=== PATIENT | male | born 1945 | race Caucasian/White ===

== ENCOUNTER 2017-10-30 18:13 | Emergency (ER) | payer MEDICARE ==
[2017-10-30 18:52] VITALS: BP 154/72; PULSE 81; RESP 18; TEMP 98.6
--- NOTE | 2017-10-30 19:41 | XR ---
EXAMINATION TYPE: XR Hip LT and AP Pelvis DATE OF EXAM: 10/30/2017 COMPARISON: NONE HISTORY: Left hip pain TECHNIQUE: A single AP view of the pelvis is obtained. Two views of the left hip are obtained. FINDINGS: The pelvic ring is intact. Proximal left femur and hip joint appear intact. There is mild acetabular spurring. Sacroiliac joints are intact. IMPRESSION: Mild osteoarthritis. No fracture.
--- NOTE | 2017-10-30 20:02 | ED ---
Fall HPI - General Chief Complaint: Fall Stated Complaint: fall, lt sided pain Time Seen by Provider: 10/30/17 19:47 Source: patient Mode of arrival: ambulatory - History of Present Illness Initial Comments: 72-year-old male patient presents to the emergency department today for complaints of low back pain that radiates to both hips. Patient states that the pain is worse on the left side. 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 Patient states that since then he has been having pain to the low back. He is rating the pain at a 5 out of 10 on a pain scale. He denies any radiation of the pain to his legs. Denies any numbness, tingling, saddle anesthesia, or loss of bowel or bladder control. States that he does have history of spinal stenosis and occasional low back pain but this is different. He denies hitting his head or losing consciousness during the fall. Denies any other injuries. Patient denies any headache, neck pain, chest pain, shortness of breath, dizziness, weakness, abdominal pain, nausea, vomiting, or difficulties with bowel movements or urination. - Related Data Home Medications Medication Instructions Recorded Confirmed Aspirin EC [Ecotrin] 81 mg PO DAILY 04/09/14 01/05/16 Atorvastatin [Lipitor] 40 mg PO HS 04/09/14 01/05/16 Clopidogrel Bisulfate [Plavix] 75 mg PO DAILY 04/09/14 01/05/16 Famotidine [Pepcid] 20 mg PO BID 04/09/14 01/05/16 Insulin Aspart [NovoLOG] 18 unit SQ DIRECTED 04/09/14 01/05/16 Losartan [Cozaar] 50 mg PO DAILY 04/09/14 01/05/16 Metoprolol Tartrate [Lopressor] 25 mg PO DAILY 04/09/14 01/05/16 Multivitamin/Iron/Folic Acid 1 each PO DAILY 04/09/14 01/05/16 [Centrum Complete Multivit Tab] Nitroglycerin Sl Tabs [Nitrostat] 0.4 mg SUBLINGUAL Q5M PRN 04/09/14 01/05/16 OXcarbazepine [Trileptal] 300 mg PO TID 04/09/14 01/05/16 Tamsulosin HCl [Flomax] 0.4 mg PO DAILY 04/09/14 01/05/16 Insulin Aspart [NovoLOG Flexpen] 26 unit SQ DIRECTED 09/22/15 01/05/16 Insulin Detemir [Levemir Flextouch] 22 unit SQ HS 09/22/15 01/05/16 Allergies Allergy/AdvReac Type Severity Reaction Status Date / Time No Known Allergies Allergy Verified 10/30/17 18:52 Review of Systems ROS Statement: Those systems with pertinent positive or pertinent negative responses have been documented in the HPI. ROS Other: All systems not noted in ROS Statement are negative. Past Medical History Past Medical History: Diabetes Mellitus, GERD/Reflux, Hyperlipidemia, Hypertension, Myocardial Infarction ([place]), Prostate Disorder, Seizure Disorder History of Any Multi-Drug Resistant Organisms: None Reported Past Surgical History: Heart Catheterization With Stent, Orthopedic Surgery Additional Past Surgical History / Comment(s): bilateral knee replacement, left ankle Past Psychological History: No Psychological Hx Reported Smoking Status: Light tobacco smoker Past Alcohol Use History: Rare Past Drug Use History: None Reported General Exam Limitations: no limitations General appearance: alert, in no apparent distress, other (This is a well- developed, well-nourished elderly male patient in no acute distress. Vital signs upon presentation are temperature 98.6F, pulse 81, respirations 18, blood pressure 154/72, pulse ox 97% on room air.) Eye exam: Present: normal appearance, PERRL, EOMI. Absent: scleral icterus, conjunctival injection, periorbital swelling ENT exam: Present: normal exam, normal oropharynx, mucous membranes moist Neck exam: Present: normal inspection, full ROM, other (Nontender, no step-off, no deformity to firm midline palpation of the posterior cervical spine. Full range of motion without pain or limitation.). Absent: tenderness, meningismus, lymphadenopathy Respiratory exam: Present: normal lung sounds bilaterally. Absent: respiratory distress, wheezes, rales, rhonchi, stridor Cardiovascular Exam: Present: regular rate, normal rhythm, normal heart sounds. Absent: systolic murmur, diastolic murmur, rubs, gallop, clicks GI/Abdominal exam: Present: soft, normal bowel sounds. Absent: distended, tenderness, guarding, rebound, rigid Extremities exam: Present: normal inspection, full ROM, normal capillary refill , other (Pedal and posttibial pulses are 2+ and equal bilaterally. Skin to the lower extremities is pink, warm, and dry. Cap refills less than 3 seconds.). Absent: tenderness, pedal edema, joint swelling, calf tenderness Back exam: Present: normal inspection, vertebral tenderness (Lumbar vertebral tenderness. Left lumbar paraspinal tenderness.) Neurological exam: Present: alert, oriented X3, CN II-XII intact Expanded Motor strength exam: RUE: 5, LUE: 5, RLE: 5, LLE: 5 Psychiatric exam: Present: normal affect, normal mood Skin exam: Present: warm, dry, intact, normal color. Absent: rash Course Vital Signs 10/30/17 18:50 Temperature 98.6 F Pulse Rate 81 Respiratory 18 Rate Blood Pressure 154/72 O2 Sat by Pulse 97 Oximetry Medical Decision Making - Medical Decision Making 72-year-old male patient presented to the emergency department today for complaints of left lower back pain after a fall earlier today. Physical examination did reveal some left lumbar paraspinal tenderness. Patient had good strength to his lower extremities. Denied any numbness, tingling, saddle anesthesia, or loss of bowel or bladder control. X-ray of the left hip and pelvis were negative. X-ray of the lumbosacral spine was negative. I did discuss findings and results with the patient. We did discuss low back strain as a cause for his symptoms. Return parameters were discussed in detail. He is instructed follow up with his primary care physician for recheck in 1-2 days. I did offer prescription for pain medication, patient declined stating he would take Tylenol at home. He verbalizes understanding and agrees with the plan. - Radiology Data Radiology results: report reviewed, image reviewed Single view of the pelvis and 2 views of left hip are obtained. The pelvic ring is intact. Proximal left femur and hip joint appear intact. There is mild acetabular sprain. Sacroiliac joints are intact. Impression by Dr. Lynn shows mild osteoarthritis. No fracture. 5 views of the lumbosacral spine are obtained. Lumbar vertebrae have fairly normal alignment. There is narrowing of disc spaces throughout the lumbar spine with spurring of the endplates. There is no compression fracture. Posterior elements are intact. Abdominal aorta is atheromatous. Sacroiliac joints are intact. Impression by Dr. Lynn shows multilevel spondylotic changes. No fracture seen. Disposition Clinical Impression: Low back strain Disposition: HOME SELF-CARE Condition: Good Instructions: Low Back Strain (ED), Fall Prevention (ED) Additional Instructions: Apply ice for the first 24 hours then switch to warm moist heat. Perform gentle back stretching exercises. Take Tylenol for pain control. Follow-up with your primary care physician for recheck in 1-2 days. Return here immediately for any new, worsening, or concerning symptoms. Is patient prescribed a controlled substance at d/c from ED?: No Referrals: Tom Ryan MD [Primary Care Provider] - 1-2 days Time of Disposition: 20:36
--- NOTE | 2017-10-30 20:27 | XR ---
EXAMINATION TYPE: XR lumbosacral spine min 4V DATE OF EXAM: 10/30/2017 COMPARISON: NONE HISTORY: Pain after falling TECHNIQUE: 5 views FINDINGS: Lumbar vertebra have fairly normal alignment. There is narrowing of disc spaces throughout the lumbar spine with spurring of the endplates. There is no compression fracture. Posterior elements are intact. Abdominal aorta is atheromatous. Sacroiliac joints are intact. IMPRESSION: Multilevel spondylotic changes. No fracture seen.
== END 2017-10-30 20:42 | disposition home or self-care (01) ==
LOC: EC 18:13
DX: S39.012A Strain of muscle, fascia and tendon of lower back, initial encounter (principal); E11.9 Type 2 diabetes mellitus without complications; K21.9 Gastro-esophageal reflux disease without esophagitis; E78.5 Hyperlipidemia, unspecified; I10 Essential (primary) hypertension; I25.2 Old myocardial infarction; G40.909 Epilepsy, unspecified, not intractable, without status epilepticus; N42.9 Disorder of prostate, unspecified; F17.200 Nicotine dependence, unspecified, uncomplicated; Z79.4 Long term (current) use of insulin; Z79.82 Long term (current) use of aspirin; Z79.01 Long term (current) use of anticoagulants; Z95.5 Presence of coronary angioplasty implant and graft; W01.0XXA Fall on same level from slipping, tripping and stumbling without subsequent striking against object, initial encounter; Y92.096 Garden or yard of other non-institutional residence as the place of occurrence of the external cause
CPT/HCPCS: 72110; 73502; 99283

== ENCOUNTER → 2017-12-12 | Outpatient (CLI) | payer MEDICARE | END | disposition home or self-care (01) | LOC: LABWHC1 11:23 | PROVIDERS: ATTEND Psychiatry & Neurology Neurology | DX: G40.909 Epilepsy, unspecified, not intractable, without status epilepticus (principal) | CPT/HCPCS: 36415; 80177 ==

== ENCOUNTER → 2018-01-01 | Outpatient (CLI) | payer MEDICARE | END | disposition home or self-care (01) | LOC: LABWHC1 12:09 | PROVIDERS: ATTEND Psychiatry & Neurology Neurology | DX: Z01.812 Encounter for preprocedural laboratory examination (principal); G40.909 Epilepsy, unspecified, not intractable, without status epilepticus | CPT/HCPCS: 36415; 82565 ==

== ENCOUNTER → 2018-04-27 | Outpatient (CLI) | payer MEDICARE ==
[2018-04-27 15:26] LABS: HCT 41.6 % (39.0-53.0); HGB 13.7 gm/dL (13.0-17.5); MCH 32.2 pg (25.0-35.0); MCV 97.6 fL (80.0-100.0); Mean Platelet Volume 7.9; Platelet Count 175 k/uL (150-450); RBC 4.27 m/uL (4.30-5.90)
[2018-04-27 15:43] LABS: Potassium 4.5 mmol/L (3.5-5.1)
== END | disposition home or self-care (01) ==
LOC: LABPAT 14:47
PROVIDERS: ATTEND Internal Medicine Interventional Cardiology
DX: Z01.812 Encounter for preprocedural laboratory examination (principal); I10 Essential (primary) hypertension; I25.5 Ischemic cardiomyopathy; E78.2 Mixed hyperlipidemia
CPT/HCPCS: 36415; 80051; 82565; 84520; 85027

== ENCOUNTER → 2018-05-04 | Day surgery (SDC) | payer MEDICARE ==
[2018-04-30 11:10] VITALS: BMI 38.7
[~2018-05-04] MED LIST: ALPRAZolam 0.25 MG TAB PO PRN; ALPRAZolam 0.5 MG TAB PO PRN; ASPIRIN 325 MG TAB PO STA; ATORVASTATIN 80 MG TAB PO STA; HEPARIN SODIUM 1,000 UN/ML (10ML VL) IV ONE; IOPAMIDOL-370 100ML BTL INJ ONE; LIDOCAINE 1% INJ 10MG/ML (20 ML MDV) SQ ONE; MIDAZOLAM 2 MG/2 ML VIAL IV ONE; NITROGLYCERIN 1000MCG/10ML SYRINGE INTRACORON ONE; NITROGLYCERIN SL TABS 0.4 MG TAB SUBLINGUAL PRN; SODIUM CHLORIDE 0.9% 1,000 ML IV SCH; SODIUM CHLORIDE 0.9% 1,000 ML in EMPTY BAG 1 BAG IV ONE; VERAPAMIL SYRINGE (5 MG/10 ML) INTRAARTER ONE
[2018-05-04 06:41] VITALS: TEMP 98.3
[2018-05-04 07:03] LABS: Glucose,Whole Blood 189 mg/dL (75-99)
--- NOTE | 2018-05-04 09:30 | CC ---
CARDIAC CATHETERIZATION REPORT DATE OF SERVICE: 05/04/2018 PROCEDURE: Left heart catheterization and coronary angiography. PERFORMED BY: Dr. Ras Naqvi. Moderate conscious sedation time was 23 minutes. Patient was administered Versed. His oxygen saturation, hemodynamic, and EKG were monitored closely. CLINICAL INFORMATION: Mr. Jakob Jang is a 73-year-old gentleman who is obese, has hypertension, type 2 diabetes with chronic kidney disease, and hyperlipidemia. In May of 2013, he suffered from an acute inferior [place] underwent, underwent stenting of RCA and then I performed stenting of LAD and a PTCA of a septal branch, which was almost parallel to the LAD. He also had a circumflex intervention performed in the same setting when I performed the LAD intervention. This was all in May 2013. Because of abnormal stress test and symptoms of increasing shortness of breath and evidence of ischemia in the LAD distribution, I recommended coronary angiography after due discussion regarding risks, benefits, options and concern with worsening renal function. Patient was very well hydrated orally and brought in for the procedure. PROCEDURE NOTE: Under local anesthesia and strict aseptic precautions, a 6-Divehi introducer was placed in the right radial artery. Using a standard Tisha catheters I performed coronary angiography and using the same right Tisha catheter, I checked LV pressures but did not perform an LV-gram. About 50 mL of contrast was administered and patient was hydrated before the procedure. CARDIAC CATHETERIZATION FINDINGS: The left ventricular end-diastolic pressure was about 14 mmHg without any gradient across aortic valve. CORONARY ANGIOGRAPHY FINDINGS: RIGHT CORONARY ARTERY: This is a dominant vessel that was stented in the proximal portion, now is widely patent in the midportion there is about a 35% to 40% narrowing and then the caliber improves and distally bifurcates into PDA and PLV, both of which have minor irregularities but no significant disease. The dominant RCA is therefore widely patent at the site of previous stenting. LEFT MAIN CORONARY ARTERY: Short patent vessel free of significant disease. Bifurcates into LAD and circumflex. LEFT ANTERIOR DESCENDING CORONARY ARTERY: This vessel was stented in the midportion. LAD gives off a septal and then continues as the LAD. The septal also has another branch that follows the LAD in a parallel manner. The actual LAD was stented and within the stented segment, there is an in-stent restenosis of 70%-80%as well as the proximal portion of the stent where the septal comes off, also has an area of 70% narrowing. Beyond it, in the distal 1/4 there is diffuse disease in the LAD. This is a small caliber, moderate distribution vessel. The second diagonal that was dilated has now restenoses and also this is actually looks more like a septal branch in the secondary branch that follows the LAD in the parallel direction also has a restenosis and this was also dilated. All of the areas are small branches that ranged from 2.0- 2.5 at best. The multiple branches of LAD have developed restenosis. Specifically, within the stented segment, There are two areas of narrowing the LAD. LEFT POSTERIOR CIRCUMFLEX CORONARY ARTERY: Technically this is a nondominant vessel which is free of significant disease. At the site of previous stenting, the vessel is widely patent, it divides into 3 branches, all of which have minor irregularities. No significant disease in the circumflex system is noted. FINAL IMPRESSION: This patient has restenoses within the LAD as well as the branches of LAD which were dilated. The RCA that was stented and circumflex that was stented are widely patent without any significant disease. Filling pressures are acceptable. RECOMMENDATIONS: I am recommending elective intervention because of renal failure. We gave only 50 mL of dye and patient will be brought back for this procedure electively after adequate hydration and rechecking renal function. Findings and recommendation discussed with the patient and family and I will speak to his PCP, Dr. Ryan as well. MMODL / JUDSONN: [id number] /
[2018-05-04 10:34] VITALS: RESP 18
[2018-05-04 10:35] VITALS: BP 111/57; PULSE 62
== END | disposition home or self-care (01) ==
LOC: CATHCVL 06:14
PROVIDERS: ATTEND Internal Medicine Interventional Cardiology
DX: I25.10 Atherosclerotic heart disease of native coronary artery without angina pectoris (principal); T82.855A Stenosis of coronary artery stent, initial encounter; E78.5 Hyperlipidemia, unspecified; I25.2 Old myocardial infarction; E66.01 Morbid (severe) obesity due to excess calories; R94.39 Abnormal result of other cardiovascular function study; E78.00 Pure hypercholesterolemia, unspecified; I25.5 Ischemic cardiomyopathy; E11.21 Type 2 diabetes mellitus with diabetic nephropathy; G40.909 Epilepsy, unspecified, not intractable, without status epilepticus; E11.22 Type 2 diabetes mellitus with diabetic chronic kidney disease; I12.9 Hypertensive chronic kidney disease with stage 1 through stage 4 chronic kidney disease, or unspecified chronic kidney disease; N18.9 Chronic kidney disease, unspecified; Z79.82 Long term (current) use of aspirin; Z79.899 Other long term (current) drug therapy; Z79.4 Long term (current) use of insulin; Z68.41 Body mass index [BMI] 40.0-44.9, adult; Z95.5 Presence of coronary angioplasty implant and graft
CPT/HCPCS: 93458; C1769; C1894; J2250; J2001; J1644; Q9967

== ENCOUNTER → 2018-05-07 | Outpatient (CLI) | payer MEDICARE ==
[2018-05-07 12:55] LABS: Anion Gap 7 mmol/L; Blood Urea Nitrogen 33 mg/dL (9-20); Calcium 9.4 mg/dL (8.4-10.2); Carbon Dioxide 26 mmol/L (22-30); Chloride 107 mmol/L (98-107); Glucose 192 mg/dL (74-99); Potassium 5.6 mmol/L (3.5-5.1); Sodium 140 mmol/L (137-145)
== END ==
LOC: LABWHC1 11:29
PROVIDERS: ATTEND Internal Medicine Interventional Cardiology
DX: I25.10 Atherosclerotic heart disease of native coronary artery without angina pectoris (principal); E11.22 Type 2 diabetes mellitus with diabetic chronic kidney disease; N18.9 Chronic kidney disease, unspecified
CPT/HCPCS: 36415; 80048

== ENCOUNTER → 2018-05-21 | Outpatient (CLI) | payer MEDICARE ==
[2018-05-21 11:21] LABS: HCT 43.9 % (39.0-53.0); HGB 14.4 gm/dL (13.0-17.5); MCH 31.8 pg (25.0-35.0); MCHC 32.7 g/dL (31.0-37.0); MCV 97.2 fL (80.0-100.0); Mean Platelet Volume 7.5; Platelet Count 186 k/uL (150-450); RBC 4.51 m/uL (4.30-5.90); RDW 14.2 % (11.5-15.5); WBC 9.7 k/uL (3.8-10.6)
[2018-05-21 18:38] LABS: Anion Gap 9.8 mmol/L (4.00-12.00); Calcium 9.2 mg/dL (8.7-10.3); Carbon Dioxide 25.2 mmol/L (21.6-31.8); Potassium 4.9 mmol/L (3.5-5.5)
== END ==
LOC: LABWHC1 10:15
PROVIDERS: ATTEND Internal Medicine Interventional Cardiology
DX: I25.10 Atherosclerotic heart disease of native coronary artery without angina pectoris (principal); E11.22 Type 2 diabetes mellitus with diabetic chronic kidney disease; N18.9 Chronic kidney disease, unspecified
CPT/HCPCS: 36415; 80048; 85027

== ENCOUNTER → 2018-07-09 | Outpatient (CLI) | payer MEDICARE | END | disposition home or self-care (01) | DX: R80.9 Proteinuria, unspecified (principal); N18.3 Chronic kidney disease, stage 3 (moderate); D63.1 Anemia in chronic kidney disease; E55.9 Vitamin D deficiency, unspecified; E21.3 Hyperparathyroidism, unspecified; M10.9 Gout, unspecified; N39.0 Urinary tract infection, site not specified ==

== ENCOUNTER → 2018-09-06 | Outpatient (CLI) | payer MEDICARE ==
[2018-09-06 11:13] LABS: Basophils # (A) 0.2 k/uL (0-0.2); Basophils % (A) 3 %; Eosinophils # (A) 0.2 k/uL (0-0.7); Eosinophils % (A) 2 %; HCT 42.7 % (39.0-53.0); HGB 13.6 gm/dL (13.0-17.5); Lymphocytes # (A) 1.1 k/uL (1.0-4.8); Lymphocytes % (A) 16 %; MCH 30.3 pg (25.0-35.0); MCHC 31.9 g/dL (31.0-37.0); MCV 94.8 fL (80.0-100.0); Mean Platelet Volume 7.9; Monocytes # (A) 0.5 k/uL (0-1.0); Monocytes % (A) 8 %; Neutrophils # (A) 4.6 k/uL (1.3-7.7); Neutrophils % (A) 68 %; Platelet Count 210 k/uL (150-450); RDW 14.7 % (11.5-15.5); WBC 6.8 k/uL (3.8-10.6)
[2018-09-06 11:24] LABS: Appearance,Urine Clear (Clear); Bilirubin,Urine Negative (Negative); Blood,Urine Negative (Negative); Color,Urine Light Yellow; Glucose,Urine (UA) 2+ (Negative); Ketones,Urine Negative (Negative); Leukocyte Esterase,Urine Negative (Negative); Nitrite,Urine Negative (Negative); Protein,Urine Negative (Negative); Specific Gravity,Urine 1.006 (1.001-1.035); Urobilinogen,Urine <2.0 mg/dL (<2.0)
[2018-09-06 16:34] LABS: Iron Saturation 26.52 (15.00-50.00)
[2018-09-06 16:55] LABS: Parathyroid Hormone Intact 71.9 pg/mL (14.0-72.0)
[2018-09-06 18:23] LABS: Creatinine,Urine Random 21.8 mg/dL
[2018-09-06 19:39] LABS: Total Protein,Urine Random 5.5 mg/dL (0.0-13.5)
[2018-09-07 00:50] LABS: Phosphorus 2.8 mg/dL (2.4-5.1); Uric Acid 6.2 mg/dL (3.7-8.7)
[2018-09-07 00:51] LABS: Albumin 4.1 g/dL (3.80-4.90); Anion Gap 11.3 mmol/L (4.00-12.00); BUN/Creat Ratio 14.44 Ratio (12.00-20.00); Calcium 9.2 mg/dL (8.7-10.3); Carbon Dioxide 24.7 mmol/L (21.6-31.8)
== END | disposition home or self-care (01) ==
LOC: LABWHC1 09:43
PROVIDERS: ATTEND Internal Medicine Nephrology
DX: N25.81 Secondary hyperparathyroidism of renal origin (principal); N18.3 Chronic kidney disease, stage 3 (moderate); M10.9 Gout, unspecified; N39.0 Urinary tract infection, site not specified; D44.9 Neoplasm of uncertain behavior of unspecified endocrine gland; R80.9 Proteinuria, unspecified
CPT/HCPCS: 36415; 80048; 81003; 82040; 82570; 82728; 83540; 83550; 83735; 83970; 84100; 84156; 84550; 85025

== ENCOUNTER → 2018-12-09 | Outpatient (CLI) | payer MEDICARE ==
[2018-12-09 12:28] LABS: Basophils # (A) 0.2 k/uL (0-0.2); Basophils % (A) 3 %; Eosinophils # (A) 0.2 k/uL (0-0.7); Eosinophils % (A) 3 %; HCT 42.3 % (39.0-53.0); HGB 14.1 gm/dL (13.0-17.5); Lymphocytes # (A) 1.1 k/uL (1.0-4.8); Lymphocytes % (A) 17 %; MCH 31.5 pg (25.0-35.0); MCHC 33.4 g/dL (31.0-37.0); MCV 94.5 fL (80.0-100.0); Monocytes # (A) 0.4 k/uL (0-1.0); Monocytes % (A) 7 %; Neutrophils # (A) 4.3 k/uL (1.3-7.7); Neutrophils % (A) 68 %; Platelet Count 205 k/uL (150-450); RBC 4.47 m/uL (4.30-5.90); RDW 15.9 % (11.5-15.5); WBC 6.3 k/uL (3.8-10.6)
[2018-12-09 12:34] LABS: Appearance,Urine Clear (Clear); Bilirubin,Urine Negative (Negative); Blood,Urine Negative (Negative); Color,Urine Yellow; Glucose,Urine (UA) Negative (Negative); Ketones,Urine Negative (Negative); Leukocyte Esterase,Urine Negative (Negative); Nitrite,Urine Negative (Negative); PH, Urine 5.5 (5.0-8.0); Protein,Urine Negative (Negative); Specific Gravity,Urine 1.011 (1.001-1.035); Urobilinogen,Urine <2.0 mg/dL (<2.0)
[2018-12-09 17:49] LABS: Iron Saturation 34.83 (15.00-50.00)
[2018-12-09 17:58] LABS: Vitamin D 25 Hydroxy 29.2 ng/mL (30.0-100.0)
[2018-12-09 18:00] LABS: African American GFR (CKD) 48.5 (60.0-200.0); Albumin 4.1 g/dL (3.80-4.90); Calcium 9.2 mg/dL (8.7-10.3); Phosphorus 3.4 mg/dL (2.4-5.1); Potassium 4.5 mmol/L (3.5-5.5); Uric Acid 6.4 mg/dL (3.7-8.7)
[2018-12-09 19:17] LABS: Creatinine,Urine Random 60.3 mg/dL
[2018-12-09 20:15] LABS: Total Protein,Urine Random 8.3 mg/dL (0.0-13.5)
== END | disposition home or self-care (01) ==
LOC: LABWHC1 10:54
PROVIDERS: ATTEND Nurse Practitioner Family
DX: E55.9 Vitamin D deficiency, unspecified (principal); N25.81 Secondary hyperparathyroidism of renal origin; N18.3 Chronic kidney disease, stage 3 (moderate); M10.9 Gout, unspecified; N39.0 Urinary tract infection, site not specified
CPT/HCPCS: 36415; 80048; 81003; 82040; 82306; 82570; 82728; 83540; 83550; 83735; 83970; 84100; 84156; 84550; 85025

== ENCOUNTER 2019-01-27 12:04 | Inpatient (IN) | payer MEDICARE ==
[2019-01-27 13:16] LABS: Basophils # (A) 0.2 k/uL (0-0.2); Basophils % (A) 2 %; Eosinophils # (A) 0.2 k/uL (0-0.7); Eosinophils % (A) 2 %; HCT 44.2 % (39.0-53.0); HGB 14.5 gm/dL (13.0-17.5); Lymphocytes # (A) 0.8 k/uL (1.0-4.8); Lymphocytes % (A) 11 %; MCH 31.2 pg (25.0-35.0); MCHC 32.9 g/dL (31.0-37.0); Mean Platelet Volume 7.6; Monocytes # (A) 0.5 k/uL (0-1.0); Monocytes % (A) 6 %; Neutrophils % (A) 78 %; Platelet Count 219 k/uL (150-450); RBC 4.65 m/uL (4.30-5.90); RDW 13.7 % (11.5-15.5); WBC 7.7 k/uL (3.8-10.6)
[2019-01-27 13:30] LABS: Albumin 4.1 g/dL (3.5-5.0); Calcium 9.2 mg/dL (8.4-10.2); Magnesium 2.1 mg/dL (1.6-2.3); Potassium 4.7 mmol/L (3.5-5.1); Total Bilirubin 0.8 mg/dL (0.2-1.3); Total Protein 6.9 g/dL (6.3-8.2)
--- NOTE | 2019-01-27 13:36 | ED ---
Fall HPI - General Chief Complaint: Fall Stated Complaint: Fall Time Seen by Provider: 01/27/19 12:39 Source: patient Mode of arrival: ambulatory - History of Present Illness Initial Comments: This is a 74-year-old male with a history of hypertension 1 other medical issues who states he's been having frequent falls with the last fall about a week ago. He states it starts after taking a new medication which he had restarted "losartan". He also is on seizure medication he is being placed on Vimpat in addition to Keppra. He has no recent fevers chills nausea vomiting sweats he has no focal weakness. He states when he falls he has no idea how he is up on the floor. He denies any dizziness he does complain some mid upper thoracic pain from his follow week ago deficits he states his legs generally feel weak. He denies any fever chills nausea vomiting sweats cough phlegm production or dysuria. MD Complaint: fall, other - Related Data Home Medications Medication Instructions Recorded Confirmed Aspirin EC [Ecotrin Low Dose] 81 mg PO HS@1900 04/09/14 01/27/19 Metoprolol Tartrate [Lopressor] 25 mg PO DAILY@0700 04/09/14 01/27/19 Nitroglycerin Sl Tabs [Nitrostat] 0.4 mg SUBLINGUAL Q5M PRN 04/09/14 01/27/19 Tamsulosin HCl [Flomax] 0.4 mg PO HS@1900 04/09/14 01/27/19 Multivit-Min/FA/Lycopen/Lutein 1 tab PO HS@1900 04/30/18 01/27/19 [Centrum Silver Tablet] levETIRAcetam [Keppra] 1,500 mg PO BID@0700,1900 04/30/18 01/27/19 Atorvastatin [Lipitor] 80 mg PO HS@1900 01/27/19 01/27/19 Clopidogrel [Plavix] 75 mg PO DAILY@0700 01/27/19 01/27/19 INSULIN ASPART (NovoLOG) [NovoLOG 24 unit SQ PC-TID 01/27/19 01/27/19 (formulary)] Insulin Detemir (Levemir) [Levemir] 24 unit SQ HS@1900 01/27/19 01/27/19 Lacosamide [Vimpat] See Taper PO DIRECTED 01/27/19 01/27/19 Losartan Potassium [Cozaar] 25 mg PO HS@1900 01/27/19 01/27/19 Allergies Allergy/AdvReac Type Severity Reaction Status Date / Time No Known Allergies Allergy Verified 01/27/19 13:31 Review of Systems ROS Statement: Those systems with pertinent positive or pertinent negative responses have been documented in the HPI. ROS Other: All systems not noted in ROS Statement are negative. Past Medical History Past Medical History: Diabetes Mellitus, GERD/Reflux, Hyperlipidemia, Hypertension, Myocardial Infarction ([place]), Prostate Disorder, Renal Disease, Seizure Disorder Additional Past Medical History / Comment(s): last seizure last week-usually has one every couple months, uses CPAP, neuropathy feet, decreased kidney function- sees [facility] Last Myocardial Infarction Date:: 2013 History of Any Multi-Drug Resistant Organisms: None Reported Past Surgical History: Heart Catheterization, Heart Catheterization With Stent, Orthopedic Surgery Additional Past Surgical History / Comment(s): bilateral knee replacement, left ankle, 5 stents Past Anesthesia/Blood Transfusion Reactions: No Reported Reaction Date of Last Stent Placement:: 2013 Past Psychological History: No Psychological Hx Reported Smoking Status: Current some day smoker Past Alcohol Use History: Occasional Past Drug Use History: None Reported - Past Family History Mother Family Medical History: No Reported History General Exam - General Exam Comments Initial Comments: This is a well-developed well-nourished awake alert oriented 3 male Limitations: no limitations General appearance: alert, in no apparent distress Head exam: Present: atraumatic, normocephalic, normal inspection Eye exam: Present: normal appearance, PERRL, EOMI. Absent: scleral icterus, conjunctival injection, periorbital swelling ENT exam: Present: normal exam, mucous membranes moist Neck exam: Present: normal inspection, full ROM, other (No stridor JVD or bruits). Absent: tenderness, meningismus, lymphadenopathy Respiratory exam: Present: normal lung sounds bilaterally, chest wall tenderness (Tennis palpation of the mid and upper thoracic paraspinous muscles no spinous process tenderness.). Absent: respiratory distress, wheezes, rales, rhonchi, st ridor Cardiovascular Exam: Present: regular rate, normal rhythm, normal heart sounds. Absent: systolic murmur, diastolic murmur, rubs, gallop, clicks GI/Abdominal exam: Present: soft, normal bowel sounds. Absent: distended, tenderness, guarding, rebound, rigid, bruit, pulsatile mass Extremities exam: Present: normal inspection, full ROM, normal capillary refill. Absent: tenderness, pedal edema, joint swelling, calf tenderness Back exam: Present: normal inspection Neurological exam: Present: alert, oriented X3, CN II-XII intact Psychiatric exam: Present: normal affect, normal mood Skin exam: Present: warm, dry, intact, normal color. Absent: rash Course Vital Signs 01/27/19 12:07 Temperature 98 F Pulse Rate 85 Respiratory 20 Rate Blood Pressure 161/75 O2 Sat by Pulse 96 Oximetry Medical Decision Making - Medical Decision Making I did discuss findings with the patient has as well as with Dr. darcy esquivel. Patient will be admitted with cardiology consultation by Dr. Naqvi. - Lab Data Result diagrams: 01/27/19 13:00 01/27/19 13:00 Lab Results 01/27/19 01/27/19 01/27/19 Range/Units 13:00 13:00 13:00 WBC 7.7 (3.8-10.6) k/uL RBC 4.65 (4.30-5.90) m/uL Hgb 14.5 (13.0-17.5) gm/dL Hct 44.2 (39.0-53.0) % MCV 95.0 (80.0-100.0) fL MCH 31.2 (25.0-35.0) pg MCHC 32.9 (31.0-37.0) g/dL RDW 13.7 (11.5-15.5) % Plt Count 219 (150-450) k/uL Neutrophils % 78 % Lymphocytes % 11 % Monocytes % 6 % Eosinophils % 2 % Basophils % 2 % Neutrophils # 6.0 (1.3-7.7) k/uL Lymphocytes # 0.8 L (1.0-4.8) k/uL Monocytes # 0.5 (0-1.0) k/uL Eosinophils # 0.2 (0-0.7) k/uL Basophils # 0.2 (0-0.2) k/uL Sodium 142 (137-145) mmol/L Potassium 4.7 (3.5-5.1) mmol/L Chloride 106 (98-107) mmol/L Carbon Dioxide 26 (22-30) mmol/L Anion Gap 10 mmol/L BUN 25 H (9-20) mg/dL Creatinine 1.61 H (0.66-1.25) mg/dL Est GFR (CKD-EPI)AfAm 48 (>60 ml/min/1.73 sqM) Est GFR (CKD-EPI)NonAf 41 (>60 ml/min/1.73 sqM) Glucose 275 H (74-99) mg/dL Calcium 9.2 (8.4-10.2) mg/dL Magnesium 2.1 (1.6-2.3) mg/dL Total Bilirubin 0.8 (0.2-1.3) mg/dL AST 28 (17-59) U/L ALT 31 (21-72) U/L Alkaline Phosphatase 158 H (38-126) U/L Creatine Kinase 77 (55-170) U/L Troponin I 0.165 H* (0.000-0.034) ng/mL Total Protein 6.9 (6.3-8.2) g/dL Albumin 4.1 (3.5-5.0) g/dL TSH 1.370 (0.465-4.680) mIU/L Urine Color Urine Appearance (Clear) Urine pH (5.0-8.0) Ur Specific Burns (1.001-1.035) Urine Protein (Negative) Urine Glucose (UA) (Negative) Urine Ketones (Negative) Urine Blood (Negative) Urine Nitrite (Negative) Urine Bilirubin (Negative) Urine Urobilinogen (<2.0) mg/dL Ur Leukocyte Esterase (Negative) 01/27/19 Range/Units 14:15 WBC (3.8-10.6) k/uL RBC (4.30-5.90) m/uL Hgb (13.0-17.5) gm/dL Hct (39.0-53.0) % MCV (80.0-100.0) fL MCH (25.0-35.0) pg MCHC (31.0-37.0) g/dL RDW (11.5-15.5) % Plt Count (150-450) k/uL Neutrophils % % Lymphocytes % % Monocytes % % Eosinophils % % Basophils % % Neutrophils # (1.3-7.7) k/uL Lymphocytes # (1.0-4.8) k/uL Monocytes # (0-1.0) k/uL Eosinophils # (0-0.7) k/uL Basophils # (0-0.2) k/uL Sodium (137-145) mmol/L Potassium (3.5-5.1) mmol/L Chloride (98-107) mmol/L Carbon Dioxide (22-30) mmol/L Anion Gap mmol/L BUN (9-20) mg/dL Creatinine (0.66-1.25) mg/dL Est GFR (CKD-EPI)AfAm (>60 ml/min/1.73 sqM) Est GFR (CKD-EPI)NonAf (>60 ml/min/1.73 sqM) Glucose (74-99) mg/dL Calcium (8.4-10.2) mg/dL Magnesium (1.6-2.3) mg/dL Total Bilirubin (0.2-1.3) mg/dL AST (17-59) U/L ALT (21-72) U/L Alkaline Phosphatase (38-126) U/L Creatine Kinase (55-170) U/L Troponin I (0.000-0.034) ng/mL Total Protein (6.3-8.2) g/dL Albumin (3.5-5.0) g/dL TSH (0.465-4.680) mIU/L Urine Color Light Yellow Urine Appearance Clear (Clear) Urine pH 6.0 (5.0-8.0) Ur Specific Burns 1.014 (1.001-1.035) Urine Protein Trace H (Negative) Urine Glucose (UA) 4+ H (Negative) Urine Ketones Negative (Negative) Urine Blood Negative (Negative) Urine Nitrite Negative (Negative) Urine Bilirubin Negative (Negative) Urine Urobilinogen <2.0 (<2.0) mg/dL Ur Leukocyte Esterase Negative (Negative) - EKG Data -: EKG Interpreted by [facility] EKG shows normal: sinus rhythm (Sinus rhythm with first-degree AV block rate was 80 MT interval 2:30 QRS duration 102 QT/QTC 46/468 low-voltage QRS nonspecific inferior changes infarct of indeterminate age.) - Radiology Data Radiology results: report reviewed (Imaging reviewed as well as reports no acute findings.), image reviewed Disposition Clinical Impression: Fall, Elevated troponin, Atypical chest pain Disposition: ADMITTED IP TO THIS HOSP Condition: Stable Referrals: Tom Ryan MD [Primary Care Provider] - 1-2 days
--- NOTE | 2019-01-27 13:39 | XR ---
EXAMINATION TYPE: XR chest 2V DATE OF EXAM: 01/27/2019 COMPARISON: Chest x-ray 2014 HISTORY: Chest and upper back pain after fall injury. TECHNIQUE: Frontal and lateral views of the chest are obtained. FINDINGS: There is no focal air space opacity, pleural effusion, or pneumothorax seen. The cardiac silhouette size is enlarged. Multilevel spurring in the spine is present. IMPRESSION: Cardiomegaly without acute pulmonary process.
[2019-01-27 15:14] LABS: Appearance,Urine Clear (Clear); Bilirubin,Urine Negative (Negative); Blood,Urine Negative (Negative); Color,Urine Light Yellow; Glucose,Urine (UA) 4+ (Negative); Ketones,Urine Negative (Negative); Leukocyte Esterase,Urine Negative (Negative); Nitrite,Urine Negative (Negative); Protein,Urine Trace (Negative); Specific Gravity,Urine 1.014 (1.001-1.035); Urobilinogen,Urine <2.0 mg/dL (<2.0)
[2019-01-27] MEDS ORDERED: HEPARIN SODIUM,PORCINE 5,000 UNIT/ML 1 ML VIAL IV ONE (15:40)
[2019-01-27] MEDS ORDERED: NITROGLYCERIN SL TABS 0.4 MG TAB SUBLINGUAL PRN ×2 (15:40→15:44)
[2019-01-27] MEDS ORDERED: HEPARIN SOD,PORK IN 0.45% NACL 25,000 UNIT in 0.45% NACL 1 250ML.BAG IV SCH (15:45)
[2019-01-27] MEDS: SODIUM CHLORIDE 0.9% 1,000 ML IV SCH (16:19)
[2019-01-27] MEDS ORDERED: ACETAMINOPHEN TAB 500 MG TAB PO STA (16:28)
[2019-01-27 16:29] LABS: Glucose,Whole Blood 200 mg/dL (75-99)
[2019-01-27] MEDS: MULTIVITAMINS, THERA 1 EACH TAB PO SCH (18:02)
[2019-01-27] MEDS: LOSARTAN 25 MG TAB PO SCH (18:02)
[2019-01-27] MEDS: ASPIRIN 81 MG PO SCH (18:02)
[2019-01-27] MEDS: ATORVASTATIN 80 MG TAB PO SCH (18:02)
[2019-01-27] MEDS: INSULIN ASPART (NovoLOG) 100 UNIT/ML VIAL SQ SCH (18:03)
[2019-01-27] MEDS: TAMSULOSIN 0.4 MG CAP.ER.24H PO SCH (18:03)
[2019-01-27 18:36] VITALS: BMI 40.4
--- NOTE | 2019-01-27 19:24 | P.HPIM ---
History of Present Illness H&P Date: 01/27/19 Chief Complaint: Syncope and fall few times since 4 weeks, most recent this morning. This 74-year-old male with past medical history significant for hypertension, CAD s/p stents 6, myocardial infarction, hyperlipidemia, diabetes mellitus type 2 on insulin, obstructive sleep apnea on nasal CPAP daily at bedtime, seizure disorder, DJD status post bilateral knee arthroplasties who presented to the emergency room with the above complaints. Patient reports that this morning he was in the garage smoking his cigar and suddenly his legs gave away and he fell down. Patient denies losing consciousness or hitting his head. Patient stated that because of his knee surgeries in the past he is unable to stand up so he has to crawl to the entry door and held the railing to have him stand up. Patient reports that he has similar episode about a week ago also and 3 weeks ago. Patient did give history of her having sudden falls in the lawn or inside the home also in the past but that was a few years ago. Patient denied losing control of bowel or bladder biting his tongue with these episodes. Patient lives with his and his stated that is most of the time during the day out of the home and he is alone at home. All recent 3 falls happen when he was alone in the garage smoking his cigar. Patient did complain of generalized weakness especially of the legs the but no other specific weakness. Patient stated that since this morning fall he is having some pain in the mid back area but denied weakness of left or bowel or bladder incontinence. Patient denies chest pain, palpitation, headache, dizziness, lightheadedness, fever, chills, nausea, vomiting, diaphoresis and denies rest of the review system. Patient has extensive evaluation done in the emergency room and was noted to have BUN 25, creatinine 1.61, blood glucose 275, troponin 0.165, urinalysis was negative chest x-ray showed cardiomegaly without acute process. CBC was unremarkable. Cardiology was consulted from the emergency department patient was started on IV heparin drip and was admitted to the cardiac unit for an STEMI and syncope with falls. Review of Systems 12 point review of system was essentially negative other than mentioned above in HPI. Past Medical History Past Medical History: Diabetes Mellitus, GERD/Reflux, Hyperlipidemia, Hypertension, Myocardial Infarction ([place]), Prostate Disorder, Renal Disease, Seizure Disorder Additional Past Medical History / Comment(s): last seizure last week-usually has one every couple months, uses CPAP, neuropathy feet, decreased kidney function- sees [facility] Last Myocardial Infarction Date:: 2013 History of Any Multi-Drug Resistant Organisms: None Reported Past Surgical History: Heart Catheterization, Heart Catheterization With Stent, Orthopedic Surgery Additional Past Surgical History / Comment(s): bilateral knee replacement, left ankle, 5 stents Past Anesthesia/Blood Transfusion Reactions: No Reported Reaction Date of Last Stent Placement:: 2013 Past Psychological History: No Psychological Hx Reported Smoking Status: Current every day smoker Past Alcohol Use History: Occasional Additional Past Alcohol Use History / Comment(s): smoked on/off cigars, 1-2 daily Past Drug Use History: None Reported - Past Family History Mother Family Medical History: No Reported History Medications and Allergies Home Medications Medication Instructions Recorded Confirmed Type Aspirin EC [Ecotrin Low Dose] 81 mg PO HS@1900 04/09/14 01/27/19 History Metoprolol Tartrate [Lopressor] 25 mg PO DAILY@0700 04/09/14 01/27/19 History Nitroglycerin Sl Tabs [Nitrostat] 0.4 mg SUBLINGUAL Q5M PRN 04/09/14 01/27/19 History Tamsulosin HCl [Flomax] 0.4 mg PO HS@1900 04/09/14 01/27/19 History Multivit-Min/FA/Lycopen/Lutein 1 tab PO HS@1900 04/30/18 01/27/19 History [Centrum Silver Tablet] levETIRAcetam [Keppra] 1,500 mg PO BID@0700,1900 04/30/18 01/27/19 History Atorvastatin [Lipitor] 80 mg PO HS@1900 01/27/19 01/27/19 History Clopidogrel [Plavix] 75 mg PO DAILY@0700 01/27/19 01/27/19 History INSULIN ASPART (NovoLOG) [NovoLOG 24 unit SQ PC-TID 01/27/19 01/27/19 History (formulary)] Insulin Detemir (Levemir) [Levemir] 24 unit SQ HS@1900 01/27/19 01/27/19 History Lacosamide [Vimpat] See Taper PO DIRECTED 01/27/19 01/27/19 History Losartan Potassium [Cozaar] 25 mg PO HS@1900 01/27/19 01/27/19 History Allergies Allergy/AdvReac Type Severity Reaction Status Date / Time No Known Allergies Allergy Verified 01/27/19 13:31 Physical Exam Vitals: Vital Signs Temp Pulse Pulse Pulse Pulse Pulse Resp 01/27/19 17:40 98.1 F 71 18 01/27/19 16:35 18 01/27/19 15:43 97.9 F 70 18 01/27/19 15:40 76 82 70 01/27/19 12:07 98 F 85 20 BP BP BP BP BP Pulse Ox 01/27/19 17:40 156/84 94 L 01/27/19 16:35 01/27/19 15:43 149/77 98 01/27/19 15:40 140/79 148/78 145/74 01/27/19 12:07 161/75 96 Intake and Output 01/27/19 01/27/19 01/27/19 06:59 14:59 22:59 Intake Total 240 Balance 240 Intake: Oral 240 Other: Voiding Method Toilet # Voids 1 Weight 120.656 kg - Constitutional General appearance: cooperative, no acute distress - EENT Eyes: EOMI, PERRLA, normal appearance ENT: hearing grossly normal, NA/AT - Neck Neck: no lymphadenopathy, normal ROM, no rigidity, no stridor, no thyromegaly - Respiratory Respiratory: bilateral: diminished, negative: dullness, rales, rhonchi, wheezing - Cardiovascular Rhythm: regular Heart sounds: normal: S1, S2 Abnormal Heart Sounds: no systolic murmur, no diastolic murmur, no S3 Gallop, no S4 Gallop leg Peripheral Edema: bilateral: 2+, Pitting radial pulse Peripheral Pulses: bilateral: Normal - Gastrointestinal General gastrointestinal: no distended, normal bowel sounds, no rigid, soft, no tenderness - Integumentary Integumentary: normal, normal turgor - Neurologic Neurologic: CNII-XII intact (No focal neuro deficits noted.) Results CBC & Chem 7: 01/27/19 13:00 01/27/19 13:00 Labs: Abnormal Lab Results - Last 24 Hours (Table) 01/27/19 01/27/19 01/27/19 Range/Units 13:00 13:00 13:00 Lymphocytes # 0.8 L (1.0-4.8) k/uL BUN 25 H (9-20) mg/dL Creatinine 1.61 H (0.66-1.25) mg/dL Glucose 275 H (74-99) mg/dL POC Glucose (mg/dL) (75-99) mg/dL Alkaline Phosphatase 158 H (38-126) U/L Troponin I 0.165 H* (0.000-0.034) ng/mL Urine Protein (Negative) Urine Glucose (UA) (Negative) 01/27/19 01/27/19 Range/Units 14:15 16:28 Lymphocytes # (1.0-4.8) k/uL BUN (9-20) mg/dL Creatinine (0.66-1.25) mg/dL Glucose (74-99) mg/dL POC Glucose (mg/dL) 200 H (75-99) mg/dL Alkaline Phosphatase (38-126) U/L Troponin I (0.000-0.034) ng/mL Urine Protein Trace H (Negative) Urine Glucose (UA) 4+ H (Negative) Chest x-ray: report reviewed Thrombosis Risk Factor Assmnt - DVT/VTE Prophylaxis DVT/VTE Prophylaxis: Contraindicated - See note (On Full dose I/V Heparin for NSTEMI.) - Choose All That Apply Each Factor Represents 1 point: Obesity (BMI >25) Each Risk Factor Represents 3 Points: Age 75 years or older Thrombosis Risk Factor Assessment Total Risk Factor Score: 4 Thrombosis Risk Factor Assessment Level: Moderate Risk Assessment and Plan (1) Fall Narrative/Plan: It could be just due to weakness from prolonged standing while smoking cigar or it could be arrhythmia related which in turn can cause leakage of troponins versus could be the effect of acute non-ST elevation [place]. Current Visit: Yes Status: Acute Priority: High Code(s): W19.XXXA - UNSPECIFIED FALL, INITIAL ENCOUNTER SNOMED Code(s): 8603968 (2) Elevated troponin Current Visit: Yes Status: Acute Priority: High Code(s): R79.89 - OTHER SPECIFIED ABNORMAL FINDINGS OF BLOOD CHEMISTRY SNOMED Code(s): 782368933 (3) CAD (coronary artery disease), [place] coronary artery Current Visit: Yes Status: Acute Priority: High Code(s): I25.10 - ATHSCL HEART DISEASE OF [place] CORONARY ARTERY W/O ANG PCTRS SNOMED Code(s): 9142727131133 (4) Hypertension, essential, benign Current Visit: Yes Status: Acute Priority: Medium Code(s): I10 - ESSENTIAL (PRIMARY) HYPERTENSION SNOMED Code(s): 2850922 (5) Hyperlipidemia Current Visit: Yes Status: Acute Priority: Medium Code(s): E78.5 - HYPERLIPIDEMIA, UNSPECIFIED SNOMED Code(s): 91416599 (6) CKD (chronic kidney disease), stage III Current Visit: Yes Status: Acute Priority: High Code(s): N18.3 - CHRONIC KIDNEY DISEASE, STAGE 3 (MODERATE) SNOMED Code(s): 886941217 (7) Diabetes mellitus type 2 in obese Current Visit: Yes Status: Acute Priority: Medium Code(s): E11.69 - TYPE 2 DIABETES MELLITUS WITH OTHER SPECIFIED COMPLICATION; E66.9 - OBESITY, UNSPECIFIED SNOMED Code(s): 89148224 (8) Seizure disorder Current Visit: Yes Status: Acute Priority: High Code(s): G40.909 - EPILEPSY, UNSP, NOT INTRACTABLE, WITHOUT STATUS EPILEPTICUS SNOMED Code(s): 705376595 (9) SEBASTIAN on CPAP Current Visit: Yes Status: Acute Priority: Medium Code(s): G47.33 - OBSTRUCTIVE SLEEP APNEA (ADULT) (PEDIATRIC); Z99.89 - DEPENDENCE ON OTHER ENABLING MACHINES AND DEVICES SNOMED Code(s): 68812057 Plan: Patient was admitted to the cardiac unit, telemetry monitoring, cardiology consult obtained, he was placed IV heparin and we will trend troponins. 2-D echocardiogram will be obtained to assess patient cardiac function. Patient may be requiring cardiac catheterization if his creatinine improves. Patient will be referred to physical therapy occupational therapy for evaluation and management may be deconditioning is causing his weakness and falls. Orthostatic blood pressure permits was monitored and no significant drop of blood pressure or rise of pulse was noted. Patient home medications were reviewed reviewed on all medications were continued. Overall patient's condition is guarded and prognosis is fair to poor as he has significant coronary artery disease. Patient's seizure medication will be continued and in my clinical judgment these episodes does not appears to be breakthrough seizures, neurology is not consulted but if cardiac workup is all negative and patient is strength is not significantly less than the lower extremity to cause his fall when neurology evaluation may be needed. Advance directive discussed with the patient and patient stated that he had already said that advance directives and his and his youngest daughter who is a teacher is aware of and he wants full resuscitation/full code. Time with Patient: Greater than 30
[2019-01-27 20:36] LABS: Glucose,Whole Blood 170 mg/dL (75-99)
--- NOTE | 2019-01-27 20:36 | XR ---
EXAMINATION TYPE: XR thoracic spine complete DATE OF EXAM: 01/27/2019 COMPARISON: NONE HISTORY: Pain TECHNIQUE: 3 views FINDINGS: Thoracic vertebra have normal spacing and alignment. Posterior elements are intact. There i s no paraspinal mass. There is minor spurring of the endplates. There is no sign of compression fract ure. IMPRESSION: Negative thoracic spine exam.
[2019-01-27] MEDS: INSULIN DETEMIR (LEVEMIR) 100 UNIT/ML SYR SQ SCH (22:07)
[2019-01-27] MEDS: LACOSAMIDE 150 MG TABLET PO SCH (22:07)
[2019-01-28] MEDS: METOPROLOL TARTRATE 25 MG TAB PO SCH (06:21)
[2019-01-28] MEDS: CLOPIDOGREL 75 MG TAB PO SCH (06:21)
[2019-01-28 06:31] LABS: Glucose,Whole Blood 147 mg/dL (75-99)
[2019-01-28 07:40] LABS: Cholesterol 92 mg/dL (<200); HDL Cholesterol 35 mg/dL (40-60); LDL Cholesterol,Calculated 34 mg/dL (0-99); Triglycerides 113 mg/dL (<150)
[2019-01-28] MEDS ORDERED: ASPIRIN 325 MG TAB PO SCH (09:00)
[2019-01-28] MEDS: LACOSAMIDE 150 MG TABLET PO SCH ×2 (09:51→20:52)
[2019-01-28] MEDS: INSULIN ASPART (NovoLOG) 100 UNIT/ML VIAL SQ SCH ×3 (09:51→17:47)
[2019-01-28] MEDS: HEPARIN SODIUM,PORCINE 5,000 UNIT/ML 1 ML VIAL SQ SCH ×2 (09:51→20:52)
--- NOTE | 2019-01-28 10:06 | CONS ---
CONSULTATION CHIEF COMPLAINT: Syncope. Jakob is a 74-year-old gentleman with history of coronary artery disease, status post multivessel angioplasty, hypertension, insulin-requiring diabetes, dyslipidemia, seizure disorder, on multiple medications, who presented to the hospital having had 3 episodes of syncope. He states that he was in his garage and went down to floor and then got up. He has history of petite mal seizures and does not have any tonic-clonic seizures. Did not have bladder or bowel incontinence. Did not lose consciousness for a long time; in fact, he did not even get hurt. He thinks that while he was in the garage this happened 3 times, he just suddenly goes down floor and then gets up and gets on with his business. He also complains of vague atypical chest pain, some of which is reproducible. There is no history of EtOH abuse or drug abuse. There is no history of leg edema, PND or orthopnea. PAST MEDICAL HISTORY: Significant for multivessel coronary artery disease. The patient had cardiac catheterization and angioplasty of mid LAD, diagonal branch and prior to that had an angioplasty of the right coronary artery. Hypertension, dyslipidemia, diabetes, seizures. MEDICATIONS: Medications at home included Keppra, Flomax, Lopressor 25 daily, Cozaar, Levemir, insulin, Plavix, Lipitor, and aspirin. ALLERGIES: There are no known drug allergies. FAMILY HISTORY: Negative for premature coronary artery disease. SOCIAL HISTORY: Negative for current smoking, EtOH abuse or drug abuse. REVIEW OF SYSTEMS: HEENT: Unremarkable. CARDIAC: As described above. RESPIRATORY: As described above. GI: Negative. GENITOURINARY: Negative. ALLERGY/IMMUNOLOGY: Negative. SKIN: Negative. MUSCULOSKELETAL: Significant for arthritis. PSYCHOSOCIAL: Negative. ENDOCRINE: Negative. DERM: Negative. CONSTITUTIONAL: Negative. ONCOLOGICAL: Negative. WAXING MACHINE OPERATOR: Negative. Rest of the system review is not relevant. PHYSICAL EXAMINATION: On exam, comfortable at rest. Heart rate is 69 beats per minute. Blood pressure is 130/72. Respiratory rate is 18. There is no jugular venous distention. Carotid upstroke is normal. There is no bruit. Chest exam reveals good air entry bilaterally. Heart exam reveals first and second heart sounds. A systolic murmur at the left lower sternal border. Abdomen is soft. Exam of extremities did not reveal any edema. Peripheral pulses are felt. EKG shows sinus rhythm with evidence of prior inferior wall myocardial infarction. Troponin is mildly elevated at 0.1, 0.2 and 0.2 with no definite pattern to it. Creatinine is elevated at 1.6. Hemoglobin is 14.5. ASSESSMENT: 1. Troponin elevation probably related to renal insufficiency. 2. Recurrent syncopal events, probably due to his petite mal seizures. 3. Coronary artery disease, status post multivessel angioplasty. 4. Hypertension. 5. Dyslipidemia. 6. Chronic renal insufficiency. PLAN: I will obtain a 2D echo. If the LV function and wall motion appear normal, patient does not need any further invasive cardiac workup at this time. I will consult a neurologist for evaluation of his petit mal seizures as his clinical presentation seems more consistent with seizures than a cardiac origin syncope. We will continue rest of his medications including aspirin, Plavix, Lipitor, Cozaar, and Lopressor. MMEVA / LEIDY: [id number] /
--- NOTE | 2019-01-28 10:33 | P.PN ---
Subjective Progress Note Date: 01/28/19 Patient is still complaining of back pain this morning that he described it as located in between his shoulder blades. He denies any chest pain or dizziness otherwise. No acute events overnight reported to me by nursing staff. Objective - Vital Signs Vital signs: Vital Signs Temp 98 F 01/28/19 08:00 Pulse 69 01/28/19 08:50 Resp 18 01/28/19 08:00 BP 132/67 01/28/19 08:00 Pulse Ox 96 01/28/19 08:00 Intake & Output 01/27/19 01/28/19 01/28/19 18:59 06:59 18:59 Intake Total 240 120 Balance 240 120 Weight 120.656 kg 118 kg Intake: Oral 240 120 Other: Voiding Method Toilet Toilet # Voids 1 1 - Exam General: The patient is awake and alert, in no distress Eye: there is normal conjunctiva bilaterally. Neck: The neck is supple, there is no JVD. Cardiovascular: Normal S1-S2, no S3-S4, no murmurs. Respiratory: Lungs clear to auscultation bilaterally Gastrointestinal: Abdomen is soft, nontender Musculoskeletal: There is no pedal edema. Neurological:. Speech is normal. Skin: Skin is warm and dry - Labs CBC & Chem 7: 01/27/19 13:00 01/27/19 13:00 Labs: Abnormal Lab Results - Last 24 Hours (Table) 01/27/19 01/27/19 01/27/19 Range/Units 13:00 13:00 13:00 Lymphocytes # 0.8 L (1.0-4.8) k/uL APTT (22.0-30.0) sec BUN 25 H (9-20) mg/dL Creatinine 1.61 H (0.66-1.25) mg/dL Glucose 275 H (74-99) mg/dL POC Glucose (mg/dL) (75-99) mg/dL Alkaline Phosphatase 158 H (38-126) U/L Troponin I 0.165 H* (0.000-0.034) ng/mL HDL Cholesterol (40-60) mg/dL Urine Protein (Negative) Urine Glucose (UA) (Negative) 01/27/19 01/27/19 01/27/19 Range/Units 14:15 16:28 18:57 Lymphocytes # (1.0-4.8) k/uL APTT (22.0-30.0) sec BUN (9-20) mg/dL Creatinine (0.66-1.25) mg/dL Glucose (74-99) mg/dL POC Glucose (mg/dL) 200 H (75-99) mg/dL Alkaline Phosphatase (38-126) U/L Troponin I 0.218 H* (0.000-0.034) ng/mL HDL Cholesterol (40-60) mg/dL Urine Protein Trace H (Negative) Urine Glucose (UA) 4+ H (Negative) 01/27/19 01/27/19 01/28/19 Range/Units 20:33 21:24 00:58 Lymphocytes # (1.0-4.8) k/uL APTT 54.8 H (22.0-30.0) sec BUN (9-20) mg/dL Creatinine (0.66-1.25) mg/dL Glucose (74-99) mg/dL POC Glucose (mg/dL) 170 H (75-99) mg/dL Alkaline Phosphatase (38-126) U/L Troponin I 0.248 H* (0.000-0.034) ng/mL HDL Cholesterol (40-60) mg/dL Urine Protein (Negative) Urine Glucose (UA) (Negative) 01/28/19 01/28/19 01/28/19 Range/Units 06:21 06:21 06:29 Lymphocytes # (1.0-4.8) k/uL APTT 53.2 H (22.0-30.0) sec BUN (9-20) mg/dL Creatinine (0.66-1.25) mg/dL Glucose (74-99) mg/dL POC Glucose (mg/dL) 147 H (75-99) mg/dL Alkaline Phosphatase (38-126) U/L Troponin I (0.000-0.034) ng/mL HDL Cholesterol 35 L (40-60) mg/dL Urine Protein (Negative) Urine Glucose (UA) (Negative) Assessment and Plan Assessment: 1. Syncopal episode: Executive etiology unclear. Twelve-lead EKG showed no acute ischemic changes. No events on imaging account manager. Orthostatic blood pressure checked on presentation and negative. Thought to be noncardiac in origin, awaiting neurology evaluation. No seizure-like activity reported by patient or family. Echocardiogram pending. 2. Underlying seizure disorder, continue home medications with Keppra and Vimpat. 3. Troponin elevation, seen and evaluated by cardiology. Thought to be non- thrombotic troponin leak 4. Stage IIIB chronic kidney disease, creatinine baseline we'll continue to monitor 5. Coronary artery disease: Continue medical management per cardiology recommendation 6. Physical debility, awaiting PT/OT evaluation Today, I reviewed his medication list and lab work results. Appreciate medical consultant's recommendations. Repeat lab work in the morning. Anticipate discharge tomorrow if remains stable.
--- NOTE | 2019-01-28 11:50 | ECHOF ---
Referral Reason:syncope,nstemi MEASUREMENTS -------- HEIGHT: 172.7 cm WEIGHT: 117.9 kg BP: IVSd: 1.5 cm (0.6 - 1.1) LVIDd: 4.8 cm (3.9 - 5.3) LVPWd: 1.7 cm (0.6 - 1.1) IVSs: 1.8 cm LVIDs: 4.0 cm LVPWs: 1.9 cm LA Diam: 3.2 cm (2.7 - 3.8) Ao Diam: 2.6 cm (2.0 - 3.7) AV Cusp: 2.0 cm (1.5 - 2.6) LA Diam: 3.2 cm (2.7 - 3.8) MV EXCURSION: 19.436 mm (> 18.000) MV EF SLOPE: 72 mm/s (70 - 150) EPSS: 1.0 cm MV E Mirza: 0.46 m/s MV DecT: 196 ms MV A Mirza: 0.57 m/s MV E/A Ratio: 0.80 FINDINGS -------- Sinus rhythm. Morbid Obesity This was a techncally difficult study with suboptimal views, , Lumason utilized for enhancement of images. The left ventricular size is normal. There is moderate concentric left ventricular hypertrophy. O verall left ventricular systolic function is mild-moderately impaired with, an EF between 40 - 45 %. Apical septum LV wall motion is hypokinetic. Inferior Hypokinesis The right ventricle is normal in size. The left atrial size is normal. The right atrial size is normal. There is mild aortic valve sclerosis. There is no evidence of aortic regurgitation. Mild mitral annular calcification present. Mild mitral regurgitation is present. Unable to estimate RVSP due to inadequate TR jet spectral doppler profile. The pulmonic valve was not well visualized. The aortic root size is normal. Echo free space represents a pericardial fat pad. 5.0mg OF Lumason UTLIZED: 2 OR MORE WALL SEGMENTS NOT VISUALIZED. CONCLUSIONS -------- 1. Sinus rhythm. 2. Morbid Obesity 3. This was a techncally difficult study with suboptimal views, , Lumason utilized for enhancement of images. 4. The left ventricular size is normal. 5. There is moderate concentric left ventricular hypertrophy. 6. Overall left ventricular systolic function is mild-moderately impaired with, an EF between 40 - 45 %. 7. Apical septum LV wall motion is hypokinetic. 8. Inferior Hypokinesis 9. The right ventricle is normal in size. 10. The left atrial size is normal. 11. The right atrial size is normal. 12. 5.0mg OF Lumason UTLIZED: 2 OR MORE WALL SEGMENTS NOT VISUALIZED. 13. There is mild aortic valve sclerosis. 14. Mild mitral annular calcification present. 15. Mild mitral regurgitation is present. 16. Unable to estimate RVSP due to inadequate TR jet spectral doppler profile. 17. The pulmonic valve was not well visualized. 18. The aortic root size is normal. 19. Echo free space represents a pericardial fat pad. PROPERTY MAINTENANCE SUPERVISOR: Sera Greenfield RDCS
[2019-01-28 12:27] LABS: Glucose,Whole Blood 173 mg/dL (75-99)
--- NOTE | 2019-01-28 12:35 | P.CNNES ---
History of Present Illness Consult date: 01/28/19 Reason for Consult: Syncope Chief complaint: Frequent falls History of Present Illness: HISTORY OF PRESENT ILLNESS: Thank you for allowing me to evaluate Mr. Jakob Jang. Mr. Jang is a 74 year-old man with PMhx of diabetes, GERD, HLD, HTN, IA, seizure disorder, sleep apnea, prostate disorder, renal disease, presented to [facility] for frequent falls. Patient states that he uses a cane at home. He's been having falls where he doesn't know how he went from standing up to being on the floor. Patient denies headache, nausea, vomiting, weakness, double/blurry vision, tinnitus. Patient with history of peripheral neuropathy causing numbness in his b/l feet. PAST MEDICAL HISTORY: diabetes, GERD, HLD, HTN, IA, seizure disorder, sleep apnea, prostate disorder, renal disease, PAST SURGICAL HISTORY: Heart catheterization with stent, bilateral knee replacement, left ankle HOME MEDICATIONS: Tamsulosin, nitroglycerin, metoprolol, losartan, aspirin, Plavix, levetiracetam, mucosal might, atorvastatin, insulin multivitamins ALLERGIES: NKDA SOCIAL HISTORY: Current some day smoker. Occasional alcohol use. REVIEW OF SYSTEMS: The 14 systems are reviewed and no additional points are identified compared to the review of systems documented history and physical PHYSICAL EXAMINATION: VITAL SIGNS: T 98 HR 70 RR 18 BP 129/70 O2 sat 96% on CPAP GEN.: NAD, pleasant and cooperative HEENT: NCAT, sclera without icterus NECK: Supple SKIN AND EXTREMITIES: Warm to touch, no edema NEURO: MENTAL STATUS: Patient alert and oriented to self, place, time. Able to name the current president. Speech fluent, able to name and repeat, following all commands readily. No right and left disorientation, neglect. CRANIAL NERVES II THROUGH XII: II: Pupils are equal and reactive to light symmetrically. No afferent pupillary defect. Visual loza are intact. III, IV, : No ptosis. Extraocular movements full. No nystagmus. V: Facial sensation intact from V1-3. VII. No clear facial asymmetry. VIII: Hearing intact to finger rub bilaterally. IX, X: Symmetric palate elevation. XI: Shoulder shrug intact. XII: Tongue midline without fasciculation or atrophy. MOTOR: Normal bulk/tone. No pronator drift. Essential tremor. Strength is 5/5 throughout all 4 extremities. SENSORY: Intact to light touch, temperature, pinprick in all 4 extremities. Romberg is negative. REFLEXES: 2+ throughout. Toes are downgoing. No clonus. Kahlil's is absent COORDINATION: Finger to nose and heel to frank intact. No dysmetria. Rapid alternating movements with good speed and accuracy. GAIT: Walks with walker. Narrow-based and stable. Difficulty with toe/heel/tandem walk DIAGNOSTIC TESTING: LABORATORY: WBC 7.7 hemoglobin 14.5 platelet 219 sodium 142 potassium 4.7 chloride 106 bicarb 26 BUN 25 creatinine 1.61 glucose 275 AST 28 ALT 31 alk phos 158 troponin 0.165 TSH 1.370 urinalysis negative D and the IMAGING: CT Head 03/2014: Bilateral areas of lacunar infarction again noted. No hemorrhage, hydrocephalus, mass effect or midline shift. The calvarium is intact. Cephalohematoma noted in the frontal scalp. Orbits are intact. EKG: SR with 1st degree block. ASSESSMENT: 74 year-old man with PMhx of diabetes, GERD, HLD, HTN, IA, seizure disorder, sleep apnea, prostate disorder, renal disease, presented to [facility] for frequent falls. Patient has been following with Dr. Oropeza. I spoke to Dr. 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 Patient had been on oxcarbazepine before, but patient had breakthrough episodes. Then switched to Keppra and recently added Vimpat for better seizure control. Patient currently on Keppra 1500mg BID and Vimpat 150mg BID. [address] Oropeza would first like to increase Vimpat to 200mg BID then consider other AED options. RECOMMENDATIONS: 1. Will obtain routine EEG 2. Increase Vimpat to 200mg BID 3. Spoke to , Aditi Jang. Showed understanding, but showed concern that doris denny needs to take many number of pills for his seizure control. Dr. Oropeza and will make arrangements for patient to follow up with Dr. Oropeza. 4. Patient needs to follow up with Dr. Oropeza within 1-2 weeks of discharge 5. Neurology is not available over the weekend in-house. However, feel free to Perfect[employer] message me over the weekend if you have any questions or concerns Past Medical History Past Medical History: Diabetes Mellitus, GERD/Reflux, Hyperlipidemia, Hypertension, Myocardial Infarction ([place]), Prostate Disorder, Renal Disease, Seizure Disorder Additional Past Medical History / Comment(s): last seizure last week-usually has one every couple months, uses CPAP, neuropathy feet, decreased kidney function- sees Torey Last Myocardial Infarction Date:: 2013 History of Any Multi-Drug Resistant Organisms: None Reported Past Surgical History: Heart Catheterization, Heart Catheterization With Stent, Orthopedic Surgery Additional Past Surgical History / Comment(s): bilateral knee replacement, left ankle, 5 stents Past Anesthesia/Blood Transfusion Reactions: No Reported Reaction Date of Last Stent Placement:: 2013 Past Psychological History: No Psychological Hx Reported Smoking Status: Current every day smoker Past Alcohol Use History: Occasional Additional Past Alcohol Use History / Comment(s): smoked on/off cigars, 1-2 daily Past Drug Use History: None Reported - Past Family History Mother Family Medical History: No Reported History Medications and Allergies Home Medications Medication Instructions Recorded Confirmed Type Aspirin EC [Ecotrin Low Dose] 81 mg PO HS@19004/09/14 01/27/19 History Metoprolol Tartrate [Lopressor] 25 mg PO DAILY@0700 04/09/14 01/27/19 History Nitroglycerin Sl Tabs [Nitrostat] 0.4 mg SUBLINGUAL Q5M PRN 04/09/14 01/27/19 History Tamsulosin HCl [Flomax] 0.4 mg PO HS@1900 04/09/14 01/27/19 History Multivit-Min/FA/Lycopen/Lutein 1 tab PO HS@1900 04/30/18 01/27/19 History [Centrum Silver Tablet] levETIRAcetam [Keppra] 1,500 mg PO BID@0700,1900 04/30/18 01/27/19 History Atorvastatin [Lipitor] 80 mg PO HS@1900 01/27/19 01/27/19 History Clopidogrel [Plavix] 75 mg PO DAILY@0700 01/27/19 01/27/19 History INSULIN ASPART (NovoLOG) [NovoLOG 24 unit SQ PC-TID 01/27/19 01/27/19 History (formulary)] Insulin Detemir (Levemir) [Levemir] 24 unit SQ HS@19001/27/19 01/27/19 History Lacosamide [Vimpat] See Taper PO DIRECTED 01/27/19 01/27/19 History Losartan Potassium [Cozaar] 25 mg PO HS@1900 01/27/19 01/27/19 History Allergies Allergy/AdvReac Type Severity Reaction Status Date / Time No Known Allergies Allergy Verified 01/27/19 13:31 Physical Examination - Vital Signs Vital Signs: Vital Signs Temp Pulse Pulse Pulse Pulse Pulse Resp 01/28/19 08:50 69 01/28/19 08:00 98 F 70 74 67 18 01/28/19 03:31 69 18 01/28/19 03:30 98.2 F 69 18 01/27/19 23:33 68 16 01/27/19 23:31 97.9 F 68 16 01/27/19 20:00 74 18 01/27/19 19:56 98.0 F 74 18 01/27/19 17:40 98.1 F 71 18 01/27/19 16:35 18 01/27/19 15:43 97.9 F 70 18 01/27/19 15:40 76 82 70 01/27/19 12:07 98 F 85 20 BP BP BP BP BP Pulse Ox 01/28/19 08:50 01/28/19 08:00 129/70 136/72 132/67 96 01/28/19 03:31 01/28/19 03:30 130/67 97 01/27/19 23:33 01/27/19 23:31 135/67 97 01/27/19 20:00 01/27/19 19:56 142/70 99 01/27/19 17:40 156/84 94 L 01/27/19 16:35 01/27/19 15:43 149/77 98 01/27/19 15:40 140/79 148/78 145/74 01/27/19 12:07 161/75 96 Intake and Output 01/27/19 01/28/19 01/28/19 22:59 06:59 14:59 Intake Total 240 120 Balance 240 120 Intake: Oral 240 120 Other: Voiding Method Toilet Toilet # Voids 2 1 Weight 118 kg Results - Laboratory Findings CBC and BMP: 01/27/19 13:00 01/27/19 13:00 Abnormal Lab Findings: Abnormal Labs 11/10/0801/27/19 01/27/19 13:00 13:00 13:00 Lymphocytes # 0.8 L APTT BUN 25 H Creatinine 1.61 H Glucose 275 H POC Glucose (mg/dL) Alkaline Phosphatase 158 H Troponin I 0.165 H* HDL Cholesterol Urine Protein Urine Glucose (UA) 01/27/19 01/27/19 01/27/19 14:15 16:28 18:57 Lymphocytes # APTT BUN Creatinine Glucose POC Glucose (mg/dL) 200 H Alkaline Phosphatase Troponin I 0.218 H* HDL Cholesterol Urine Protein Trace H Urine Glucose (UA) 4+ H 01/27/19 01/27/19 01/28/19 20:33 21:24 00:58 Lymphocytes # APTT 54.8 H BUN Creatinine Glucose POC Glucose (mg/dL) 170 H Alkaline Phosphatase Troponin I 0.248 H* HDL Cholesterol Urine Protein Urine Glucose (UA) 01/28/19 01/28/19 01/28/19 06:21 06:21 06:29 Lymphocytes # APTT 53.2 H BUN Creatinine Glucose POC Glucose (mg/dL) 147 H Alkaline Phosphatase Troponin I HDL Cholesterol 35 L Urine Protein Urine Glucose (UA)
[2019-01-28] MEDS: ACETAMINOPHEN TAB 325 MG TAB PO PRN ×2 (15:29→20:52)
[2019-01-28] MEDS: SODIUM CHLORIDE 0.9% 1,000 ML IV SCH (16:37)
[2019-01-28 17:15] LABS: Glucose,Whole Blood 77 mg/dL (75-99)
[2019-01-28] MEDS: ATORVASTATIN 80 MG TAB PO SCH (19:01)
[2019-01-28] MEDS: MULTIVITAMINS, THERA 1 EACH TAB PO SCH (19:01)
[2019-01-28] MEDS: LOSARTAN 25 MG TAB PO SCH (19:01)
[2019-01-28] MEDS: TAMSULOSIN 0.4 MG CAP.ER.24H PO SCH (19:01)
[2019-01-28] MEDS: ASPIRIN 81 MG PO SCH (19:03)
[2019-01-28 20:44] LABS: Glucose,Whole Blood 230 mg/dL (75-99)
[2019-01-28] MEDS: INSULIN DETEMIR (LEVEMIR) 100 UNIT/ML SYR SQ SCH (20:52)
--- NOTE | 2019-01-28 23:10 | EEG ---
ELECTROENCEPHALOGRAM REPORT . PROCEDURE DATE: 01/28/2019. ELECTROENCEPHALOGRAM (EEG) REPORT: TECHNIQUE: A routine 18 channel EEG was performed with video using the 10/20 international electrode placement system. HISTORY: Frequent falls over the past 4 weeks. Other medical history includes diabetes, gastroesophageal reflux, hypertension, hyperlipidemia, seizures. CURRENT MEDICATIONS: Multivitamin, Lopressor, Cozaar, Keppra, Vimpat, insulin. STUDY DURATION: 25 minutes. FINDINGS: Please note that the patient was drowsy or asleep for the majority of this recording. BACKGROUND: During the periods of maximal alertness, the background activity consisted of 8-9 hertz rhythmic waveforms symmetrically seen over both posterior quadrants. ACTIVATION: Hyperventilation: Not performed. Photic stimulation: Mild symmetric driving seen. Sleep: Stages I and II sleep noted. ABNORMALITIES: None. IMPRESSION: Normal predominantly sleep EEG. No clinical or electrographic seizures were recorded. No epileptiform activity was present. MMODL / IJN: [id number] /
[2019-01-29 06:15] LABS: Glucose,Whole Blood 163 mg/dL (75-99)
[2019-01-29] MEDS: CLOPIDOGREL 75 MG TAB PO SCH (06:26)
[2019-01-29] MEDS: METOPROLOL TARTRATE 25 MG TAB PO SCH (06:26)
[2019-01-29] MEDS: INSULIN ASPART (NovoLOG) 100 UNIT/ML VIAL SQ SCH ×2 (06:50→12:23)
[2019-01-29 06:51] LABS: Glucose,Whole Blood 164 mg/dL (75-99)
[2019-01-29 07:01] LABS: Albumin 3.4 g/dL (3.5-5.0); Calcium 8.9 mg/dL (8.4-10.2); Magnesium 2.1 mg/dL (1.6-2.3); Potassium 4.2 mmol/L (3.5-5.1); Total Bilirubin 0.5 mg/dL (0.2-1.3)
[2019-01-29] MEDS: LACOSAMIDE 150 MG TABLET PO SCH (08:13)
[2019-01-29] MEDS: HEPARIN SODIUM,PORCINE 5,000 UNIT/ML 1 ML VIAL SQ SCH (08:13)
[2019-01-29] MEDS: ACETAMINOPHEN TAB 325 MG TAB PO PRN (08:18)
[2019-01-29 08:20] VITALS: BP 113/59; PULSE 68; RESP 18; TEMP 97.7
--- NOTE | 2019-01-29 11:58 | P.DS ---
Providers Date of admission: 01/27/19 15:40 Expected date of discharge: 01/29/19 Attending physician: Rose Fonseca DO Consults: 01/27/19 15:40 Consult Physician Urgent Consulting Provider: Bhaskar Naqvi Consult Reason/Comments: Elevated troponin, atypical chest pain Do you want consulting provider notified?: Yes 01/28/19 08:17 Consult Physician Urgent Consulting Provider: Macy Zuñiga Consult Reason/Comments: syncope Do you want consulting provider notified?: Yes Primary care physician: Tom Ryan [facility] Course: this is a 74-year-old male with past medical history noted below who presented to the emergency room with a syncopal episode. Patient was evaluated in the ER and admitted to the hospital for further management of his medical problems noted below. 1. Syncopal episode: Exact etiology unclear. Twelve-lead EKG showed no acute ischemic changes. 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 Orthostatic blood pressure checked on presentation and negative. Thought to be noncardiac in origin, Echocardiogram showed EF of 40-45% with no significant valvular abnormality. Patient was cleared by cardiology for discharge. 2. Underlying seizure disorder, seen and evaluated by neurology. EEG was normal. continue home medications with Keppra and Vimpat. Levels for Vimpat and Keppra drawn and will take couple of days to have results back. Patient advised to follow-up with his neurologist regarding results. 3. Troponin elevation, seen and evaluated by cardiology. Thought to be non- thrombotic troponin leak. No further workup recommended at this point. 4. Stage IIIB chronic kidney disease, creatinine baseline we'll continue to monitor 5. Coronary artery disease: Continue medical management per cardiology recommendation 6. Physical debility, seen and evaluated by PT/OT. Patient will be discharged home in a stable condition. For further details about this hospitalization please refer to the electronic chart. Patient Condition at Discharge: Fair Plan - Discharge Summary New Discharge Prescriptions: Continue Tamsulosin HCl [Flomax] 0.4 mg PO HS@1900 Metoprolol Tartrate [Lopressor] 25 mg PO DAILY@0700 Aspirin EC [Ecotrin Low Dose] 81 mg PO HS@1900 levETIRAcetam [Keppra] 1,500 mg PO BID@0700,1900 Multivit-Min/FA/Lycopen/Lutein [Centrum Silver Tablet] 1 tab PO HS@1900 Atorvastatin [Lipitor] 80 mg PO HS@1900 INSULIN ASPART (NovoLOG) [NovoLOG (formulary)] 24 unit SQ PC-TID Insulin Detemir (Levemir) [Levemir] 24 unit SQ HS@1900 Losartan Potassium [Cozaar] 25 mg PO HS@1900 Clopidogrel [Plavix] 75 mg PO DAILY@0700 Lacosamide [Vimpat] See Taper PO DIRECTED Discontinued Nitroglycerin Sl Tabs [Nitrostat] 0.4 mg SUBLINGUAL Q5M PRN PRN Reason: Chest Pain Discharge Medication List Aspirin EC [Ecotrin Low Dose] 81 mg PO HS@1900 04/09/14 [History] Metoprolol Tartrate [Lopressor] 25 mg PO DAILY@0700 04/09/14 [History] Tamsulosin HCl [Flomax] 0.4 mg PO HS@1900 04/09/14 [History] Multivit-Min/FA/Lycopen/Lutein [Centrum Silver Tablet] 1 tab PO HS@1900 04/30/18 [History] levETIRAcetam [Keppra] 1,500 mg PO BID@0700,1900 04/30/18 [History] Atorvastatin [Lipitor] 80 mg PO HS@1900 01/27/19 [History] Clopidogrel [Plavix] 75 mg PO DAILY@0700 01/27/19 [History] INSULIN ASPART (NovoLOG) [NovoLOG (formulary)] 24 unit SQ PC-TID 01/27/19 [History] Insulin Detemir (Levemir) [Levemir] 24 unit SQ HS@1900 01/27/19 [History] Lacosamide [Vimpat] See Taper PO DIRECTED 01/27/19 [History] Losartan Potassium [Cozaar] 25 mg PO HS@1900 01/27/19 [History] Follow up Appointment(s)/Referral(s): Tom Ryan MD [Primary Care Provider] - 1-2 days Bhaskar Naqvi MD [STAFF PHYSICIAN] - 02/04/19 3:00 pm (Please keep previous follow up appointment. ) [facility], [NON-STAFF] - Patient Instructions/Handouts: Syncope (DC) Discharge Disposition: HOME SELF-CARE
[2019-01-29 12:03] LABS: Glucose,Whole Blood 97 mg/dL (75-99)
--- NOTE | 2019-01-29 18:08 | PN ---
PROGRESS NOTE Jakob Jang who is a 74-year-old gentleman who was admitted to hospital with syncopal event. His history was suggestive of more petite mal seizures and with recurrent drop attacks. He ruled out for myocardial infarction. An echocardiogram on this admission revealed an ejection fraction of 40-45%. Patient is doing well and is free of symptoms. On exam vital signs are stable. There is no jugular venous distention. Chest exam reveals good air entry bilaterally. Heart exam reveals first and second heart sounds. No gallop. Exam of the extremities did not reveal any edema. Peripheral pulses are felt. ASSESSMENT: Recurrent falls, probably related to temporal lobe epilepsy. The patient's seizure medications have been adjusted by the neurologist. The patient will be discharged home and follow up with Dr. Naqvi in the office. MMODL / IJN: [id number] /
[2019-01-31 09:18] LABS: Levetiracetam (Keppra) 38.8 ug/mL (3.0-60.0)
--- NOTE | 2019-02-07 11:21 | CDI ---
Documentation Clarification Form Date: 02/07/2019 From: PARIS Patino; Elena Schulz, [employer] Phone: If you have any questions about this query, please contact Elena Schulz at [phone] between 8 am and 5 pm. Admit date: 01/27/2019 Patient Name: Jakob Jang Visit Number : [id number] Discharge Date: 01/29/2019 The Clinical Documentation Specialists (CDI) and [facility] Coding Staff appreciate your assistance in clarifying documentation. Please respond to the clarification below the line at the bottom of the page and electronically sign. The CDI [facility] Coding Staff will review the response and follow-up if needed. Please note: Queries are made part of the Legal Health Record. If you have any questions, please contact the author of this message via ITS. Your patient has the documented diagnoses of syncope and seizure disorder in your H&P, progress notes and on the discharge summary. A relationship between diagnoses cannot be assumed unless documented as such by the attending physician. In order to capture the severity of condition; please document the relationship, if any, between these diagnoses. History/Risk Factors: HTN, CAD, GA, DM, SEBASTIAN, seizure disorder Clinical Indicators: Syncope, elevated troponin, fall. Treatment: Continue seizure medications. Neurology consult: Recurrent syncope events probably due to his petite mal seizures. Please clarify and document your clinical opinion regarding the relationship (due to, caused by, secondary to) exists between these two diagnoses. Please include clinical findings supporting your diagnosis. Syncope due to seizure Syncope not due to seizure Other explanation of clinical findings (please specify) Unable to determine (no explanation for clinical findings) Syncope not due to seizure MTDD
== END 2019-01-29 13:10 | disposition home health service (06) | DRG 312 ==
LOC: EC 12:04 → 3SCARD 15:40
PROVIDERS: ADMIT Internal Medicine; ATTEND Internal Medicine
DX: R55 Syncope and collapse (principal); E11.22 Type 2 diabetes mellitus with diabetic chronic kidney disease; E66.9 Obesity, unspecified; Z68.39 Body mass index [BMI] 39.0-39.9, adult; E78.5 Hyperlipidemia, unspecified; F17.200 Nicotine dependence, unspecified, uncomplicated; G40.909 Epilepsy, unspecified, not intractable, without status epilepticus; G47.33 Obstructive sleep apnea (adult) (pediatric); I13.10 Hypertensive heart and chronic kidney disease without heart failure, with stage 1 through stage 4 chronic kidney disease, or unspecified chronic kidney disease; I25.10 Atherosclerotic heart disease of native coronary artery without angina pectoris; I25.2 Old myocardial infarction; M19.90 Unspecified osteoarthritis, unspecified site; N18.3 Chronic kidney disease, stage 3 (moderate); R29.6 Repeated falls; W19.XXXA Unspecified fall, initial encounter; Z79.02 Long term (current) use of antithrombotics/antiplatelets; Z79.4 Long term (current) use of insulin; Z79.899 Other long term (current) drug therapy; Z95.5 Presence of coronary angioplasty implant and graft; Z96.653 Presence of artificial knee joint, bilateral; Z79.82 Long term (current) use of aspirin; E11.40 Type 2 diabetes mellitus with diabetic neuropathy, unspecified; R79.89 Other specified abnormal findings of blood chemistry
CPT/HCPCS: 36415; 71046; 72072; 80053; 80061; 80177; 80339; 81003; 82550; 83735; 84443; 84484; 85025; 85379; 85730; 93005; 93306; 95819; 96374; 99284

== ENCOUNTER 2019-03-05 15:06 | Emergency (ER) | payer MEDICARE ==
[2019-03-05] MEDS ORDERED: SODIUM CHLORIDE 0.9% 1,000 ML IV STA (15:24)
--- NOTE | 2019-03-05 15:50 | ED ---
Abdominal Pain HPI - General Chief Complaint: Abdominal Pain Stated Complaint: R Flank Pain Time Seen by Provider: 03/05/19 15:17 Source: patient Mode of arrival: wheelchair Limitations: no limitations - History of Present Illness Initial Comments: patient is 74-year-old male with history of chronic kidney disease and kidney stones presenting to emergency department with a chief complaint of right flank pain. Patient reports the pain began about 3 days ago and has not resolved. He reports the pain is alleviated when he is in a sitting position and aggravated when he is laying on his left side. He states the pain is not related to oral intake. Denies taking any medication to alleviate the pain. Denies mature, hematochezia or melena. Denies night sweats fever or chills. Denies increased urgency frequency or dysuria.patient states he has been doing physical therapy for his legs and the pain could be related to that. - Related Data Home Medications Medication Instructions Recorded Confirmed Aspirin EC [Ecotrin Low Dose] 81 mg PO HS@1900 04/09/14 01/27/19 Metoprolol Tartrate [Lopressor] 25 mg PO DAILY@0700 04/09/14 01/27/19 Tamsulosin HCl [Flomax] 0.4 mg PO HS@1900 04/09/14 01/27/19 Multivit-Min/FA/Lycopen/Lutein 1 tab PO HS@1900 04/30/18 01/27/19 [Centrum Silver Tablet] levETIRAcetam [Keppra] 1,500 mg PO BID@0700,1900 04/30/18 01/27/19 Atorvastatin [Lipitor] 80 mg PO HS@1900 01/27/19 01/27/19 Clopidogrel [Plavix] 75 mg PO DAILY@0700 01/27/19 01/27/19 INSULIN ASPART (NovoLOG) [NovoLOG 24 unit SQ PC-TID 01/27/19 01/27/19 (formulary)] Insulin Detemir (Levemir) [Levemir] 24 unit SQ HS@1900 01/27/19 01/27/19 Lacosamide [Vimpat] See Taper PO DIRECTED 01/27/19 01/27/19 Losartan Potassium [Cozaar] 25 mg PO HS@1900 01/27/19 01/27/19 Previous Rx's Medication Instructions Recorded Cyclobenzaprine [Flexeril] 5 mg PO TID PRN #15 tablet 03/05/19 Allergies Allergy/AdvReac Type Severity Reaction Status Date / Time No Known Allergies Allergy Verified 01/27/19 13:31 Review of Systems ROS Statement: Those systems with pertinent positive or pertinent negative responses have been documented in the HPI. ROS Other: All systems not noted in ROS Statement are negative. Past Medical History Past Medical History: Diabetes Mellitus, GERD/Reflux, Hyperlipidemia, Hypertension, Myocardial Infarction ([place]), Prostate Disorder, Renal Disease, Seizure Disorder Additional Past Medical History / Comment(s): last seizure last week-usually has one every couple months, uses CPAP, neuropathy feet, decreased kidney function- sees Torey Last Myocardial Infarction Date:: 2013 History of Any Multi-Drug Resistant Organisms: None Reported Past Surgical History: Heart Catheterization, Heart Catheterization With Stent, Orthopedic Surgery Additional Past Surgical History / Comment(s): bilateral knee replacement, left ankle, 5 stents Past Anesthesia/Blood Transfusion Reactions: No Reported Reaction Date of Last Stent Placement:: 2013 Past Psychological History: No Psychological Hx Reported Smoking Status: Current every day smoker Past Alcohol Use History: Occasional Past Drug Use History: None Reported - Past Family History Mother Family Medical History: No Reported History General Exam Limitations: no limitations General appearance: alert, in no apparent distress, obese Head exam: Present: atraumatic, normocephalic, normal inspection Eye exam: Present: normal appearance Pupils: Present: normal accommodation ENT exam: Present: normal exam, normal oropharynx, mucous membranes moist Neck exam: Present: normal inspection, full ROM Respiratory exam: Present: normal lung sounds bilaterally Cardiovascular Exam: Present: regular rate, normal rhythm, normal heart sounds GI/Abdominal exam: Present: soft, tenderness (right flank), normal bowel sounds. Absent: guarding, rebound, diminished bowel sounds, hyperactive bowel sounds, organomegaly, mass, bruit, pulsatile mass, hernia Extremities exam: Present: normal inspection, full ROM, normal capillary refill Back exam: Present: normal inspection, full ROM, CVA tenderness (R) Neurological exam: Present: alert, oriented X3 Psychiatric exam: Present: normal affect, normal mood Skin exam: Present: warm, dry, intact, normal color Course Vital Signs 03/05/19 03/05/19 03/05/19 15:14 16:16 17:16 Temperature 98.0 F 97.6 F Pulse Rate 68 80 75 Respiratory 18 16 16 Rate Blood Pressure 142/81 133/61 136/85 O2 Sat by Pulse 97 97 98 Oximetry Medical Decision Making - Medical Decision Making patient is 74-year-old male with history of CK D presenting to the emergency department with a chief complaint of right flank pain. On exam patient has positive right CVA with probable right flank pain with normal inspection. Pain seems to be exacerbated with left and right rotation. Patient is also exacerba aly whenever he lays on the left side. Patient has recently been undergoing physical therapy which she suspected cause of the pain. CBC aunremarkable. CMP shows baseline renal function. CT with noncontrast shows no acute significant pathologies. I suspect the patient to have muscular skeletal pain as the cause of the symptoms. Patient has no urinary or bowel symptoms. No night sweats or chills. UA is unremarkable. Strict return parameters were thoroughly discussed with patient was understanding and agreeable. he was given Flexeril. Patient advised to follow with primary care. Case discussed with physician. - Lab Data Result diagrams: 03/05/19 15:40 03/05/19 15:40 Lab Results 03/05/19 03/05/19 03/05/19 Range/Units 15:40 15:40 15:40 WBC 6.4 (3.8-10.6) k/uL RBC 4.45 (4.30-5.90) m/uL Hgb 14.0 (13.0-17.5) gm/dL Hct 42.2 (39.0-53.0) % MCV 94.9 (80.0-100.0) fL MCH 31.4 (25.0-35.0) pg MCHC 33.1 (31.0-37.0) g/dL RDW 13.9 (11.5-15.5) % Plt Count 211 (150-450) k/uL Neutrophils % 60 % Lymphocytes % 22 % Monocytes % 8 % Eosinophils % 3 % Basophils % 3 % Neutrophils # 3.9 (1.3-7.7) k/uL Lymphocytes # 1.4 (1.0-4.8) k/uL Monocytes # 0.5 (0-1.0) k/uL Eosinophils # 0.2 (0-0.7) k/uL Basophils # 0.2 (0-0.2) k/uL Sodium 143 (137-145) mmol/L Potassium 4.5 (3.5-5.1) mmol/L Chloride 111 H (98-107) mmol/L Carbon Dioxide 26 (22-30) mmol/L Anion Gap 6 mmol/L BUN 22 H (9-20) mg/dL Creatinine 1.52 H (0.66-1.25) mg/dL Est GFR (CKD-EPI)AfAm 51 (>60 ml/min/1.73 sqM) Est GFR (CKD-EPI)NonAf 44 (>60 ml/min/1.73 sqM) Glucose 73 L (74-99) mg/dL Calcium 9.2 (8.4-10.2) mg/dL Total Bilirubin 0.6 (0.2-1.3) mg/dL AST 35 (17-59) U/L ALT 28 (4-49) U/L Alkaline Phosphatase 154 H (38-126) U/L Total Protein 6.9 (6.3-8.2) g/dL Albumin 4.2 (3.5-5.0) g/dL Amylase 73 (30-110) U/L Lipase 206 (23-300) U/L Urine Color Yellow Urine Appearance Clear (Clear) Urine pH 6.0 (5.0-8.0) Ur Specific [place] 1.020 (1.001-1.035) Urine Protein Trace H (Negative) Urine Glucose (UA) Negative (Negative) Urine Ketones Negative (Negative) Urine Blood Negative (Negative) Urine Nitrite Negative (Negative) Urine Bilirubin Negative (Negative) Urine Urobilinogen <2.0 (<2.0) mg/dL Ur Leukocyte Esterase Negative (Negative) Disposition Clinical Impression: Right flank pain Disposition: HOME SELF-CARE Condition: Stable Instructions (If sedation given, give patient instructions): Abdominal Pain (ED) Additional Instructions: please follow with primary care. Please return to emergency department if symptoms worsen. Please take prescribed medication as directed. Prescriptions: Cyclobenzaprine [Flexeril] 5 mg PO TID PRN #15 tablet PRN Reason: Muscle Spasm Is patient prescribed a controlled substance at d/c from ED?: No Referrals: Tom Ryan MD [Primary Care Provider] - 1-2 days Time of Disposition: 17:27
[2019-03-05 16:04] LABS: Basophils # (A) 0.2 k/uL (0-0.2); Basophils % (A) 3 %; Eosinophils # (A) 0.2 k/uL (0-0.7); Eosinophils % (A) 3 %; HCT 42.2 % (39.0-53.0); Lymphocytes # (A) 1.4 k/uL (1.0-4.8); Lymphocytes % (A) 22 %; MCH 31.4 pg (25.0-35.0); MCHC 33.1 g/dL (31.0-37.0); MCV 94.9 fL (80.0-100.0); Mean Platelet Volume 8.2; Monocytes # (A) 0.5 k/uL (0-1.0); Monocytes % (A) 8 %; Neutrophils # (A) 3.9 k/uL (1.3-7.7); Neutrophils % (A) 60 %; Platelet Count 211 k/uL (150-450); RBC 4.45 m/uL (4.30-5.90); RDW 13.9 % (11.5-15.5); WBC 6.4 k/uL (3.8-10.6)
[2019-03-05 16:10] LABS: Albumin 4.2 g/dL (3.5-5.0); Calcium 9.2 mg/dL (8.4-10.2); Total Bilirubin 0.6 mg/dL (0.2-1.3); Total Protein 6.9 g/dL (6.3-8.2)
[2019-03-05 16:20] LABS: Potassium 4.5 mmol/L (3.5-5.1)
[2019-03-05 16:24] LABS: Appearance,Urine Clear (Clear); Bilirubin,Urine Negative (Negative); Blood,Urine Negative (Negative); Color,Urine Yellow; Glucose,Urine (UA) Negative (Negative); Ketones,Urine Negative (Negative); Leukocyte Esterase,Urine Negative (Negative); Nitrite,Urine Negative (Negative); Protein,Urine Trace (Negative); Urobilinogen,Urine <2.0 mg/dL (<2.0)
--- NOTE | 2019-03-05 16:38 | CT ---
EXAMINATION TYPE: CT abdomen pelvis wo con DATE OF EXAM: 03/05/2019 COMPARISON: 06/06/2013 HISTORY: LRQ pain x4 days. Pt states he felt the pain after a PT session for his legs. CT DLP: 1555.4 mGycm Automated exposure control for dose reduction was used. Multiple axial sections were obtained from the diaphragm to the floor the pelvis with no contrast. Lung bases are clear of consolidation. There is no pleural effusion. Heart size is normal. There is n o pericardial effusion. Liver spleen pancreas appear normal. Bile ducts are not dilated. There are clips from cholecystectomy . Stomach is intact. There is no adrenal mass. Kidneys have normal size and contour. There is no hydronephrosis. Ureters a re not dilated. There is no retroperitoneal adenopathy. Bladder distends smoothly. There is enlarged prostate that measures 5.1 cm without calcification. There is no inguinal hernia. There is no free fl uid in the pelvis. There is no mesenteric edema. There is no ascites or free air. Appendix is not seen. There is no sign of thickened appendix. There is no evidence of a bowel obstruction. There is mild atherosclerotic va scular calcification. There is a mild degenerative first-degree L4-5 spondylolisthesis. There is no lumbar compression frac ture. There is multilevel spondylotic changes. Bony pelvis is intact. IMPRESSION: No sign of acute abdomen and pelvis. There is clearing of the left renal obstruction compared to old exam. There is clearing of the distended loops of fluid-filled bowel compared to old exam. No renal s tone or obstruction.
[2019-03-05 17:58] VITALS: RESP 16; TEMP 97.6
[2019-03-05 17:59] VITALS: BP 136/85; PULSE 75
== END 2019-03-05 17:29 | disposition home or self-care (01) ==
LOC: EC 15:06
DX: R10.9 Unspecified abdominal pain (principal); E78.5 Hyperlipidemia, unspecified; I25.2 Old myocardial infarction; G40.909 Epilepsy, unspecified, not intractable, without status epilepticus; E11.40 Type 2 diabetes mellitus with diabetic neuropathy, unspecified; F17.200 Nicotine dependence, unspecified, uncomplicated; Z79.4 Long term (current) use of insulin; Z79.02 Long term (current) use of antithrombotics/antiplatelets; Z79.82 Long term (current) use of aspirin; Z79.899 Other long term (current) drug therapy; Z96.653 Presence of artificial knee joint, bilateral; Z95.5 Presence of coronary angioplasty implant and graft
CPT/HCPCS: 36415; 74176; 80053; 81003; 82150; 83690; 85025; 96360; 99284

== ENCOUNTER 2019-09-28 15:52 | Emergency (ER) | payer OTHER, MEDICARE ==
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
[2019-09-28 17:20] LABS: Appearance,Urine Clear (Clear); Bilirubin,Urine Negative (Negative); Blood,Urine Negative (Negative); Color,Urine Yellow; Glucose,Urine (UA) 4+ (Negative); Ketones,Urine Negative (Negative); Leukocyte Esterase,Urine Negative (Negative); Nitrite,Urine Negative (Negative); PH, Urine 5.5 (5.0-8.0); Protein,Urine Negative (Negative); Specific Gravity,Urine 1.015 (1.001-1.035); Urobilinogen,Urine <2.0 mg/dL (<2.0)
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
[2019-09-30 09:36] VITALS: BP 135/71; PULSE 74; RESP 18; TEMP 99
== END 2019-09-28 18:27 | disposition home or self-care (01) ==
LOC: EC 15:52
DX: S30.1XXA Contusion of abdominal wall, initial encounter (principal); E11.42 Type 2 diabetes mellitus with diabetic polyneuropathy; E11.22 Type 2 diabetes mellitus with diabetic chronic kidney disease; N18.9 Chronic kidney disease, unspecified; E78.5 Hyperlipidemia, unspecified; I25.2 Old myocardial infarction; G40.909 Epilepsy, unspecified, not intractable, without status epilepticus; Z79.82 Long term (current) use of aspirin; Z79.899 Other long term (current) drug therapy; Z79.4 Long term (current) use of insulin; Z95.5 Presence of coronary angioplasty implant and graft; I12.9 Hypertensive chronic kidney disease with stage 1 through stage 4 chronic kidney disease, or unspecified chronic kidney disease; V47.0XXA Car driver injured in collision with fixed or stationary object in nontraffic accident, initial encounter; Y92.481 Parking lot as the place of occurrence of the external cause
CPT/HCPCS: 74176; 81003; 99284

== ENCOUNTER → 2020-09-27 | Outpatient (CLI) | payer MEDICARE ==
[2020-09-27 18:43] LABS: Basophils # (A) 0.34 X 10*3/uL (0.00-0.10); Basophils % (A) 4.9 %; Eosinophils # (A) 0.18 X 10*3/uL (0.04-0.35); Eosinophils % (A) 2.6 %; HCT 41.7 % (39.6-50.0); HGB 13.5 g/dL (13.0-17.0); Lymphocytes # (A) 1.31 X 10*3/uL (0.90-5.00); Lymphocytes % (A) 18.8 %; MCH 31.5 pg (27.0-32.0); MCHC 32.4 g/dL (32.0-37.0); MCV 97.4 fL (80.0-97.0); Mean Platelet Volume 11.3 fL (9.5-12.2); Monocytes % (A) 12.9 %; Neutrophils # (A) 4.18 X 10*3/uL (1.80-7.70); Neutrophils % (A) 59.8 %; Platelet Count 246 X 10*3/uL (140-440); RBC 4.28 X 10*6/uL (4.40-5.60); RDW 13.9 % (11.5-14.5); WBC 6.98 X 10*3/uL (4.50-10.00)
[2020-09-27 20:13] LABS: Erythrocyte Sedimentation Rate 9 mm/Hr (0-20)
[2020-09-28 03:53] LABS: C Reactive Protein <0.4 mg/dL (0.0-0.8); Rheumatoid Factor, Qnt <4 IU/mL (0-13); Uric Acid 7.8 mg/dL (3.7-8.7)
== END | disposition home or self-care (01) ==
LOC: LABWHC1 13:45
PROVIDERS: ATTEND Podiatrist Foot & Ankle Surgery
DX: M19.90 Unspecified osteoarthritis, unspecified site (principal); L08.9 Local infection of the skin and subcutaneous tissue, unspecified
CPT/HCPCS: 36415; 84550; 85025; 85652; 86038; 86140; 86431

== ENCOUNTER → 2020-11-16 | Outpatient (CLI) | payer MEDICARE ==
--- NOTE | 2020-11-16 12:58 | XR ---
Right knee HISTORY: Trauma and pain 3 views of the right knee Patient is status post right knee arthroplasty. Bone mineralization, joint spaces and alignment are m aintained. There is atherosclerotic vascular calcifications noted incidentally. No evident joint effu chandler. Bony excrescence at the level of the metaphysis of the needle femoral condyle may represent a s mall osteochondroma seen on the oblique view. IMPRESSION: No fracture or dislocation. Additional findings above.
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
== END | disposition home or self-care (01) ==
LOC: RADXRMAIN 09:46
PROVIDERS: ATTEND Internal Medicine
DX: S89.91XA Unspecified injury of right lower leg, initial encounter (principal); S79.911A Unspecified injury of right hip, initial encounter; S79.912A Unspecified injury of left hip, initial encounter; M25.561 Pain in right knee; M25.551 Pain in right hip; M25.552 Pain in left hip
CPT/HCPCS: 73521

== ENCOUNTER 2020-11-21 18:42 | Emergency (ER) | payer MEDICARE ==
[2020-11-21 18:47] VITALS: BP 132/56; PULSE 78; RESP 20; TEMP 98.6
[2020-11-21] MEDS ORDERED: ACETAMINOPHEN TAB 325 MG TAB PO STA (19:13)
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
--- NOTE | 2020-11-21 20:10 | US ---
EXAMINATION TYPE: US venous doppler duplex LE RT DATE OF EXAM: 11/21/2020 7:13 PM COMPARISON: NONE CLINICAL HISTORY: pain. SIDE PERFORMED: Right TECHNIQUE: The lower extremity deep venous system is examined utilizing real time linear array sonog carlitos with graded compression, doppler sonography and color-flow sonography. VESSELS IMAGED: Common Femoral Vein Deep Femoral Vein Greater Saphenous Vein * Femoral Vein Popliteal Vein Small Saphenous Vein * Proximal Calf Veins (* superficial vessels) Right Leg: Negative for DVT IMPRESSION: No evidence of deep vein thrombosis in the right leg.
[2020-11-21] MEDS ORDERED: CEPHALEXIN 500 MG CAP PO STA (21:17)
== END 2020-11-21 21:27 | disposition home or self-care (01) ==
LOC: EC 18:42
DX: L03.115 Cellulitis of right lower limb (principal); M79.661 Pain in right lower leg; E11.9 Type 2 diabetes mellitus without complications; K21.9 Gastro-esophageal reflux disease without esophagitis; E78.5 Hyperlipidemia, unspecified; I10 Essential (primary) hypertension; I25.2 Old myocardial infarction; F17.200 Nicotine dependence, unspecified, uncomplicated; Z79.82 Long term (current) use of aspirin; Z79.4 Long term (current) use of insulin
CPT/HCPCS: 99283

== ENCOUNTER 2021-01-11 13:40 | Inpatient (IN) | payer MEDICARE ==
[2021-01-11] MEDS ORDERED: MORPHINE SULFATE 2 MG/ML SYRINGE IVP STA (14:13)
[2021-01-11] MEDS ORDERED: cefTRIAXone IN SWFI 1,000 MG/10 ML SYRINGE IVP STA (14:13)
--- NOTE | 2021-01-11 14:19 | ED ---
General Adult HPI - General Chief complaint: Wound/Laceration Stated complaint: R foot sore Time Seen by Provider: 01/11/21 13:58 Source: patient Mode of arrival: wheelchair Limitations: no limitations - History of Present Illness Initial comments: 76-year-old male presents to the emergency room for a chief complaint of wound on the right foot. Patient states he noticed this 2 days ago. He was seen by his surveillance supervisor today who was concerned he would need to be hospitalized for this. Patient states it is red and swollen. He has not had a fever or chills. He states it is somewhat painful. Patient does have a history of diabetes and neuropathy.Patient has no other complaints at this time including shortness of breath, chest pain, abdominal pain, nausea or vomiting, headache, or visual changes. - Related Data Home Medications Medication Instructions Recorded Confirmed Aspirin EC [Ecotrin Low Dose] 81 mg PO HS 04/09/14 01/11/21 Tamsulosin HCl [Flomax] 0.4 mg PO HS 04/09/14 01/11/21 Multivit-Min/FA/Lycopen/Lutein 1 tab PO DAILY 04/30/18 01/11/21 [Centrum Silver Tablet] levETIRAcetam [Keppra] 1,500 mg PO BID 04/30/18 01/11/21 Atorvastatin [Lipitor] 80 mg PO HS 01/27/19 01/11/21 Clopidogrel [Plavix] 75 mg PO DAILY 01/27/19 01/11/21 INSULIN ASPART (NovoLOG) [NovoLOG 24 unit SQ PC-TID 01/27/19 01/11/21 (formulary)] Insulin Detemir (Levemir) [Levemir] 24 unit SQ HS 01/27/19 01/11/21 Losartan Potassium [Cozaar] 25 mg PO HS 01/27/19 01/11/21 Furosemide [Lasix] 20 mg PO DAILY 01/11/21 01/11/21 Metoprolol Tartrate [Lopressor] 25 mg PO DAILY 01/11/21 01/11/21 OXcarbazepine [Trileptal] 150 mg PO BID 01/11/21 01/11/21 Allergies Allergy/AdvReac Type Severity Reaction Status Date / Time No Known Allergies Allergy Verified 01/11/21 14:20 Review of Systems ROS Statement: Those systems with pertinent positive or pertinent negative responses have been documented in the HPI. ROS Other: All systems not noted in ROS Statement are negative. Past Medical History Past Medical History: Diabetes Mellitus, GERD/Reflux, Hyperlipidemia, Hypertension, Myocardial Infarction ([place]), Prostate Disorder, Renal Disease, Seizure Disorder Additional Past Medical History / Comment(s): last seizure last week-usually has one every couple months, uses CPAP, neuropathy feet, decreased kidney function- sees [facility] Last Myocardial Infarction Date:: 2013 History of Any Multi-Drug Resistant Organisms: None Reported Past Surgical History: Heart Catheterization, Heart Catheterization With Stent, Orthopedic Surgery Additional Past Surgical History / Comment(s): bilateral knee replacement, left ankle, 5 stents Past Anesthesia/Blood Transfusion Reactions: No Reported Reaction Date of Last Stent Placement:: 2013 Past Psychological History: No Psychological Hx Reported Smoking Status: Current some day smoker Past Alcohol Use History: Occasional Past Drug Use History: None Reported - Past Family History Mother Family Medical History: No Reported History General Exam Limitations: no limitations General appearance: alert, in no apparent distress Head exam: Present: atraumatic Eye exam: Present: normal appearance, PERRL, EOMI. Absent: scleral icterus, conjunctival injection ENT exam: Present: normal exam, mucous membranes moist Neck exam: Present: normal inspection, full ROM. Absent: tenderness Respiratory exam: Present: normal lung sounds bilaterally. Absent: respiratory distress, wheezes Cardiovascular Exam: Present: regular rate, normal rhythm, normal heart sounds Extremities exam: Present: normal capillary refill (Capillary refill less than 2 seconds, DP pulse 2+ right lower extremity), other (Wound noted to plantar aspect of the right foot first metacarpal head. There is erythema and edema noted of the right forefoot.) Course Vital Signs 01/11/21 13:42 Temperature 98.4 F Pulse Rate 74 Respiratory 18 Rate Blood Pressure 133/68 O2 Sat by Pulse 97 Oximetry Medical Decision Making - Medical Decision Making Vitals are stable. Patient does have erythema and edema noted to the plantar aspect of the foot with wound. CBC does show leukocytosis. CMP demonstrates evidence of chronic kidney disease. X-ray of the foot shows no fracture or dislocation. No bony destruction seen. At this time patient will be admitted on IV antibiotics. Case was discussed with sound - Lab Data Result diagrams: 01/11/21 14:20 01/11/21 14:20 Lab Results 01/11/21 01/11/21 01/11/21 Range/Units 14:20 14:20 14:20 WBC 13.9 H (3.8-10.6) k/uL RBC 4.49 (4.30-5.90) m/uL Hgb 14.2 (13.0-17.5) gm/dL Hct 43.0 (39.0-53.0) % MCV 95.8 (80.0-100.0) fL MCH 31.7 (25.0-35.0) pg MCHC 33.0 (31.0-37.0) g/dL RDW 13.6 (11.5-15.5) % Plt Count 354 (150-450) k/uL MPV 9.6 Neutrophils % 79 % Lymphocytes % 7 % Monocytes % 9 % Eosinophils % 1 % Basophils % 2 % Neutrophils # 10.9 H (1.3-7.7) k/uL Lymphocytes # 1.0 (1.0-4.8) k/uL Monocytes # 1.2 H (0-1.0) k/uL Eosinophils # 0.2 (0-0.7) k/uL Basophils # 0.3 H (0-0.2) k/uL PT 9.9 (9.0-12.0) sec INR 0.9 (<1.2) APTT 25.0 (22.0-30.0) sec Sodium 139 (137-145) mmol/L Potassium 4.2 (3.5-5.1) mmol/L Chloride 106 (98-107) mmol/L Carbon Dioxide 26 (22-30) mmol/L Anion Gap 7 mmol/L BUN 23 H (9-20) mg/dL Creatinine 1.64 H (0.66-1.25) mg/dL Est GFR (CKD-EPI)AfAm 46 (>60 ml/min/1.73 sqM) Est GFR (CKD-EPI)NonAf 40 (>60 ml/min/1.73 sqM) Glucose 249 H (74-99) mg/dL Plasma Lactic Acid Miguel A (0.7-2.0) mmol/L Calcium 8.9 (8.4-10.2) mg/dL Total Bilirubin 0.6 (0.2-1.3) mg/dL AST 24 (17-59) U/L ALT 20 (4-49) U/L Alkaline Phosphatase 153 H (38-126) U/L Total Protein 6.4 (6.3-8.2) g/dL Albumin 3.7 (3.5-5.0) g/dL 01/11/21 Range/Units 14:20 WBC (3.8-10.6) k/uL RBC (4.30-5.90) m/uL Hgb (13.0-17.5) gm/dL Hct (39.0-53.0) % MCV (80.0-100.0) fL MCH (25.0-35.0) pg MCHC (31.0-37.0) g/dL RDW (11.5-15.5) % Plt Count (150-450) k/uL MPV Neutrophils % % Lymphocytes % % Monocytes % % Eosinophils % % Basophils % % Neutrophils # (1.3-7.7) k/uL Lymphocytes # (1.0-4.8) k/uL Monocytes # (0-1.0) k/uL Eosinophils # (0-0.7) k/uL Basophils # (0-0.2) k/uL PT (9.0-12.0) sec INR (<1.2) APTT (22.0-30.0) sec Sodium (137-145) mmol/L Potassium (3.5-5.1) mmol/L Chloride (98-107) mmol/L Carbon Dioxide (22-30) mmol/L Anion Gap mmol/L BUN (9-20) mg/dL Creatinine (0.66-1.25) mg/dL Est GFR (CKD-EPI)AfAm (>60 ml/min/1.73 sqM) Est GFR (CKD-EPI)NonAf (>60 ml/min/1.73 sqM) Glucose (74-99) mg/dL Plasma Lactic Acid Miguel A 1.4 (0.7-2.0) mmol/L Calcium (8.4-10.2) mg/dL Total Bilirubin (0.2-1.3) mg/dL AST (17-59) U/L ALT (4-49) U/L Alkaline Phosphatase (38-126) U/L Total Protein (6.3-8.2) g/dL Albumin (3.5-5.0) g/dL Disposition Clinical Impression: Cellulitis, Leukocytosis Disposition: ADMITTED IP TO THIS HOSP Is patient prescribed a controlled substance at d/c from ED?: No Referrals: Soy Liu MD [Primary Care Provider] - 1-2 days Time of Disposition: 15:53
[2021-01-11 14:34] LABS: Basophils # (A) 0.3 k/uL (0-0.2); Basophils % (A) 2 %; Eosinophils # (A) 0.2 k/uL (0-0.7); Eosinophils % (A) 1 %; HGB 14.2 gm/dL (13.0-17.5); Lymphocytes % (A) 7 %; MCH 31.7 pg (25.0-35.0); MCV 95.8 fL (80.0-100.0); Mean Platelet Volume 9.6; Monocytes # (A) 1.2 k/uL (0-1.0); Monocytes % (A) 9 %; Neutrophils # (A) 10.9 k/uL (1.3-7.7); Neutrophils % (A) 79 %; Platelet Count 354 k/uL (150-450); RBC 4.49 m/uL (4.30-5.90); RDW 13.6 % (11.5-15.5); WBC 13.9 k/uL (3.8-10.6)
[2021-01-11 14:48] LABS: Albumin 3.7 g/dL (3.5-5.0); Calcium 8.9 mg/dL (8.4-10.2); Potassium 4.2 mmol/L (3.5-5.1); Total Bilirubin 0.6 mg/dL (0.2-1.3); Total Protein 6.4 g/dL (6.3-8.2)
--- NOTE | 2021-01-11 14:59 | XR ---
EXAMINATION TYPE: XR foot complete RT DATE OF EXAM: 01/11/2021 CLINICAL HISTORY: pain TECHNIQUE: Frontal, lateral images of the right foot are obtained. COMPARISON: None. FINDINGS: There is no acute fracture/dislocation evident. The joint spaces appear within normal lindsey its. There is soft tissue swelling with ulceration at the base of the great toe. No bony destructive process seen to suggest osteomyelitis at this time. IMPRESSION: There is no acute fracture or dislocation. ICD 10 NO FRACTURE, INITIAL EVALUATION
[2021-01-11 15:03] LABS: INR 0.9 (<1.2); Prothrombin Time 9.9 sec (9.0-12.0)
[2021-01-11] MEDS: SODIUM CHLORIDE 0.9% 500 ML 500 ML IV SCH ×2 (15:10→20:52)
[2021-01-11] MEDS ORDERED: ONDANSETRON 4 MG/2 ML VIAL IVP PRN (15:54)
[2021-01-11] MEDS ORDERED: MORPHINE SULFATE 4 MG/ML SYRINGE IV PRN (15:54)
[2021-01-11] MEDS ORDERED: NALOXONE 0.4 MG/ML 1 ML VIAL IV PRN (15:54)
[2021-01-11] MEDS ORDERED: VANCOMYCIN IV PER PHARMACY 1 EACH MISC MISCELLANE PRN (15:56)
[2021-01-11] MEDS ORDERED: SODIUM CHLORIDE 0.9% 1,000 ML IV SCH (16:00)
[2021-01-11] MEDS ORDERED: MORPHINE SULFATE 4 MG/ML SYRINGE IVP STA (16:26)
[2021-01-11] MEDS ORDERED: VANCOMYCIN 1,750 MG in SODIUM CHLORIDE 0.9% 500 ML 500 ML IVPB ONE (16:30)
--- NOTE | 2021-01-11 17:42 | P.HPIM ---
<Brady Hinds - Last Filed: 01/11/21 18:20> History of Present Illness H&P Date: 01/11/21 History of Presenting Illness: Patient is a very pleasant 76-year-old male with a past medical history including CAD with stents on dual antiplatelet therapy with aspirin and Plavix, hypertension, hyperlipidemia, chronic systolic heart failure with an EF of 40- 45% on Lasix, insulin-dependent diabetes mellitus, CKD stage III and diabetic neuropathy of bilateral lower extremities under care of Dr. Pino, share holder. Patient states 2 days ago he began noticing pain/discomfort, redness, swelling, accompanied by a wound to the plantar region of his right foot. He reports he went to his share holder Dr. Pino today and was instructed to go to the emergency department due to infected diabetic ulcer with need for IV antibiotics. In the emergency department, an X-ray right foot showed soft tissue swelling with ulceration at the base of great toe with no bony deconstruct of process reported to suggest osteomyelitis at this time. Labs completed with CBC revealing leukocytosis with WBC count of 13.9 and BMP consistent with C daily stage III with BUN 23, creatinine 1.64, and GFR of 40 with baseline creatinine of 1.6. Patient was admitted under our services with consultation to infectious disease and vascular surgery. Upon assessment at bedside, patient reports mild discomfort to right plantar surface of foot. He does have noted ulceration with surrounding erythema and edema. No drainage present. Patient denies having any known injuries, states what he thought was a callus on the bottom of his foot. Patient denies having any fevers, chills, diaphoresis, fatigue, headache, lightheadedness, chest pain, palpitations, nausea, decreased appetite or any other complaints. Patient reports chronic numbness of bilateral lower extremities due to his neuropathy. Patient's does report patient walks around frequently without socks or shoes. Review of systems: Pertinent positives and negatives as discussed in HPI, a complete review of systems was performed and all other systems are negative. Physical exam: Vital signs reviewed and stable. General: Nontoxic, no distress and appears stated age. Morbidly obese. Derm: Skin warm and dry, normal coloration for ethnicity. ulceration to right plantar surface of foot directly beneath great toe with surrounding erythema and edema. no drainage. Head: Atraumatic, normocephalic and symmetric. Eyes: EOMs intact, no lid lag, and anicteric sclera Mouth: no lip lesions, mucus membranes moist Cardiovascular: regular rate and rhythm with normal S1S2, no murmur, positive posterior tibial pulses bilaterally, and cap refill < 2 seconds. Lungs: Respirations even, regular, and unlabored on room air. Lungs CTA bilaterally, no rhonchi, no rales, no wheezing, and no accessory muscle usage. Abdominal: soft, nontender to palpation, no guarding, no appreciable organomegaly Ext: ROM intact. No gross muscle atrophy, no edema, no contractures Neuro: Speech clear, face symmetrical and CN II-XII grossly intact with no noted focal neuro deficits Psych: Alert and oriented to person, place, time, and situation. Appropriate and pleasant affect. Assessment and Plan of Care: Diabetic ulcer plantar surface of right foot -IV antibiotics vancomycin and Rocephin -Consult wound care -Consult vascular surgery for possible debridement -Symptomatic care and pain management. -Wound care Insulin-dependent diabetes mellitus -Continuation of Levemir 24 units nightly and NovoLog 24 units with meals 3 times daily. Patient also placed on glycemic protocol with NovoLog sliding scale. Hypertension Monitor vital signs and continue daily medication regimen with metoprolol and Cozaar. Hyperlipidemia Continue daily medication regimen with atorvastatin 80 mg nightly. CKD stage III -Currently at baseline levels, we will continue to monitor throughout hospitalization with repeat a.m. labs. History of CAD with stents -Continue daily medication regimen with aspirin, Plavix, atorvastatin, metoprolol Chronic systolic heart failure with EF of 40-45% -Continue Lasix 20 mg daily -Daily weights -I's and O's BPH Continue daily medication regimen with Max. The patient is admitted with an anticipated greater than 2 midnight stay for evaluation of an infected diabetic ulcer CODE STATUS: Full code DVT prophylaxis: Heparin Discussed with: Patient, patient's , and RN Anticipated discharge date: Clinical course to determine Anticipated discharge place: Home A total of 45 minutes was spent on the care of this complex patient more than 50% of the time was spent in counseling and care coordination. Past Medical History Past Medical History: Diabetes Mellitus, GERD/Reflux, Hyperlipidemia, Hypertension, Myocardial Infarction ([place]), Prostate Disorder, Renal Disease, Seizure Disorder Additional Past Medical History / Comment(s): last seizure last week-usually has one every couple months, uses CPAP, neuropathy feet, decreased kidney function- sees [facility] Last Myocardial Infarction Date:: 2013 History of Any Multi-Drug Resistant Organisms: None Reported Past Surgical History: Heart Catheterization, Heart Catheterization With Stent, Orthopedic Surgery Additional Past Surgical History / Comment(s): bilateral knee replacement, left ankle, 5 stents Past Anesthesia/Blood Transfusion Reactions: No Reported Reaction Date of Last Stent Placement:: 2013 Past Psychological History: No Psychological Hx Reported Smoking Status: Current some day smoker Past Alcohol Use History: Occasional Past Drug Use History: None Reported - Past Family History Mother Family Medical History: No Reported History Medications and Allergies Home Medications Medication Instructions Recorded Confirmed Type Aspirin EC [Ecotrin Low Dose] 81 mg PO HS 04/09/14 01/11/21 History Tamsulosin HCl [Flomax] 0.4 mg PO HS 04/09/14 01/11/21 History Multivit-Min/FA/Lycopen/Lutein 1 tab PO DAILY 04/30/18 01/11/21 History [Centrum Silver Tablet] levETIRAcetam [Keppra] 1,500 mg PO BID 04/30/18 01/11/21 History Atorvastatin [Lipitor] 80 mg PO HS 01/27/19 01/11/21 History Clopidogrel [Plavix] 75 mg PO DAILY 01/27/19 01/11/21 History INSULIN ASPART (NovoLOG) [NovoLOG 24 unit SQ PC-TID 01/27/19 01/11/21 History (formulary)] Insulin Detemir (Levemir) [Levemir] 24 unit SQ HS 01/27/19 01/11/21 History Losartan Potassium [Cozaar] 25 mg PO HS 01/27/19 01/11/21 History Furosemide [Lasix] 20 mg PO DAILY 01/11/21 01/11/21 History Metoprolol Tartrate [Lopressor] 25 mg PO DAILY 01/11/21 01/11/21 History OXcarbazepine [Trileptal] 150 mg PO BID 01/11/21 01/11/21 History Allergies Allergy/AdvReac Type Severity Reaction Status Date / Time No Known Allergies Allergy Verified 01/11/21 14:20 Physical Exam Vitals: Vital Signs Temp Pulse Resp BP Pulse Ox 01/11/21 13:42 98.4 F 74 18 133/68 97 Intake and Output 01/11/21 01/11/21 01/11/21 06:59 14:59 22:59 Other: Weight 117.934 kg Results CBC & Chem 7: 01/11/21 14:20 01/11/21 14:20 Labs: Abnormal Lab Results - Last 24 Hours (Table) 01/11/21 01/11/21 Range/Units 14:20 14:20 WBC 13.9 H (3.8-10.6) k/uL Neutrophils # 10.9 H (1.3-7.7) k/uL Monocytes # 1.2 H (0-1.0) k/uL Basophils # 0.3 H (0-0.2) k/uL BUN 23 H (9-20) mg/dL Creatinine 1.64 H (0.66-1.25) mg/dL Glucose 249 H (74-99) mg/dL Alkaline Phosphatase 153 H (38-126) U/L <AbidOsama - Last Filed: 01/12/21 00:17> History of Present Illness Patient seen and examined independently. Patient was also seen by Brady Hinds NP and case was discussed. I am in agreement with subjective, physical exam, as sessment and plan as written above and amended below. General: [non toxic], [no distress], [appears at stated age], morbidly obese Derm: [warm], [dry], right plantar surface ulcer with surrounding erythema Head: [atraumatic], [normocephalic], [symmetric] Eyes: [EOMI], [no lid lag], [anicteric sclera] Mouth: [no lip lesion], [mucus membranes moist] Cardiovascular: [S1S2 reg], [no murmur], [positive posterior tibial pulse bilateral], Lungs: [CTA bilateral], [no rhonchi, no rales] , [no accessory muscle use] Abdominal: [soft], [ nontender to palpation], [no guarding], [no appreciable organomegaly] Ext: [no gross muscle atrophy], [no edema], [no contractures] Neuro: [ CN II-XI grossly intact], [no focal neuro deficits] Psych: [Alert], [oriented], [appropriate affect] Physical Exam Vitals: Vital Signs Temp Pulse Pulse Resp BP BP Pulse Ox 01/11/21 20:00 98.9 F 78 16 183/62 97 01/11/21 18:43 98.2 F 81 18 113/76 96 01/11/21 17:51 98.2 F 72 18 138/70 97 01/11/21 13:42 98.4 F 74 18 133/68 97 Intake and Output 01/11/21 01/11/21 01/12/21 14:59 22:59 06:59 Other: Weight 117.934 kg 117.934 kg Results CBC & Chem 7: 01/11/21 14:20 01/11/21 14:20 Labs: Abnormal Lab Results - Last 24 Hours (Table) 01/11/21 01/11/21 01/11/21 Range/Units 14:20 14:20 20:41 WBC 13.9 H (3.8-10.6) k/uL Neutrophils # 10.9 H (1.3-7.7) k/uL Monocytes # 1.2 H (0-1.0) k/uL Basophils # 0.3 H (0-0.2) k/uL BUN 23 H (9-20) mg/dL Creatinine 1.64 H (0.66-1.25) mg/dL Glucose 249 H (74-99) mg/dL POC Glucose (mg/dL) 306 H (75-99) mg/dL Alkaline Phosphatase 153 H (38-126) U/L
[2021-01-11 20:45] LABS: Glucose,Whole Blood 306 mg/dL (75-99)
[2021-01-11] MEDS: ATORVASTATIN 80 MG TAB PO SCH (22:19)
[2021-01-11] MEDS: INSULIN DETEMIR (LEVEMIR) 100 UNIT/ML SYR SQ SCH (22:19)
[2021-01-11] MEDS: TAMSULOSIN 0.4 MG CAP.ER.24H PO SCH (22:19)
[2021-01-11] MEDS: ASPIRIN 81 MG PO SCH (22:19)
[2021-01-11] MEDS: INSULIN ASPART (NovoLOG) 100 UNIT/ML VIAL SQ SCH ×3 (22:19→22:47)
[2021-01-11] MEDS: LOSARTAN 25 MG TAB PO SCH (22:20)
[2021-01-11] MEDS: OXcarbazepine 150 MG TAB PO SCH (22:20)
--- NOTE | 2021-01-11 22:59 | P.CONS ---
History of Present Illness - Reason for Consult Consult date: 01/11/21 right diabetic foot infection Requesting physician: Brady Hinds - Chief Complaint right foot pain x 2 days - History of Present Illness History of present illness : Patient is 76-year-old male presenting to the ER this afternoon as a referral from his rn bone marrow transplant for evaluation of right foot wound and concern for secondary cellulitis apparently the patient noticed to have increasing swelling redness and pain to the right foot over the last 2 days patient denies family history of any trauma has been complaining of pain to be more of a sharp to throbbing almost 7-8 out of 10 and worse with walking and weightbearing there is no drainage patient denies high-grade fever or chills patient was evaluated by his podiatry subsequently referred to the ER for further evaluation on presentation to the hospital patient was afebrile patient did have white count of 13.9 with a left shift creatinine was 1.64 liver enzymes are normal childs PCR was negative patient did have x-rays of the foot no fracture or dislocation patient was started on vancomycin and Rocephin i nfectious disease was consulted for further management of antibiotic therapy Review of system: CONSTITUTIONAL: Positive for weakness denies high-grade fever. EYES: No complaint. ENT: No complaint. RESPIRATORY: No complaint. CARDIOVASCULAR: No complaint. GENITOURINARY: No complaint. GASTROINTESTINAL: No complaint. MUSCULOSKELETAL: No complaint. INTEGUMENTARY: As per history of present illness. PSYCHOLOGIC: No complaint. ENDOCRINE: No complaint. NEUROLOGIC: No complaint. Past medical history : Reviewed, documented below Past surgical history : Reviewed, documented below Social history: Reviewed, documented below Medications: Reviewed, as documented below EXAMINATION: Vital sigans= Reviewed and documented below GENERAL DESCRIPTION: Elderly male lying in bed, no distress. No tachypnea or accessory muscle of respiration use. HEENT: Shows Pallor , no scleral icterus. Oral mucous membrane is dry. NECK: Trachea central, no thyromegaly. LUNGS: Unlabored breathing. Clear to auscultation anteriorly. No wheeze or crackle. HEART: S1, S2, regular rate and rhythm. ABDOMEN: Soft, no tenderness , guarding or rigidity EXTREMITIES: Right foot plantar infected callus with evidence of swelling redness induration and tenderness to touch no foul-smelling drainage SKIN: No rash, no masses palpable. NEUROLOGICAL: The patient is awake, alert, oriented x3, mood and affect normal. LABS AND RADIOLOGY: Reviewed results see below Assessment : 1-Patient presented to hospital with right hand diabetic foot infection especially did have an infected callus on the plantar aspect of the right foot and will need to cover for the polymicrobial lissette usually associated with this infection clinically less likely MRSA infection 2-renal insufficiency and high risk of nephrotoxicity from vancomycin Plan: 1-need vascular surgeon evaluation for excision of the infected callus and deep culture discussed with the admitting team 2-discontinue Rocephin and vancomycin 3-start the patient on Unasyn 3 g every 6 hours We will follow on clinical condition and cultures to further adjust medication if needed Thank you for this consultation we will follow the patient along with you Past Medical History Past Medical History: Diabetes Mellitus, GERD/Reflux, Hyperlipidemia, Hypertension, Myocardial Infarction ([place]), Prostate Disorder, Renal Disease, Seizure Disorder Additional Past Medical History / Comment(s): last seizure last week-usually has one every couple months, uses CPAP, neuropathy feet, decreased kidney function- sees Tore[facility] Last Myocardial Infarction Date:: 2013 History of Any Multi-Drug Resistant Organisms: None Reported Past Surgical History: Heart Catheterization, Heart Catheterization With Stent, Orthopedic Surgery Additional Past Surgical History / Comment(s): bilateral knee replacement, left ankle, 5 stents Past Anesthesia/Blood Transfusion Reactions: No Reported Reaction Date of Last Stent Placement:: 2013 Past Psychological History: No Psychological Hx Reported Smoking Status: Current some day smoker Past Alcohol Use History: Occasional Past Drug Use History: None Reported - Past Family History Mother Family Medical History: No Reported History Medications and Allergies Home Medications Medication Instructions Recorded Confirmed Type Aspirin EC [Ecotrin Low Dose] 81 mg PO HS 04/09/14 01/11/21 History Tamsulosin HCl [Flomax] 0.4 mg PO HS 04/09/14 01/11/21 History Multivit-Min/FA/Lycopen/Lutein 1 tab PO DAILY 04/30/18 01/11/21 History [Centrum Silver Tablet] levETIRAcetam [Keppra] 1,500 mg PO BID 04/30/18 01/11/21 History Atorvastatin [Lipitor] 80 mg PO HS 01/27/19 01/11/21 History Clopidogrel [Plavix] 75 mg PO DAILY 01/27/19 01/11/21 History INSULIN ASPART (NovoLOG) [NovoLOG 24 unit SQ PC-TID 01/27/19 01/11/21 History (formulary)] Insulin Detemir (Levemir) [Levemir] 24 unit SQ HS 01/27/19 01/11/21 History Losartan Potassium [Cozaar] 25 mg PO HS 01/27/19 01/11/21 History Furosemide [Lasix] 20 mg PO DAILY 01/11/21 01/11/21 History Metoprolol Tartrate [Lopressor] 25 mg PO DAILY 01/11/21 01/11/21 History OXcarbazepine [Trileptal] 150 mg PO BID 01/11/21 01/11/21 History Allergies Allergy/AdvReac Type Severity Reaction Status Date / Time No Known Allergies Allergy Verified 01/11/21 14:20 Physical Exam Vitals: Vital Signs Temp Pulse Pulse Resp BP BP Pulse Ox 01/11/21 20:00 98.9 F 78 16 183/62 97 01/11/21 18:43 98.2 F 81 18 113/76 96 01/11/21 17:51 98.2 F 72 18 138/70 97 01/11/21 13:42 98.4 F 74 18 133/68 97 Intake and Output 01/11/21 01/11/21 01/11/21 06:59 14:59 22:59 Other: Weight 117.934 kg Results CBC & Chem 7: 01/11/21 14:20 01/11/21 14:20 Labs: Abnormal Lab Results - Last 24 Hours (Table) 01/11/21 01/11/21 01/11/21 Range/Units 14:20 14:20 20:41 WBC 13.9 H (3.8-10.6) k/uL Neutrophils # 10.9 H (1.3-7.7) k/uL Monocytes # 1.2 H (0-1.0) k/uL Basophils # 0.3 H (0-0.2) k/uL BUN 23 H (9-20) mg/dL Creatinine 1.64 H (0.66-1.25) mg/dL Glucose 249 H (74-99) mg/dL POC Glucose (mg/dL) 306 H (75-99) mg/dL Alkaline Phosphatase 153 H (38-126) U/L
[2021-01-12] MEDS: AMPICILLIN-SULBACTAM 3 GM in SODIUM CHLORIDE 0.9% 100 ML IVPB SCH ×4 (00:12→17:57)
[2021-01-12] MEDS: HEPARIN SODIUM,PORCINE/PF 5,000 UNIT/0.5 ML SYRINGE SQ SCH ×3 (00:13→17:25)
[2021-01-12 06:54] LABS: Glucose,Whole Blood 118 mg/dL (75-99)
[2021-01-12] MEDS: INSULIN ASPART (NovoLOG) 100 UNIT/ML VIAL SQ SCH ×7 (07:27→21:08)
[2021-01-12] MEDS ORDERED: cefTRIAXone IN SWFI 1,000 MG/10 ML SYRINGE IVP SCH (09:00)
[2021-01-12] MEDS: CLOPIDOGREL 75 MG TAB PO SCH (09:28)
[2021-01-12] MEDS: MULTIVITAMINS, THERA 1 EACH TAB PO SCH (09:29)
[2021-01-12] MEDS: METOPROLOL TARTRATE 25 MG TAB PO SCH (09:29)
[2021-01-12] MEDS: FUROSEMIDE 20 MG TAB PO SCH (09:29)
[2021-01-12] MEDS: OXcarbazepine 150 MG TAB PO SCH ×2 (09:34→21:06)
[2021-01-12 09:42] LABS: Glucose,Whole Blood 237 mg/dL (75-99)
--- NOTE | 2021-01-12 09:42 | P.GSCN ---
History of Present Illness History of present illness: 76-year-old diabetic male patient was sent to ER by Dr. Pino patient complains of pain and discomfort right foot plantar aspect he has history of callus formation care of Dr. Castaneda. Patient had a x-ray of the foot there is no destruction of the bone. Right foot plantar aspect there is a infected callus with some fluctuation noted and tenderness noted on the plantar aspect of the foot discussed with the patient and the infectious disease patient needs excision of the callus and drainage of the past and deep culture Medical history history of coronary artery disease post stent patient aspirin and Plavix. Patient also has history of diabetes mellitus, hypertension, Neck examination neck is supple no bruit appreciated Chest is clear good entry both lungs first and second sound normal Abdomen is soft nontender Vascular examination brachial radial femoral pulses are present patient has a infected callus plantar aspect of the right foot with fluctuation and tenderness and redness noted Impression infected callus with possible abscess plan is a I&D and debridement of the wound risk and complication discussed Past Medical History Past Medical History: Diabetes Mellitus, GERD/Reflux, Hyperlipidemia, Hypertension, Myocardial Infarction ([place]), Prostate Disorder, Renal Disease, Seizure Disorder Additional Past Medical History / Comment(s): last seizure last week-usually has one every couple months, uses CPAP, neuropathy feet, decreased kidney function- sees [facility] Last Myocardial Infarction Date:: 2013 History of Any Multi-Drug Resistant Organisms: None Reported Past Surgical History: Heart Catheterization, Heart Catheterization With Stent, Orthopedic Surgery Additional Past Surgical History / Comment(s): bilateral knee replacement, left ankle, 5 stents Past Anesthesia/Blood Transfusion Reactions: No Reported Reaction Date of Last Stent Placement:: 2013 Past Psychological History: No Psychological Hx Reported Smoking Status: Light tobacco smoker Past Alcohol Use History: Occasional Additional Past Alcohol Use History / Comment(s): smoked on/off cigars, 2-3 daily Past Drug Use History: None Reported - Past Family History Mother Family Medical History: No Reported History Medications and Allergies Home Medications Medication Instructions Recorded Confirmed Type Aspirin EC [Ecotrin Low Dose] 81 mg PO HS 04/09/14 01/11/21 History Tamsulosin HCl [Flomax] 0.4 mg PO HS 04/09/14 01/11/21 History Multivit-Min/FA/Lycopen/Lutein 1 tab PO DAILY 04/30/18 01/11/21 History [Centrum Silver Tablet] levETIRAcetam [Keppra] 1,500 mg PO BID 04/30/18 01/11/21 History Atorvastatin [Lipitor] 80 mg PO HS 01/27/19 01/11/21 History Clopidogrel [Plavix] 75 mg PO DAILY 01/27/19 01/11/21 History INSULIN ASPART (NovoLOG) [NovoLOG 24 unit SQ PC-TID 01/27/19 01/11/21 History (formulary)] Insulin Detemir (Levemir) [Levemir] 24 unit SQ HS 01/27/19 01/11/21 History Losartan Potassium [Cozaar] 25 mg PO HS 01/27/19 01/11/21 History Furosemide [Lasix] 20 mg PO DAILY 01/11/21 01/11/21 History Metoprolol Tartrate [Lopressor] 25 mg PO DAILY 01/11/21 01/11/21 History OXcarbazepine [Trileptal] 150 mg PO BID 01/11/21 01/11/21 History Allergies Allergy/AdvReac Type Severity Reaction Status Date / Time No Known Allergies Allergy Verified 01/11/21 14:20 Surgical - Exam Vital Signs Temp Pulse Resp BP Pulse Ox 98.4 F 74 18 133/68 97 01/11/21 13:42 01/11/21 13:42 01/11/21 13:42 01/11/21 13:42 01/11/21 13:42 Results - Labs 01/11/21 14:20 01/11/21 14:20 Abnormal Lab Results - Last 24 Hours (Table) 01/11/21 01/11/21 01/11/21 Range/Units 14:20 14:20 20:41 WBC 13.9 H (3.8-10.6) k/uL Neutrophils # 10.9 H (1.3-7.7) k/uL Monocytes # 1.2 H (0-1.0) k/uL Basophils # 0.3 H (0-0.2) k/uL BUN 23 H (9-20) mg/dL Creatinine 1.64 H (0.66-1.25) mg/dL Glucose 249 H (74-99) mg/dL POC Glucose (mg/dL) 306 H (75-99) mg/dL Alkaline Phosphatase 153 H (38-126) U/L 01/12/21 Range/Units 06:51 WBC (3.8-10.6) k/uL Neutrophils # (1.3-7.7) k/uL Monocytes # (0-1.0) k/uL Basophils # (0-0.2) k/uL BUN (9-20) mg/dL Creatinine (0.66-1.25) mg/dL Glucose (74-99) mg/dL POC Glucose (mg/dL) 118 H (75-99) mg/dL Alkaline Phosphatase (38-126) U/L Diabetes panel 01/11/21 Range/Units 14:20 Sodium 139 (137-145) mmol/L Potassium 4.2 (3.5-5.1) mmol/L Chloride 106 (98-107) mmol/L Carbon Dioxide 26 (22-30) mmol/L BUN 23 H (9-20) mg/dL Creatinine 1.64 H (0.66-1.25) mg/dL Glucose 249 H (74-99) mg/dL Calcium 8.9 (8.4-10.2) mg/dL AST 24 (17-59) U/L ALT 20 (4-49) U/L Alkaline Phosphatase 153 H (38-126) U/L Total Protein 6.4 (6.3-8.2) g/dL Albumin 3.7 (3.5-5.0) g/dL Calcium panel 01/11/21 Range/Units 14:20 Calcium 8.9 (8.4-10.2) mg/dL Albumin 3.7 (3.5-5.0) g/dL Pituitary panel 01/11/21 Range/Units 14:20 Sodium 139 (137-145) mmol/L Potassium 4.2 (3.5-5.1) mmol/L Chloride 106 (98-107) mmol/L Carbon Dioxide 26 (22-30) mmol/L BUN 23 H (9-20) mg/dL Creatinine 1.64 H (0.66-1.25) mg/dL Glucose 249 H (74-99) mg/dL Calcium 8.9 (8.4-10.2) mg/dL Adrenal panel 01/11/21 Range/Units 14:20 Sodium 139 (137-145) mmol/L Potassium 4.2 (3.5-5.1) mmol/L Chloride 106 (98-107) mmol/L Carbon Dioxide 26 (22-30) mmol/L BUN 23 H (9-20) mg/dL Creatinine 1.64 H (0.66-1.25) mg/dL Glucose 249 H (74-99) mg/dL Calcium 8.9 (8.4-10.2) mg/dL Total Bilirubin 0.6 (0.2-1.3) mg/dL AST 24 (17-59) U/L ALT 20 (4-49) U/L Alkaline Phosphatase 153 H (38-126) U/L Total Protein 6.4 (6.3-8.2) g/dL Albumin 3.7 (3.5-5.0) g/dL
[2021-01-12 11:39] LABS: Glucose,Whole Blood 198 mg/dL (75-99)
--- NOTE | 2021-01-12 14:43 | P.PN ---
Subjective Progress Note Date: 01/12/21 History of Presenting Illness: Patient is a very pleasant 76-year-old male with a past medical history including CAD with stents on dual antiplatelet therapy with aspirin and Plavix, hypertension, hyperlipidemia, chronic systolic heart failure with an EF of 40-45 % on Lasix, insulin-dependent diabetes mellitus, CKD stage III and diabetic neuropathy of bilateral lower extremities under care of Dr. Pino, center medical and lab director. Patient states 2 days ago he began noticing pain/discomfort, redness, swelling, accompanied by a wound to the plantar region of his right foot. He reports he went to his center medical and lab director Dr. Pino today and was instructed to go to the emergency department due to infected diabetic ulcer with need for IV antibiotics. In the emergency department, an X-ray right foot showed soft tissue swelling with ulceration at the base of great toe with no bony deconstruct of process reported to suggest osteomyelitis at this time. Labs completed with CBC revealing leukocytosis with WBC count of 13.9 and BMP consistent with C daily stage III with BUN 23, creatinine 1.64, and GFR of 40 with baseline creatinine of 1.6. Patient started on IV antibiotics with Rocephin and vancomycin and was admitted under our services with consultation to infectious disease and vascular surgery. Infectious disease changed antibiotics over to Unasyn at this time. Vascular surgery planning to take patient for debridement later this afternoon. Physical exam: Patient was seen and evaluated at bedside this morning. He was sitting up in the chair at bedside he appeared slightly anxious regarding plans for debridement later this afternoon with vascular surgery. He denies having any headache, lightheadedness, chest pain, palpitations, or shortness of breath. All questions answered at this time. Patient to continue IV antibiotic with Unasyn. Vital signs reviewed and stable. General: Nontoxic, no distress and appears stated age. Morbidly obese. Derm: Skin warm and dry, normal coloration for ethnicity. Infected ul ceration/callus to right plantar surface of foot directly beneath great toe with surrounding erythema and edema. no drainage. Head: Atraumatic, normocephalic and symmetric. Eyes: EOMs intact, no lid lag, and anicteric sclera Mouth: no lip lesions, mucus membranes moist Cardiovascular: regular rate and rhythm with normal S1S2, no murmur, positive posterior tibial pulses bilaterally, and cap refill < 2 seconds. Lungs: Respirations even, regular, and unlabored on room air. Lungs CTA bilaterally, no rhonchi, no rales, no wheezing, and no accessory muscle usage. Abdominal: soft, nontender to palpation, no guarding, no appreciable organomegaly Ext: ROM intact. No gross muscle atrophy, no edema, no contractures Neuro: Speech clear, face symmetrical and CN II-XII grossly intact with no noted focal neuro deficits Psych: Alert and oriented to person, place, time, and situation. Appropriate and pleasant affect. Assessment and Plan of Care: Diabetic foot infection with ulcer/callus to plantar surface of right foot -Continuation of IV antibiotics Unasyn -Infectious disease following -Vascular surgery following, tentative plans to take patient for debridement of wound later this afternoon. -Symptomatic care and pain management. -Wound care Insulin-dependent diabetes mellitus -Continuation of Levemir 24 units nightly and NovoLog 24 units with meals 3 times daily. Patient also placed on glycemic protocol with NovoLog sliding scale. Hypertension Monitor vital signs and continue daily medication regimen with metoprolol and Cozaar. Hyperlipidemia Continue daily medication regimen with atorvastatin 80 mg nightly. CKD stage III -Currently at baseline levels, we will continue to monitor throughout hospitalization with repeat a.m. labs. History of CAD with stents -Continue daily medication regimen with aspirin, Plavix, atorvastatin, metoprolol Chronic systolic heart failure with EF of 40-45% -Continue Lasix 20 mg daily -Daily weights -I's and O's BPH Continue daily medication regimen with Flomax CODE STATUS: Full code DVT prophylaxis: Heparin Discussed with: Patient and RN Anticipated discharge date: Clinical course to determine Anticipated discharge place: Home A total of 45 minutes was spent on the care of this complex patient more than 50% of the time was spent in counseling and care coordination. Objective - Vital Signs Vital signs: Vital Signs Temp 97.6 F 01/12/21 04:35 Pulse 68 01/12/21 04:35 Resp 18 01/12/21 04:35 BP 132/67 01/12/21 04:35 Pulse Ox 97 01/12/21 04:35 Intake & Output 01/11/21 01/12/21 01/12/21 18:59 06:59 18:59 Intake Total 600 Balance 600 Weight 117.934 kg 117.934 kg Intake: Intake, IV Titration 600 Amount Ampicillin-Sulbactam 3 gm 100 In Sodium Chloride 0.9% 100 ml @ 200 mls/hr IVPB Q6HR [facility] Rx#:[id number] Vancomycin 1,750 mg In 500 Sodium Chloride 0.9% 500 ml 500 ml @ 167 mls/hr IVPB Q24H [facility] Rx#: [id number] Other: Voiding Method Urinal - Labs CBC & Chem 7: 01/11/21 14:20 01/11/21 14:20 Labs: Abnormal Lab Results - Last 24 Hours (Table) 01/11/21 01/11/21 01/11/21 Range/Units 14:20 14:20 20:41 WBC 13.9 H (3.8-10.6) k/uL Neutrophils # 10.9 H (1.3-7.7) k/uL Monocytes # 1.2 H (0-1.0) k/uL Basophils # 0.3 H (0-0.2) k/uL BUN 23 H (9-20) mg/dL Creatinine 1.64 H (0.66-1.25) mg/dL Glucose 249 H (74-99) mg/dL POC Glucose (mg/dL) 306 H (75-99) mg/dL Alkaline Phosphatase 153 H (38-126) U/L 01/12/21 Range/Units 06:51 WBC (3.8-10.6) k/uL Neutrophils # (1.3-7.7) k/uL Monocytes # (0-1.0) k/uL Basophils # (0-0.2) k/uL BUN (9-20) mg/dL Creatinine (0.66-1.25) mg/dL Glucose (74-99) mg/dL POC Glucose (mg/dL) 118 H (75-99) mg/dL Alkaline Phosphatase (38-126) U/L
[2021-01-12 17:16] LABS: Glucose,Whole Blood 78 mg/dL (75-99)
[2021-01-12] MEDS ORDERED: VANCOMYCIN 1,750 MG in SODIUM CHLORIDE 0.9% 500 ML 500 ML IVPB SCH (18:00)
[2021-01-12 20:24] LABS: Glucose,Whole Blood 99 mg/dL (75-99)
[2021-01-12] MEDS: LOSARTAN 25 MG TAB PO SCH (21:07)
[2021-01-12] MEDS: INSULIN DETEMIR (LEVEMIR) 100 UNIT/ML SYR SQ SCH (21:07)
[2021-01-12] MEDS: ATORVASTATIN 80 MG TAB PO SCH (21:08)
[2021-01-12] MEDS: TAMSULOSIN 0.4 MG CAP.ER.24H PO SCH (21:08)
[2021-01-12] MEDS: ASPIRIN 81 MG PO SCH (21:08)
--- NOTE | 2021-01-12 22:17 | PN ---
PROGRESS NOTE DATE OF SERVICE: 01/12/2021 REASON FOR FOLLOWUP: Right foot infected callus. INTERVAL HISTORY: The patient is afebrile. The patient is breathing comfortably. Pain to the right foot with slightly decreased intensity. No chest pain, shortness of breath or cough. No abdominal pain, no diarrhea. PHYSICAL EXAMINATION: Blood pressure 143/78 with a pulse of 72, temperature 97.8. He is 99% on room air. General description is an elderly male lying in bed in no distress. Respiratory system: Unlabored breathing, clear to auscultation anteriorly. Heart S1, S2. Regular rate and rhythm. Abdomen soft, no tenderness. Right foot swelling has minimally improved. LABS: Blood culture so far negative. DIAGNOSTIC IMPRESSION AND PLAN: Patient admitted to the hospital with right diabetic foot infection with an infected callus of the right foot plantar aspect. The patient was evaluated by Vascular Surgery recommending a surgical debridement. The patient is covered with Unasyn, to continue with antibiotic adjusted on the basis of culture report. Continue supportive care. MMODL / IJN: [id number] /
[2021-01-13] MEDS: AMPICILLIN-SULBACTAM 3 GM in SODIUM CHLORIDE 0.9% 100 ML IVPB SCH ×4 (00:57→21:33)
[2021-01-13] MEDS: HEPARIN SODIUM,PORCINE/PF 5,000 UNIT/0.5 ML SYRINGE SQ SCH ×3 (00:59→17:00)
[2021-01-13 02:03] LABS: Glucose,Whole Blood 81 mg/dL (75-99)
[2021-01-13 06:21] LABS: HCT 43.2 % (39.0-53.0); HGB 13.8 gm/dL (13.0-17.5); MCH 30.9 pg (25.0-35.0); MCHC 32.1 g/dL (31.0-37.0); MCV 96.4 fL (80.0-100.0); Mean Platelet Volume 9.3; Platelet Count 367 k/uL (150-450); RBC 4.48 m/uL (4.30-5.90); RDW 13.6 % (11.5-15.5); WBC 10.3 k/uL (3.8-10.6)
[2021-01-13 07:05] LABS: Glucose,Whole Blood 110 mg/dL (75-99)
[2021-01-13] MEDS: INSULIN ASPART (NovoLOG) 100 UNIT/ML VIAL SQ SCH ×8 (07:36→21:07)
[2021-01-13] MEDS ORDERED: fentaNYL (PF) 50 MCG/ML 2 ML AMP ONE (08:40)
[2021-01-13] MEDS ORDERED: SODIUM CHLORIDE 0.9% 1,000 ML IV ONE (08:40)
[2021-01-13] MEDS ORDERED: MIDAZOLAM 2 MG/2 ML VIAL ONE (08:40)
[2021-01-13] MEDS ORDERED: LIDOCAINE 1% INJ 10MG/ML (20 ML MDV) SQ ONE (08:46)
[2021-01-13] MEDS: CLOPIDOGREL 75 MG TAB PO SCH (10:05)
[2021-01-13] MEDS: FUROSEMIDE 20 MG TAB PO SCH (10:08)
[2021-01-13] MEDS: MULTIVITAMINS, THERA 1 EACH TAB PO SCH (10:08)
[2021-01-13] MEDS: METOPROLOL TARTRATE 25 MG TAB PO SCH (10:08)
[2021-01-13] MEDS: OXcarbazepine 150 MG TAB PO SCH ×2 (10:09→21:32)
[2021-01-13 10:22] LABS: African American GFR (CKD) 42.6 (60.0-200.0); Anion Gap 14.5 mmol/L (4.00-12.00); BUN/Creat Ratio 13.43 Ratio (12.00-20.00); Blood Urea Nitrogen 23.5 mg/dL (9.0-27.0); Calcium 8.7 mg/dL (8.7-10.3); Carbon Dioxide 19.9 mmol/L (21.6-31.8); Magnesium 2.2 mg/dL (1.5-2.4); Non-African American GFR(CKD) 36.7 (60.0-200.0); Potassium 4.3 mmol/L (3.5-5.5)
--- NOTE | 2021-01-13 11:23 | OP ---
OPERATIVE REPORT PREOPERATIVE DIAGNOSIS: Infected callus, right foot, plantar aspect. Measurement 3 x 2 cm. POSTOPERATIVE DIAGNOSIS: Infected callus, right foot, plantar aspect. Post-debridement measurement 3 x 2 x 1 cm. PROCEDURE DESCRIPTION: This patient has an infected callus, right foot, plantar aspect. Patient was brought to the operating room. Under local IV sedation an elliptical incision was made on the plantar aspect of the right foot, deepened through skin, fat and fascia. Using a sharp knife, we removed the infected callus and also removed all the devitalized tissue. The tissue was sent for deep culture. Wound was irrigated with saline. Hemostasis was well controlled and Aquacel Silver rope was applied to the wound. Pressure dressing was applied. Patient tolerated the procedure well. PLAN: To change the dressing every 48 hours using Aquacel Silver. MMODL / IJN: [id number] /
[2021-01-13 12:02] LABS: Glucose,Whole Blood 147 mg/dL (75-99)
--- NOTE | 2021-01-13 15:04 | P.PN ---
Subjective Progress Note Date: 01/13/21 History of Presenting Illness: Patient is a very pleasant 76-year-old male with a past medical history including CAD with stents on dual antiplatelet therapy with aspirin and Plavix, hypertension, hyperlipidemia, chronic systolic heart failure with an EF of 40-45 % on Lasix, insulin-dependent diabetes mellitus, CKD stage III and diabetic neuropathy of bilateral lower extremities under care of Dr. Pino, soil specialist. Patient states 2 days ago he began noticing pain/discomfort, redness, swelling, accompanied by a wound to the plantar region of his right foot. He reports he went to his soil specialist Dr. Pino today and was instructed to go to the emergency department due to infected diabetic ulcer with need for IV antibiotics. In the emergency department, an X-ray right foot showed soft tissue swelling with ulceration at the base of great toe with no bony deconstruct of process reported to suggest osteomyelitis at this time. Labs completed with CBC revealing leukocytosis with WBC count of 13.9 and BMP consistent with C daily stage III with BUN 23, creatinine 1.64, and GFR of 40 with baseline creatinine of 1.6. Patient started on IV antibiotics with Rocephin and vancomycin and was admitted under our services with consultation to infectious disease and vascular surgery. Infectious disease changed antibiotics over to Unasyn at this time. Vascular surgery planning to take patient for debridement later this afternoon. Physical exam: Patient was seen and evaluated at bedside this morning. He just returned from OR where he underwent debridement of ulcer. Morning labs reviewed, renal function slightly worsening from baseline levels with BUN of 23.5, creatinine 1.8, and GFR of 36.7 with baseline creatinine of 1.6. Labs otherwise stable. Vital signs stable. Patient reports throbbing and left foot RN preparing to medicate with pain medication at this time. He denies otherwise experiencing an y headache, lightheadedness, dizziness, chest pain, palpitations, shortness of breath, nausea, or experiencing any new focal numbness/weakness/tingling. Blood cultures showing no growth after 24 hours. Wound cultures obtained during debridement and pending results. At this time we will continue with IV antibiotics Unasyn. Vital signs reviewed and stable. General: Nontoxic, no distress and appears stated age. Morbidly obese. Derm: Skin warm and dry, normal coloration for ethnicity. Infected ulceration/callus to right plantar surface of foot directly beneath great toe with surrounding erythema and edema-dressing currently in place status post debridement. Head: Atraumatic, normocephalic and symmetric. Eyes: EOMs intact, no lid lag, and anicteric sclera Mouth: no lip lesions, mucus membranes moist Cardiovascular: regular rate and rhythm with normal S1S2, no murmur, positive posterior tibial pulses bilaterally, and cap refill < 2 seconds. Lungs: Respirations even, regular, and unlabored on room air. Lungs CTA bilaterally, no rhonchi, no rales, no wheezing, and no accessory muscle usage. Abdominal: soft, nontender to palpation, no guarding, no appreciable organomegaly Ext: ROM intact. No gross muscle atrophy, no edema, no contractures Neuro: Speech clear, face symmetrical and CN II-XII grossly intact with no noted focal neuro deficits Psych: Alert and oriented to person, place, time, and situation. Appropriate and pleasant affect. Assessment and Plan of Care: Diabetic foot infection with ulcer/callus to plantar surface of right foot -Continuation of IV antibiotics Unasyn -Infectious disease following -Vascular surgery following, tentative plans to take patient for debridement of wound later this afternoon. -Symptomatic care and pain management. -Wound care -Initial ESR 30 and CRP of 4.20, we will repeat inflammatory markers with a.m. labs. Insulin-dependent diabetes mellitus -Continuation of Levemir 24 units nightly and NovoLog 24 units with meals 3 times daily. Patient also placed on glycemic protocol with NovoLog sliding scale. Hypertension Monitor vital signs and continue daily medication regimen with metoprolol and Cozaar. Hyperlipidemia Continue daily medication regimen with atorvastatin 80 mg nightly. CKD stage III -Slightly worsening from baseline levels with BUN of 23.5, creatinine 1.8, and GFR of 36.7. Baseline creatinine 1.6. -We will continue to monitor throughout hospitalization with repeat a.m. labs. History of CAD with stents -Continue daily medication regimen with aspirin, Plavix, atorvastatin, metoprolol Chronic systolic heart failure with EF of 40-45% -Continue Lasix 20 mg daily -Daily weights -I's and O's BPH Continue daily medication regimen with Flomax CODE STATUS: Full code DVT prophylaxis: Heparin Discussed with: Patient and RN Anticipated discharge date: Clinical course to determine Anticipated discharge place: Home A total of 45 minutes was spent on the care of this complex patient more than 50% of the time was spent in counseling and care coordination. Objective - Vital Signs Vital signs: Vital Signs Temp 97.9 F 01/13/21 11:31 Pulse 79 01/13/21 11:31 Resp 16 01/13/21 11:31 BP 127/71 01/13/21 11:31 Pulse Ox 99 01/13/21 11:31 Intake & Output 01/12/21 01/13/21 01/13/21 18:59 06:59 18:59 Intake Total 200 200 200 Output Total 600 20 Balance 200 -400 180 Weight 117.934 kg 117.934 kg Intake: IV 200 Intake, IV Titration 200 200 Amount Ampicillin-Sulbactam 3 gm 200 200 In Sodium Chloride 0.9% 100 ml @ 200 mls/hr IVPB Q6HR [facility] Rx#:[id number] Output: Urine 600 Estimated Blood Loss 20 Other: Voiding Method Urinal Urinal # Bowel Movements 1 - Labs CBC & Chem 7: 01/13/21 05:56 01/13/21 05:56 Labs: Abnormal Lab Results - Last 24 Hours (Table) 01/12/21 01/12/21 01/13/21 Range/Units 06:14 06:14 05:56 ESR 30 H (0-20) mm/Hr Carbon Dioxide 19.9 L (21.6-31.8) mmol/L Anion Gap 14.50 H (4.00-12.00) mmol/L Creatinine 1.8 H (0.6-1.5) mg/dL Est GFR (CKD-EPI)AfAm 42.6 L (60.0-200.0) Est GFR (CKD-EPI)NonAf 36.7 L (60.0-200.0) Glucose 123 H (70-110) mg/dL POC Glucose (mg/dL) (75-99) mg/dL C-Reactive Protein 4.20 H (0.00-0.80) mg/dL 01/13/21 01/13/21 Range/Units 06:55 12:00 ESR (0-20) mm/Hr Carbon Dioxide (21.6-31.8) mmol/L Anion Gap (4.00-12.00) mmol/L Creatinine (0.6-1.5) mg/dL Est GFR (CKD-EPI)AfAm (60.0-200.0) Est GFR (CKD-EPI)NonAf (60.0-200.0) Glucose (70-110) mg/dL POC Glucose (mg/dL) 110 H 147 H (75-99) mg/dL C-Reactive Protein (0.00-0.80) mg/dL Microbiology - Last 24 Hours (Table) 01/11/21 22:46 Blood Culture - Preliminary Blood No Growth after 24 hours 01/11/21 14:20 Blood Culture - Preliminary Blood No Growth after 24 hours
[2021-01-13 17:02] LABS: Glucose,Whole Blood 160 mg/dL (75-99)
[2021-01-13 20:38] LABS: Glucose,Whole Blood 84 mg/dL (75-99)
[2021-01-13] MEDS: INSULIN DETEMIR (LEVEMIR) 100 UNIT/ML SYR SQ SCH (21:07)
[2021-01-13] MEDS: LOSARTAN 25 MG TAB PO SCH (21:32)
[2021-01-13] MEDS: ATORVASTATIN 80 MG TAB PO SCH (21:32)
[2021-01-13] MEDS: TAMSULOSIN 0.4 MG CAP.ER.24H PO SCH (21:32)
[2021-01-13] MEDS: ASPIRIN 81 MG PO SCH (21:32)
--- NOTE | 2021-01-13 22:50 | PN ---
PROGRESS NOTE DATE OF SERVICE: 01/13/2021 REASON FOR FOLLOWUP: Right foot infected callus. INTERVAL HISTORY: The patient was taken to the OR this morning. This patient is status post debridement of the right foot infected callus which was going down to the skin and fascia make sure of any involvement of the bone. Patient tolerated the procedure, has been complaining of some throbbing pain post procedure. No chest pain, shortness of breath or cough. No abdominal pain or diarrhea. PHYSICAL EXAMINATION: Blood pressure 122/66, pulse of 90, temperature 98.1. He is 96% on room air. General description is an elderly male lying in bed in no distress. RESPIRATORY SYSTEM: Unlabored breathing. Clear to auscultation anteriorly. HEART: S1, S2. Regular rate and rhythm. ABDOMEN: Soft. No tenderness. Right foot is currently dressed. No obvious drainage on the dressing. LABS: Creatinine is 1.8. Cultures are currently pending. DIAGNOSTIC IMPRESSION AND PLAN: Patient with right foot infected callus, status post debridement. Cultures are pending. Plan is to continue with IV Unasyn with discharge antibiotics based on the culture report. Continue supportive care. MMODL / IJN: [id number] /
[2021-01-14] MEDS: HEPARIN SODIUM,PORCINE/PF 5,000 UNIT/0.5 ML SYRINGE SQ SCH ×4 (00:40→20:53)
[2021-01-14] MEDS: AMPICILLIN-SULBACTAM 3 GM in SODIUM CHLORIDE 0.9% 100 ML IVPB SCH ×3 (05:56→20:53)
[2021-01-14 07:33] LABS: Glucose,Whole Blood 149 mg/dL (75-99)
[2021-01-14] MEDS: MULTIVITAMINS, THERA 1 EACH TAB PO SCH (07:50)
[2021-01-14] MEDS: CLOPIDOGREL 75 MG TAB PO SCH (07:50)
[2021-01-14] MEDS: METOPROLOL TARTRATE 25 MG TAB PO SCH (07:51)
[2021-01-14] MEDS: FUROSEMIDE 20 MG TAB PO SCH (07:51)
[2021-01-14] MEDS: OXcarbazepine 150 MG TAB PO SCH ×2 (07:51→20:59)
[2021-01-14 08:05] LABS: HCT 38.5 % (39.0-53.0); HGB 12.2 gm/dL (13.0-17.5); MCH 30.7 pg (25.0-35.0); MCHC 31.7 g/dL (31.0-37.0); Mean Platelet Volume 8.7; Platelet Count 418 k/uL (150-450); RBC 3.97 m/uL (4.30-5.90); RDW 13.7 % (11.5-15.5); WBC 10.8 k/uL (3.8-10.6)
[2021-01-14] MEDS: INSULIN ASPART (NovoLOG) 100 UNIT/ML VIAL SQ SCH ×7 (08:19→20:29)
[2021-01-14 10:39] LABS: Erythrocyte Sedimentation Rate 28 mm/hr (0-15)
[2021-01-14 11:31] LABS: Glucose,Whole Blood 202 mg/dL (75-99)
--- NOTE | 2021-01-14 11:47 | P.CONS ---
History of Present Illness - Chief Complaint Walking difficulty - History of Present Illness I had the opportunity to see patient for inpatient rehab consultation with regard to walking difficulty. Patient admitted to [facility] January 11 [address] operator [address] Pino office regard to diabetic right foot ulcer. Patient seen by Dr. Arellano from ID management and Dr. ramírez for possible I&D. Right foot x-ray noted. PT and OT prescribed. Previous functional history as elicited from patient: 76-year-old left-handed white male who is lives in trilevel home with . does all the cooking and driving. Both retired. Patient independent with own laundry, standing shower and gait with [address] Lawrence. Client Relationship Manager Dr. Pino. Patient admits to 2-3 cigars per day and an occasional beer. Review of Systems Review of systems: ENT: Denies sneezes or discharge. Eyes: Denies discharge or photophobia. Cardiac: Denies chest pain or palpitation. Pulmonary: Denies cough or shortness of breath. Gastrointestinal: Denies nausea, emesis, constipation, diarrhea. Genitourinary: Denies discharge or frequency. Musculoskeletal: Right foot. Neurologic: Denies motor or sensory change. Endocrine: Denies shakes or sweats. Oncology: Denies cancers. Dermatologic: Denies rash, itching, pruritus. ALLERGY/immunology: Denies sneezes, rashes. Past Medical History Past Medical History: Diabetes Mellitus, GERD/Reflux, Hyperlipidemia, Hypertension, Myocardial Infarction (MD), Prostate Disorder, Renal Disease, Seizure Disorder Additional Past Medical History / Comment(s): last seizure last week-usually has one every couple months, uses CPAP, neuropathy feet, decreased kidney function- sees Torey Last Myocardial Infarction Date:: 2013 History of Any Multi-Drug Resistant Organisms: None Reported Past Surgical History: Heart Catheterization, Heart Catheterization With Stent, Orthopedic Surgery Additional Past Surgical History / Comment(s): bilateral knee replacement, left ankle, 5 stents Past Anesthesia/Blood Transfusion Reactions: No Reported Reaction Date of Last Stent Placement:: 2013 Past Psychological History: No Psychological Hx Reported Smoking Status: Light tobacco smoker Past Alcohol Use History: Occasional Additional Past Alcohol Use History / Comment(s): smoked on/off cigars, 2-3 daily Past Drug Use History: None Reported - Past Family History Mother Family Medical History: No Reported History Medications and Allergies Home Medications Medication Instructions Recorded Confirmed Type Aspirin EC [Ecotrin Low Dose] 81 mg PO HS 04/09/14 01/11/21 History Tamsulosin HCl [Flomax] 0.4 mg PO HS 04/09/14 01/11/21 History Multivit-Min/FA/Lycopen/Lutein 1 tab PO DAILY 04/30/18 01/11/21 History [Centrum Silver Tablet] levETIRAcetam [Keppra] 1,500 mg PO BID 04/30/18 01/11/21 History Atorvastatin [Lipitor] 80 mg PO HS 01/27/19 01/11/21 History Clopidogrel [Plavix] 75 mg PO DAILY 01/27/19 01/11/21 History INSULIN ASPART (NovoLOG) [NovoLOG 24 unit SQ PC-TID 01/27/19 01/11/21 History (formulary)] Insulin Detemir (Levemir) [Levemir] 24 unit SQ HS 01/27/19 01/11/21 History Losartan Potassium [Cozaar] 25 mg PO HS 01/27/19 01/11/21 History Furosemide [Lasix] 20 mg PO DAILY 01/11/21 01/11/21 History Metoprolol Tartrate [Lopressor] 25 mg PO DAILY 01/11/21 01/11/21 History OXcarbazepine [Trileptal] 150 mg PO BID 01/11/21 01/11/21 History Allergies Allergy/AdvReac Type Severity Reaction Status Date / Time No Known Allergies Allergy Verified 01/11/21 14:20 Physical Exam Vitals: Vital Signs Temp Pulse Resp BP Pulse Ox 01/14/21 05:15 97.9 F 81 18 90/55 94 L 01/13/21 19:42 98.1 F 90 16 132/66 96 Intake and Output 01/13/21 01/14/21 01/14/21 22:59 06:59 14:59 Intake Total 340 Balance 340 Intake: Intake, IV Titration 340 Amount Ampicillin-Sulbactam 3 gm 200 In Sodium Chloride 0.9% 100 ml @ 200 mls/hr IVPB Q8H [facility] Rx#:[id number] Sodium Chloride 0.9% 1, 140 000 ml @ 0 mls/hr IV .[facility] Rx#:[id number] Other: Voiding Method Urinal # Voids 1 # Bowel Movements 1 Weight 98 kg Skin: Atrophic. Right foot clean and dressed with Gamal wraps. General: Overweight build and comfortable appearance. Head: Normocephalic, atraumatic. Eyes: Symmetric. Pupils equal round. Ears: Symmetric. Hearing within normal limits. Mouth: Clear. Neck: Supple. Carotid without bruit. Cardiac: Regular rate and rhythm. Lungs: Clear anteriorly and posteriorly. Abdomen: Soft active nontender, overweight. Extremities: Normal tone. Right foot clean and dressed with Gamal wrapped. Neurological: Mental status: Alert, cooperative, pleasant. Cranial nerves: Symmetric facial tone and trapezius. Motor: Active movement all 4 limbs including distally. Sensation: Intact throughout. DTRs: Symmetric and equal throughout. Mobility: Patient reports assistance for bedside commode and Verenice chair. Results CBC & Chem 7: 01/14/21 07:26 01/13/21 05:56 Labs: Abnormal Lab Results - Last 24 Hours (Table) 01/13/21 01/13/21 01/14/21 Range/Units 12:00 16:59 07:26 WBC 10.8 H (3.8-10.6) k/uL RBC 3.97 L (4.30-5.90) m/uL Hgb 12.2 L (13.0-17.5) gm/dL Hct 38.5 L (39.0-53.0) % ESR 28 H (0-15) mm/hr POC Glucose (mg/dL) 147 H 160 H (75-99) mg/dL 01/14/21 01/14/21 Range/Units 07:32 11:30 WBC (3.8-10.6) k/uL RBC (4.30-5.90) m/uL Hgb (13.0-17.5) gm/dL Hct (39.0-53.0) % ESR (0-15) mm/hr POC Glucose (mg/dL) 149 H 202 H (75-99) mg/dL Microbiology - Last 24 Hours (Table) 01/13/21 09:00 Gram Stain - Preliminary Foot - Right Tissue Culture - Preliminary 01/11/21 22:46 Blood Culture - Preliminary Blood No Growth after 48 hours 01/13/21 09:00 Anaerobic Culture - Preliminary Foot - Right 01/11/21 14:20 Blood Culture - Preliminary Blood No Growth after 48 hours Assessment and Plan (1) Cellulitis Current Visit: Yes Status: Acute Code(s): L03.90 - CELLULITIS, UNSPECIFIED SNOMED Code(s): 644305750 (2) CAD (coronary artery disease), nome coronary artery Current Visit: No Status: Acute Priority: High Code(s): I25.10 - ATHSCL HEART DISEASE OF [place] CORONARY ARTERY W/O ANG PCTRS SNOMED Code(s): 494778793 (3) CKD (chronic kidney disease), stage III Current Visit: No Status: Acute Priority: High Code(s): N18.3 - CHRONIC KIDNEY DISEASE, STAGE 3 (MODERATE) * DO NOT USE * SNOMED Code(s): 491862272 (4) Diabetes mellitus type 2 in obese Current Visit: No Status: Acute Priority: Medium Code(s): E11.69 - TYPE 2 DIABETES MELLITUS WITH OTHER SPECIFIED COMPLICATION; E66.9 - OBESITY, UNSPECIFIED SNOMED Code(s): 35063510 Plan: Impression: 1. Walking only. 2. Diabetic right foot ulcer. 3. Chronic kidney disease. 4. CAD with history of MD. 5. Overweight. 6. Hypertension. 7. Dyslipidemia. 8. BPH. Comments and plan: At this time PT and OT are prescribed. Follow therapies with yourself for anticipated safety concerns and possible benefit of inpatient rehab. Insurance will require therapy notes.
[2021-01-14 11:54] LABS: African American GFR (CKD) 34.2 (60.0-200.0); Anion Gap 15.1 mmol/L (4.00-12.00); BUN/Creat Ratio 13.48 Ratio (12.00-20.00); Blood Urea Nitrogen 28.3 mg/dL (9.0-27.0); C Reactive Protein 2.3 mg/dL (0.00-0.80); Calcium 8.3 mg/dL (8.7-10.3); Carbon Dioxide 19.9 mmol/L (21.6-31.8); Magnesium 2.1 mg/dL (1.5-2.4); Non-African American GFR(CKD) 29.5 (60.0-200.0); Potassium 4.6 mmol/L (3.5-5.5)
--- NOTE | 2021-01-14 15:30 | PN ---
PROGRESS NOTE Mr. Jang has infected callus right foot plantar aspect. We did the debridement. Culture is pending. Today we have changed the dressing to the Aquacel Silver which will be continued every other day, nonweightbearing. Continue with IV antibiotic. MMODL / IJN: [id number] /
--- NOTE | 2021-01-14 16:51 | P.PN ---
Subjective Progress Note Date: 01/14/21 History of Presenting Illness: Patient is a very pleasant 76-year-old male with a past medical history including CAD with stents on dual antiplatelet therapy with aspirin and Plavix, hypertension, hyperlipidemia, chronic systolic heart failure with an EF of 40-45 % on Lasix, insulin-dependent diabetes mellitus, CKD stage III and diabetic neuropathy of bilateral lower extremities under care of Dr. Pino, resident hall director. Patient states 2 days ago he began noticing pain/discomfort, redness, swelling, accompanied by a wound to the plantar region of his right foot. He reports he went to his resident hall director Dr. Pino today and was instructed to go to the emergency department due to infected diabetic ulcer with need for IV antibiotics. In the emergency department, an X-ray right foot showed soft tissue swelling with ulceration at the base of great toe with no bony deconstruct of process reported to suggest osteomyelitis at this time. Labs completed with CBC revealing leukocytosis with WBC count of 13.9 and BMP consistent with C daily stage III with BUN 23, creatinine 1.64, and GFR of 40 with baseline creatinine of 1.6. Patient started on IV antibiotics with Rocephin and vancomycin and was admitted under our services with consultation to infectious disease and vascular surgery. Infectious disease changed antibiotics over to Unasyn at this time. Vascular surgery planning to take patient for debridement later this afternoon. Physical exam: Patient seen and fully evaluated at the bedside this morning. He has had significant difficulties with ambulation status post debridement of ulcer yesterday morning. Orders placed for PT/OT evaluation. Consult to Dr. Cassidy for inpatient rehabilitation. Blood cultures showing no growth for 48 hours and wound cultures currently pending. Patient remains on Unasyn IV antibiotic. Patient reports pain in right foot and continued difficulty with ambulation he denies having any other complaints including headache, lightheadedness, dizziness, chest pain, palpitations, shortness of breath, or nausea. Vital signs reviewed and stable. General: Nontoxic, no distress and appears stated age. Morbidly obese. Derm: Skin warm and dry, normal coloration for ethnicity. Dressing to right foot clean dry and intact. Head: Atraumatic, normocephalic and symmetric. Eyes: EOMs intact, no lid lag, and anicteric sclera Mouth: no lip lesions, mucus membranes moist Cardiovascular: regular rate and rhythm with normal S1S2, no murmur, positive posterior tibial pulses bilaterally, and cap refill < 2 seconds. Lungs: Respirations even, regular, and unlabored on room air. Lungs CTA bilaterally, no rhonchi, no rales, no wheezing, and no accessory muscle usage. Abdominal: soft, nontender to palpation, no guarding, no appreciable organomegaly Ext: ROM intact. No gross muscle atrophy, no edema, no contractures Neuro: Speech clear, face symmetrical and CN II-XII grossly intact with no noted focal neuro deficits Psych: Alert and oriented to person, place, time, and situation. Appropriate and pleasant affect. Assessment and Plan of Care: Diabetic foot infection with ulcer/callus to plantar surface of right foot -Continuation of IV antibiotics Unasyn -Infectious disease following -Vascular surgery following, tentative plans to take patient for debridement of wound later this afternoon. -Symptomatic care and pain management. -Wound care -Initial ESR 30 and CRP of 4.20, we will repeat inflammatory markers with a.m. labs. Insulin-dependent diabetes mellitus -Continuation of Levemir 24 units nightly and NovoLog 24 units with meals 3 times daily. Patient also placed on glycemic protocol with NovoLog sliding scale. Hypertension Monitor vital signs and continue daily medication regimen with metoprolol and Cozaar. Hyperlipidemia Continue daily medication regimen with atorvastatin 80 mg nightly. CKD stage III -Slightly worsening from baseline levels with BUN of 23.5, creatinine 1.8, and GFR of 36.7. Baseline creatinine 1.6. -We will continue to monitor throughout hospitalization with repeat a.m. labs. History of CAD with stents -Continue daily medication regimen with aspirin, Plavix, atorvastatin, metoprolol Chronic systolic heart failure with EF of 40-45% -Continue Lasix 20 mg daily -Daily weights -I's and O's BPH Continue daily medication regimen with Flomax CODE STATUS: Full code DVT prophylaxis: Heparin Discussed with: Patient and RN Anticipated discharge date: Clinical course to determine Anticipated discharge place: Home A total of 45 minutes was spent on the care of this complex patient more than 50% of the time was spent in counseling and care coordination. Objective - Vital Signs Vital signs: Vital Signs Temp 98.3 F 01/14/21 11:58 Pulse 75 01/14/21 11:58 Resp 17 01/14/21 11:58 BP 114/65 10/25/21 11:58 Pulse Ox 99 01/14/21 11:58 Intake & Output 01/13/21 01/14/21 01/14/21 18:59 06:59 18:59 Intake Total 200 340 Output Total 420 Balance -220 340 Weight 98 kg Intake: IV 200 Intake, IV Titration 340 Amount Ampicillin-Sulbactam 3 gm 200 In Sodium Chloride 0.9% 100 ml @ 200 mls/hr IVPB Q8H [facility] Rx#:[id number] Sodium Chloride 0.9% 1, 140 000 ml @ 0 mls/hr IV .[facility] Rx#:[id number] Output: Urine 400 Estimated Blood Loss 20 Other: Voiding Method Urinal Urinal # Voids 1 # Bowel Movements 1 - Labs CBC & Chem 7: 01/14/21 07:26 01/14/21 07:26 Labs: Abnormal Lab Results - Last 24 Hours (Table) 01/13/21 01/14/21 01/14/21 Range/Units 16:59 07:26 07:26 WBC 10.8 H (3.8-10.6) k/uL RBC 3.97 L (4.30-5.90) m/uL Hgb 12.2 L (13.0-17.5) gm/dL Hct 38.5 L (39.0-53.0) % ESR 28 H (0-15) mm/hr Carbon Dioxide 19.9 L (21.6-31.8) mmol/L Anion Gap 15.10 H (4.00-12.00) mmol/L BUN 28.3 H (9.0-27.0) mg/dL Creatinine 2.1 H (0.6-1.5) mg/dL Est GFR (CKD-EPI)AfAm 34.2 L (60.0-200.0) Est GFR (CKD-EPI)NonAf 29.5 L (60.0-200.0) Glucose 142 H (70-110) mg/dL POC Glucose (mg/dL) 160 H (75-99) mg/dL Calcium 8.3 L (8.7-10.3) mg/dL C-Reactive Protein 2.30 H (0.00-0.80) mg/dL 01/14/21 01/14/21 Range/Units 07:32 11:30 WBC (3.8-10.6) k/uL RBC (4.30-5.90) m/uL Hgb (13.0-17.5) gm/dL Hct (39.0-53.0) % ESR (0-15) mm/hr Carbon Dioxide (21.6-31.8) mmol/L Anion Gap (4.00-12.00) mmol/L BUN (9.0-27.0) mg/dL Creatinine (0.6-1.5) mg/dL Est GFR (CKD-EPI)AfAm (60.0-200.0) Est GFR (CKD-EPI)NonAf (60.0-200.0) Glucose (70-110) mg/dL POC Glucose (mg/dL) 149 H 202 H (75-99) mg/dL Calcium (8.7-10.3) mg/dL C-Reactive Protein (0.00-0.80) mg/dL Microbiology - Last 24 Hours (Table) 01/11/21 14:20 Blood Culture - Preliminary Blood No Growth after 72 hours 01/13/21 09:00 Gram Stain - Preliminary Foot - Right Tissue Culture - Preliminary 01/11/21 22:46 Blood Culture - Preliminary Blood No Growth after 48 hours 01/13/21 09:00 Anaerobic Culture - Preliminary Foot - Right
[2021-01-14 17:17] LABS: Glucose,Whole Blood 79 mg/dL (75-99)
[2021-01-14 20:14] LABS: Glucose,Whole Blood 157 mg/dL (75-99)
[2021-01-14] MEDS: INSULIN DETEMIR (LEVEMIR) 100 UNIT/ML SYR SQ SCH (20:29)
[2021-01-14] MEDS: TAMSULOSIN 0.4 MG CAP.ER.24H PO SCH (20:52)
[2021-01-14] MEDS: ATORVASTATIN 80 MG TAB PO SCH (20:52)
[2021-01-14] MEDS: ASPIRIN 81 MG PO SCH (20:52)
[2021-01-14] MEDS: LOSARTAN 25 MG TAB PO SCH (20:52)
--- NOTE | 2021-01-14 23:08 | PN ---
PROGRESS NOTE DATE OF SERVICE: 01/14/2021 REASON FOR FOLLOWUP: Right foot infected callus. INTERVAL HISTORY: The patient is afebrile, has been breathing comfortably. The patient denies having any chest pain or shortness of breath or cough. No abdominal pain. Pain to the right foot is currently controlled. PHYSICAL EXAMINATION: Blood pressure 144/77 with a pulse of 81, temperature of 97.9. He is 100% on room air. General description is an elderly male up in the chair in no distress. RESPIRATORY SYSTEM: Unlabored breathing. Clear to auscultation anteriorly. HEART: S1, S2. Regular rate and rhythm. ABDOMEN: Soft. No tenderness. LABS: Hemoglobin is 12.1, white count 10.8. Creatinine is 2.19. DIAGNOSTIC IMPRESSION AND PLAN: Patient with a right foot infected callus, status post debridement. The patient at this time is covered with Unasyn while waiting for the culture to finalize to determine discharge antibiotics. Continue with supportive care. MMODL / IJN: [id number] /
[2021-01-15] MEDS: AMPICILLIN-SULBACTAM 3 GM in SODIUM CHLORIDE 0.9% 100 ML IVPB SCH ×3 (05:07→20:31)
[2021-01-15 07:19] LABS: Glucose,Whole Blood 149 mg/dL (75-99)
[2021-01-15] MEDS: INSULIN ASPART (NovoLOG) 100 UNIT/ML VIAL SQ SCH ×7 (07:50→20:33)
[2021-01-15] MEDS: FUROSEMIDE 20 MG TAB PO SCH (09:32)
[2021-01-15] MEDS: METOPROLOL TARTRATE 25 MG TAB PO SCH (09:32)
[2021-01-15] MEDS: CLOPIDOGREL 75 MG TAB PO SCH (09:34)
[2021-01-15] MEDS: OXcarbazepine 150 MG TAB PO SCH ×2 (09:36→20:23)
[2021-01-15] MEDS: MULTIVITAMINS, THERA 1 EACH TAB PO SCH (09:37)
[2021-01-15] MEDS: HEPARIN SODIUM,PORCINE/PF 5,000 UNIT/0.5 ML SYRINGE SQ SCH ×3 (09:43→23:57)
[2021-01-15 11:53] LABS: Glucose,Whole Blood 119 mg/dL (75-99)
--- NOTE | 2021-01-15 15:02 | P.PN ---
Progress Note - Text 76-year-old gentleman had infected callus the ventral aspect of the foot we did the excisions excision and debridement of the wound culture came back as a gallbladder is negative staph alphahemolytic strep patient is under care of infectious disease for IV antibiotic. Is changed continue with the local wound care
--- NOTE | 2021-01-15 15:08 | P.PN ---
Subjective Progress Note Date: 01/15/21 The patient is a 76-year-old male with a PMH of coronary artery disease, hypertension, hyperlipidemia, chronic systolic CHF, type II DM, chronic kidney disease stage III, and diabetic nephropathy who had presented to the emergency room for pain and redness on the plantar surface of the right foot. The patient had been following with his payroll supervisor Dr iPno who advised him to go to the emergency room for IV antibiotics. The patient was admitted with vascular surgery and infectious disease consulted. The patient underwent debridement of the right diabetic foot ulcer and infectious disease is now awaiting final cultures. The patient was seen and examined at the bedside on 01/15. He reported feeling well aside from inability to walk due to his right foot wound. He also reported feeling somewhat off balance when he does try to walk and needs significant assistance. He was obtaining physical therapy at home previously and wishes to continue upon discharge. He denied additional complaints. He denied chest pain, shortness of breath, fever, chills, cough. General: Non-toxic, in no acute distress, appears stated age, morbidly obese HEENT: NC/AT, anicteric sclerae, moist conjunctiva, no lid-lag, PERRLA Cardiovascular: S1/S2 wnl, no murmurs, rubs, or gallops Lungs: Clear to auscultation, normal respiratory effort, no accessory muscle use Abdominal: Soft, non-tender, non-distended, no guarding, rebound, or rigidity Skin: Warm, dry Extremities: 1+ bilateral lower extremity pitting edema with chronic venous stasis changes, right foot Gamal bandage in place Psychiatric: Alert and oriented to person, place and time, appropriate affect Neuro: CN II-XII grossly intact, Strength 3+/5 in all 4 extremities, Speech intact, Sensation to light touch grossly intact throughout Assessment/plan Right foot diabetic ulcer status post debridement -Infectious disease and muscular surgery following -Awaiting finalized tissue culture results -Patient currently on Unasyn -Continue with wound care Type II DM -Well controlled with NovoLog 24 units after meals 3 times a day and Levemir 24 units daily at bedtime Chronic conditions: Hypertension, hyperlipidemia, chronic kidney disease, chronic systolic CHF, CAD -C/w home meds DVT prophylaxis -Heparin subq Discussed with: Patient Anticipated discharge date: 2-[address]: Home Objective - Vital Signs Vital signs: Vital Signs Temp 97.4 F L 01/15/21 06:35 Pulse 83 01/15/21 06:35 Resp 16 01/15/21 06:35 BP 113/73 01/15/21 06:35 Pulse Ox 99 01/15/21 06:35 Intake & Output 01/14/21 01/15/21 01/15/21 18:59 06:59 18:59 Intake Total 420 Output Total 302 Balance -302 420 Weight 115.8 kg Intake: Intake, IV Titration 200 Amount Ampicillin-Sulbactam 3 gm 200 In Sodium Chloride 0.9% 100 ml @ 200 mls/hr IVPB Q8H [facility] Rx#:[id number] Oral 220 Output: Urine 300 Stool 2 Other: Voiding Method Urinal # Voids 4 - Labs CBC & Chem 7: 01/14/21 07:26 01/14/21 07:26 Labs: Abnormal Lab Results - Last 24 Hours (Table) 01/14/21 01/15/21 01/15/21 Range/Units 20:12 07:17 11:52 POC Glucose (mg/dL) 157 H 149 H 119 H (75-99) mg/dL Microbiology - Last 24 Hours (Table) 01/13/21 09:00 Anaerobic Culture - Preliminary Foot - Right 01/13/21 09:00 Gram Stain - Final Foot - Right Tissue Culture - Final Coagulase Negative Staph Alpha Hemolytic Streptococcus Diphtheroid species 01/11/21 22:46 Blood Culture - Preliminary Blood No Growth after 72 hours 01/11/21 14:20 Blood Culture - Preliminary Blood No Growth after 72 hours
[2021-01-15 17:34] LABS: Glucose,Whole Blood 130 mg/dL (75-99)
--- NOTE | 2021-01-15 19:48 | PN ---
PROGRESS NOTE DATE OF SERVICE: 01/15/2021 REASON FOR FOLLOWUP: Right foot infected callus. INTERVAL HISTORY: The patient is afebrile. The patient is currently breathing comfortably. The patient has been insisting on going home. No chest pain, shortness of breath or cough. No abdominal pain or any diarrhea. PHYSICAL EXAMINATION: Blood pressure is 114/68 with pulse of 72, temperature 98.4. He is 98% on room air. General description is an elderly male lying in bed in no distress. Respiratory system: Unlabored breathing, clear to auscultation anteriorly. Heart S1, S2. Regular rate and rhythm. Abdomen soft, no tenderness. Right foot is wrapped, no obvious drainage on the dressing. LABS: Wound cultures currently pending. DIAGNOSTIC IMPRESSION AND PLAN: Patient with right diabetic foot infection with underlying infected callus, status post debridement. Cultures are currently pending. ( ) discharge antibiotics. Continue Unasyn. Monitor clinical course closely. MMODL / IJN: [id number] /
[2021-01-15] MEDS: LOSARTAN 25 MG TAB PO SCH (20:23)
[2021-01-15] MEDS: ASPIRIN 81 MG PO SCH (20:23)
[2021-01-15] MEDS: ATORVASTATIN 80 MG TAB PO SCH (20:23)
[2021-01-15] MEDS: TAMSULOSIN 0.4 MG CAP.ER.24H PO SCH (20:23)
[2021-01-15 20:31] LABS: Glucose,Whole Blood 67 mg/dL (75-99)
[2021-01-15] MEDS: INSULIN DETEMIR (LEVEMIR) 100 UNIT/ML SYR SQ SCH (20:33)
[2021-01-15 21:38] LABS: Glucose,Whole Blood 88 mg/dL (75-99)
[2021-01-15] MEDS: HYDROcodone/APAP 5-325MG 1 EACH TAB PO PRN (22:13)
[2021-01-16] MEDS: HYDROcodone/APAP 5-325MG 1 EACH TAB PO PRN (04:30)
[2021-01-16] MEDS: AMPICILLIN-SULBACTAM 3 GM in SODIUM CHLORIDE 0.9% 100 ML IVPB SCH ×3 (04:31→22:06)
[2021-01-16 04:42] LABS: Glucose,Whole Blood 106 mg/dL (75-99)
[2021-01-16 06:20] LABS: HGB 11.6 gm/dL (13.0-17.5); MCH 31.6 pg (25.0-35.0); MCHC 32.1 g/dL (31.0-37.0); MCV 98.4 fL (80.0-100.0); Mean Platelet Volume 8.4; Platelet Count 426 k/uL (150-450); RBC 3.66 m/uL (4.30-5.90); RDW 13.7 % (11.5-15.5); WBC 7.3 k/uL (3.8-10.6)
[2021-01-16 06:33] LABS: African American GFR (CKD) 46 (>60 ml/min/1.73 sqM); Anion Gap 7 mmol/L; Blood Urea Nitrogen 25 mg/dL (9-20); Calcium 8.7 mg/dL (8.4-10.2); Carbon Dioxide 23 mmol/L (22-30); Chloride 110 mmol/L (98-107); Glucose 100 mg/dL (74-99); Non-African American GFR(CKD) 40 (>60 ml/min/1.73 sqM); Potassium 4.5 mmol/L (3.5-5.1); Sodium 140 mmol/L (137-145)
--- NOTE | 2021-01-16 07:04 | P.PN ---
Progress Note - Text PT reports maximal assist for bed mobility but really unable to work on standing due to foot. OT reports [id number] assist for upper dress and transfers, moderate assist for lower dress, bathing toileting. So with difficulty participating OOB and standing as well as diagnosis of Cellulitis mainly doubt will be able to admit for IPR.
[2021-01-16 07:11] LABS: Glucose,Whole Blood 113 mg/dL (75-99)
[2021-01-16] MEDS: INSULIN ASPART (NovoLOG) 100 UNIT/ML VIAL SQ SCH ×7 (07:24→22:05)
[2021-01-16] MEDS: MULTIVITAMINS, THERA 1 EACH TAB PO SCH (08:50)
[2021-01-16] MEDS: METOPROLOL TARTRATE 25 MG TAB PO SCH (08:50)
[2021-01-16] MEDS: HEPARIN SODIUM,PORCINE/PF 5,000 UNIT/0.5 ML SYRINGE SQ SCH ×3 (08:50→23:36)
[2021-01-16] MEDS: CLOPIDOGREL 75 MG TAB PO SCH (08:50)
[2021-01-16] MEDS: FUROSEMIDE 20 MG TAB PO SCH (08:50)
[2021-01-16] MEDS: OXcarbazepine 150 MG TAB PO SCH ×2 (08:50→22:05)
[2021-01-16] MEDS ORDERED: SILVER NITRATE APPLICATOR 1 EACH STICK..EA. TOPICAL STA (09:54)
--- NOTE | 2021-01-16 10:45 | CDI ---
Documentation Clarification Form Date: 01/16/2021 10:23:24 AM From: Criselda Middleton RN, CCDS Admit Date: 01/11/2021 03:22:00 PM Patient Name: Jakob Jang Visit Number: [id number] Discharge Date: ATTENTION: The Clinical Documentation Specialists (CDI) and [facility] Coding Staff appreciate your assistance in clarifying documentation. Please respond to the clarification below the line at the bottom and electronically sign. The CDI & [facility] Coding staff will review the response and follow-up if needed. Please note: Queries are made part of the Legal Health Record. If you have any questions, please contact the author of this message via ITS. Dr. Jay Alcantar debridement is documented 01/14/21. Additional clarification regarding the procedure is requested. History/Risk Factors: Diabetes Mellitus, Hypertension, Renal disease, Seizure Disorder Clinical Indicators: 76-year-old male presented to ED on 01/11, ruled in for infected callus, right foot, plantar aspect. "Using a sharp knife, we removed the infected callus and also removed all the devitalized tissue. 01/14 preop measurement: 3 x2 cm 01/14 post-debridement measurement 3 x 2 x 1 cm. Treatment: 01/14 Incision and Debridement infected callus, right foot Aquacel Silver dressing daily Unasyn 3GM IVBPQ 8 HRS Vancomycin 1,750MG IVPB Q 24 HRS PTD ([id number]) Please clarify the type of procedure performed: [ x ] Excisional debridement (the removal of necrotic, devitalized tissue or slough by means of cutting away of tissue) [ ] Non-excisional debridement (the removal of necrotic, devitalized tissue or slough by means of flushing, brushing, or washing. (Irrigation) [ ] Other; please specify [ ] Unable to determine Five elements required for accurate and compliant documentation of a debridement: Technique used (e.g., excisional, excised, cutting, brushing, jet lavage etc.) Instrument(s) used (e.g., scalpel, curette, etc.) Nature of the tissue removed (e.g., necrotic, devitalized tissues, non-viable tissue, etc.) Appearance and size of the wound (e.g., down to fresh bleeding tissue, 7cm x 10cm, etc.) Depth of the debridement* (e.g., skin, subcutaneous tissue, fascia, muscle, bone, etc.) (Template Last Revised: May 2020) Excisional Debridement subcutaneous tissue MTDD
[2021-01-16 12:18] LABS: Glucose,Whole Blood 162 mg/dL (75-99)
[2021-01-16 13:21] VITALS: BMI 38.8
--- NOTE | 2021-01-16 15:59 | P.PN ---
Subjective Progress Note Date: 01/16/21 The patient is a 76-year-old male with a PMH of coronary artery disease, hypertension, hyperlipidemia, chronic systolic CHF, type II DM, chronic kidney disease stage III, and diabetic nephropathy who had presented to the emergency room for pain and redness on the plantar surface of the right foot. The patient had been following with his bread panner Dr Pino who advised him to go to the emergency room for IV antibiotics. The patient was admitted with vascular surgery and infectious disease consulted. The patient underwent debridement of the right diabetic foot ulcer and infectious disease is now awaiting final cultures. The patient was seen and examined at the bedside on 01/16. He reports ongoing bleeding from the right foot debridement site but denied any additional complaints. Patient is concerned regarding his activity restrictions when he returns home. He otherwise denied active complaints. Denied chest pain, shortness of breath, fever, chills, nausea, vomiting. Discussed with the ed case manager with regards to the patient's discharge planning for subacute rehab. General: Non-toxic, in no acute distress, appears stated age, morbidly obese HEENT: NC/AT, anicteric sclerae, moist conjunctiva, no lid-lag, PERRLA Cardiovascular: S1/S2 wnl, no murmurs, rubs, or gallops Lungs: Clear to auscultation, normal respiratory effort, no accessory muscle use Abdominal: Soft, non-tender, non-distended, no guarding, rebound, or rigidity Skin: Warm, dry Extremities: Trace bilateral lower extremity pitting edema with chronic venous stasis changes, right foot Gamal bandage in place Psychiatric: Alert and oriented to person, place and time, appropriate affect Neuro: CN II-XII grossly intact, Strength 3+/5 in all 4 extremities, Speech intact, Sensation to light touch grossly intact throughout Assessment/plan Right foot diabetic ulcer status post debridement -Infectious disease and muscular surgery following -Awaiting finalized tissue culture results -Patient currently on Unasyn -Continue with wound care Type II DM -Well controlled with NovoLog 24 units after meals 3 times a day and Levemir 24 units daily at bedtime Chronic conditions: Hypertension, hyperlipidemia, chronic kidney disease, chronic systolic CHF, CAD -C/w home meds DVT prophylaxis -Heparin subq Discussed with: Patient Anticipated discharge date: 2-[address]: Home Objective - Vital Signs Vital signs: Vital Signs Temp 98.0 F 01/16/21 15:11 Pulse 63 01/16/21 15:11 Resp 14 01/16/21 15:11 BP 104/63 01/16/21 15:11 Pulse Ox 98 01/16/21 15:11 Intake & Output 01/15/21 01/16/21 01/16/21 18:59 06:59 18:59 Intake Total 100 940 Output Total 600 400 Balance -500 540 Weight 115.9 kg 115.9 kg Intake: Intake, IV Titration 100 200 Amount Ampicillin-Sulbactam 3 gm 100 200 In Sodium Chloride 0.9% 100 ml @ 200 mls/hr IVPB Q8H [facility] Rx#:[id number] Oral 740 Output: Urine 600 400 Other: Voiding Method Urinal # Voids 1 1 # Bowel Movements 1 - Labs CBC & Chem 7: 01/16/21 05:35 01/16/21 05:35 Labs: Abnormal Lab Results - Last 24 Hours (Table) 01/15/21 01/15/21 01/16/21 Range/Units 17:32 20:30 04:39 RBC (4.30-5.90) m/uL Hgb (13.0-17.5) gm/dL Hct (39.0-53.0) % Chloride (98-107) mmol/L BUN (9-20) mg/dL Creatinine (0.66-1.25) mg/dL Glucose (74-99) mg/dL POC Glucose (mg/dL) 130 H 67 L 106 H (75-99) mg/dL Hemoglobin A1c (4.0-6.0) % 01/16/21 01/16/21 01/16/21 Range/Units 05:35 05:35 05:35 RBC 3.66 L (4.30-5.90) m/uL Hgb 11.6 L (13.0-17.5) gm/dL Hct 36.0 L (39.0-53.0) % Chloride 110 H (98-107) mmol/L BUN 25 H (9-20) mg/dL Creatinine 1.63 H (0.66-1.25) mg/dL Glucose 100 H (74-99) mg/dL POC Glucose (mg/dL) (75-99) mg/dL Hemoglobin A1c 7.5 H (4.0-6.0) % 01/16/21 01/16/21 Range/Units 07:07 12:15 RBC (4.30-5.90) m/uL Hgb (13.0-17.5) gm/dL Hct (39.0-53.0) % Chloride (98-107) mmol/L BUN (9-20) mg/dL Creatinine (0.66-1.25) mg/dL Glucose (74-99) mg/dL POC Glucose (mg/dL) 113 H 162 H (75-99) mg/dL Hemoglobin A1c (4.0-6.0) % Microbiology - Last 24 Hours (Table) 01/11/21 22:46 Blood Culture - Preliminary Blood No Growth after 96 hours 01/11/21 14:20 Blood Culture - Preliminary Blood No Growth after 96 hours 01/13/21 09:00 Anaerobic Culture - Preliminary Foot - Right 01/13/21 09:00 Gram Stain - Final Foot - Right Tissue Culture - Final Coagulase Negative Staph Alpha Hemolytic Streptococcus Diphtheroid species
[2021-01-16 17:24] LABS: Glucose,Whole Blood 82 mg/dL (75-99)
[2021-01-16 20:15] LABS: Glucose,Whole Blood 149 mg/dL (75-99)
[2021-01-16] MEDS: TAMSULOSIN 0.4 MG CAP.ER.24H PO SCH (22:05)
[2021-01-16] MEDS: LOSARTAN 25 MG TAB PO SCH (22:05)
[2021-01-16] MEDS: ASPIRIN 81 MG PO SCH (22:05)
[2021-01-16] MEDS: INSULIN DETEMIR (LEVEMIR) 100 UNIT/ML SYR SQ SCH (22:05)
[2021-01-16] MEDS: ATORVASTATIN 80 MG TAB PO SCH (22:05)
--- NOTE | 2021-01-16 23:49 | PN ---
PROGRESS NOTE DATE OF SERVICE: 01/16/2021 REASON FOR FOLLOWUP: Right diabetic foot infected callus. INTERVAL HISTORY: The patient was seen on rounds this morning. This patient on entry to the room did have a significant amount of bleeding from his right foot wound. Significant amount of pressure. Nitrostat was ordered from the pharmacy and was applied afterwards to control her bleeding. The patient seemed to be slightly upset with all the issues going on with his right foot. He has been complaining of feeling weak and unsteady on his gait and risk of falling. Denies any chest pain or shortness of breath or cough. No abdominal pain or diarrhea. REVIEW OF SYSTEMS: Positive points mentioned in HPI. Rest of the systems negative. Past medical and surgical history with no change in medication. Reviewed. PHYSICAL EXAMINATION: Blood pressure 110/70 with a pulse of 70, temperature 98.2. He is 99% on room air. General description is an elderly male up in the chair in no distress. RESPIRATORY SYSTEM: Unlabored breathing. Clear to auscultation anteriorly. HEART: S1, S2. Regular rate and rhythm. ABDOMEN: Soft. No tenderness. Right foot plantar wound is deep with significant bleeding that was controlled with pressure and led to straight no foul-smelling drainage. LABS: Wound culture did show Strep negative Staph and DIAGNOSTIC IMPRESSION AND PLAN: Patient with right diabetic foot infected callus. No evidence of osteomyelitis clinically. The patient is currently covered with Unasyn x2. Overall improvement on discharge. Significant amount of time was spent this morning with the patient to control his breathing. It was more than than 30 minutes face to face. MMODL / IJN: [id number] /
[2021-01-17] MEDS: AMPICILLIN-SULBACTAM 3 GM in SODIUM CHLORIDE 0.9% 100 ML IVPB SCH ×3 (05:08→21:53)
[2021-01-17 07:31] LABS: Glucose,Whole Blood 120 mg/dL (75-99)
[2021-01-17] MEDS: INSULIN ASPART (NovoLOG) 100 UNIT/ML VIAL SQ SCH ×7 (07:56→20:39)
[2021-01-17] MEDS: CLOPIDOGREL 75 MG TAB PO SCH (10:39)
[2021-01-17] MEDS: FUROSEMIDE 20 MG TAB PO SCH (10:39)
[2021-01-17] MEDS: MULTIVITAMINS, THERA 1 EACH TAB PO SCH (10:41)
[2021-01-17] MEDS: OXcarbazepine 150 MG TAB PO SCH ×2 (10:41→20:51)
[2021-01-17] MEDS: METOPROLOL TARTRATE 25 MG TAB PO SCH (10:41)
[2021-01-17] MEDS: HEPARIN SODIUM,PORCINE/PF 5,000 UNIT/0.5 ML SYRINGE SQ SCH ×3 (11:33→23:03)
[2021-01-17] MEDS: LACTOBACILLUS ACIDOPH & BULGAR 1 EACH PACKET PO SCH ×3 (11:39→21:53)
[2021-01-17 12:09] LABS: Glucose,Whole Blood 142 mg/dL (75-99)
[2021-01-17 17:34] LABS: Glucose,Whole Blood 221 mg/dL (75-99)
--- NOTE | 2021-01-17 20:16 | PN ---
PROGRESS NOTE DATE OF SERVICE: 01/17/2021 REASON FOR FOLLOWUP: Right diabetic foot infected callus. INTERVAL HISTORY: The patient is afebrile. He is currently breathing comfortably. Waiting for placement. No chest pain, shortness of breath or cough. No abdominal pain or diarrhea. ( ) to the right foot has resolved.. PHYSICAL EXAMINATION: Blood pressure 122/65, pulse of 66, temperature 97.9. He is 100% on room air. General description is an elderly male lying in bed in no distress. Respiratory system: Unlabored breathing, clear to auscultation anteriorly. Heart S1, S2. Regular rate and rhythm. Abdomen soft, no tenderness. Right foot is currently dressed up, no obvious drainage on the dressing. LABS: Local culture positive for alpha hemolytic Streptococcus and coagulase negative Staph. DIAGNOSTIC IMPRESSION AND PLAN: Patient with right diabetic foot infection with infected callus, status post debridement. Culture with strep. The patient is covered with Unasyn. Transition to oral Augmentin for 10 days on discharge. Discussed with the admitting physician. MMODL / IJN: [id number] /
[2021-01-17 20:33] LABS: Glucose,Whole Blood 134 mg/dL (75-99)
[2021-01-17] MEDS: ATORVASTATIN 80 MG TAB PO SCH (20:51)
[2021-01-17] MEDS: TAMSULOSIN 0.4 MG CAP.ER.24H PO SCH (20:51)
[2021-01-17] MEDS: ASPIRIN 81 MG PO SCH (20:51)
[2021-01-17] MEDS: LOSARTAN 25 MG TAB PO SCH (20:51)
--- NOTE | 2021-01-17 20:51 | P.PN ---
Subjective Progress Note Date: 01/17/21 Patient is a 76 male with history of coronary artery disease, BPH, diabetes mellitus type 2 insulin requiring, and multiple other comorbidities conditions who presented to the ER with complaints of right foot wound. He was admitted and started on broad-spectrum IV antibiotics. Infectious disease and vascular surgery consulted. He ultimately underwent an I&D. Cultures from the wound grew coag-negative staph, alphahemolytic strep, diphtheroids species. He was maintained on Zosyn during his hospital stay. He did develop some diarrhea. He is significantly weak. Patient seen and examined at bedside. He complains of some diarrhea and overall appearance of his buttock. He denies any chest pain, shortness breath, nausea, or vomiting. He does not want to go to rehab but realizes that may be required. General: non toxic, no distress, appears at stated age Derm: warm, dry, right foot with dressing in place -Excoriation gluteal cleft Head: atraumatic, normocephalic, symmetric Eyes: EOMI, no lid lag, anicteric sclera Mouth: no lip lesion, mucus membranes moist Cardiovascular: S1S2 reg, no murmur, positive posterior tibial pulse bilateral, Lungs: CTA bilateral, no rhonchi, no rales , no accessory muscle use Abdominal: soft, nontender to palpation, no guarding, no appreciable organomegaly Ext: no gross muscle atrophy, no edema, no contractures Neuro: CN II-XI grossly intact, no focal neuro deficits Psych: Alert, oriented, appropriate affect Right foot ulcer, diabetic, infected status post I&D -ID recommendations appreciated: Discussed with plans are for an additional 10 days of Augmentin -Vascular surgery recommendations Diarrhea, likely antibiotic induced -Start Lactinex -Check C. diff Diabetes mellitus type 2 -Sliding-scale insulin, fixed dose, and long-acting -Follow blood sugars Chronic kidney disease stage III, resolved acute kidney injury -Medications reviewed -Continue with Randa Barboza -Follow kidney function Chronic conditions: Hypertension Dyslipidemia Chronic systolic congestive heart failure, last known EF 40-45% Coronary artery disease, DVT prophylaxis: Heparin Anticipate discharge to custodial facility in a.m. Objective - Vital Signs Vital signs: Vital Signs Temp 97.9 F 01/17/21 12:45 Pulse 66 01/17/21 12:45 Resp 19 01/17/21 12:45 BP 122/65 10/28/21 12:45 Pulse Ox 100 01/17/21 12:45 Intake & Output 01/17/21 01/17/21 01/18/21 06:59 18:59 06:59 Intake Total 800 1620 Output Total 700 502 Balance 100 1118 Weight 116 kg Intake: Intake, IV Titration 200 100 Amount Ampicillin-Sulbactam 3 gm 200 100 In Sodium Chloride 0.9% 100 ml @ 200 mls/hr IVPB Q8H [facility] Rx#:[id number] Oral 600 1520 Output: Urine 700 500 Stool 2 Other: Voiding Method Bedside Commode Bedside Commode Urinal Urinal # Voids 2 # Bowel Movements 1 - Labs CBC & Chem 7: 01/16/21 05:35 01/16/21 05:35 Labs: Abnormal Lab Results - Last 24 Hours (Table) 01/17/21 01/17/21 01/17/21 Range/Units 07:28 11:57 17:26 POC Glucose (mg/dL) 120 H 142 H 221 H (75-99) mg/dL 01/17/21 Range/Units 20:31 POC Glucose (mg/dL) 134 H (75-99) mg/dL Microbiology - Last 24 Hours (Table) 01/11/21 14:20 Blood Culture - Final Blood No Growth after 144 hours 01/13/21 09:00 Anaerobic Culture - Final Foot - Right 01/11/21 22:46 Blood Culture - Preliminary Blood No Growth after 120 hours
[2021-01-17] MEDS ORDERED: INSULIN DETEMIR (LEVEMIR) 100 UNIT/ML SYR SQ SCH (21:00)
[2021-01-17 21:33] VITALS: RESP 18
[2021-01-17] MEDS: HYDROcodone/APAP 5-325MG 1 EACH TAB PO PRN (23:03)
[2021-01-18] MEDS: AMPICILLIN-SULBACTAM 3 GM in SODIUM CHLORIDE 0.9% 100 ML IVPB SCH (05:23)
[2021-01-18 05:49] VITALS: BP 115/52; PULSE 76; TEMP 98.1
[2021-01-18 07:27] LABS: Glucose,Whole Blood 120 mg/dL (75-99)
[2021-01-18] MEDS: INSULIN ASPART (NovoLOG) 100 UNIT/ML VIAL SQ SCH ×2 (07:32)
--- NOTE | 2021-01-18 08:30 | P.DS ---
Providers Date of admission: 01/11/21 15:22 Expected date of discharge: 01/18/21 Attending physician: Gonzalez Garcia MD Consults: 01/11/21 15:55 Consult Physician Routine Consulting Provider: Randi Arellano Consult Reason/Comments: wound of foot, cellulitis Do you want consulting provider notified?: Yes 01/11/21 17:43 Consult Physician Routine Consulting Provider: Jay Huston Consult Reason/Comments: diabetic ulcer/infected calus right foot possible debridement needed Do you want consulting provider notified?: Yes 01/14/21 10:52 Consult Physician Routine Consulting Provider: Ang Samson Consult Reason/Comments: inpatient rehab Do you want consulting provider notified?: Yes Primary care physician: Soy Liu MD Hospital Course: Discharge Diagnosis: Right foot ulcer, diabetic, infected status post I&D Diarrhea, likely antibiotic induced, resolved Diabetes mellitus type 2 Chronic kidney disease stage III, resolved acute kidney injury Hypertension Dyslipidemia Chronic systolic congestive heart failure, last known EF 40-45% Coronary artery disease, Hospital Course: Patient is a 76 male with history of coronary artery disease, BPH, diabetes mellitus type 2 insulin requiring, and multiple other comorbidities conditions who presented to the ER with complaints of right foot wound. He was admitted and started on broad-spectrum IV antibiotics. Infectious disease and vascular surgery consulted. He ultimately underwent an I&D. Cultures from the wound grew coag-negative staph, alphahemolytic strep, diphtheroids species. He was maintained on Zosyn during his hospital stay. He did develop some diarrhea. He is significantly weak and will need rehab. He was determined stable for discharge. Follow-up: Discharged to [facility]. Augmentin 10 additional days. Follow-up with Dr. Arellano in 1-2 weeks. Will need close wound care follow-up at subacute rehab. Continue probiotic until antibiotics are completed. Right foot x-ray: No acute process Patient seen and examined at bedside. Diarrhea has resolved, pain adequately controlled. Not excited about going to rehab but willing to go there. His buttock is hurting less with resolution of the diarrhea placement of barrier cream. Vital signs reviewed and stable. General: non toxic, no distress, appears at stated age Derm: warm, dry, dressing in place on right foot Head: atraumatic, normocephalic, symmetric Eyes: EOMI, no lid lag, anicteric sclera Mouth: no lip lesion, mucus membranes moist Cardiovascular: S1S2 reg, no murmur, positive posterior tibial pulse bilateral, Lungs: Decreased bs bilateral, no rhonchi, no rales , no accessory muscle use Abdominal: soft, nontender to palpation, no guarding, no appreciable organomegaly Ext: no gross muscle atrophy, no edema, no contractures Neuro: CN II-XI grossly intact, no focal neuro deficits Psych: Alert, oriented, appropriate affect A total of 40 minutes of time were spent preparing this complex discharge summary . Patient Condition at Discharge: Stable Plan - Discharge Summary Discharge Rx Participant: No New Discharge Prescriptions: New HYDROcodone/APAP 5-325MG [[place] 5-325] 1 each PO Q4HR PRN #12 tab PRN Reason: Moderate Pain Lactobacillus Acidoph & Bulgar [Lactinex] 1 each PO TID #60 packet Continue Tamsulosin HCl [Flomax] 0.4 mg PO HS Aspirin EC [Ecotrin Low Dose] 81 mg PO HS levETIRAcetam [Keppra] 1,500 mg PO BID Multivit-Min/FA/Lycopen/Lutein [Centrum Silver Tablet] 1 tab PO DAILY Atorvastatin [Lipitor] 80 mg PO HS INSULIN ASPART (NovoLOG) [NovoLOG (formulary)] 24 unit SQ PC-TID Insulin Detemir (Levemir) [Levemir] 24 unit SQ HS Losartan Potassium [Cozaar] 25 mg PO HS Clopidogrel [Plavix] 75 mg PO DAILY Furosemide [Lasix] 20 mg PO DAILY OXcarbazepine [Trileptal] 150 mg PO BID Metoprolol Tartrate [Lopressor] 25 mg PO DAILY Discharge Medication List Aspirin EC [Ecotrin Low Dose] 81 mg PO HS 04/09/14 [History] Tamsulosin HCl [Flomax] 0.4 mg PO HS 04/09/14 [History] Multivit-Min/FA/Lycopen/Lutein [Centrum Silver Tablet] 1 tab PO DAILY 04/30/18 [History] levETIRAcetam [Keppra] 1,500 mg PO BID 04/30/18 [History] Atorvastatin [Lipitor] 80 mg PO HS 01/27/19 [History] Clopidogrel [Plavix] 75 mg PO DAILY 01/27/19 [History] INSULIN ASPART (NovoLOG) [NovoLOG (formulary)] 24 unit SQ PC-TID 01/27/19 [History] Insulin Detemir (Levemir) [Levemir] 24 unit SQ HS 01/27/19 [History] Losartan Potassium [Cozaar] 25 mg PO HS 01/27/19 [History] Furosemide [Lasix] 20 mg PO DAILY 01/11/21 [History] Metoprolol Tartrate [Lopressor] 25 mg PO DAILY 01/11/21 [History] OXcarbazepine [Trileptal] 150 mg PO BID 01/11/21 [History] HYDROcodone/APAP 5-325MG [[place] 5-325] 1 each PO Q4HR PRN #12 tab 01/18/21 [Rx] Lactobacillus Acidoph & Bulgar [Lactinex] 1 each PO TID #60 packet 01/18/21 [Rx] Follow up Appointment(s)/Referral(s): Soy Liu MD [Primary Care Provider] - 1-2 days Randi Arellano MD [STAFF PHYSICIAN] - 2 Weeks (2 weeks for wound care) Patient Instructions/Handouts: Foot Care for People with Diabetes (DC), Diabetic Foot Ulcers (DC) Activity/Diet/Wound Care/Special Instructions: Activity: no weight bare right foot Diet: Diabetic, health healthy Wound Care: AquaCel AG rope and optifoam Discharge Disposition: TRANSFER TO SNF/ECF
[2021-01-18] MEDS: CLOPIDOGREL 75 MG TAB PO SCH (09:32)
[2021-01-18] MEDS: FUROSEMIDE 20 MG TAB PO SCH (09:32)
[2021-01-18] MEDS: MULTIVITAMINS, THERA 1 EACH TAB PO SCH (09:33)
[2021-01-18] MEDS: METOPROLOL TARTRATE 25 MG TAB PO SCH (09:33)
[2021-01-18] MEDS: OXcarbazepine 150 MG TAB PO SCH (09:33)
[2021-01-18] MEDS: LACTOBACILLUS ACIDOPH & BULGAR 1 EACH PACKET PO SCH (09:41)
[2021-01-18] MEDS: HEPARIN SODIUM,PORCINE/PF 5,000 UNIT/0.5 ML SYRINGE SQ SCH (10:04)
== END 2021-01-18 10:56 | DRG 623 ==
LOC: EC 13:40 → 5NMEDONC 15:22
PROVIDERS: ADMIT Student in an Organized Health Care Education/Training Program; ATTEND Student in an Organized Health Care Education/Training Program
PROC: 0JBQ0ZZ Excision of Right Foot Subcutaneous Tissue and Fascia, Open Approach (ICD-10-PCS; principal; 2021-01-13 08:00)
DX: E11.621 Type 2 diabetes mellitus with foot ulcer (principal); I13.0 Hypertensive heart and chronic kidney disease with heart failure and stage 1 through stage 4 chronic kidney disease, or unspecified chronic kidney disease; I50.22 Chronic systolic (congestive) heart failure; L03.115 Cellulitis of right lower limb; Z20.822 Contact with and (suspected) exposure to COVID-19; I25.10 Atherosclerotic heart disease of native coronary artery without angina pectoris; E78.5 Hyperlipidemia, unspecified; F17.210 Nicotine dependence, cigarettes, uncomplicated; E11.42 Type 2 diabetes mellitus with diabetic polyneuropathy; N40.0 Benign prostatic hyperplasia without lower urinary tract symptoms; Z96.653 Presence of artificial knee joint, bilateral; G40.909 Epilepsy, unspecified, not intractable, without status epilepticus; E11.628 Type 2 diabetes mellitus with other skin complications; N18.30 Chronic kidney disease, stage 3 unspecified; F17.290 Nicotine dependence, other tobacco product, uncomplicated; N17.9 Acute kidney failure, unspecified; E66.9 Obesity, unspecified; E11.22 Type 2 diabetes mellitus with diabetic chronic kidney disease; I25.2 Old myocardial infarction; Z79.02 Long term (current) use of antithrombotics/antiplatelets; Z79.82 Long term (current) use of aspirin; Z79.4 Long term (current) use of insulin; Z79.899 Other long term (current) drug therapy; Z95.5 Presence of coronary angioplasty implant and graft; Z68.38 Body mass index [BMI] 38.0-38.9, adult
CPT/HCPCS: 36415; 80048; 80053; 83036; 83605; 83735; 85025; 85027; 85610; 85652; 85730; 86140; 87040; 87070; 87075; 87205; 87635; 96374; 99284

== ENCOUNTER → 2021-03-19 | Outpatient (CLI) | payer MEDICARE ==
--- NOTE | 2021-03-19 12:51 | XR ---
EXAMINATION TYPE: XR foot complete RT DATE OF EXAM: 03/19/2021 CLINICAL HISTORY: pain TECHNIQUE: Frontal, lateral and oblique images of the right foot are obtained. COMPARISON: 01/11/2021 FINDINGS: Persistent soft tissue swelling about the great toe. Soft tissue ulceration noted. Osseous irregularity involving the proximal phalanx of the great toe may reflect underlying osteomyelitis. IMPRESSION: Correlate for osteomyelitis.
== END | disposition home or self-care (01) ==
LOC: RADXRMAIN 12:28
PROVIDERS: ATTEND Surgery Vascular Surgery
DX: M79.671 Pain in right foot (principal)

== ENCOUNTER → 2021-04-11 | Outpatient (CLI) | payer MEDICARE ==
[2021-04-11 10:40] LABS: HCT 43.2 % (39.6-50.0); HGB 13.5 g/dL (13.0-17.0); MCHC 31.3 g/dL (32.0-37.0); MCV 89.4 fL (80.0-97.0); Mean Platelet Volume 9.7 fL (9.5-12.2); Platelet Count 733 X 10*3/uL (140-440); RBC 4.83 X 10*6/uL (4.40-5.60); RDW 15.1 % (11.5-14.5); WBC 13.47 X 10*3/uL (4.50-10.00)
[2021-04-11 11:16] LABS: ALT 15 U/L (10-49); AST 29 U/L (14-35); African American GFR (CKD) 38.6 (60.0-200.0); Albumin 3.9 g/dL (3.8-4.9); Alkaline Phosphatase 150 U/L (41-126); Blood Urea Nitrogen 39.9 mg/dL (9.0-27.0); Calcium 9.4 mg/dL (8.7-10.3); Carbon Dioxide 22.4 mmol/L (20.0-27.5); Chloride 106 mmol/L (96-109); Glucose 184 mg/dL (70-110); Non-African American GFR(CKD) 33.3 (60.0-200.0); Potassium 4.9 mmol/L (3.5-5.5); Sodium 142 mmol/L (135-145); Total Protein 6.9 g/dL (6.2-8.2)
[2021-04-11 13:07] LABS: Chol/HDL Ratio 2.93 Ratio; LDL Cholesterol,Calculated 49.9 mg/dL (0.0-131.0)
== END | disposition home or self-care (01) ==
LOC: LABWHC1 07:29
PROVIDERS: ATTEND Physician Assistant Medical
DX: I12.9 Hypertensive chronic kidney disease with stage 1 through stage 4 chronic kidney disease, or unspecified chronic kidney disease (principal); I25.9 Chronic ischemic heart disease, unspecified; E11.22 Type 2 diabetes mellitus with diabetic chronic kidney disease; N18.9 Chronic kidney disease, unspecified
CPT/HCPCS: 36415; 80053; 80061; 83036; 84443; 85027

== ENCOUNTER 2021-04-14 11:56 | Observation (INO) | payer MEDICARE ==
--- NOTE | 2021-04-14 12:45 | ED ---
General Adult HPI - General Chief complaint: GI Bleed Stated complaint: Blood in stool Time Seen by Provider: 04/14/21 12:17 Source: patient, family, RN notes reviewed Mode of arrival: wheelchair Limitations: no limitations - History of Present Illness Initial comments: 76-year-old male presents to the emergency department for evaluation of GI bleed. Patient states he had 3 soft formed stool today followed by episodes of bright red rectal bleeding. Patient states he feels great and has no pain. Does report multiple episodes of diarrhea yesterday. States he has been on antibiotics for at least 6 weeks due to a poorly healing diabetic wound on his right foot. Denies any recent travel or dietary changes. No fever, chills, headache, dizziness, chest pain, abdominal pain, nausea, vomiting, dysuria, or hematuria. - Related Data Home Medications Medication Instructions Recorded Confirmed Aspirin EC [Ecotrin Low Dose] 81 mg PO HS 04/09/14 04/14/21 Tamsulosin HCl [Flomax] 0.4 mg PO HS 04/09/14 04/14/21 Multivit-Min/FA/Lycopen/Lutein 1 tab PO DAILY 04/30/18 04/14/21 [Centrum Silver Tablet] levETIRAcetam [Keppra] 1,500 mg PO BID 04/30/18 04/14/21 Atorvastatin [Lipitor] 80 mg PO HS 01/27/19 04/14/21 Clopidogrel [Plavix] 75 mg PO DAILY 01/27/19 04/14/21 Losartan Potassium [Cozaar] 12.5 mg PO HS 01/27/19 04/14/21 Metoprolol Tartrate [Lopressor] 25 mg PO DAILY 01/11/21 04/14/21 OXcarbazepine [Trileptal] 150 mg PO BID 01/11/21 04/14/21 ALPRAZolam [Xanax] 0.5 mg PO DAILY PRN 04/14/21 04/14/21 Amoxic-Pot Clav 500-125 mg 1 tab PO TID 04/14/21 04/14/21 [Augmentin 500-125 mg] Furosemide [Lasix] 40 mg PO DAILY 04/14/21 04/14/21 Gabapentin [Neurontin] 100 mg PO BID 04/14/21 04/14/21 Insulin Aspart [NovoLOG Flexpen] 20 units SQ PC-TID 04/14/21 04/14/21 Insulin Detemir [Levemir Flextouch 20 units SQ HS 04/14/21 04/14/21 Pen] Allergies Allergy/AdvReac Type Severity Reaction Status Date / Time No Known Allergies Allergy Verified 04/14/21 15:06 Review of Systems ROS Statement: Those systems with pertinent positive or pertinent negative responses have been documented in the HPI. ROS Other: All systems not noted in ROS Statement are negative. Past Medical History Past Medical History: Diabetes Mellitus, GERD/Reflux, Hyperlipidemia, Hypertension, Myocardial Infarction ([place]), Prostate Disorder, Renal Disease, Seizure Disorder Additional Past Medical History / Comment(s): last seizure last week-usually has one every couple months, uses CPAP, neuropathy feet, decreased kidney function- sees Torey, right foot ulcer Last Myocardial Infarction Date:: 2013 History of Any Multi-Drug Resistant Organisms: None Reported Past Surgical History: Heart Catheterization, Heart Catheterization With Stent, Orthopedic Surgery Additional Past Surgical History / Comment(s): bilateral knee replacement, left ankle, 5 stents Past Anesthesia/Blood Transfusion Reactions: No Reported Reaction Date of Last Stent Placement:: 2013 Past Psychological History: No Psychological Hx Reported Smoking Status: Light tobacco smoker Past Alcohol Use History: Occasional Past Drug Use History: None Reported - Past Family History Mother Family Medical History: No Reported History General Exam Limitations: no limitations (Well-developed, well-nourished male in no acute distress. Initial temperature 98.4, pulse 69, respirations 20, blood pressure 120/57, pulse ox 94% on room air.) General appearance: alert, in no apparent distress ENT exam: Present: normal exam, normal oropharynx, mucous membranes moist Respiratory exam: Present: normal lung sounds bilaterally. Absent: respiratory distress, wheezes, rales, rhonchi, stridor Cardiovascular Exam: Present: regular rate, normal rhythm, normal heart sounds. Absent: systolic murmur, diastolic murmur, rubs, gallop, clicks GI/Abdominal exam: Present: soft, normal bowel sounds. Absent: distended, tenderness, guarding, rebound, rigid Rectal exam: Present: normal rectal tone, heme (+) stool. Absent: hemorrhoids Neurological exam: Present: alert, oriented X3, CN II-XII intact Psychiatric exam: Present: normal affect, normal mood Skin exam: Present: warm, dry, intact, normal color. Absent: rash Course Vital Signs 04/14/21 04/14/21 04/14/21 12:12 17:00 19:57 Temperature 98.4 F Pulse Rate 69 76 72 Respiratory 20 16 16 Rate Blood Pressure 120/57 112/72 128/76 O2 Sat by Pulse 94 L 98 98 Oximetry Medical Decision Making - Medical Decision Making 76-year-old male with a past medical history of CAD, type 2 diabetes, and renal disease, presents to the Emergency department for evaluation of 3 episodes of bleeding per rectum after soft formed bowel movements. Upon evaluation, patient is well appearing and in no acute distress. Patient insists he is "feeling great " despite the bleeding. Abdomen is soft and non-tender. CT of the abdomen and pelvis is unremarkable. Laboratory studies do reveal mild leukocytosis, the patient is afebrile and not tachycardic therefore this was not suspected to be acutely infectious. Renal function is baseline for patient. FOBT +. Due to patient's age and history of oral anticoagulation use, admission was recommended for this patient. Discussed at length with patient and spouse. Spoke with Dr. Bey who is agreeable to see this patient in consult. Spoke with Dr. Fonseca who agrees to accept this patient. Wound care was also consulted. This patient's care was discussed with my attending, Dr. Morrell. - Lab Data Result diagrams: 04/14/21 23:42 04/14/21 13:17 Lab Results 04/14/21 04/14/21 04/14/21 Range/Units 13:01 13:06 13:17 WBC 12.1 H (3.8-10.6) k/uL RBC 5.01 (4.30-5.90) m/uL Hgb 14.4 (13.0-17.5) gm/dL Hct 44.5 (39.0-53.0) % MCV 88.8 (80.0-100.0) fL MCH 28.7 (25.0-35.0) pg MCHC 32.3 (31.0-37.0) g/dL RDW 14.7 (11.5-15.5) % Plt Count 710 H (150-450) k/uL MPV 8.7 Neutrophils % (Manual) 72 % Band Neuts % (Manual) 1 % Lymphocytes % (Manual) 12 % Monocytes % (Manual) 10 % Eosinophils % (Manual) 2 % Basophils % (Manual) 4 % Myelocytes % 1 % Neutrophils # (Manual) 8.80 H (1.3-7.7) k/uL Lymphocytes # (Manual) 1.45 (1.0-4.8) k/uL Monocytes # (Manual) 1.21 H (0-1.0) k/uL Eosinophils # (Manual) 0.24 (0-0.7) k/uL Basophils # (Manual) 0.48 H (0-0.2) k/uL Myelocytes # (Manual) 0.12 H (0) k/uL Nucleated RBCs 0 (0-0) /100 WBC Manual Slide Review Performed RBC Morphology Normal PT (9.0-12.0) sec INR (<1.2) APTT (22.0-30.0) sec Sodium (137-145) mmol/L Potassium (3.5-5.1) mmol/L Chloride (98-107) mmol/L Carbon Dioxide (22-30) mmol/L Anion Gap mmol/L BUN (9-20) mg/dL Creatinine (0.66-1.25) mg/dL Est GFR (CKD-EPI)AfAm (>60 ml/min/1.73 sqM) Est GFR (CKD-EPI)NonAf (>60 ml/min/1.73 sqM) Glucose (74-99) mg/dL Calcium (8.4-10.2) mg/dL Total Bilirubin (0.2-1.3) mg/dL AST (17-59) U/L ALT (4-49) U/L Alkaline Phosphatase (38-126) U/L Troponin I (0.000-0.034) ng/mL Total Protein (6.3-8.2) g/dL Albumin (3.5-5.0) g/dL Urine Color Urine Appearance (Clear) Urine pH (5.0-8.0) Ur Specific [place] (1.001-1.035) Urine Protein (Negative) Urine Glucose (UA) (Negative) Urine Ketones (Negative) Urine Blood (Negative) Urine Nitrite (Negative) Urine Bilirubin (Negative) Urine Urobilinogen (<2.0) mg/dL Ur Leukocyte Esterase (Negative) Stool Occult Blood (Negative) Blood Type B Positive Blood Type Confirm B Positive Blood Type Recheck No Previous Record Bld Type Recheck Status CABO Indicated Antibody Screen NEGATIVE Spec Expiration Date 04/17/2021 - 231604/14/21 04/14/21 04/14/21 Range/Units 13:17 13:17 13:17 WBC (3.8-10.6) k/uL RBC (4.30-5.90) m/uL Hgb (13.0-17.5) gm/dL Hct (39.0-53.0) % MCV (80.0-100.0) fL MCH (25.0-35.0) pg MCHC (31.0-37.0) g/dL RDW (11.5-15.5) % Plt Count (150-450) k/uL MPV Neutrophils % (Manual) % Band Neuts % (Manual) % Lymphocytes % (Manual) % Monocytes % (Manual) % Eosinophils % (Manual) % Basophils % (Manual) % Myelocytes % % Neutrophils # (Manual) (1.3-7.7) k/uL Lymphocytes # (Manual) (1.0-4.8) k/uL Monocytes # (Manual) (0-1.0) k/uL Eosinophils # (Manual) (0-0.7) k/uL Basophils # (Manual) (0-0.2) k/uL Myelocytes # (Manual) (0) k/uL Nucleated RBCs (0-0) /100 WBC Manual Slide Review RBC Morphology PT 10.6 (9.0-12.0) sec INR 1.0 (<1.2) APTT 28.4 (22.0-30.0) sec Sodium 140 (137-145) mmol/L Potassium 4.7 (3.5-5.1) mmol/L Chloride 109 H (98-107) mmol/L Carbon Dioxide 23 (22-30) mmol/L Anion Gap 8 mmol/L BUN 37 H (9-20) mg/dL Creatinine 1.73 H (0.66-1.25) mg/dL Est GFR (CKD-EPI)AfAm 43 (>60 ml/min/1.73 sqM) Est GFR (CKD-EPI)NonAf 37 (>60 ml/min/1.73 sqM) Glucose 213 H (74-99) mg/dL Calcium 9.2 (8.4-10.2) mg/dL Total Bilirubin 0.6 (0.2-1.3) mg/dL AST 31 (17-59) U/L ALT 22 (4-49) U/L Alkaline Phosphatase 160 H (38-126) U/L Troponin I <0.012 (0.000-0.034) ng/mL Total Protein 6.8 (6.3-8.2) g/dL Albumin 3.6 (3.5-5.0) g/dL Urine Color Urine Appearance (Clear) Urine pH (5.0-8.0) Ur Specific [place] (1.001-1.035) Urine Protein (Negative) Urine Glucose (UA) (Negative) Urine Ketones (Negative) Urine Blood (Negative) Urine Nitrite (Negative) Urine Bilirubin (Negative) Urine Urobilinogen (<2.0) mg/dL Ur Leukocyte Esterase (Negative) Stool Occult Blood (Negative) Blood Type Blood Type Confirm Blood Type Recheck Bld Type Recheck Status Antibody Screen Spec Expiration Date 04/14/21 04/14/21 Range/Units 15:17 15:17 WBC (3.8-10.6) k/uL RBC (4.30-5.90) m/uL Hgb (13.0-17.5) gm/dL Hct (39.0-53.0) % MCV (80.0-100.0) fL MCH (25.0-35.0) pg MCHC (31.0-37.0) g/dL RDW (11.5-15.5) % Plt Count (150-450) k/uL MPV Neutrophils % (Manual) % Band Neuts % (Manual) % Lymphocytes % (Manual) % Monocytes % (Manual) % Eosinophils % (Manual) % Basophils % (Manual) % Myelocytes % % Neutrophils # (Manual) (1.3-7.7) k/uL Lymphocytes # (Manual) (1.0-4.8) k/uL Monocytes # (Manual) (0-1.0) k/uL Eosinophils # (Manual) (0-0.7) k/uL Basophils # (Manual) (0-0.2) k/uL Myelocytes # (Manual) (0) k/uL Nucleated RBCs (0-0) /100 WBC Manual Slide Review RBC Morphology PT (9.0-12.0) sec INR (<1.2) APTT (22.0-30.0) sec Sodium (137-145) mmol/L Potassium (3.5-5.1) mmol/L Chloride (98-107) mmol/L Carbon Dioxide (22-30) mmol/L Anion Gap mmol/L BUN (9-20) mg/dL Creatinine (0.66-1.25) mg/dL Est GFR (CKD-EPI)AfAm (>60 ml/min/1.73 sqM) Est GFR (CKD-EPI)NonAf (>60 ml/min/1.73 sqM) Glucose (74-99) mg/dL Calcium (8.4-10.2) mg/dL Total Bilirubin (0.2-1.3) mg/dL AST (17-59) U/L ALT (4-49) U/L Alkaline Phosphatase (38-126) U/L Troponin I (0.000-0.034) ng/mL Total Protein (6.3-8.2) g/dL Albumin (3.5-5.0) g/dL Urine Color Light Yellow Urine Appearance Clear (Clear) Urine pH 5.0 (5.0-8.0) Ur Specific [place] 1.010 (1.001-1.035) Urine Protein Negative (Negative) Urine Glucose (UA) Negative (Negative) Urine Ketones Negative (Negative) Urine Blood Negative (Negative) Urine Nitrite Negative (Negative) Urine Bilirubin Negative (Negative) Urine Urobilinogen <2.0 (<2.0) mg/dL Ur Leukocyte Esterase Negative (Negative) Stool Occult Blood Positive (Negative) Blood Type Blood Type Confirm Blood Type Recheck Bld Type Recheck Status Antibody Screen Spec Expiration Date - Radiology Data Radiology results: report reviewed, image reviewed CT of the abdomen and pelvis without contrast was obtained. Reports was reviewed in its entirety. Impression per Dr. More is no acute abnormality of the abdomen and pelvis. Multilevel lumbar significant spinal stenosis. No change. Mild colonic diverticulosis. Disposition Clinical Impression: GI (gastrointestinal bleed) Disposition: HOME SELF-CARE Condition: Stable Is patient prescribed a controlled substance at d/c from ED?: No
[2021-04-14 13:34] LABS: HCT 44.5 % (39.0-53.0); HGB 14.4 gm/dL (13.0-17.5); MCH 28.7 pg (25.0-35.0); MCHC 32.3 g/dL (31.0-37.0); MCV 88.8 fL (80.0-100.0); Mean Platelet Volume 8.7; Platelet Count 710 k/uL (150-450); RBC 5.01 m/uL (4.30-5.90); RDW 14.7 % (11.5-15.5); WBC 12.1 k/uL (3.8-10.6)
[2021-04-14 13:46] LABS: Albumin 3.6 g/dL (3.5-5.0); Calcium 9.2 mg/dL (8.4-10.2); Potassium 4.7 mmol/L (3.5-5.1); Total Bilirubin 0.6 mg/dL (0.2-1.3); Total Protein 6.8 g/dL (6.3-8.2)
[2021-04-14 13:53] LABS: Partial Thromboplastin Time 28.4 sec (22.0-30.0); Prothrombin Time 10.6 sec (9.0-12.0)
--- NOTE | 2021-04-14 14:21 | CT ---
EXAMINATION TYPE: CT abdomen pelvis wo con DATE OF EXAM: 04/14/2021 COMPARISON: 09/28/2019 HISTORY: rectal bleeding CT DLP: 1586.4 mGycm Automated exposure control for dose reduction was used. Images obtained from the diaphragm to the floor of the pelvis without contrast. There are some mild interstitial density at the lung bases. Heart is borderline enlarged. There is no pleural effusion. Liver is intact. There are clips from cholecystectomy. Spleen is intact . There is no evidence of pancreatic mass. Stomach is intact. There is no adrenal mass kidneys show normal size and contour. There is no hydronephrosis. Ureters ar e not dilated. There is no retroperitoneal adenopathy. Bladder distends smoothly. There are calcifica tions in the prostate gland. There is no inguinal hernia. There is no free fluid in the pelvis. There is no mesenteric edema. There is no ascites or free air. Appendix is small and appears normal. There is no evidence of a bowel obstruction. A few large bowel diverticula. There is no evidence of d iverticulitis. The lumbar vertebra have normal alignment. Posterior elements are intact. There is no compression fra cture. There is degenerative disc space narrowing throughout the lumbar spine with spur formation. Th ere is multilevel severe spinal stenosis from L2 to L5. IMPRESSION: No acute abnormality of the abdomen and pelvis. Multilevel lumbar significant spinal stenosis. No nikhil nge. Mild colonic diverticulosis.
[2021-04-14 14:52] LABS: Band Neutrophils % 1 %; Basophils # (M) 0.48 k/uL (0-0.2); Eosinophils # (M) 0.24 k/uL (0-0.7); Lymphocytes # (M) 1.45 k/uL (1.0-4.8); Monocytes # (M) 1.21 k/uL (0-1.0); Myelocytes # (M) 0.12 k/uL (0); Myelocytes % 1 %; Neutrophils % (M) 72 %; Nucleated Red Blood Cells 0 /100 WBC (0-0); Total Cells Counted 200
[2021-04-14 15:36] LABS: Appearance,Urine Clear (Clear); Bilirubin,Urine Negative (Negative); Blood,Urine Negative (Negative); Color,Urine Light Yellow; Glucose,Urine (UA) Negative (Negative); Ketones,Urine Negative (Negative); Leukocyte Esterase,Urine Negative (Negative); Nitrite,Urine Negative (Negative); Protein,Urine Negative (Negative); Urobilinogen,Urine <2.0 mg/dL (<2.0)
[2021-04-14] MEDS ORDERED: NALOXONE 0.4 MG/ML 1 ML VIAL IV PRN (17:37)
[2021-04-14] MEDS ORDERED: ACETAMINOPHEN TAB 325 MG TAB PO PRN (17:37)
[2021-04-14] MEDS ORDERED: ONDANSETRON 4 MG/2 ML VIAL IVP PRN (17:37)
[2021-04-14] MEDS: PANTOPRAZOLE 40 MG/10 ML VIAL IV SCH (18:40)
[2021-04-14] MEDS ORDERED: ATORVASTATIN 80 MG TAB PO SCH (21:00)
[2021-04-14] MEDS ORDERED: ASPIRIN 81 MG PO SCH (21:00)
[2021-04-14] MEDS ORDERED: LOSARTAN 25 MG TAB PO SCH (21:00)
[2021-04-14] MEDS ORDERED: TAMSULOSIN 0.4 MG CAP.ER.24H PO SCH (21:00)
[2021-04-14 21:07] LABS: Glucose,Whole Blood 219 mg/dL (75-99)
[2021-04-14] MEDS: GABAPENTIN 100 MG CAP PO SCH (21:27)
[2021-04-14] MEDS: OXcarbazepine 150 MG TAB PO SCH (21:27)
[2021-04-14] MEDS: INSULIN ASPART (NovoLOG) 100 UNIT/ML VIAL SQ SCH (22:34)
[2021-04-15 00:14] LABS: HGB 13.6 gm/dL (13.0-17.5); MCHC 31.5 g/dL (31.0-37.0); MCV 88.9 fL (80.0-100.0); Mean Platelet Volume 8.5; Platelet Count 711 k/uL (150-450); RBC 4.84 m/uL (4.30-5.90); RDW 14.7 % (11.5-15.5); WBC 11.5 k/uL (3.8-10.6)
--- NOTE | 2021-04-15 00:50 | P.HPIM ---
History of Present Illness H&P Date: 04/14/21 Chief Complaint: GI bleeding 76 year olld male , with DM, seizure disorder, CAD and CHF LVEF 40% patient comes in due to repeated episodes of bloody bowel movements, he desc ribes bright red blood with bowel movements, started today ,he initially had regular bowel movement this morning , then after that and for the first time in his life had two episodes of painless bloody bowel movements, otherwise asymptomatic , denies any dizziness, lightheadedness, chest pain or trouble breathing, denies any palpitations, nausea or vomiting. he denies being on any blood thinners except for ASA and plavix for h/o CAD and stents , last stent over 1 year ago. he denies taking any chronic pain meds (denies NSAIDS) denies alcohol intake . no recent travel or hospital stay , denies any history of blood clots. in the ED, his stool occult blood test was positive, CKD stable hemobglobin was stable and unremarkable , thrombocytosis COVID negative Review of Systems Pertinent positives as noted in HPI. All other systems were reviewed and are ne gative Past Medical History Past Medical History: Diabetes Mellitus, GERD/Reflux, Hyperlipidemia, Hypertension, Myocardial Infarction ([place]), Prostate Disorder, Renal Disease, Seizure Disorder Additional Past Medical History / Comment(s): last seizure last week-usually has one every couple months, uses CPAP, neuropathy feet, decreased kidney function- sees Torey, right foot ulcer Last Myocardial Infarction Date:: 2013 History of Any Multi-Drug Resistant Organisms: None Reported Past Surgical History: Heart Catheterization, Heart Catheterization With Stent, Orthopedic Surgery Additional Past Surgical History / Comment(s): bilateral knee replacement, left ankle, 5 stents Past Anesthesia/Blood Transfusion Reactions: No Reported Reaction Date of Last Stent Placement:: 2013 Past Psychological History: No Psychological Hx Reported Smoking Status: Light tobacco smoker Past Alcohol Use History: Occasional Past Drug Use History: None Reported - Past Family History Mother Family Medical History: No Reported History Medications and Allergies Home Medications Medication Instructions Recorded Confirmed Type Aspirin EC [Ecotrin Low Dose] 81 mg PO HS 04/09/14 04/14/21 History Tamsulosin HCl [Flomax] 0.4 mg PO HS 04/09/14 04/14/21 History Multivit-Min/FA/Lycopen/Lutein 1 tab PO DAILY 04/30/18 04/14/21 History [Centrum Silver Tablet] levETIRAcetam [Keppra] 1,500 mg PO BID 04/30/18 04/14/21 History Atorvastatin [Lipitor] 80 mg PO HS 01/27/19 04/14/21 History Clopidogrel [Plavix] 75 mg PO DAILY 01/27/19 04/14/21 History Losartan Potassium [Cozaar] 12.5 mg PO HS 01/27/19 04/14/21 History Metoprolol Tartrate [Lopressor] 25 mg PO DAILY 01/11/21 04/14/21 History OXcarbazepine [Trileptal] 150 mg PO BID 01/11/21 04/14/21 History ALPRAZolam [Xanax] 0.5 mg PO DAILY PRN 04/14/21 04/14/21 History Amoxic-Pot Clav 500-125 mg 1 tab PO TID 04/14/21 04/14/21 History [Augmentin 500-125 mg] Furosemide [Lasix] 40 mg PO DAILY 04/14/21 04/14/21 History Gabapentin [Neurontin] 100 mg PO BID 04/14/21 04/14/21 History Insulin Aspart [NovoLOG Flexpen] 20 units SQ PC-TID 04/14/21 04/14/21 History Insulin Detemir [Levemir Flextouch 20 units SQ HS 04/14/21 04/14/21 History Pen] Allergies Allergy/AdvReac Type Severity Reaction Status Date / Time No Known Allergies Allergy Verified 04/14/21 15:06 Physical Exam Vitals: Vital Signs Temp Pulse Pulse Resp BP BP Pulse Ox 04/14/21 20:46 98.4 F 65 20 141/59 100 04/14/21 19:57 72 16 128/76 98 04/14/21 17:00 76 16 112/72 98 04/14/21 12:12 98.4 F 69 20 120/57 94 L Intake and Output 04/14/21 04/14/21 04/15/21 14:59 22:59 06:59 Output Total 200 Balance -200 Output: Urine 200 Other: # Voids 1 Weight 105.687 kg 105.687 kg Constitutional: No acute distress, conversant, pleasant Eyes: Anicteric sclerae, moist conjunctiva, Pupils equal round reactive to light ENMT: NC/AT Oropharynx clear, no erythema, or exudates Neck: Supple, FROM, no masses, or JVD No carotid bruits No thyromegaly Lungs: Clear to auscultation Clear to percussion Normal respiratory effort, no accessory muscle use Cardiovascular: Heart regular in rate and rhythm, No murmurs, gallops, or rubs No peripheral edema Abdominal: Soft Nontender, no guarding, rebound or rigidity Abdomen moving with respiration Normoactive bowel sounds No hepatomegaly, No splenomegaly No palpable mass No abdominal wall hernia noted Skin: Normal temperature, tone, texture, turgor No induration No subcutaneous nodules No rash, lesions No ulcers Extremities: No digital cyanosis No clubbing Pedal pulses intact and symmetrical Radial pulses intact and symmetrical No calf tenderness Psychiatric: Alert and oriented to person, place and time Appropriate affect fair judgement Neuro Muscles Strength 5/5 in all 4 extremities Sensation to light touch grossly present throughout Cranial nerves II-XII grossly intact No focal sensory deficits Lymphatics: no palpable cervical or supraclavicular , or inguinal lymph nodes Results CBC & Chem 7: 04/14/21 13:17 04/14/21 13:17 Labs: Abnormal Lab Results - Last 24 Hours (Table) 04/14/21 04/14/21 04/14/21 Range/Units 13:17 13:17 20:59 WBC 12.1 H (3.8-10.6) k/uL Plt Count 710 H (150-450) k/uL Neutrophils # (Manual) 8.80 H (1.3-7.7) k/uL Monocytes # (Manual) 1.21 H (0-1.0) k/uL Basophils # (Manual) 0.48 H (0-0.2) k/uL Myelocytes # (Manual) 0.12 H (0) k/uL Chloride 109 H (98-107) mmol/L BUN 37 H (9-20) mg/dL Creatinine 1.73 H (0.66-1.25) mg/dL Glucose 213 H (74-99) mg/dL POC Glucose (mg/dL) 219 H (75-99) mg/dL Alkaline Phosphatase 160 H (38-126) U/L Thrombosis Risk Factor Assmnt - Choose All That Apply Any of the Below Risk Factors Present?: Yes Each Factor Represents 1 point: Acute [place], Obesity (BMI >25) Other Risk Factors: Yes Each Risk Factor Represents 3 Points: Age 75 years or older Other congenital or acquired thrombophilia - If yes, enter type in comment: Yes Thrombosis Risk Factor Assessment Total Risk Factor Score: 5 Thrombosis Risk Factor Assessment Level: High Risk Assessment and Plan Assessment: Acute GI bleeding Hold aspirin Plavix Follow-up hemoglobins every 8 PPI IV IV fluid hydration normal saline Monitor vital signs pvc monitor NPO Gen Surgery consult chronic conditions hypertension , hyperlipidemia , CAD s/p stents , CHF with LVEF 45%, seizure disorder resume home meds insulin sliding scale DVT PPX mechanical due to GI bleeding anticipated length of stay < 48 hours
[2021-04-15] MEDS ORDERED: SODIUM CHLORIDE 0.9% 1,000 ML IV SCH (01:00)
[2021-04-15 01:42] VITALS: RESP 18
[2021-04-15 03:52] LABS: Glucose,Whole Blood 165 mg/dL (75-99)
[2021-04-15] MEDS: INSULIN ASPART (NovoLOG) 100 UNIT/ML VIAL SQ SCH ×2 (04:41→12:27)
[2021-04-15] MEDS ORDERED: METOPROLOL TARTRATE 25 MG TAB PO SCH (09:00)
[2021-04-15] MEDS: GABAPENTIN 100 MG CAP PO SCH (09:08)
[2021-04-15] MEDS: PANTOPRAZOLE 40 MG/10 ML VIAL IV SCH (09:08)
[2021-04-15] MEDS: OXcarbazepine 150 MG TAB PO SCH (09:08)
[2021-04-15 10:52] LABS: Basophils # (A) 0.46 X 10*3/uL (0.00-0.10); Basophils % (A) 4.5 %; Eosinophils # (A) 0.32 X 10*3/uL (0.04-0.35); Eosinophils % (A) 3.1 %; HCT 41.6 % (39.6-50.0); HGB 12.8 g/dL (13.0-17.0); Lymphocytes # (A) 1.65 X 10*3/uL (0.90-5.00); Lymphocytes % (A) 16.1 %; MCH 27.4 pg (27.0-32.0); MCHC 30.8 g/dL (32.0-37.0); MCV 89.1 fL (80.0-97.0); Mean Platelet Volume 9.6 fL (9.5-12.2); Monocytes % (A) 10.8 %; Neutrophils # (A) 6.56 X 10*3/uL (1.80-7.70); Neutrophils % (A) 64.1 %; Platelet Count 668 X 10*3/uL (140-440); RBC 4.67 X 10*6/uL (4.40-5.60); RDW 14.9 % (11.5-14.5); WBC 10.23 X 10*3/uL (4.50-10.00)
[2021-04-15 11:05] LABS: African American GFR (CKD) 44.1 (60.0-200.0); Anion Gap 11.2 mmol/L (10.00-18.00); BUN/Creat Ratio 17.24 Ratio (12.00-20.00); Blood Urea Nitrogen 29.3 mg/dL (9.0-27.0); Calcium 8.6 mg/dL (8.7-10.3); Carbon Dioxide 24.8 mmol/L (20.0-27.5); Non-African American GFR(CKD) 38.1 (60.0-200.0); Potassium 4.6 mmol/L (3.5-5.5)
[2021-04-15 11:43] LABS: Glucose,Whole Blood 133 mg/dL (75-99)
--- NOTE | 2021-04-15 12:06 | P.CONS ---
History of Present Illness - Reason for Consult Consult date: 04/15/21 wound care - History of Present Illness This is a 76-year-old patient known to the wound care center with a nonhealing ulceration to the right plantar foot. Patient is being evaluated for possible amputation. He is currently in the hyperbaric chamber for treatment. Patient has been utilizing absorptive silver dressing to the site. The wound is currently classified as a Grade 3 wound with etiologies of Diabetic Wound/Ulcer of the Lower Extremity and Open Surgical Wound and is located on the Right,Plantar Foot. The wound measures 2.5cm length x 1.1cm width x 0.4cm depth; 2.16cm^2 area and 0.864cm^3 volume. There is Fat Layer (Subcutaneous Tissue) exposed. There is no tunneling or undermining noted. There is a medium amount of serosanguineous drainage noted. The wound margin is indistinct and nonvisible. There is medium (34-66%) pink granulation within the wound bed. There is a medium (34-66%) amount of necrotic tissue within the wound bed including Adherent Slough. The periwound skin appearance exhibited: Callus, Dry/Scaly, Erythema. The periwound skin appearance did not exhibit: Crepitus, Excoriation, Induration, Rash, Scarring, Atrophie Cammy, Cyanosis, Ecchymosis, Hemosiderin Staining, Mottled, Pallor, Rubor. The surrounding wound skin color is noted with erythema which is circumferential. Periwound temperature was noted as No Abnormality. The periwound has tenderness on palpation. The wound is currently classified as a Grade 2 wound with etiology of Diabetic Wound/Ulcer of the Lower Extremity and is located on the Right,Plantar Toe Great. The wound measures 1.9cm length x 0.6cm width x 1.5cm depth; 0.895cm^2 area and 1.343cm^3 volume. There is Fat Layer (Subcutaneous Tissue) exposed. There is no tunneling or undermining noted. There is a medium amount of serosanguineous drainage noted. The wound margin is indistinct and nonvisible. There is large (67-100%) red, pink granulation within the wound bed. There is a small (1-33%) amount of necrotic tissue within the wound bed. The periwound skin appearance exhibited: Maceration, Erythema. The periwound skin appearance did not exhibit: Callus, Crepitus, Excoriation, Induration, Rash, Scarring, Dry/Scaly, Atrophie Cammy, Cyanosis, Ecchymosis, Hemosiderin Staining, Mottled, Pallor, Rubor. The surrounding wound skin color is noted with erythema which is circumferential. Periwound temperature was noted as No Abnormality. The periwound has tenderness on palpation. Review Of Systems: Constitutional: No fever, no chills, no night sweats. No weight change. No weakness, fatigue or lethargy. No daytime sleepiness. Integumentary:reports wounds, no lesions. No rash or pruritus. No unusual bruising. No change in hair or nails. Physical exam: General Appearance: Alert, cooperative, no distress, appears stated age. Skin: See HPI all other Skin color, texture, tugor normal, no rashes or lesions. Neurologic: Alert oriented x3 Assessment: 1. 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 Osteomalacia of the right foot 3. Diabetic foot ulcer Plan: 1. Apply absorptive silver, feeling was gauze, dry gauze, rolled gauze and secure with paper tape. Change Thursday. Patient returned to the wound care center for his weekly appointment on Thursday. 2. No weightbearing to the right lower extremity. Utilize a walker Thank you for the consultation any questions please contact the wound care center DNP note has been reviewed and discussed with Dr. Lomeli and the impression and plan of care has been directed as dictated. Past Medical History Past Medical History: Diabetes Mellitus, GERD/Reflux, Hyperlipidemia, Hypertension, Myocardial Infarction ([place]), Prostate Disorder, Renal Disease, Seizure Disorder Additional Past Medical History / Comment(s): last seizure last week-usually has one every couple months, uses CPAP, neuropathy feet, decreased kidney function- sees Torey, right foot ulcer Last Myocardial Infarction Date:: 2013 History of Any Multi-Drug Resistant Organisms: None Reported Past Surgical History: Heart Catheterization, Heart Catheterization With Stent, Orthopedic Surgery Additional Past Surgical History / Comment(s): bilateral knee replacement, left ankle, 5 stents Past Anesthesia/Blood Transfusion Reactions: No Reported Reaction Date of Last Stent Placement:: 2014 Past Psychological History: No Psychological Hx Reported Smoking Status: Light tobacco smoker Past Alcohol Use History: Occasional Past Drug Use History: None Reported - Past Family History Mother Family Medical History: No Reported History Medications and Allergies Home Medications Medication Instructions Recorded Confirmed Type Aspirin EC [Ecotrin Low Dose] 81 mg PO HS 04/09/14 04/14/21 History Tamsulosin HCl [Flomax] 0.4 mg PO HS 04/09/14 04/14/21 History Multivit-Min/FA/Lycopen/Lutein 1 tab PO DAILY 04/30/18 04/14/21 History [Centrum Silver Tablet] levETIRAcetam [Keppra] 1,500 mg PO BID 04/30/18 04/14/21 History Atorvastatin [Lipitor] 80 mg PO HS 01/27/19 04/14/21 History Clopidogrel [Plavix] 75 mg PO DAILY 01/27/19 04/14/21 History Losartan Potassium [Cozaar] 12.5 mg PO HS 01/27/19 04/14/21 History Metoprolol Tartrate [Lopressor] 25 mg PO DAILY 01/11/21 04/14/21 History OXcarbazepine [Trileptal] 150 mg PO BID 01/11/21 04/14/21 History ALPRAZolam [Xanax] 0.5 mg PO DAILY PRN 04/14/21 04/14/21 History Amoxic-Pot Clav 500-125 mg 1 tab PO TID 04/14/21 04/14/21 History [Augmentin 500-125 mg] Furosemide [Lasix] 40 mg PO DAILY 04/14/21 04/14/21 History Gabapentin [Neurontin] 100 mg PO BID 04/14/21 04/14/21 History Insulin Aspart [NovoLOG Flexpen] 20 units SQ PC-TID 04/14/21 04/14/21 History Insulin Detemir [Levemir Flextouch 20 units SQ HS 04/14/21 04/14/21 History Pen] Allergies Allergy/AdvReac Type Severity Reaction Status Date / Time No Known Allergies Allergy Verified 04/14/21 15:06 Physical Exam Vitals: Vital Signs Temp Pulse Pulse Resp BP BP Pulse Ox 04/15/21 07:00 97.4 F L 64 18 125/71 99 04/15/21 02:20 75 18 04/15/21 01:40 98.3 F 75 18 150/63 98 04/14/21 20:46 98.4 F 65 20 141/59 100 04/14/21 19:57 72 16 128/76 98 04/14/21 17:00 76 16 112/72 98 04/14/21 12:12 98.4 F 69 20 120/57 94 L Intake and Output 04/14/21 04/15/21 04/15/21 22:59 06:59 14:59 Output Total 200 1600 Balance -200 -1600 Output: Urine 200 1600 Other: Voiding Method Incontinent Incontinent # Voids 1 1 Weight 105.687 kg Results CBC & Chem 7: 04/15/21 07:40 04/15/21 07:40 Labs: Abnormal Lab Results - Last 24 Hours (Table) 04/14/21 04/14/21 04/14/21 Range/Units 13:17 13:17 20:59 WBC 12.1 H (3.8-10.6) k/uL Hgb (13.0-17.0) g/dL MCHC (32.0-37.0) g/dL RDW (11.5-14.5) % Plt Count 710 H (150-450) k/uL Immature Gran # (0.00-0.04) X 10*3/uL Neutrophils # (Manual) 8.80 H (1.3-7.7) k/uL Monocytes # (0.20-1.00) X 10*3/uL Monocytes # (Manual) 1.21 H (0-1.0) k/uL Basophils # (0.00-0.10) X 10*3/uL Basophils # (Manual) 0.48 H (0-0.2) k/uL Myelocytes # (Manual) 0.12 H (0) k/uL Chloride 109 H (98-107) mmol/L BUN 37 H (9-20) mg/dL Creatinine 1.73 H (0.66-1.25) mg/dL Est GFR (CKD-EPI)AfAm (60.0-200.0) Est GFR (CKD-EPI)NonAf (60.0-200.0) Glucose 213 H (74-99) mg/dL POC Glucose (mg/dL) 219 H (75-99) mg/dL Calcium (8.7-10.3) mg/dL Alkaline Phosphatase 160 H (38-126) U/L 04/14/21 04/15/21 04/15/21 Range/Units 23:42 03:51 07:40 WBC 11.5 H 10.23 H (3.8-10.6) k/uL Hgb 12.8 L (13.0-17.0) g/dL MCHC 30.8 L (32.0-37.0) g/dL RDW 14.9 H (11.5-14.5) % Plt Count 711 H 668 H (150-450) k/uL Immature Gran # 0.14 H (0.00-0.04) X 10*3/uL Neutrophils # (Manual) (1.3-7.7) k/uL Monocytes # 1.10 H (0.20-1.00) X 10*3/uL Monocytes # (Manual) (0-1.0) k/uL Basophils # 0.46 H (0.00-0.10) X 10*3/uL Basophils # (Manual) (0-0.2) k/uL Myelocytes # (Manual) (0) k/uL Chloride (98-107) mmol/L BUN (9-20) mg/dL Creatinine (0.66-1.25) mg/dL Est GFR (CKD-EPI)AfAm (60.0-200.0) Est GFR (CKD-EPI)NonAf (60.0-200.0) Glucose (74-99) mg/dL POC Glucose (mg/dL) 165 H (75-99) mg/dL Calcium (8.7-10.3) mg/dL Alkaline Phosphatase (38-126) U/L 04/15/21 04/15/21 Range/Units 07:40 11:41 WBC (3.8-10.6) k/uL Hgb (13.0-17.0) g/dL MCHC (32.0-37.0) g/dL RDW (11.5-14.5) % Plt Count (150-450) k/uL Immature Gran # (0.00-0.04) X 10*3/uL Neutrophils # (Manual) (1.3-7.7) k/uL Monocytes # (0.20-1.00) X 10*3/uL Monocytes # (Manual) (0-1.0) k/uL Basophils # (0.00-0.10) X 10*3/uL Basophils # (Manual) (0-0.2) k/uL Myelocytes # (Manual) (0) k/uL Chloride (98-107) mmol/L BUN 29.3 H (9-20) mg/dL Creatinine 1.7 H (0.66-1.25) mg/dL Est GFR (CKD-EPI)AfAm 44.1 L (60.0-200.0) Est GFR (CKD-EPI)NonAf 38.1 L (60.0-200.0) Glucose 146 H (74-99) mg/dL POC Glucose (mg/dL) 133 H (75-99) mg/dL Calcium 8.6 L (8.7-10.3) mg/dL Alkaline Phosphatase (38-126) U/L Assessment and Plan (1) Non-pressure chronic ulcer of other part of right foot with necrosis of bone Current Visit: Yes Status: Acute Code(s): L97.514 - NON-PRS CHRONIC ULCER OTH PRT RIGHT FOOT W NECROSIS OF BONE SNOMED Code(s): 748439682 (2) Osteomyelitis, unspecified Current Visit: Yes Status: Acute Code(s): M86.9 - OSTEOMYELITIS, UNSPECIFIED SNOMED Code(s): 84917158 (3) Type 2 diabetes mellitus with foot ulcer Current Visit: Yes Status: Acute Code(s): E11.621 - TYPE 2 DIABETES MELLITUS WITH FOOT ULCER; L97.509 - NON-PRESSURE CHRONIC ULCER OTH PRT UNSP FOOT W UNSP SEVERITY SNOMED Code(s): 462783772
--- NOTE | 2021-04-15 13:12 | P.GSCN ---
History of Present Illness Consult date: 04/15/21 History of present illness: CHIEF COMPLAINT: Bright red blood per rectum HISTORY OF PRESENT ILLNESS: This is a 76-year-old male who presented to the hospital with complaints of bright red blood per rectum. He reports that the blood on had started yesterday. He reports having soft bowel movements with surrounding blood. He denies any abdominal pain. He is on Plavix and aspirin for his cardiac stents. Last colonoscopy was 10 years ago: Polyps. Computed tomography scan had shown evidence of Von: Diverticulosis. Hemoglobin 14.4 on admission down to 12.8. Patient denies any fever chills or sweats. Denies any prior history of GI bleed. Patient does have a chronic diabetic wound on the right foot has been on antibiotics for 6 weeks. Patient denies any dizziness or lightheadedness. PAST MEDICAL HISTORY: Diabetes Mellitus, GERD/Reflux, Hyperlipidemia, Hypertension, Myocardial Infarction ([place]), Prostate Disorder, Renal Disease, Seizure Disorder, chronic kidney disease PAST SURGICAL HISTORY: Heart catheterization with cardiac stents MEDICATIONS: See list. ALLERGIES: See list. SOCIAL HISTORY: No illicit drug use. REVIEW OF SYSTEMS: CONSTITUTIONAL: Denies fever or chills. HEENT: Denies blurred vision, vision changes, or eye pain. Denies hemoptysis CARDIOVASCULAR: Denies chest pain or pressure. RESPIRATORY: No shortness of breath. GASTROINTESTINAL: See HPI for pertinent findings HEMATOLOGIC: Denies bleeding disorders. GENITOURINARY: Denies any blood in urine or increased urinary frequency. SKIN: Denies pruitis. Denies rash. PHYSICAL EXAM: VITAL SIGNS: Reviewed GENERAL: Well-developed in no acute distress. HEENT: No sclera icterus. Extraocular movements grossly intact. Moist buccal mucosa. Head is atraumatic, normocephalic. No nasal drainage. ABDOMEN: Soft. Nondistended. Nondistended NEUROLOGIC: Alert and oriented. Cranial nerves II through XII grossly intact. LABORATORY DATA: WBC 11.5 down to 10.23 hemoglobin 14.4 down to 12.8 platelets 668 Sodium 142 potassium 4.6 creatinine 1.7 Troponin negative Urinalysis negative Stool for occult blood positive IMAGING: Computed tomography scan abdomen and pelvis no acute abnormality of the abdomen and pelvis. Multilevel lumbar significant spinal stenosis. No change. Mild colonic diverticulosis ASSESSMENT: 1. Acute GI bleed with bright red blood per rectum. On Plavix and aspirin at home. 2. Mild diverticulosis noted on CAT scan PLAN: -Start clear liquid diet and advance as tolerated -Patient can be discharge from surgical standpoint. Recommend colonoscopy outpatient. -Patient can resume Plavix and aspirin from surgical standpoint. Patient will be notified when to discontinue these medications for colonoscopy -Patient to follow-up with Dr. chen an office next week -Continue to monitor hemoglobin -Continue to monitor for any signs or symptoms of bleeding -Continue supportive care Thank you for this consultation Physician Paste Maker note has been reviewed by physician. Signing provider agrees with the documented findings, assessment, and plan of care. Past Medical History Past Medical History: Diabetes Mellitus, GERD/Reflux, Hyperlipidemia, Hypertension, Myocardial Infarction ([place]), Prostate Disorder, Renal Disease, Seizure Disorder Additional Past Medical History / Comment(s): last seizure last week-usually has one every couple months, uses CPAP, neuropathy feet, decreased kidney function- sees Torey, right foot ulcer Last Myocardial Infarction Date:: 2013 History of Any Multi-Drug Resistant Organisms: None Reported Past Surgical History: Heart Catheterization, Heart Catheterization With Stent, Orthopedic Surgery Additional Past Surgical History / Comment(s): bilateral knee replacement, left ankle, 5 stents Past Anesthesia/Blood Transfusion Reactions: No Reported Reaction Date of Last Stent Placement:: 2013 Past Psychological History: No Psychological Hx Reported Smoking Status: Light tobacco smoker Past Alcohol Use History: Occasional Past Drug Use History: None Reported - Past Family History Mother Family Medical History: No Reported History Medications and Allergies Home Medications Medication Instructions Recorded Confirmed Type Aspirin EC [Ecotrin Low Dose] 81 mg PO HS 04/09/14 04/14/21 History Tamsulosin HCl [Flomax] 0.4 mg PO HS 04/09/14 04/14/21 History Multivit-Min/FA/Lycopen/Lutein 1 tab PO DAILY 04/30/18 04/14/21 History [Centrum Silver Tablet] levETIRAcetam [Keppra] 1,500 mg PO BID 04/30/18 04/14/21 History Atorvastatin [Lipitor] 80 mg PO HS 01/27/19 04/14/21 History Clopidogrel [Plavix] 75 mg PO DAILY 01/27/19 04/14/21 History Losartan Potassium [Cozaar] 12.5 mg PO HS 01/27/19 04/14/21 History Metoprolol Tartrate [Lopressor] 25 mg PO DAILY 01/11/21 04/14/21 History OXcarbazepine [Trileptal] 150 mg PO BID 01/11/21 04/14/21 History ALPRAZolam [Xanax] 0.5 mg PO DAILY PRN 04/14/21 04/14/21 History Amoxic-Pot Clav 500-125 mg 1 tab PO TID 04/14/21 04/14/21 History [Augmentin 500-125 mg] Furosemide [Lasix] 40 mg PO DAILY 04/14/21 04/14/21 History Gabapentin [Neurontin] 100 mg PO BID 04/14/21 04/14/21 History Insulin Aspart [NovoLOG Flexpen] 20 units SQ PC-TID 04/14/21 04/14/21 History Insulin Detemir [Levemir Flextouch 20 units SQ HS 04/14/21 04/14/21 History Pen] Allergies Allergy/AdvReac Type Severity Reaction Status Date / Time No Known Allergies Allergy Verified 04/14/21 15:06 Surgical - Exam Vital Signs Temp Pulse Resp BP Pulse Ox 98.4 F 69 20 120/57 94 L 04/14/21 12:12 04/14/21 12:12 04/14/21 12:12 04/14/21 12:12 04/14/21 12:12 Results - Labs 04/15/21 07:40 04/15/21 07:40 Abnormal Lab Results - Last 24 Hours (Table) 04/14/21 04/14/21 04/14/21 Range/Units 13:17 13:17 20:59 WBC 12.1 H (3.8-10.6) k/uL Hgb (13.0-17.0) g/dL MCHC (32.0-37.0) g/dL RDW (11.5-14.5) % Plt Count 710 H (150-450) k/uL Immature Gran # (0.00-0.04) X 10*3/uL Neutrophils # (Manual) 8.80 H (1.3-7.7) k/uL Monocytes # (0.20-1.00) X 10*3/uL Monocytes # (Manual) 1.21 H (0-1.0) k/uL Basophils # (0.00-0.10) X 10*3/uL Basophils # (Manual) 0.48 H (0-0.2) k/uL Myelocytes # (Manual) 0.12 H (0) k/uL Chloride 109 H (98-107) mmol/L BUN 37 H (9-20) mg/dL Creatinine 1.73 H (0.66-1.25) mg/dL Est GFR (CKD-EPI)AfAm (60.0-200.0) Est GFR (CKD-EPI)NonAf (60.0-200.0) Glucose 213 H (74-99) mg/dL POC Glucose (mg/dL) 219 H (75-99) mg/dL Calcium (8.7-10.3) mg/dL Alkaline Phosphatase 160 H (38-126) U/L 04/14/21 04/15/21 04/15/21 Range/Units 23:42 03:51 07:40 WBC 11.5 H 10.23 H (3.8-10.6) k/uL Hgb 12.8 L (13.0-17.0) g/dL MCHC 30.8 L (32.0-37.0) g/dL RDW 14.9 H (11.5-14.5) % Plt Count 711 H 668 H (150-450) k/uL Immature Gran # 0.14 H (0.00-0.04) X 10*3/uL Neutrophils # (Manual) (1.3-7.7) k/uL Monocytes # 1.10 H (0.20-1.00) X 10*3/uL Monocytes # (Manual) (0-1.0) k/uL Basophils # 0.46 H (0.00-0.10) X 10*3/uL Basophils # (Manual) (0-0.2) k/uL Myelocytes # (Manual) (0) k/uL Chloride (98-107) mmol/L BUN (9-20) mg/dL Creatinine (0.66-1.25) mg/dL Est GFR (CKD-EPI)AfAm (60.0-200.0) Est GFR (CKD-EPI)NonAf (60.0-200.0) Glucose (74-99) mg/dL POC Glucose (mg/dL) 165 H (75-99) mg/dL Calcium (8.7-10.3) mg/dL Alkaline Phosphatase (38-126) U/L 04/15/21 Range/Units 07:40 WBC (3.8-10.6) k/uL Hgb (13.0-17.0) g/dL MCHC (32.0-37.0) g/dL RDW (11.5-14.5) % Plt Count (150-450) k/uL Immature Gran # (0.00-0.04) X 10*3/uL Neutrophils # (Manual) (1.3-7.7) k/uL Monocytes # (0.20-1.00) X 10*3/uL Monocytes # (Manual) (0-1.0) k/uL Basophils # (0.00-0.10) X 10*3/uL Basophils # (Manual) (0-0.2) k/uL Myelocytes # (Manual) (0) k/uL Chloride (98-107) mmol/L BUN 29.3 H (9-20) mg/dL Creatinine 1.7 H (0.66-1.25) mg/dL Est GFR (CKD-EPI)AfAm 44.1 L (60.0-200.0) Est GFR (CKD-EPI)NonAf 38.1 L (60.0-200.0) Glucose 146 H (74-99) mg/dL POC Glucose (mg/dL) (75-99) mg/dL Calcium 8.6 L (8.7-10.3) mg/dL Alkaline Phosphatase (38-126) U/L Diabetes panel 04/14/21 04/15/21 Range/Units 13:17 07:40 Sodium 140 142 (137-145) mmol/L Potassium 4.7 4.6 (3.5-5.1) mmol/L Chloride 109 H 106 (98-107) mmol/L Carbon Dioxide 23 24.8 (22-30) mmol/L BUN 37 H 29.3 H (9-20) mg/dL Creatinine 1.73 H 1.7 H (0.66-1.25) mg/dL Glucose 213 H 146 H (74-99) mg/dL Calcium 9.2 8.6 L (8.4-10.2) mg/dL AST 31 (17-59) U/L ALT 22 (4-49) U/L Alkaline Phosphatase 160 H (38-126) U/L Total Protein 6.8 (6.3-8.2) g/dL Albumin 3.6 (3.5-5.0) g/dL Calcium panel 04/14/21 04/15/21 Range/Units 13:17 07:40 Calcium 9.2 8.6 L (8.4-10.2) mg/dL Albumin 3.6 (3.5-5.0) g/dL Pituitary panel 04/14/21 04/15/21 Range/Units 13:17 07:40 Sodium 140 142 (137-145) mmol/L Potassium 4.7 4.6 (3.5-5.1) mmol/L Chloride 109 H 106 (98-107) mmol/L Carbon Dioxide 23 24.8 (22-30) mmol/L BUN 37 H 29.3 H (9-20) mg/dL Creatinine 1.73 H 1.7 H (0.66-1.25) mg/dL Glucose 213 H 146 H (74-99) mg/dL Calcium 9.2 8.6 L (8.4-10.2) mg/dL Adrenal panel 04/14/21 04/15/21 Range/Units 13:17 07:40 Sodium 140 142 (137-145) mmol/L Potassium 4.7 4.6 (3.5-5.1) mmol/L Chloride 109 H 106 (98-107) mmol/L Carbon Dioxide 23 24.8 (22-30) mmol/L BUN 37 H 29.3 H (9-20) mg/dL Creatinine 1.73 H 1.7 H (0.66-1.25) mg/dL Glucose 213 H 146 H (74-99) mg/dL Calcium 9.2 8.6 L (8.4-10.2) mg/dL Total Bilirubin 0.6 (0.2-1.3) mg/dL AST 31 (17-59) U/L ALT 22 (4-49) U/L Alkaline Phosphatase 160 H (38-126) U/L Total Protein 6.8 (6.3-8.2) g/dL Albumin 3.6 (3.5-5.0) g/dL
--- NOTE | 2021-04-15 15:25 | P.OP ---
Date of Procedure: 04/15/21 Preoperative Diagnosis: Epigastric pain Postoperative Diagnosis: Mild antral gastritis Esophagitis Procedure(s) Performed: EGD Anesthesia: MAC Surgeon: Stan Bey Pathology: other (Antrum, esophagus) Condition: stable Disposition: PACU Description of Procedure: The patient's placed on the endoscopy table in the lateral position. He received IV sedation. The gastroscope placed oropharynx passed in the esophagus and stomach. Scope some placed through the pylorus. The first and second portion of the duodenum appeared normal. Scope was then brought back the antrum and this was mildly inflamed. A biopsies performed. Scope was unretroflexed and remainder stomach appeared normal. The GE junction was at 40 cm. The distal esophagus appeared inflamed. The esophagus was inflamed to at least the midportion of the esophagus. A biopsies performed. It had cyst suspicious appearance of Pilar. The proximal esophagus appeared normal. Scope withdrawn for patient.
[2021-04-15 15:40] VITALS: BP 117/55; PULSE 58; TEMP 97.8
--- NOTE | 2021-04-15 17:21 | P.DS ---
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 Hospital Course: Patient is a 76-year-old male with a history of insulin-dependent diabetes mellitus type 2 with chronic right lower extremity wound following at the wound care clinic, seizure disorder, and after squatter coronary artery disease with his last stent approximately 5 years ago who presented to the ER with complaints of bright red blood after 2 bowel movements. In the ER he underwent an extensive evaluation. Initial vital signs were within normal limits. Hemoglobin was 14.4, weight blood cell count was 12.1, and creatinine 1.7 consistent with his known chronic kidney disease. He underwent a CT abdomen and pelvis which showed diverticulosis but no signs of acute diverticulitis. He was started on normal saline as well as IV Protonix. In the morning after admission his hemoglobin had gone from 14.4-12.8 which was felt to be likely dilutional as he is receiving IV antibiotics. He did have a bowel movement which had no signs of bright red blood. He was started on diet and tolerated this. He was seen by surgery. It was determined he was stable for outpatient workup of his bright red blood per rectum. His felt that he likely had a diverticular bleed versus internal hemorrhoids. He was also seen by wound care who recommended continuing his outpatient wound care follow-up. Was noted to have some mild thrombocytosis which was felt to be reactive to his known chronic right lower extremity wound with osteonecrosis of the bone. Recommend holding Plavix for 2 additional days to allow for healing of suspected diverticular bleed the benefits of this outweigh the risk of ischemic bowel associated with thrombocytosis. He tolerated a diet and was determined stable for discharge home. Follow-up: Patient is felt to likely have a diverticular versus internal hemorrhoidal bleed. He'll follow-up with Dr. Pandey in the office next week for outpatient colonoscopy. He will remain off of his Plavix and aspirin for an additional day and resume them on 04/17. He'll return if bleeding recurs or gets worse. Patient seen and examined at bedside. No abdominal cramping, no chest pain, no shortness of breath, no nausea, no vomiting. No additional bright red blood per rectum. States that he is hungry. Vital signs reviewed and stable. General: non toxic, no distress, appears at stated age Derm: warm, dry Head: atraumatic, normocephalic, symmetric Eyes: EOMI, no lid lag, anicteric sclera Mouth: no lip lesion, mucus membranes moist Cardiovascular: S1S2 reg, no murmur, positive posterior tibial pulse bilateral, Lungs: CTA bilateral, no rhonchi, no rales , no accessory muscle use Abdominal: soft, nontender to palpation, no guarding, no appreciable organomegaly Ext: no gross muscle atrophy, no edema, no contractures Neuro: CN II-XI grossly intact, no focal neuro deficits Psych: Alert, oriented, appropriate affect A total of 35 minutes of time were spent preparing this complex discharge summary . Patient Condition at Discharge: Stable Plan - Discharge Summary Discharge Rx Participant: No New Discharge Prescriptions: Continue Tamsulosin HCl [Flomax] 0.4 mg PO HS Aspirin EC [Ecotrin Low Dose] 81 mg PO HS levETIRAcetam [Keppra] 1,500 mg PO BID Multivit-Min/FA/Lycopen/Lutein [Centrum Silver Tablet] 1 tab PO DAILY Atorvastatin [Lipitor] 80 mg PO HS Losartan Potassium [Cozaar] 12.5 mg PO HS Clopidogrel [Plavix] 75 mg PO DAILY OXcarbazepine [Trileptal] 150 mg PO BID Metoprolol Tartrate [Lopressor] 25 mg PO DAILY Insulin Detemir [Levemir Flextouch Pen] 20 units SQ HS Amoxic-Pot Clav 500-125 mg [Augmentin 500-125 mg] 1 tab PO TID Gabapentin [Neurontin] 100 mg PO BID ALPRAZolam [Xanax] 0.5 mg PO DAILY PRN PRN Reason: BEFORE TREATMENT Insulin Aspart [NovoLOG Flexpen] 20 units SQ PC-TID Furosemide [Lasix] 40 mg PO DAILY Discharge Medication List Aspirin EC [Ecotrin Low Dose] 81 mg PO HS 04/09/14 [History] Tamsulosin HCl [Flomax] 0.4 mg PO HS 04/09/14 [History] Multivit-Min/FA/Lycopen/Lutein [Centrum Silver Tablet] 1 tab PO DAILY 04/30/18 [History] levETIRAcetam [Keppra] 1,500 mg PO BID 04/30/18 [History] Atorvastatin [Lipitor] 80 mg PO HS 01/27/19 [History] Clopidogrel [Plavix] 75 mg PO DAILY 01/27/19 [History] Losartan Potassium [Cozaar] 12.5 mg PO HS 01/27/19 [History] Metoprolol Tartrate [Lopressor] 25 mg PO DAILY 01/11/21 [History] OXcarbazepine [Trileptal] 150 mg PO BID 01/11/21 [History] ALPRAZolam [Xanax] 0.5 mg PO DAILY PRN 04/14/21 [History] Amoxic-Pot Clav 500-125 mg [Augmentin 500-125 mg] 1 tab PO TID 04/14/21 [History] Furosemide [Lasix] 40 mg PO DAILY 04/14/21 [History] Gabapentin [Neurontin] 100 mg PO BID 04/14/21 [History] Insulin Aspart [NovoLOG Flexpen] 20 units SQ PC-TID 04/14/21 [History] Insulin Detemir [Levemir Flextouch Pen] 20 units SQ HS 04/14/21 [History] Follow up Appointment(s)/Referral(s): Soy Liu MD [Primary Care Provider] - 1-2 days [facility], [NON-STAFF] - 1-2 Days [facility] [NON-STAFF] - 1 Week (as previously scheduled ) Stan Bey MD [STAFF PHYSICIAN] - 1 Week Patient Instructions/Handouts: Gastrointestinal Bleeding (ED) Activity/Diet/Wound Care/Special Instructions: Activity: as tolerated Diet: Heart Healthy, carb consistent Special Instructions: Resume Aspirin and Plavix on 04/18 Discharge Disposition: HOME WITH HOME HEALTH SERVICES
[2021-04-15] MEDS ORDERED: NYSTATIN 100,000 UNIT/ML SUSP 500,000 UNIT/5 ML CUP PO SCH (18:00)
== END 2021-04-15 17:05 | disposition home health service (06) ==
LOC: EC 11:56 → 6NMEDSUR 17:51
PROVIDERS: ADMIT Internal Medicine; ATTEND Internal Medicine
DX: K62.5 Hemorrhage of anus and rectum (principal); D62 Acute posthemorrhagic anemia; K57.31 Diverticulosis of large intestine without perforation or abscess with bleeding; D75.839 Thrombocytosis, unspecified; I13.0 Hypertensive heart and chronic kidney disease with heart failure and stage 1 through stage 4 chronic kidney disease, or unspecified chronic kidney disease; N18.30 Chronic kidney disease, stage 3 unspecified; I50.9 Heart failure, unspecified; I25.10 Atherosclerotic heart disease of native coronary artery without angina pectoris; G40.909 Epilepsy, unspecified, not intractable, without status epilepticus; E78.5 Hyperlipidemia, unspecified; E11.22 Type 2 diabetes mellitus with diabetic chronic kidney disease; E11.621 Type 2 diabetes mellitus with foot ulcer; E11.42 Type 2 diabetes mellitus with diabetic polyneuropathy; L97.514 Non-pressure chronic ulcer of other part of right foot with necrosis of bone; E11.69 Type 2 diabetes mellitus with other specified complication; M83.9 Adult osteomalacia, unspecified; M86.9 Osteomyelitis, unspecified; E11.65 Type 2 diabetes mellitus with hyperglycemia; K21.00 Gastro-esophageal reflux disease with esophagitis, without bleeding; M51.36 Other intervertebral disc degeneration, lumbar region; M48.061 Spinal stenosis, lumbar region without neurogenic claudication; F17.200 Nicotine dependence, unspecified, uncomplicated; E66.9 Obesity, unspecified; Z68.34 Body mass index [BMI] 34.0-34.9, adult; Z20.822 Contact with and (suspected) exposure to COVID-19; Z79.02 Long term (current) use of antithrombotics/antiplatelets; Z79.82 Long term (current) use of aspirin; Z79.4 Long term (current) use of insulin; Z79.899 Other long term (current) drug therapy; Z95.5 Presence of coronary angioplasty implant and graft; Z96.653 Presence of artificial knee joint, bilateral; I25.2 Old myocardial infarction; Z98.890 Other specified postprocedural states
CPT/HCPCS: 96376; 96374; 99285; 36415; 86900; 86901; 87338; 80053; 80048; 84484; 85025 ×2; 85027; 85610; 85730; 86850; 82272; 81003; 87045; 87046; 87635; 74176; G0378 ×2; C9113 ×2

== ENCOUNTER 2021-05-01 11:47 | Day surgery (SDC) | payer MEDICARE ==
[2021-04-30 08:55] VITALS: BMI 34.7
[~2021-05-01 11:47] MED LIST changes: -ALPRAZolam 0.25 MG TAB PO PRN; -ALPRAZolam 0.5 MG TAB PO PRN; -ASPIRIN 325 MG TAB PO STA; -ATORVASTATIN 80 MG TAB PO STA; +DEXAMETHASONE SOD PHOSPHATE 4 MG/ML 1 ML VIAL IV ONE; -HEPARIN SODIUM 1,000 UN/ML (10ML VL) IV ONE; +HYDROmorphone 0.5 MG/0.5 ML SYRINGE IVP PRN; -IOPAMIDOL-370 100ML BTL INJ ONE; +LACTATED RINGERS 1,000 ML IV SCH; +LIDOCAINE 1% (10MG/ML) FOR IV START INTRADERMA PRN; -LIDOCAINE 1% INJ 10MG/ML (20 ML MDV) SQ ONE; -MIDAZOLAM 2 MG/2 ML VIAL IV ONE; +MIDAZOLAM 2 MG/2 ML VIAL IV PRN; -NITROGLYCERIN 1000MCG/10ML SYRINGE INTRACORON ONE; -NITROGLYCERIN SL TABS 0.4 MG TAB SUBLINGUAL PRN; +ONDANSETRON 4 MG/2 ML VIAL IVP ONE; -SODIUM CHLORIDE 0.9% 1,000 ML IV SCH; -SODIUM CHLORIDE 0.9% 1,000 ML in EMPTY BAG 1 BAG IV ONE; -VERAPAMIL SYRINGE (5 MG/10 ML) INTRAARTER ONE
[2021-05-01 12:32] VITALS: TEMP 97.2
[2021-05-01 12:47] LABS: Glucose,Whole Blood 143 mg/dL (75-99)
[2021-05-01] MEDS ORDERED: LIDOCAINE 1% INJ 10MG/ML (20 ML MDV) SQ ONE (13:00)
[2021-05-01] MEDS ORDERED: PROPOFOL 10 MG/ML 20 ML VIAL IV ONE (13:00)
[2021-05-01] MEDS ORDERED: MIDAZOLAM 2 MG/2 ML VIAL ONE (13:00)
[2021-05-01] MEDS ORDERED: KETAMINE 10 MG/ML 20 ML VIAL ONE (13:00)
[2021-05-01] MEDS ORDERED: fentaNYL (PF) 50 MCG/ML 2 ML AMP ONE (13:00)
--- NOTE | 2021-05-01 14:07 | P.OP ---
Date of Procedure: 05/01/21 Description of Procedure: Preoperative diagnosis: [Right great toe wound, nonhealing, infectious] Postoperative diagnosis: Same, chronic osteomyelitis, severe destruction of bone Procedure: [Right great toe amputation Application of wound VAC Resultant wound measuring 4 x 5.2 x 3.1 cm to the level of bone] Surgeon: Margareth Purdy D.O. EBL: [20 mL] IV fluids: [See records] Urine output: [Not measured] Drains: [None] Complications: [None immediately apparent] Condition: [Stable to recovery] Operative indication and findings: [Patient is a 76-year-old male with a past history of a diabetic foot ulceration that he has not supposedly healed but then resultant ended up with a great toe wound and infection. He initially underwent incision and drainage and partial wound care however was recommended undergo a great toe amputation. He presents today for this] Procedure in detail: [Patient was taken to the operative suite and placed in supine position. The right lower extremity is prepped and draped in usual sterile fashion. A preprocedure timeout was performed, all parties were in agreement. A racquet incision was made surrounding the great toe after appropriate digital block. Is carried down through the subcutaneous tissues. At that point was very obvious was significant bony destruction of the phalanx as well as the metatarsal head. There was nonunion of the bone at this level. The bone was then cleared off and transected more proximally. Given the appearance of the bony at this level portions were sent for bone culture. There is then copiously irrigated. Hemostasis was achieved with electrocautery. On the medial portion of the foot, simple sutures of 3-0 Vicryl and 4-0 nylon were placed. A wound VAC is in place over the continued resultant wound given the appearance of the wound itself. The patient was transferred to recovery in stable condition having tolerated procedure well Patient will need aggressive wound care. We'll follow-up on the bone cultures cultures, this will be discussed with his wound care team] Plan - Discharge Summary Discharge Rx Participant: Yes New Discharge Prescriptions: New HYDROcodone/APAP 5-325MG [[place] 5-325] 1 tab PO Q6HR PRN 3 Days #8 tab PRN Reason: Pain No Action Tamsulosin HCl [Flomax] 0.4 mg PO HS Aspirin EC [Ecotrin Low Dose] 81 mg PO HS levETIRAcetam [Keppra] 1,500 mg PO BID Multivit-Min/FA/Lycopen/Lutein [Centrum Silver Tablet] 1 tab PO DAILY Atorvastatin [Lipitor] 80 mg PO HS Losartan Potassium [Cozaar] 25 mg PO HS Clopidogrel [Plavix] 75 mg PO DAILY OXcarbazepine [Trileptal] 150 mg PO BID Metoprolol Tartrate [Lopressor] 25 mg PO HS Insulin Detemir [Levemir Flextouch Pen] 15 units SQ HS Amoxic-Pot Clav 500-125 mg [Augmentin 500-125 mg] 1 tab PO TID Insulin Aspart [NovoLOG Flexpen] 0 units SQ PC-TID Furosemide [Lasix] 40 mg PO HS Lactobacillus Acidophilus [Acidophilus] 1 each PO BID Potassium Chloride [Klor-Con 10 ER] 10 meq PO DAILY Discharge Medication List Aspirin EC [Ecotrin Low Dose] 81 mg PO HS 04/09/14 [History] Tamsulosin HCl [Flomax] 0.4 mg PO HS 04/09/14 [History] Multivit-Min/FA/Lycopen/Lutein [Centrum Silver Tablet] 1 tab PO DAILY 04/30/18 [History] levETIRAcetam [Keppra] 1,500 mg PO BID 04/30/18 [History] Atorvastatin [Lipitor] 80 mg PO HS 01/27/19 [History] Clopidogrel [Plavix] 75 mg PO DAILY 01/27/19 [History] Losartan Potassium [Cozaar] 25 mg PO HS 01/27/19 [History] Metoprolol Tartrate [Lopressor] 25 mg PO HS 01/11/21 [History] OXcarbazepine [Trileptal] 150 mg PO BID 01/11/21 [History] Amoxic-Pot Clav 500-125 mg [Augmentin 500-125 mg] 1 tab PO TID 04/14/21 [History] Furosemide [Lasix] 40 mg PO HS 04/14/21 [History] Insulin Aspart [NovoLOG Flexpen] 0 units SQ PC-TID 04/14/21 [History] Insulin Detemir [Levemir Flextouch Pen] 15 units SQ HS 04/14/21 [History] Lactobacillus Acidophilus [Acidophilus] 1 each PO BID 04/30/21 [History] Potassium Chloride [Klor-Con 10 ER] 10 meq PO DAILY 04/30/21 [History] HYDROcodone/APAP 5-325MG [[place] 5-325] 1 tab PO Q6HR PRN 3 Days #8 tab 05/01/21 [Rx] Follow up Appointment(s)/Referral(s): Margareth Purdy DO [STAFF PHYSICIAN] - 1 Week Activity/Diet/Wound Care/Special Instructions: Resume home medications. Resume home diet. He'll touch weightbearing only on a postoperative shoe. Utilize walker as needed. Continue wound VAC at 1 25 mmHg suction. Home health care to change 3 times a week until being seen at wound care. Then further orders per wound care. Discharge Disposition: HOME WITH HOME HEALTH SERVICES
[2021-05-01 14:40] VITALS: RESP 20
[2021-05-01] MEDS ORDERED: HYDROcodone/APAP 5-325MG 1 EACH TAB ONE (14:43)
[2021-05-01] MEDS ORDERED: HYDROcodone/APAP 5-325MG 1 EACH TAB PO ONE (14:45)
[2021-05-01 15:10] VITALS: BP 117/68; PULSE 68
--- NOTE | 2021-05-09 07:32 | CDI ---
[facility] [place] [address] [place] [address] Date: [id number] From: Sanjuanita Anthony Phone: Admit Date: 05/01/2021 11:47:00 AM Patient Name: Jakob Jang Visit Number: [id number] Discharge Date: Payor: MEDICARE HMO Dear Dr. Purdy, Please provide clarification as to the smoking status of the patient. H&P under Family History and Social History state Tobacco History: Current every day smoker and Number of years using tobacco is 5 years. Anesthesia record has smoking checked off but also has "EX' underneath that. Please clarify. Thank you for your kind consideration. he just recently quit MTDD
== END 2021-05-01 15:35 | disposition home health service (06) ==
LOC: OR 11:47
PROVIDERS: ATTEND Surgery
DX: M86.671 Other chronic osteomyelitis, right ankle and foot (principal); I25.10 Atherosclerotic heart disease of native coronary artery without angina pectoris; I12.9 Hypertensive chronic kidney disease with stage 1 through stage 4 chronic kidney disease, or unspecified chronic kidney disease; N18.30 Chronic kidney disease, stage 3 unspecified; E11.22 Type 2 diabetes mellitus with diabetic chronic kidney disease; E11.40 Type 2 diabetes mellitus with diabetic neuropathy, unspecified; E11.69 Type 2 diabetes mellitus with other specified complication; I25.2 Old myocardial infarction; E78.5 Hyperlipidemia, unspecified; R56.9 Unspecified convulsions; K21.9 Gastro-esophageal reflux disease without esophagitis; Z90.49 Acquired absence of other specified parts of digestive tract; Z87.891 Personal history of nicotine dependence; Z95.5 Presence of coronary angioplasty implant and graft; Z97.2 Presence of dental prosthetic device (complete) (partial); Z96.659 Presence of unspecified artificial knee joint; Z79.02 Long term (current) use of antithrombotics/antiplatelets; Z79.82 Long term (current) use of aspirin; Z79.4 Long term (current) use of insulin; Z79.899 Other long term (current) drug therapy; Z98.890 Other specified postprocedural states
CPT/HCPCS: 28810; 88305; 87070; 87205; 87075; J2250; J1100; J0690; J2405; J2001; J3010; J2704

== ENCOUNTER 2021-08-12 21:08 | Inpatient (IN) | payer MEDICARE ==
[2021-08-12] MEDS ORDERED: DEXAMETHASONE SOD PHOSPHATE 10 MG/ML 1 ML VIAL IVP STA (21:52)
[2021-08-12] MEDS ORDERED: SODIUM CHLORIDE 0.9% 500 ML 500 ML IV STA (21:52)
[2021-08-12] MEDS ORDERED: KETOROLAC 15 MG/ML 1 ML VIAL IVP STA (21:52)
[2021-08-12] MEDS ORDERED: ALBUTEROL HFA INHALER INHALATION STA (21:52)
[2021-08-12] MEDS ORDERED: ACETAMINOPHEN TAB 500 MG TAB PO STA (21:52)
[2021-08-12] MEDS ORDERED: SODIUM CHLORIDE 0.9% 1,000 ML IV SCH (22:00)
[2021-08-12 22:24] LABS: Glucose,Whole Blood 133 mg/dL (75-99)
--- NOTE | 2021-08-12 22:30 | XR ---
EXAMINATION TYPE: XR chest 1V portable DATE OF EXAM: 08/12/2021 COMPARISON: 01/27/2019 HISTORY: Chest pain TECHNIQUE: Single view FINDINGS: There is some infiltrate at the right lung base. Left lung is clear. There is no heart fail ure. There are no hilar masses. Heart is borderline enlarged. No pleural effusion. IMPRESSION: There is some right lower lobe mild pneumonia which appears new compared to old exam.
--- NOTE | 2021-08-12 22:34 | ED ---
Fever HPI - General Chief Complaint: Shortness of Breath Stated Complaint: covid+, shakiness Time Seen by Provider: 08/12/21 21:52 Source: patient, family, RN notes reviewed, old records reviewed, Caregiver Mode of arrival: wheelchair Limitations: no limitations - History of Present Illness Initial Comments: This is a 76-year-old male he presents to ER today for evaluation of fever shortness of breath. Patient did take coronavirus test which was positive. Patient has been distraught family has been going on for a little bit more recently. Patient suffers from diabetes. He has no specific travel history and is doesn't have any known significant coronavirus exposure patient does not believe is at home test. Patient again is mildly short of breath chills bodyaches pains no chest pain. Patient has been vaccinated MD Complaint: fever, weakness, other (Chills) -: hour(s) Temperature Source: subjective Context: sick contacts Associated Symptoms: chills, myalgias, sore throat, cough, nausea Treatments Prior to Arrival: none - Related Data Home Medications Medication Instructions Recorded Confirmed Aspirin EC [Ecotrin Low Dose] 81 mg PO HS 04/09/14 08/12/21 Tamsulosin HCl [Flomax] 0.4 mg PO HS 04/09/14 08/12/21 Multivit-Min/FA/Lycopen/Lutein 1 tab PO DAILY 04/30/18 08/12/21 [Centrum Silver Tablet] levETIRAcetam [Keppra] 1,500 mg PO BID 04/30/18 08/12/21 Atorvastatin [Lipitor] 80 mg PO HS 01/27/19 08/12/21 Clopidogrel [Plavix] 75 mg PO DAILY 01/27/19 08/12/21 Losartan Potassium [Cozaar] 12.5 mg PO HS 01/27/19 08/12/21 Metoprolol Tartrate [Lopressor] 25 mg PO HS 01/11/21 08/12/21 OXcarbazepine [Trileptal] 150 mg PO BID 01/11/21 08/12/21 Furosemide [Lasix] 40 mg PO DAILY 04/14/21 08/12/21 Insulin Aspart [NovoLOG Flexpen] 12 - 14 units SQ TID-W/MEALS 04/14/21 08/12/21 Insulin Detemir [Levemir Flextouch 20 units SQ HS 04/14/21 08/12/21 Pen] Potassium Chloride [Klor-Con 10 ER] 10 meq PO DAILY 04/30/21 08/12/21 Allergies Allergy/AdvReac Type Severity Reaction Status Date / Time No Known Allergies Allergy Verified 08/12/21 23:36 Review of Systems ROS Statement: Those systems with pertinent positive or pertinent negative responses have been documented in the HPI. ROS Other: All systems not noted in ROS Statement are negative. Past Medical History Past Medical History: Diabetes Mellitus, GERD/Reflux, Hyperlipidemia, Hypertension, Myocardial Infarction ([place]), Prostate Disorder, Renal Disease, Seizure Disorder, Sleep Apnea/CPAP/BIPAP Additional Past Medical History / Comment(s): last seizure 6 monhts ago, no CPAP, neuropathy feet, decreased kidney function-, right great toe wound, "disk issues" Last Myocardial Infarction Date:: 2013 History of Any Multi-Drug Resistant Organisms: None Reported Past Surgical History: Cholecystectomy, Heart Catheterization, Heart Catheterization With Stent, Orthopedic Surgery Additional Past Surgical History / Comment(s): bilateral knee replacement, left ankle ORIF, 5 cardiac stents, carlos cataracts, right foot toe amputation. Past Anesthesia/Blood Transfusion Reactions: No Reported Reaction Date of Last Stent Placement:: 2013 Past Psychological History: No Psychological Hx Reported Smoking Status: Former smoker Past Alcohol Use History: None Reported Past Drug Use History: None Reported - Past Family History Mother Family Medical History: No Reported History General Exam General appearance: alert, in no apparent distress Head exam: Present: atraumatic, normocephalic, normal inspection Eye exam: Present: normal appearance, PERRL, EOMI. Absent: scleral icterus, conjunctival injection, periorbital swelling ENT exam: Present: normal exam, mucous membranes moist Neck exam: Present: normal inspection. Absent: tenderness, meningismus, lymphadenopathy Respiratory exam: Present: normal lung sounds bilaterally. Absent: respiratory distress, wheezes, rales, rhonchi, stridor Cardiovascular Exam: Present: normal rhythm, tachycardia, normal heart sounds. Absent: systolic murmur, diastolic murmur, rubs, gallop, clicks GI/Abdominal exam: Present: soft, normal bowel sounds. Absent: distended, tenderness, guarding, rebound, rigid Extremities exam: Present: normal inspection, full ROM, normal capillary refill. Absent: tenderness, pedal edema, joint swelling, calf tenderness Back exam: Present: normal inspection Neurological exam: Present: alert, oriented X3, CN II-XII intact Psychiatric exam: Present: normal affect, normal mood Skin exam: Present: warm, dry, intact, normal color. Absent: rash Course Vital Signs 08/12/21 08/12/21 21:43 23:41 Temperature 100.3 F H Pulse Rate 102 H 97 Respiratory 22 18 Rate Blood Pressure 127/62 102/98 O2 Sat by Pulse 90 L 92 L Oximetry - Reevaluation(s) Reevaluation #1: 08/12/21 22:34 Medical record is reviewed Reevaluation #2: 08/12/21 23:51 A she has no real significant improvement here in the ER Reevaluation #3: 08/12/21 23:51 Patient family informed of results here in the ER and questions have been answered - Consultations Consultation #1: Spoke with sound who agrees to admit this patient Medical Decision Making - Medical Decision Making 76 male to the emergency department for evaluation significant shortness of breath weakness fever positive coronavirus. Multiple lab abnormalities and low oxygen. Patient has coronavirus pneumonia on x-ray we'll be admitted for monitoring and supportive care - Lab Data Result diagrams: 08/12/21 22:22 08/12/21 22:22 Lab Results 08/12/21 08/12/21 08/12/21 Range/Units 22:21 22:22 22:22 WBC 22.3 H (3.8-10.6) k/uL RBC 6.92 H (4.30-5.90) m/uL Hgb 17.0 (13.0-17.5) gm/dL Hct 53.3 H (39.0-53.0) % MCV 77.1 L (80.0-100.0) fL MCH 24.6 L (25.0-35.0) pg MCHC 31.9 (31.0-37.0) g/dL RDW 15.0 (11.5-15.5) % Plt Count 1378 H* (150-450) k/uL MPV 9.1 Microcytosis Slight PT 11.2 (9.0-12.0) sec INR 1.0 (<1.2) APTT 29.6 (22.0-30.0) sec Sodium (137-145) mmol/L Potassium (3.5-5.1) mmol/L Chloride (98-107) mmol/L Carbon Dioxide (22-30) mmol/L Anion Gap mmol/L BUN (9-20) mg/dL Creatinine (0.66-1.25) mg/dL Est GFR (CKD-EPI)AfAm (>60 ml/min/1.73 sqM) Est GFR (CKD-EPI)NonAf (>60 ml/min/1.73 sqM) Glucose (74-99) mg/dL POC Glucose (mg/dL) 133 H (75-99) mg/dL POC Glu Molding Sander ID Coni Harrison Plasma Lactic Acid Miguel A (0.7-2.0) mmol/L Calcium (8.4-10.2) mg/dL Magnesium (1.6-2.3) mg/dL Total Bilirubin (0.2-1.3) mg/dL AST (17-59) U/L ALT (4-49) U/L Alkaline Phosphatase (38-126) U/L Lactate Dehydrogenase (313-618) U/L C-Reactive Protein (<1.0) mg/dL Total Protein (6.3-8.2) g/dL Albumin (3.5-5.0) g/dL 08/12/21 08/12/21 Range/Units 22:22 22:22 WBC (3.8-10.6) k/uL RBC (4.30-5.90) m/uL Hgb (13.0-17.5) gm/dL Hct (39.0-53.0) % MCV (80.0-100.0) fL MCH (25.0-35.0) pg MCHC (31.0-37.0) g/dL RDW (11.5-15.5) % Plt Count (150-450) k/uL MPV Microcytosis PT (9.0-12.0) sec INR (<1.2) APTT (22.0-30.0) sec Sodium 137 (137-145) mmol/L Potassium 5.7 H (3.5-5.1) mmol/L Chloride 105 (98-107) mmol/L Carbon Dioxide 20 L (22-30) mmol/L Anion Gap 12 mmol/L BUN 39 H (9-20) mg/dL Creatinine 1.98 H (0.66-1.25) mg/dL Est GFR (CKD-EPI)AfAm 37 (>60 ml/min/1.73 sqM) Est GFR (CKD-EPI)NonAf 32 (>60 ml/min/1.73 sqM) Glucose 127 H (74-99) mg/dL POC Glucose (mg/dL) (75-99) mg/dL POC Glu Molding Sander ID Plasma Lactic Acid Miguel A 1.8 (0.7-2.0) mmol/L Calcium 9.8 (8.4-10.2) mg/dL Magnesium 2.2 (1.6-2.3) mg/dL Total Bilirubin 1.3 (0.2-1.3) mg/dL AST 223 H (17-59) U/L ALT 142 H (4-49) U/L Alkaline Phosphatase 461 H (38-126) U/L Lactate Dehydrogenase 1326 H (313-618) U/L C-Reactive Protein 6.2 H (<1.0) mg/dL Total Protein 7.1 (6.3-8.2) g/dL Albumin 4.2 (3.5-5.0) g/dL - EKG Data -: EKG Interpreted by Me (EKG shows sinus tachycardia 104 MD 28 QRS 92 QTC 408) - Radiology Data Radiology results: report reviewed (Chest x-ray does show pneumonia), image reviewed Critical Care Time Critical Care Time: Yes Total Critical Care Time: 31 Disposition Clinical Impression: Coronavirus infection, CKD (chronic kidney disease), stage III, Hyperkalemia, Weakness, Hypoxia, Thrombocytosis, Pneumonia due to COVID-19 virus Disposition: ADMITTED IP TO THIS HOSP Condition: Fair Is patient prescribed a controlled substance at d/c from ED?: No Referrals: Soy Liu MD [Primary Care Provider] - 1-2 days
[2021-08-12 22:54] LABS: Partial Thromboplastin Time 29.6 sec (22.0-30.0); Prothrombin Time 11.2 sec (9.0-12.0)
[2021-08-12 22:57] LABS: Albumin 4.2 g/dL (3.5-5.0); C Reactive Protein 6.2 mg/dL (<1.0); Calcium 9.8 mg/dL (8.4-10.2); Magnesium 2.2 mg/dL (1.6-2.3); Potassium 5.7 mmol/L (3.5-5.1); Total Bilirubin 1.3 mg/dL (0.2-1.3); Total Protein 7.1 g/dL (6.3-8.2)
[2021-08-12 23:18] LABS: Basophils # (A) 0.5 k/uL (0-0.2); Basophils % (A) 2 %; Eosinophils # (A) 0.2 k/uL (0-0.7); Eosinophils % (A) 1 %; HCT 53.3 % (39.0-53.0); Lymphocytes # (A) 0.8 k/uL (1.0-4.8); Lymphocytes % (A) 4 %; MCH 24.6 pg (25.0-35.0); MCHC 31.9 g/dL (31.0-37.0); MCV 77.1 fL (80.0-100.0); Mean Platelet Volume 9.1; Microcytosis Slight; Monocytes # (A) 2.5 k/uL (0-1.0); Monocytes % (A) 11 %; Neutrophils # (A) 17.5 k/uL (1.3-7.7); Neutrophils % (A) 79 %; RBC 6.92 m/uL (4.30-5.90); WBC 22.3 k/uL (3.8-10.6)
[2021-08-12] MEDS ORDERED: DEXTROSE 50% SYRINGE 50 ML IVP STA (23:18)
[2021-08-12] MEDS ORDERED: SODIUM BICARB 8.4% 50 ML SYR (1 MEQ/ML) IV STA (23:18)
[2021-08-12] MEDS ORDERED: INSULIN REGULAR 100 UNIT/ML VIAL (IV) IV ONE (23:18)
[2021-08-12] MEDS ORDERED: NALOXONE 0.4 MG/ML 1 ML VIAL IV PRN (23:46)
[2021-08-12] MEDS ORDERED: ONDANSETRON 4 MG/2 ML VIAL IVP PRN (23:46)
[2021-08-12 23:57] LABS: Large Platelets Present
[2021-08-12 23:58] LABS: Platelet Count 1378 k/uL (150-450)
[2021-08-13 00:20] LABS: Glucose,Whole Blood 171 mg/dL (75-99)
[2021-08-13] MEDS: SODIUM CHLORIDE 0.9% 1,000 ML IV SCH ×2 (00:28→21:01)
[2021-08-13] MEDS ORDERED: ALBUTEROL HFA INHALER INHALATION PRN (01:36)
[2021-08-13 01:40] LABS: Glucose,Whole Blood 144 mg/dL (75-99)
--- NOTE | 2021-08-13 02:12 | P.HPIM ---
History of Present Illness H&P Date: 08/13/21 Chief Complaint: cough 76 year old man with history of CAD, diabetes, hypertension, hyperlipidemia, systolic heart failure, BPH, seizure disorder presented for fevers and shortness of breath. Patient says that over the last 3 days he started developed a cough which was nonproductive. The cough has been getting worse and today he also had shortness of breath especially on exertion. In addition, he has been spiking fever starting today. Patient to Covid test which she had at home and tested positive, came to the hospital for further evaluation and management. Patient recently had toe surgery due to osteomyelitis, and is recovering from that. Patient is fully vaccinated and boosted, with his last dose being in March of this year. He has never gotten Covid before. He denies nausea, vomiting, chest pain, palpitations, syncope, presyncope, abdominal pain, constipation, diarrhea, dysuria, dyschezia, numbness/weakness of extremities. She does describe genera lized malaise and fatigue. In the emergency room, patient's T-max was 100.3, 127/62, heart rate 102, 92% on 2 L nasal cannula. CBC is remarkable for leukocytosis 22.3, elevated hematocrit at 53.3, borderline elevated hemoglobin at 17, thrombocytosis 1378; differential includes elevated neutrophils at 17.5, low lymphocytes of 0.8, elevated basophils of 0.5. Chemistries are remarkable for hyperkalemia to 5.7, BUN/creatinine of 39/1.98 to baseline of 1.6, elevated glucose at 127. LFTs are remarkable for AST/ALT of 223/142, elevated alkaline phosphatase at 461, elevated lactate dehydrogenase of 1326, elevated CRP at 6.2. Covid was positive. Chest x-ray shows cardiomegaly as well as a right lower lobe infiltrate. EKG shows sinus tachycardia with frequent PVCs and bigeminy pattern. All Systems reviewed and pertinent positives and negatives noted in HPI, all other symptoms are negative Gen: awake, alert HEENT: normocephalic, atraumatic, good hearing acuity, moist mucous membranes Resp: good air exchange, breathing comfortably with no accessory muscle use CVS: good distal perfusion x 4, GI: soft, NTTP, ND : no SPT, no CVAT, mendoza catheter not present MSK: no pitting edema, no clubbing Neuro: non-focal, moving all extremities Psych: cooperative, euthymic mood Labs and imaging reviewed as above Assessment/plan: Sepsis with Acute hypoxemic respiratory failure Covid 19 Community acquired pneumonia Elevated liver enzymes -Admit inpatient, telemetry -Oxygen as needed -Dexamethasone, day 1 -Pulmonary consult, patient is inside the window for remdesivir, but kidney function is poor -Ceftriaxone/azithromycin -Pro calcitonin is pending -Continue to trend liver enzymes -Vitamin C/D, zinc, famotidine -Albuterol inhaler PRN Acute kidney injury superimposed on chronic kidney injury stage IIIB -Avoid nephrotoxins -Nephrology consult 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) -Continue monitor daily CBCs -Pathologist to review peripheral smear -Hematology consult -ID consult CAD Hypertension Hyperlipidemia Chronic systolic heart failure BPH Seizure disorder -Home medications reviewed and reconciled Patient is DO NOT RESUSCITATE/DO NOT INTUBATE Patient is on heparin 3 times a day for DVT prophylaxis Past Medical History Past Medical History: Diabetes Mellitus, GERD/Reflux, Hyperlipidemia, Hypertension, Myocardial Infarction ([place]), Prostate Disorder, Renal Disease, Seizure Disorder, Sleep Apnea/CPAP/BIPAP Additional Past Medical History / Comment(s): last seizure 6 monhts ago, no CPAP, neuropathy feet, decreased kidney function-, right great toe wound, "disk issues" Last Myocardial Infarction Date:: 2013 History of Any Multi-Drug Resistant Organisms: None Reported Past Surgical History: Cholecystectomy, Heart Catheterization, Heart Catheterization With Stent, Orthopedic Surgery Additional Past Surgical History / Comment(s): bilateral knee replacement, left ankle ORIF, 5 cardiac stents, carlos cataracts, right foot toe amputation. Past Anesthesia/Blood Transfusion Reactions: No Reported Reaction Date of Last Stent Placement:: 2013 Past Psychological History: No Psychological Hx Reported Smoking Status: Former smoker Past Alcohol Use History: None Reported Past Drug Use History: None Reported - Past Family History Mother Family Medical History: No Reported History Medications and Allergies Home Medications Medication Instructions Recorded Confirmed Type Aspirin EC [Ecotrin Low Dose] 81 mg PO HS 04/09/14 08/12/21 History Tamsulosin HCl [Flomax] 0.4 mg PO HS 04/09/14 08/12/21 History Multivit-Min/FA/Lycopen/Lutein 1 tab PO DAILY 04/30/18 08/12/21 History [Centrum Silver Tablet] levETIRAcetam [Keppra] 1,500 mg PO BID 04/30/18 08/12/21 History Atorvastatin [Lipitor] 80 mg PO HS 01/27/19 08/12/21 History Clopidogrel [Plavix] 75 mg PO DAILY 01/27/19 08/12/21 History Losartan Potassium [Cozaar] 12.5 mg PO HS 01/27/19 08/12/21 History Metoprolol Tartrate [Lopressor] 25 mg PO HS 01/11/21 08/12/21 History OXcarbazepine [Trileptal] 150 mg PO BID 01/11/21 08/12/21 History Furosemide [Lasix] 40 mg PO DAILY 04/14/21 08/12/21 History Insulin Aspart [NovoLOG Flexpen] 12 - 14 units SQ TID-W/MEALS 04/14/21 08/12/21 History Insulin Detemir [Levemir Flextouch 20 units SQ HS 04/14/21 08/12/21 History Pen] Potassium Chloride [Klor-Con 10 ER] 10 meq PO DAILY 04/30/21 08/12/21 History Allergies Allergy/AdvReac Type Severity Reaction Status Date / Time No Known Allergies Allergy Verified 08/12/21 23:36 Physical Exam Osteopathic Statement: *. No significant issues noted on an osteopathic structural exam other than those noted in the History and Physical/Consult. Vitals: Vital Signs Temp Pulse Resp BP Pulse Ox 08/13/21 01:39 98.5 F 84 18 131/94 91 L 08/12/21 23:41 97 18 102/98 92 L 08/12/21 21:43 100.3 F H 102 H 22 127/62 90 L Intake and Output 08/12/21 08/12/21 08/13/21 14:59 22:59 06:59 Other: Weight 72.575 kg Results CBC & Chem 7: 08/12/21 22:22 08/12/21 22:22 Labs: Abnormal Lab Results - Last 24 Hours (Table) 08/12/21 08/12/21 08/12/21 Range/Units 22:21 22:22 22:22 WBC 22.3 H (3.8-10.6) k/uL RBC 6.92 H (4.30-5.90) m/uL Hct 53.3 H (39.0-53.0) % MCV 77.1 L (80.0-100.0) fL MCH 24.6 L (25.0-35.0) pg Plt Count 1378 H* (150-450) k/uL Neutrophils # 17.5 H (1.3-7.7) k/uL Lymphocytes # 0.8 L (1.0-4.8) k/uL Monocytes # 2.5 H (0-1.0) k/uL Basophils # 0.5 H (0-0.2) k/uL Potassium 5.7 H (3.5-5.1) mmol/L Carbon Dioxide 20 L (22-30) mmol/L BUN 39 H (9-20) mg/dL Creatinine 1.98 H (0.66-1.25) mg/dL Glucose 127 H (74-99) mg/dL POC Glucose (mg/dL) 133 H (75-99) mg/dL AST 223 H (17-59) U/L ALT 142 H (4-49) U/L Alkaline Phosphatase 461 H (38-126) U/L Lactate Dehydrogenase 1326 H (313-618) U/L C-Reactive Protein 6.2 H (<1.0) mg/dL Coronavirus (PCR) (Not Detectd) 08/12/21 08/13/21 08/13/21 Range/Units 23:41 00:19 01:36 WBC (3.8-10.6) k/uL RBC (4.30-5.90) m/uL Hct (39.0-53.0) % MCV (80.0-100.0) fL MCH (25.0-35.0) pg Plt Count (150-450) k/uL Neutrophils # (1.3-7.7) k/uL Lymphocytes # (1.0-4.8) k/uL Monocytes # (0-1.0) k/uL Basophils # (0-0.2) k/uL Potassium (3.5-5.1) mmol/L Carbon Dioxide (22-30) mmol/L BUN (9-20) mg/dL Creatinine (0.66-1.25) mg/dL Glucose (74-99) mg/dL POC Glucose (mg/dL) 171 H 144 H (75-99) mg/dL AST (17-59) U/L ALT (4-49) U/L Alkaline Phosphatase (38-126) U/L Lactate Dehydrogenase (313-618) U/L C-Reactive Protein (<1.0) mg/dL Coronavirus (PCR) Detected A (Not Detectd)
[2021-08-13] MEDS: ALBUTEROL HFA INHALER INHALATION SCH ×4 (07:23→19:35)
[2021-08-13 08:45] LABS: Glucose,Whole Blood 204 mg/dL (75-99)
[2021-08-13] MEDS: INSULIN ASPART (NovoLOG) 100 UNIT/ML VIAL SQ SCH ×6 (08:57→17:27)
[2021-08-13] MEDS: levETIRAcetam 500 MG TAB PO SCH ×2 (08:58→21:00)
[2021-08-13] MEDS: CLOPIDOGREL 75 MG TAB PO SCH (08:59)
[2021-08-13] MEDS: FAMOTIDINE 20 MG TAB PO SCH (08:59)
[2021-08-13] MEDS: DEXAMETHASONE SOD PHOSPHATE 10 MG/ML 1 ML VIAL IVP SCH (08:59)
[2021-08-13] MEDS ORDERED: ENOXAPARIN 40 MG/0.4 ML SYRINGE SQ SCH (09:00)
[2021-08-13] MEDS: ASCORBIC ACID 500 MG TAB PO SCH (09:00)
[2021-08-13] MEDS: HEPARIN SODIUM,PORCINE/PF 5,000 UNIT/0.5 ML SYRINGE SQ SCH ×3 (09:00→23:45)
[2021-08-13] MEDS ORDERED: FAMOTIDINE 20 MG TAB PO SCH (09:00)
[2021-08-13] MEDS ORDERED: FUROSEMIDE 40 MG TAB PO SCH (09:00)
[2021-08-13] MEDS: CHOLECALCIFEROL 25 MCG (1000 IU) TABLET PO SCH (09:00)
[2021-08-13] MEDS: OXcarbazepine 150 MG TAB PO SCH ×2 (09:01→20:59)
[2021-08-13] MEDS: VIT A,C & E-LUTEIN-MINERALS 1 EACH TAB PO SCH (09:01)
[2021-08-13] MEDS: AZITHROMYCIN 500 MG in SODIUM CHLORIDE 0.9% 250 ML IVPB SCH (09:02)
--- NOTE | 2021-08-13 09:08 | XR ---
EXAMINATION TYPE: XR chest 1V DATE OF EXAM: 08/13/2021 COMPARISON: 08/12/2021 HISTORY: 76-year-old male COVID TECHNIQUE: Single frontal view of the chest is obtained. FINDINGS: Heart upper limits of normal in size. Mild interstitial prominence is unchanged. Increasin g focal airspace opacity at the right base. No pleural effusion. IMPRESSION: Increasing right basilar airspace disease.
[2021-08-13 09:37] LABS: Albumin 3.8 g/dL (3.5-5.0); Bilirubin, Delta 0.4 mg/dL (0.0-0.2); Bilirubin,Unconjugated 0.6 mg/dL (0.0-1.1); C Reactive Protein 8.7 mg/dL (<1.0); Calcium 9.2 mg/dL (8.4-10.2); Magnesium 2.3 mg/dL (1.6-2.3); Phosphorus 4.4 mg/dL (2.5-4.5); Potassium 5.5 mmol/L (3.5-5.1); Total Protein 6.6 g/dL (6.3-8.2)
[2021-08-13 09:38] LABS: Basophils # (A) 0.4 k/uL (0-0.2); Basophils % (A) 2 %; Eosinophils % (A) 0 %; HCT 54.2 % (39.0-53.0); HGB 16.5 gm/dL (13.0-17.5); Lymphocytes % (A) 4 %; MCH 24.1 pg (25.0-35.0); MCHC 30.5 g/dL (31.0-37.0); MCV 78.9 fL (80.0-100.0); Mean Platelet Volume 8.6; Monocytes # (A) 1.7 k/uL (0-1.0); Monocytes % (A) 8 %; Neutrophils # (A) 18.7 k/uL (1.3-7.7); Neutrophils % (A) 84 %; RBC 6.86 m/uL (4.30-5.90); RDW 15.1 % (11.5-15.5); WBC 22.4 k/uL (3.8-10.6)
[2021-08-13 09:39] LABS: Platelet Count 1504 k/uL (150-450)
--- NOTE | 2021-08-13 10:18 | P.NPCON ---
History of Present Illness - Reason for Consult acute renal failure, chronic renal failure - History of Present Illness Reason for consultation: Acute kidney injury on chronic kidney disease History of present illness: Patient is a 76-year-old male seen in renal consultation for acute kidney injury on chronic kidney disease. Patient was seen and examined in the emergency room. Patient has history of chronic kidney disease stage IIIB with baseline creatinine in the range of 1.6-1.8 secondary to diabetic kidney disease. Creatinine was 1.98 on admission is 1.87 today. Patient presented to the [facility] due to fever and shortness of breath. Patient did test positive for coronavirus. He is currently on room air. No vomiting or diarrhea. Patient did receive IV fluids initially on admission and also takes Lasix 40 mg once daily at home. Currently he has no edema. Blood pressure stable. Patient was afebrile this morning. He denies use of nonsteroidals. Has been voiding. No hematuria or dysuria. Patient does have long-standing history of diabetes. Also has history of coronary disease and multiple stents. Potassium was 5.7 on admission and is 5.5 today. He does take potassium supplement at home which is currently held. He is also on losartan. Vital signs are stable. General: Awake and alert. No acute distress. HEENT: Head exam is unremarkable. LUNGS: Breath sounds decreased. HEART: Rate and Rhythm are regular. ABDOMEN: Soft, obese. EXTREMITITES: No edema. Past Medical History Past Medical History: Diabetes Mellitus, GERD/Reflux, Hyperlipidemia, Hypertension, Myocardial Infarction ([place]), Prostate Disorder, Renal Disease, Seizure Disorder, Sleep Apnea/CPAP/BIPAP Additional Past Medical History / Comment(s): last seizure 6 monhts ago, no CPAP, neuropathy feet, decreased kidney function-, right great toe wound, "disk issues" Last Myocardial Infarction Date:: 2013 History of Any Multi-Drug Resistant Organisms: None Reported Past Surgical History: Cholecystectomy, Heart Catheterization, Heart Catheterization With Stent, Orthopedic Surgery Additional Past Surgical History / Comment(s): bilateral knee replacement, left ankle ORIF, 5 cardiac stents, carlos cataracts, right foot toe amputation. Past Anesthesia/Blood Transfusion Reactions: No Reported Reaction Date of Last Stent Placement:: 2013 Past Psychological History: No Psychological Hx Reported Smoking Status: Former smoker Past Alcohol Use History: None Reported Past Drug Use History: None Reported - Past Family History Mother Family Medical History: No Reported History Medications and Allergies Home Medications Medication Instructions Recorded Confirmed Type Aspirin EC [Ecotrin Low Dose] 81 mg PO HS 04/09/14 08/12/21 History Tamsulosin HCl [Flomax] 0.4 mg PO HS 04/09/14 08/12/21 History Multivit-Min/FA/Lycopen/Lutein 1 tab PO DAILY 04/30/18 08/12/21 History [Centrum Silver Tablet] levETIRAcetam [Keppra] 1,500 mg PO BID 04/30/18 08/12/21 History Atorvastatin [Lipitor] 80 mg PO HS 01/27/19 08/12/21 History Clopidogrel [Plavix] 75 mg PO DAILY 01/27/19 08/12/21 History Losartan Potassium [Cozaar] 12.5 mg PO HS 01/27/19 08/12/21 History Metoprolol Tartrate [Lopressor] 25 mg PO HS 01/11/21 08/12/21 History OXcarbazepine [Trileptal] 150 mg PO BID 01/11/21 08/12/21 History Furosemide [Lasix] 40 mg PO DAILY 04/14/21 08/12/21 History Insulin Aspart [NovoLOG Flexpen] 12 - 14 units SQ TID-W/MEALS 04/14/21 08/12/21 History Insulin Detemir [Levemir Flextouch 20 units SQ HS 04/14/21 08/12/21 History Pen] Potassium Chloride [Klor-Con 10 ER] 10 meq PO DAILY 04/30/21 08/12/21 History Allergies Allergy/AdvReac Type Severity Reaction Status Date / Time No Known Allergies Allergy Verified 08/12/21 23:36 Physical Exam Vitals: Vital Signs Temp Pulse Resp BP Pulse Ox 08/13/21 06:01 98 F 83 20 122/58 93 L 08/13/21 01:39 98.5 F 84 18 131/94 91 L 08/12/21 23:41 97 18 102/98 92 L 08/12/21 21:43 100.3 F H 102 H 22 127/62 90 L Intake and Output 08/12/21 08/13/21 08/13/21 22:59 06:59 14:59 Other: Weight 72.575 kg 72.575 kg Results - Lab Results Most recent lab results Calcium 9.2 mg/dL (8.4-10.2) 08/13/21 08:59 Phosphorus 4.4 mg/dL (2.5-4.5) 08/13/21 08:59 Magnesium 2.3 mg/dL (1.6-2.3) 08/13/21 08:59 08/13/21 08:59 08/13/21 08:59 Assessment and Plan Plan: Assessment: 1. Acute kidney injury mostly prerenal secondary to diuresis and infection. Cr eatinine was 1.98 on admission and is fairly stable at 1.87 today. 2. Chronic kidney disease stage IIIB secondary to diabetic kidney disease with baseline creatinine in the range of 1.6-1.8. 3. Hyperkalemia secondary to acute kidney injury, acidosis, losartan and potassium supplementation. 4. Acute hypoxic respiratory failure secondary to COVID-19 pneumonia. 5. Coronary artery disease with cardiac stenting. 6. Leukocytosis and thrombocytosis. Infectious disease and hematology were consulted. 7. Diabetes mellitus. 8. Metabolic acidosis secondary to acute kidney injury and IV fluids. 9. Hypertension with chronic kidney disease. Controlled. Plan: Currently off IV fluids. Hold diuretics. Hold losartan for now. Encouraged oral intake. Avoid nephrotoxins. Add oral bicarb. Continue to monitor renal function and urine output. Thank you for the consultation. I will continue to follow the patient with you during his hospital stay.
[2021-08-13 10:45] LABS: Large Platelets Present
[2021-08-13] MEDS: ZINC SULFATE 220 MG CAP PO SCH (11:29)
[2021-08-13] MEDS: SODIUM BICARBONATE TAB 650 MG TAB PO SCH ×2 (11:29→21:01)
[2021-08-13 12:44] LABS: Glucose,Whole Blood 148 mg/dL (75-99)
--- NOTE | 2021-08-13 12:55 | P.PN ---
Subjective Progress Note Date: 08/13/21 Objective - Vital Signs Vital signs: Vital Signs Temp 98.6 F 08/13/21 08:00 Pulse 87 08/13/21 08:00 Resp 18 08/13/21 08:00 BP 118/58 08/13/21 08:00 Pulse Ox 93 L 08/13/21 06:01 FiO2 Intake & Output 08/12/21 08/13/21 08/13/21 18:59 06:59 18:59 Weight 72.575 kg - Exam Gen: awake, alert HEENT: normocephalic, atraumatic Resp: Decreased breath sounds, no wheezing CVS: good distal perfusion x 4, GI: soft, NTTP, ND : no SPT, no CVAT, mendoza catheter not present MSK: no pitting edema, no clubbing Neuro: non-focal, moving all extremities Psych: cooperative, euthymic mood - Labs CBC & Chem 7: 08/13/21 08:59 08/13/21 08:59 Labs: Abnormal Lab Results - Last 24 Hours (Table) 08/12/21 08/12/21 08/12/21 Range/Units 22:21 22:22 22:22 WBC 22.3 H (3.8-10.6) k/uL RBC 6.92 H (4.30-5.90) m/uL Hct 53.3 H (39.0-53.0) % MCV 77.1 L (80.0-100.0) fL MCH 24.6 L (25.0-35.0) pg MCHC (31.0-37.0) g/dL Plt Count 1378 H* (150-450) k/uL Neutrophils # 17.5 H (1.3-7.7) k/uL Lymphocytes # 0.8 L (1.0-4.8) k/uL Monocytes # 2.5 H (0-1.0) k/uL Basophils # 0.5 H (0-0.2) k/uL D-Dimer (<0.60) mg/L FEU Potassium 5.7 H (3.5-5.1) mmol/L Chloride (98-107) mmol/L Carbon Dioxide 20 L (22-30) mmol/L BUN 39 H (9-20) mg/dL Creatinine 1.98 H (0.66-1.25) mg/dL Glucose 127 H (74-99) mg/dL POC Glucose (mg/dL) 133 H (75-99) mg/dL Delta Bilirubin (0.0-0.2) mg/dL AST 223 H (17-59) U/L ALT 142 H (4-49) U/L Alkaline Phosphatase 461 H (38-126) U/L Lactate Dehydrogenase 1326 H (313-618) U/L C-Reactive Protein 6.2 H (<1.0) mg/dL Procalcitonin (0.02-0.09) ng/mL Coronavirus (PCR) (Not Detectd) 08/12/21 08/13/21 08/13/21 Range/Units 23:41 00:00 00:19 WBC (3.8-10.6) k/uL RBC (4.30-5.90) m/uL Hct (39.0-53.0) % MCV (80.0-100.0) fL MCH (25.0-35.0) pg MCHC (31.0-37.0) g/dL Plt Count (150-450) k/uL Neutrophils # (1.3-7.7) k/uL Lymphocytes # (1.0-4.8) k/uL Monocytes # (0-1.0) k/uL Basophils # (0-0.2) k/uL D-Dimer (<0.60) mg/L FEU Potassium (3.5-5.1) mmol/L Chloride (98-107) mmol/L Carbon Dioxide (22-30) mmol/L BUN (9-20) mg/dL Creatinine (0.66-1.25) mg/dL Glucose (74-99) mg/dL POC Glucose (mg/dL) 171 H (75-99) mg/dL Delta Bilirubin (0.0-0.2) mg/dL AST (17-59) U/L ALT (4-49) U/L Alkaline Phosphatase (38-126) U/L Lactate Dehydrogenase (313-618) U/L C-Reactive Protein (<1.0) mg/dL Procalcitonin 0.15 H (0.02-0.09) ng/mL Coronavirus (PCR) Detected A (Not Detectd) 08/13/21 08/13/21 08/13/21 Range/Units 01:36 08:44 08:59 WBC 22.4 H (3.8-10.6) k/uL RBC 6.86 H (4.30-5.90) m/uL Hct 54.2 H (39.0-53.0) % MCV 78.9 L (80.0-100.0) fL MCH 24.1 L (25.0-35.0) pg MCHC 30.5 L (31.0-37.0) g/dL Plt Count 1504 H* (150-450) k/uL Neutrophils # 18.7 H (1.3-7.7) k/uL Lymphocytes # (1.0-4.8) k/uL Monocytes # 1.7 H (0-1.0) k/uL Basophils # 0.4 H (0-0.2) k/uL D-Dimer (<0.60) mg/L FEU Potassium (3.5-5.1) mmol/L Chloride (98-107) mmol/L Carbon Dioxide (22-30) mmol/L BUN (9-20) mg/dL Creatinine (0.66-1.25) mg/dL Glucose (74-99) mg/dL POC Glucose (mg/dL) 144 H 204 H (75-99) mg/dL Delta Bilirubin (0.0-0.2) mg/dL AST (17-59) U/L ALT (4-49) U/L Alkaline Phosphatase (38-126) U/L Lactate Dehydrogenase (313-618) U/L C-Reactive Protein (<1.0) mg/dL Procalcitonin (0.02-0.09) ng/mL Coronavirus (PCR) (Not Detectd) 08/13/21 08/13/21 08/13/21 Range/Units 08:59 08:59 12:42 WBC (3.8-10.6) k/uL RBC (4.30-5.90) m/uL Hct (39.0-53.0) % MCV (80.0-100.0) fL MCH (25.0-35.0) pg MCHC (31.0-37.0) g/dL Plt Count (150-450) k/uL Neutrophils # (1.3-7.7) k/uL Lymphocytes # (1.0-4.8) k/uL Monocytes # (0-1.0) k/uL Basophils # (0-0.2) k/uL D-Dimer 0.68 H (<0.60) mg/L FEU Potassium 5.5 H (3.5-5.1) mmol/L Chloride 108 H (98-107) mmol/L Carbon Dioxide 18 L (22-30) mmol/L BUN 42 H (9-20) mg/dL Creatinine 1.87 H (0.66-1.25) mg/dL Glucose 216 H (74-99) mg/dL POC Glucose (mg/dL) 148 H (75-99) mg/dL Delta Bilirubin 0.4 H (0.0-0.2) mg/dL AST 124 H (17-59) U/L ALT 113 H (4-49) U/L Alkaline Phosphatase 359 H (38-126) U/L Lactate Dehydrogenase 1216 H (313-618) U/L C-Reactive Protein 8.7 H (<1.0) mg/dL Procalcitonin (0.02-0.09) ng/mL Coronavirus (PCR) (Not Detectd) Assessment and Plan Plan: Sepsis with Acute hypoxemic respiratory failure, currently on room air Acute Covid 19 Community acquired pneumonia Elevated liver enzymes -Admit inpatient, telemetry -Oxygen as needed -Dexamethasone -Pulmonary consult for remdesivir, but kidney function is poor -Ceftriaxone/azithromycin -Continue to trend liver enzymes -Vitamin C/D, zinc, famotidine -Albuterol inhaler PRN Acute kidney injury superimposed on chronic kidney injury stage IIIB -Avoid nephrotoxins -Nephrology consult, input appreciated 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
--- NOTE | 2021-08-13 14:50 | P.CNPUL ---
History of Present Illness Consult date: 08/13/21 Reason for consult: dyspnea, pneumonia History of present illness: 76-year-old male patient came into the ED because of increased shortness of breath and a cough. The patient is known to have CAD, diabetes and hypertension hyperlipidemia and chronic systolic heart failure and the patient also has history of seizure disorder and BPH. The patient has been having fever and shortness of breath along with cough and states that over the last 3 days he developed no symptoms and the cough was nonproductive. He was progressively getting worse and for that reason he decided to come into the hospital. Has noticed 5 spiking temperature. The patient has already done a COVID 19 testing at home which tested positive and for that reason he came into the emergency department. He is fully vaccinated and boosted. His last booster dose was in J anuary of this current year. This is his first infection with COVID 19. In the ED, the patient was found to be febrile with a temperature 100.3. The pulse ox was ranging between 90-92%. The white cell count was at 22.3 with a hemoglobin of 17. The patient's serum bicarb was 20 with a potassium level of 5.7 and the sodium level of 137. BNP is a 39 with a creatinine of 1.9 and a glucose was 12 7. LFTs were abnormal with an AST of 223, ALT of 142, bilirubin of 1.3, calcium of 9.8, lactic acid level of 1.8 and the patient had a CRP of 1226 with a LDH level of 6.2. Albumin was at 4.2 with a total protein of 7.1. The chest x-ray showed minimal infiltration of the right lung base at a time of admission and repeat chest x-ray from today showing smaller lung volumes and increased infiltration of the right lung base and some infiltration of the left lung base. The patient d-dimer is at 0.68. Untreated approximately nasal cannula the patient's pulse ox is around 97%. The patient is currently on Decadron 6 mg IV every 24 hours. The patient is also on heparin subcu for DVT prophylaxis. Review of Systems Constitutional: Reports chills, Reports fatigue, Reports lethargy, Reports poor appetite, Reports weakness Eyes: denies as per HPI, denies blurred vision, denies bulging eye, denies decreased vision, denies diplopia, denies discharge, denies dry eye, denies irritation, denies itching, denies pain, denies photophobia, denies loss of peripheral vision, denies loss of vision, denies tunnel vision/blind spots Ears: deny: decreased hearing, ear discharge, earache, tinnitus Ears, nose, mouth and throat: Reports as per HPI Breasts: absent: as per HPI, gynecomastia Cardiovascular: Reports decreased exercise tolerance, Reports dyspnea on exertion, Reports shortness of breath Respiratory: Reports cough, Reports dyspnea Gastrointestinal: Reports nausea Genitourinary: Reports as per HPI Musculoskeletal: Reports as per HPI Musculoskeletal: absent: ankle pain, ankle stiffness, ankle swelling Integumentary: Reports as per HPI Neurological: Reports as per HPI, Reports weakness Psychiatric: Reports as per HPI Endocrine: Reports as per HPI, Reports fatigue Hematologic/Lymphatic: Reports as per HPI Past Medical History Past Medical History: Diabetes Mellitus, GERD/Reflux, Hyperlipidemia, Hypertension, Myocardial Infarction ([place]), Prostate Disorder, Renal Disease, Seizure Disorder, Sleep Apnea/CPAP/BIPAP Additional Past Medical History / Comment(s): last seizure 6 monhts ago, no CPAP, neuropathy feet, decreased kidney function-, right great toe wound, "disk issues" Last Myocardial Infarction Date:: 2013 History of Any Multi-Drug Resistant Organisms: None Reported Past Surgical History: Cholecystectomy, Heart Catheterization, Heart Catheterization With Stent, Orthopedic Surgery Additional Past Surgical History / Comment(s): bilateral knee replacement, left ankle ORIF, 5 cardiac stents, carlos cataracts, right foot toe amputation. Past Anesthesia/Blood Transfusion Reactions: No Reported Reaction Date of Last Stent Placement:: 2013 Past Psychological History: No Psychological Hx Reported Smoking Status: Former smoker Past Alcohol Use History: None Reported Past Drug Use History: None Reported - Past Family History Mother Family Medical History: No Reported History Medications and Allergies Home Medications Medication Instructions Recorded Confirmed Type Aspirin EC [Ecotrin Low Dose] 81 mg PO HS 04/09/14 08/12/21 History Tamsulosin HCl [Flomax] 0.4 mg PO HS 04/09/14 08/12/21 History Multivit-Min/FA/Lycopen/Lutein 1 tab PO DAILY 04/30/18 08/12/21 History [Centrum Silver Tablet] levETIRAcetam [Keppra] 1,500 mg PO BID 04/30/18 08/12/21 History Atorvastatin [Lipitor] 80 mg PO HS 11/07/19 05/23/22 History Clopidogrel [Plavix] 75 mg PO DAILY 01/27/19 08/12/21 History Losartan Potassium [Cozaar] 12.5 mg PO HS 01/27/19 08/12/21 History Metoprolol Tartrate [Lopressor] 25 mg PO HS 01/11/21 08/12/21 History OXcarbazepine [Trileptal] 150 mg PO BID 01/11/21 08/12/21 History Furosemide [Lasix] 40 mg PO DAILY 04/14/21 08/12/21 History Insulin Aspart [NovoLOG Flexpen] 12 - 14 units SQ TID-W/MEALS 04/14/21 08/12/21 History Insulin Detemir [Levemir Flextouch 20 units SQ HS 04/14/21 08/12/21 History Pen] Potassium Chloride [Klor-Con 10 ER] 10 meq PO DAILY 04/30/21 08/12/21 History Allergies Allergy/AdvReac Type Severity Reaction Status Date / Time No Known Allergies Allergy Verified 08/12/21 23:36 Physical Exam Vitals: Vital Signs Temp Pulse Pulse Resp BP BP Pulse Ox 08/13/21 08:00 98.6 F 87 18 118/58 08/13/21 06:01 98 F 83 20 122/58 93 L 08/13/21 01:39 98.5 F 84 18 131/94 91 L 08/12/21 23:41 97 18 102/98 92 L 08/12/21 21:43 100.3 F H 102 H 22 127/62 90 L Intake and Output 08/12/21 08/13/21 08/13/21 22:59 06:59 14:59 Other: Weight 72.575 kg 72.575 kg Calm and comfortable, breathing is nonlabored and the patient is on O2 at 2 L Head exam was generally normal. There was no scleral icterus or corneal arcus. Mucous membranes were moist. HEENT: normocephalic, atraumatic, good hearing acuity, moist mucous membranes Resp: good air exchange, lung sounds are diminished bilaterally and the patient has some limited correct in lung bases Cardiac exam revealed the PMI to be normally situated and sized. The rhythm was regular and no extrasystoles were noted during several minutes of auscultation. The first and second heart sounds were normal and physiologic splitting of the second heart sound was noted. There were no murmurs, rubs, clicks, or gallops. Abdominal exam revealed normal bowel sounds. The abdomen was soft, non-tender, and without masses, organomegaly, or appreciable enlargement of the abdominal aorta. : no SPT, no CVAT, mendoza catheter not present Examination of the extremities revealed easily palpable radial, femoral and pedal pulses. There was no cyanosis, clubbing or edema. Neurologically, the patient is awake and alert and the patient does not have any focal neurological deficit. Cranial nerves are essentially intact. Psych: cooperative, euthymic mood Results - Laboratory Findings CBC and BMP: 08/13/21 08:59 08/13/21 08:59 PT/INR, D-dimer PT 11.2 sec (9.0-12.0) 08/12/21 22:22 INR 1.0 (<1.2) 08/12/21 22:22 D-Dimer 0.68 mg/L FEU (<0.60) H 08/13/21 08:59 Abnormal lab findings: Abnormal Labs 08/12/21 08/12/21 08/12/21 22:21 22:22 22:22 WBC 22.3 H RBC 6.92 H Hct 53.3 H MCV 77.1 L MCH 24.6 L MCHC Plt Count 1378 H* Neutrophils # 17.5 H Lymphocytes # 0.8 L Monocytes # 2.5 H Basophils # 0.5 H D-Dimer Potassium 5.7 H Chloride Carbon Dioxide 20 L BUN 39 H Creatinine 1.98 H Glucose 127 H POC Glucose (mg/dL) 133 H Delta Bilirubin AST 223 H ALT 142 H Alkaline Phosphatase 461 H Lactate Dehydrogenase 1326 H C-Reactive Protein 6.2 H Procalcitonin Coronavirus (PCR) 08/12/21 08/13/21 08/13/21 23:41 00:00 00:19 WBC RBC Hct MCV MCH MCHC Plt Count Neutrophils # Lymphocytes # Monocytes # Basophils # D-Dimer Potassium Chloride Carbon Dioxide BUN Creatinine Glucose POC Glucose (mg/dL) 171 H Delta Bilirubin AST ALT Alkaline Phosphatase Lactate Dehydrogenase C-Reactive Protein Procalcitonin 0.15 H Coronavirus (PCR) Detected A 08/13/21 08/13/21 08/13/21 01:36 08:44 08:59 WBC 22.4 H RBC 6.86 H Hct 54.2 H MCV 78.9 L MCH 24.1 L MCHC 30.5 L Plt Count 1504 H* Neutrophils # 18.7 H Lymphocytes # Monocytes # 1.7 H Basophils # 0.4 H D-Dimer Potassium Chloride Carbon Dioxide BUN Creatinine Glucose POC Glucose (mg/dL) 144 H 204 H Delta Bilirubin AST ALT Alkaline Phosphatase Lactate Dehydrogenase C-Reactive Protein Procalcitonin Coronavirus (PCR) 08/13/21 08/13/21 08/13/21 08:59 08:59 12:42 WBC RBC Hct MCV MCH MCHC Plt Count Neutrophils # Lymphocytes # Monocytes # Basophils # D-Dimer 0.68 H Potassium 5.5 H Chloride 108 H Carbon Dioxide 18 L BUN 42 H Creatinine 1.87 H Glucose 216 H POC Glucose (mg/dL) 148 H Delta Bilirubin 0.4 H AST 124 H ALT 113 H Alkaline Phosphatase 359 H Lactate Dehydrogenase 1216 H C-Reactive Protein 8.7 H Procalcitonin Coronavirus (PCR) Assessment and Plan Plan: Acute COVID 19 infection , with indication of lower lobe pneumonia Acute hypoxic respiratory failure secondary to above Acute kidney injury, most likely secondary to prerenal factors in addition to diuresis. The patient's creatinine is up to 1.98 chronic kidney disease stage 3 Coronary artery disease with previous coronary stenting Chronic systolic heart failure Acute leukocytosis Acute transaminitis secondary to viral infection/COVID 19 Non-anion gap metabolic acidosis secondary to above Hypertension Hyperlipidemia Diabetes mellitus Obstructive sleep apnea, not utilizing any formal CPAP therapy Peripheral Neuropathy BPH Previous right foot toe amputation History of seizure disorder maintained on Keppra and Trileptal Plan Admit this patient to the hospital Hold diuretics and hydrate this patient with IV fluids Monitor renal function Patient on Decadron 6 mg every 24 hours, no need for Remdesivir Start the patient on vitamin C and vitamin D and zinc supplements Avoid nephrotoxic agents Oral bicarbonate regarding anion gap metabolic acidosis Monitor the oxygenation Obtain ultrasound the right upper quadrant and monitor LFTs Check pro calcitonin level No clear indication for antibiotic therapy Continue with Levemir insulin 20 units along with NovoLog 13 units with meals and a sliding scale coverage Resume all medications Heparin subcu for DVT prophylaxis Monitor inflammatory markers We'll continue to follow
[2021-08-13 17:17] LABS: Glucose,Whole Blood 181 mg/dL (75-99)
--- NOTE | 2021-08-13 17:57 | P.CONS ---
History of Present Illness - Reason for Consult Consult date: 08/13/21 thrombocythemia Requesting physician: Isabella Villalba - Chief Complaint hypoxia, abn labs - History of Present Illness Mr Jang is a very pleasant 76-year-old male we've been asked to see in regards to platelets in excess of 1 million. On review of the chart this is a new finding, did note mild increase in plt present in March 2021. Patient has a past medical history including diabetes mellitus, hypertension, wounds, coronary artery disease 6 stents, foot ulcers treated earlier this year. Denies any recent problems with bleeding, no history of cancer or blood disorders, no pertinent family history. Patient is currently covid positive. Review of Systems 10 point ROS is neg except as stated in HPI Past Medical History Past Medical History: Diabetes Mellitus, GERD/Reflux, Hyperlipidemia, Hypertension, Myocardial Infarction ([place]), Prostate Disorder, Renal Disease, Seizure Disorder, Sleep Apnea/CPAP/BIPAP Additional Past Medical History / Comment(s): last seizure 6 monhts ago, no CPAP, neuropathy feet, decreased kidney function-, right great toe wound, "disk issues" Last Myocardial Infarction Date:: 2013 History of Any Multi-Drug Resistant Organisms: None Reported Past Surgical History: Cholecystectomy, Heart Catheterization, Heart Catheterization With Stent, Orthopedic Surgery Additional Past Surgical History / Comment(s): bilateral knee replacement, left ankle ORIF, 5 cardiac stents, carlos cataracts, right foot toe amputation. Past Anesthesia/Blood Transfusion Reactions: No Reported Reaction Date of Last Stent Placement:: 2013 Past Psychological History: No Psychological Hx Reported Smoking Status: Former smoker Past Alcohol Use History: None Reported Past Drug Use History: None Reported - Past Family History Mother Family Medical History: No Reported History Medications and Allergies Home Medications Medication Instructions Recorded Confirmed Type Aspirin EC [Ecotrin Low Dose] 81 mg PO HS 04/09/14 08/12/21 History Tamsulosin HCl [Flomax] 0.4 mg PO HS 04/09/14 08/12/21 History Multivit-Min/FA/Lycopen/Lutein 1 tab PO DAILY 04/30/18 08/12/21 History [Centrum Silver Tablet] levETIRAcetam [Keppra] 1,500 mg PO BID 04/30/18 08/12/21 History Atorvastatin [Lipitor] 80 mg PO HS 01/27/19 08/12/21 History Clopidogrel [Plavix] 75 mg PO DAILY 01/27/19 08/12/21 History Losartan Potassium [Cozaar] 12.5 mg PO HS 01/27/19 08/12/21 History Metoprolol Tartrate [Lopressor] 25 mg PO HS 01/11/21 08/12/21 History OXcarbazepine [Trileptal] 150 mg PO BID 01/11/21 08/12/21 History Furosemide [Lasix] 40 mg PO DAILY 04/14/21 08/12/21 History Insulin Aspart [NovoLOG Flexpen] 12 - 14 units SQ TID-W/MEALS 04/14/21 08/12/21 History Insulin Detemir [Levemir Flextouch 20 units SQ HS 04/14/21 08/12/21 History Pen] Potassium Chloride [Klor-Con 10 ER] 10 meq PO DAILY 04/30/21 08/12/21 History Allergies Allergy/AdvReac Type Severity Reaction Status Date / Time No Known Allergies Allergy Verified 08/12/21 23:36 Physical Exam Vitals: Vital Signs Temp Pulse Pulse Resp BP BP Pulse Ox 08/13/21 08:00 98.6 F 87 18 118/58 08/13/21 06:01 98 F 83 20 122/58 93 L 08/13/21 01:39 98.5 F 84 18 131/94 91 L 08/12/21 23:41 97 18 102/98 92 L 08/12/21 21:43 100.3 F H 102 H 22 127/62 90 L Intake and Output 08/12/21 08/13/21 08/13/21 22:59 06:59 14:59 Other: Weight 72.575 kg 72.575 kg WD, WN, NAD, A&Ox4, resp even and unlabored at rest. Exam otherwise deferred 2/2 covid infection Results CBC & Chem 7: 08/13/21 08:59 08/13/21 08:59 Labs: Abnormal Lab Results - Last 24 Hours (Table) 08/12/21 08/12/21 08/12/21 Range/Units 22:21 22:22 22:22 WBC 22.3 H (3.8-10.6) k/uL RBC 6.92 H (4.30-5.90) m/uL Hct 53.3 H (39.0-53.0) % MCV 77.1 L (80.0-100.0) fL MCH 24.6 L (25.0-35.0) pg MCHC (31.0-37.0) g/dL Plt Count 1378 H* (150-450) k/uL Neutrophils # 17.5 H (1.3-7.7) k/uL Lymphocytes # 0.8 L (1.0-4.8) k/uL Monocytes # 2.5 H (0-1.0) k/uL Basophils # 0.5 H (0-0.2) k/uL D-Dimer (<0.60) mg/L FEU Potassium 5.7 H (3.5-5.1) mmol/L Chloride (98-107) mmol/L Carbon Dioxide 20 L (22-30) mmol/L BUN 39 H (9-20) mg/dL Creatinine 1.98 H (0.66-1.25) mg/dL Glucose 127 H (74-99) mg/dL POC Glucose (mg/dL) 133 H (75-99) mg/dL Delta Bilirubin (0.0-0.2) mg/dL AST 223 H (17-59) U/L ALT 142 H (4-49) U/L Alkaline Phosphatase 461 H (38-126) U/L Lactate Dehydrogenase 1326 H (313-618) U/L C-Reactive Protein 6.2 H (<1.0) mg/dL Procalcitonin (0.02-0.09) ng/mL Coronavirus (PCR) (Not Detectd) 08/12/21 08/13/21 08/13/21 Range/Units 23:41 00:00 00:19 WBC (3.8-10.6) k/uL RBC (4.30-5.90) m/uL Hct (39.0-53.0) % MCV (80.0-100.0) fL MCH (25.0-35.0) pg MCHC (31.0-37.0) g/dL Plt Count (150-450) k/uL Neutrophils # (1.3-7.7) k/uL Lymphocytes # (1.0-4.8) k/uL Monocytes # (0-1.0) k/uL Basophils # (0-0.2) k/uL D-Dimer (<0.60) mg/L FEU Potassium (3.5-5.1) mmol/L Chloride (98-107) mmol/L Carbon Dioxide (22-30) mmol/L BUN (9-20) mg/dL Creatinine (0.66-1.25) mg/dL Glucose (74-99) mg/dL POC Glucose (mg/dL) 171 H (75-99) mg/dL Delta Bilirubin (0.0-0.2) mg/dL AST (17-59) U/L ALT (4-49) U/L Alkaline Phosphatase (38-126) U/L Lactate Dehydrogenase (313-618) U/L C-Reactive Protein (<1.0) mg/dL Procalcitonin 0.15 H (0.02-0.09) ng/mL Coronavirus (PCR) Detected A (Not Detectd) 08/13/21 08/13/21 08/13/21 Range/Units 01:36 08:44 08:59 WBC 22.4 H (3.8-10.6) k/uL RBC 6.86 H (4.30-5.90) m/uL Hct 54.2 H (39.0-53.0) % MCV 78.9 L (80.0-100.0) fL MCH 24.1 L (25.0-35.0) pg MCHC 30.5 L (31.0-37.0) g/dL Plt Count 1504 H* (150-450) k/uL Neutrophils # 18.7 H (1.3-7.7) k/uL Lymphocytes # (1.0-4.8) k/uL Monocytes # 1.7 H (0-1.0) k/uL Basophils # 0.4 H (0-0.2) k/uL D-Dimer (<0.60) mg/L FEU Potassium (3.5-5.1) mmol/L Chloride (98-107) mmol/L Carbon Dioxide (22-30) mmol/L BUN (9-20) mg/dL Creatinine (0.66-1.25) mg/dL Glucose (74-99) mg/dL POC Glucose (mg/dL) 144 H 204 H (75-99) mg/dL Delta Bilirubin (0.0-0.2) mg/dL AST (17-59) U/L ALT (4-49) U/L Alkaline Phosphatase (38-126) U/L Lactate Dehydrogenase (313-618) U/L C-Reactive Protein (<1.0) mg/dL Procalcitonin (0.02-0.09) ng/mL Coronavirus (PCR) (Not Detectd) 08/13/21 08/13/21 Range/Units 08:59 08:59 WBC (3.8-10.6) k/uL RBC (4.30-5.90) m/uL Hct (39.0-53.0) % MCV (80.0-100.0) fL MCH (25.0-35.0) pg MCHC (31.0-37.0) g/dL Plt Count (150-450) k/uL Neutrophils # (1.3-7.7) k/uL Lymphocytes # (1.0-4.8) k/uL Monocytes # (0-1.0) k/uL Basophils # (0-0.2) k/uL D-Dimer 0.68 H (<0.60) mg/L FEU Potassium 5.5 H (3.5-5.1) mmol/L Chloride 108 H (98-107) mmol/L Carbon Dioxide 18 L (22-30) mmol/L BUN 42 H (9-20) mg/dL Creatinine 1.87 H (0.66-1.25) mg/dL Glucose 216 H (74-99) mg/dL POC Glucose (mg/dL) (75-99) mg/dL Delta Bilirubin 0.4 H (0.0-0.2) mg/dL AST 124 H (17-59) U/L ALT 113 H (4-49) U/L Alkaline Phosphatase 359 H (38-126) U/L Lactate Dehydrogenase 1216 H (313-618) U/L C-Reactive Protein 8.7 H (<1.0) mg/dL Procalcitonin (0.02-0.09) ng/mL Coronavirus (PCR) (Not Detectd) Assessment and Plan (1) Coronavirus infection Current Visit: Yes Status: Acute Priority: High Code(s): B34.2 - CORONAVIRUS INFECTION, UNSPECIFIED SNOMED Code(s): 988491816 (2) Thrombocytosis Current Visit: Yes Status: Acute Priority: High Code(s): D75.839 - THROMBOCYTOSIS, UNSPECIFIED SNOMED Code(s): 9024988 Plan: Thrombocytopenia. Workup has been initiated for a primary marrow disorder as this has been progressive over the last several months. Agree with to aspirin and DVT prophylaxis at this time. Further recommendations to follow. Case discussed with nursing. attests: I preformed H&P, seen and examined patient, developed impression and plan of care. Discussed with dictator. Agree with documentation, dictated as a scribe
[2021-08-13 18:25] LABS: % Iron Saturation 7.68 (15.00-50.00)
[2021-08-13] MEDS: ASPIRIN 81 MG PO SCH (20:59)
[2021-08-13] MEDS ORDERED: LOSARTAN 25 MG TAB PO SCH (21:00)
[2021-08-13] MEDS: TAMSULOSIN 0.4 MG CAP.ER.24H PO SCH (21:00)
[2021-08-13] MEDS: METOPROLOL TARTRATE 25 MG TAB PO SCH (21:00)
[2021-08-13] MEDS: ATORVASTATIN 80 MG TAB PO SCH (21:01)
[2021-08-13] MEDS: INSULIN DETEMIR (LEVEMIR) 100 UNIT/ML SYR SQ SCH (21:02)
[2021-08-13 21:04] LABS: Glucose,Whole Blood 159 mg/dL (75-99)
[2021-08-14] MEDS: SODIUM CHLORIDE 0.9% 1,000 ML IV SCH ×2 (05:25→09:52)
[2021-08-14 07:23] LABS: Glucose,Whole Blood 141 mg/dL (75-99)
--- NOTE | 2021-08-14 07:30 | P.CONS ---
History of Present Illness - Reason for Consult Consult date: 08/13/21 covid pneumonia Requesting physician: Isabella Villalba - Chief Complaint Shortness of breath x 3 days - History of Present Illness Patient is a 76-year male with a past medical history significant diabetes hypertension hyperlipidemia chronic systolic heart failure presented to hospital for evaluation of increasing shortness of breath and cough in this patient's symptom has been going on for about 3 days before presentation to the hospital patient main symptom has been worsening shortness of breath on minimal exertion and also have a cough which is moderate in intensity but mostly dry in nature patient denies having any pleuritic chest pain denies any nausea vomiting no diarrhea patient is a fully vaccinated against COVID-19 with a booster in April 2021 patient did have a positive home test and presenting to the ER for further evaluation on arrival to the ER the patient did have a low-grade fever 100.3 F, patient was some mild hypoxia initially however is currently on room air satting 98% did have elevated white count as well as elevated platelets did have elevated BUN and creatinine and elevated liver enzymes patient did have a chest x-ray some right lower lobe pneumonia which appears new compared to old exam repeat x-ray done this morning increasing right basilar airspace disease patient has been admitted to the hospital infectious disease was consulted for further management Review of Systems Positive point has been mentioned in the HPI rest of the systems are negative Past Medical History Past Medical History: Diabetes Mellitus, GERD/Reflux, Hyperlipidemia, Hy pertension, Myocardial Infarction ([place]), Prostate Disorder, Renal Disease, Seizure Disorder, Sleep Apnea/CPAP/BIPAP Additional Past Medical History / Comment(s): last seizure 6 monhts ago, no CPAP, neuropathy feet, decreased kidney function-, right great toe wound, "disk issues" Last Myocardial Infarction Date:: 2013 History of Any Multi-Drug Resistant Organisms: None Reported Past Surgical History: Cholecystectomy, Heart Catheterization, Heart Catheterization With Stent, Orthopedic Surgery Additional Past Surgical History / Comment(s): bilateral knee replacement, left ankle ORIF, 5 cardiac stents, carlos cataracts, right foot toe amputation. Past Anesthesia/Blood Transfusion Reactions: No Reported Reaction Date of Last Stent Placement:: 2013 Past Psychological History: No Psychological Hx Reported Smoking Status: Former smoker Past Alcohol Use History: None Reported Past Drug Use History: None Reported - Past Family History Mother Family Medical History: No Reported History Medications and Allergies Home Medications Medication Instructions Recorded Confirmed Type Aspirin EC [Ecotrin Low Dose] 81 mg PO HS 04/09/14 08/12/21 History Tamsulosin HCl [Flomax] 0.4 mg PO HS 04/09/14 08/12/21 History Multivit-Min/FA/Lycopen/Lutein 1 tab PO DAILY 04/30/18 08/12/21 History [Centrum Silver Tablet] levETIRAcetam [Keppra] 1,500 mg PO BID 04/30/18 08/12/21 History Atorvastatin [Lipitor] 80 mg PO HS 01/27/19 08/12/21 History Clopidogrel [Plavix] 75 mg PO DAILY 01/27/19 08/12/21 History Losartan Potassium [Cozaar] 12.5 mg PO HS 01/27/19 08/12/21 History Metoprolol Tartrate [Lopressor] 25 mg PO HS 01/11/21 08/12/21 History OXcarbazepine [Trileptal] 150 mg PO BID 01/11/21 08/12/21 History Furosemide [Lasix] 40 mg PO DAILY 04/14/21 08/12/21 History Insulin Aspart [NovoLOG Flexpen] 12 - 14 units SQ TID-W/MEALS 04/14/21 08/12/21 History Insulin Detemir [Levemir Flextouch 20 units SQ HS 04/14/21 08/12/21 History Pen] Potassium Chloride [Klor-Con 10 ER] 10 meq PO DAILY 04/30/21 08/12/21 History Allergies Allergy/AdvReac Type Severity Reaction Status Date / Time No Known Allergies Allergy Verified 08/12/21 23:36 Physical Exam Vitals: Vital Signs Temp Pulse Resp BP Pulse Ox 08/13/21 06:01 98 F 83 20 122/58 93 L 08/13/21 01:39 98.5 F 84 18 131/94 91 L 08/12/21 23:41 97 18 102/98 92 L 08/12/21 21:43 100.3 F H 102 H 22 127/62 90 L Intake and Output 08/12/21 08/13/21 08/13/21 22:59 06:59 14:59 Other: Weight 72.575 kg 72.575 kg GENERAL DESCRIPTION: An elderly male lying in bed, no distress. No tachypnea or accessory muscle of respiration use. HEENT: Shows Pallor , no scleral icterus. Oral mucous membrane is dry. No pharyngeal erythema or thrush NECK: Trachea central, no thyromegaly. LUNGS: Unlabored breathing. Coarse breath sounds bilaterally HEART: S1, S2, regular rate and rhythm. No loud murmur ABDOMEN: Soft, no tenderness , guarding or rigidity, no organomegaly EXTREMITIES: No edema of feet. SKIN: No rash, no masses palpable. NEUROLOGICAL: The patient is awake, alert, oriented x3, mood and affect normal. Results CBC & Chem 7: 08/13/21 08:59 08/13/21 08:59 Labs: Abnormal Lab Results - Last 24 Hours (Table) 08/12/21 08/12/21 08/12/21 Range/Units 22:21 22:22 22:22 WBC 22.3 H (3.8-10.6) k/uL RBC 6.92 H (4.30-5.90) m/uL Hct 53.3 H (39.0-53.0) % MCV 77.1 L (80.0-100.0) fL MCH 24.6 L (25.0-35.0) pg MCHC (31.0-37.0) g/dL Plt Count 1378 H* (150-450) k/uL Neutrophils # 17.5 H (1.3-7.7) k/uL Lymphocytes # 0.8 L (1.0-4.8) k/uL Monocytes # 2.5 H (0-1.0) k/uL Basophils # 0.5 H (0-0.2) k/uL D-Dimer (<0.60) mg/L FEU Potassium 5.7 H (3.5-5.1) mmol/L Chloride (98-107) mmol/L Carbon Dioxide 20 L (22-30) mmol/L BUN 39 H (9-20) mg/dL Creatinine 1.98 H (0.66-1.25) mg/dL Glucose 127 H (74-99) mg/dL POC Glucose (mg/dL) 133 H (75-99) mg/dL Delta Bilirubin (0.0-0.2) mg/dL AST 223 H (17-59) U/L ALT 142 H (4-49) U/L Alkaline Phosphatase 461 H (38-126) U/L Lactate Dehydrogenase 1326 H (313-618) U/L C-Reactive Protein 6.2 H (<1.0) mg/dL Coronavirus (PCR) (Not Detectd) 08/12/21 08/13/21 08/13/21 Range/Units 23:41 00:19 01:36 WBC (3.8-10.6) k/uL RBC (4.30-5.90) m/uL Hct (39.0-53.0) % MCV (80.0-100.0) fL MCH (25.0-35.0) pg MCHC (31.0-37.0) g/dL Plt Count (150-450) k/uL Neutrophils # (1.3-7.7) k/uL Lymphocytes # (1.0-4.8) k/uL Monocytes # (0-1.0) k/uL Basophils # (0-0.2) k/uL D-Dimer (<0.60) mg/L FEU Potassium (3.5-5.1) mmol/L Chloride (98-107) mmol/L Carbon Dioxide (22-30) mmol/L BUN (9-20) mg/dL Creatinine (0.66-1.25) mg/dL Glucose (74-99) mg/dL POC Glucose (mg/dL) 171 H 144 H (75-99) mg/dL Delta Bilirubin (0.0-0.2) mg/dL AST (17-59) U/L ALT (4-49) U/L Alkaline Phosphatase (38-126) U/L Lactate Dehydrogenase (313-618) U/L C-Reactive Protein (<1.0) mg/dL Coronavirus (PCR) Detected A (Not Detectd) 08/13/21 08/13/21 08/13/21 Range/Units 08:44 08:59 08:59 WBC 22.4 H (3.8-10.6) k/uL RBC 6.86 H (4.30-5.90) m/uL Hct 54.2 H (39.0-53.0) % MCV 78.9 L (80.0-100.0) fL MCH 24.1 L (25.0-35.0) pg MCHC 30.5 L (31.0-37.0) g/dL Plt Count 1504 H* (150-450) k/uL Neutrophils # (1.3-7.7) k/uL Lymphocytes # (1.0-4.8) k/uL Monocytes # (0-1.0) k/uL Basophils # (0-0.2) k/uL D-Dimer (<0.60) mg/L FEU Potassium 5.5 H (3.5-5.1) mmol/L Chloride 108 H (98-107) mmol/L Carbon Dioxide 18 L (22-30) mmol/L BUN 42 H (9-20) mg/dL Creatinine 1.87 H (0.66-1.25) mg/dL Glucose 216 H (74-99) mg/dL POC Glucose (mg/dL) 204 H (75-99) mg/dL Delta Bilirubin 0.4 H (0.0-0.2) mg/dL AST 124 H (17-59) U/L ALT 113 H (4-49) U/L Alkaline Phosphatase 359 H (38-126) U/L Lactate Dehydrogenase 1216 H (313-618) U/L C-Reactive Protein 8.7 H (<1.0) mg/dL Coronavirus (PCR) (Not Detectd) 08/13/21 Range/Units 08:59 WBC (3.8-10.6) k/uL RBC (4.30-5.90) m/uL Hct (39.0-53.0) % MCV (80.0-100.0) fL MCH (25.0-35.0) pg MCHC (31.0-37.0) g/dL Plt Count (150-450) k/uL Neutrophils # (1.3-7.7) k/uL Lymphocytes # (1.0-4.8) k/uL Monocytes # (0-1.0) k/uL Basophils # (0-0.2) k/uL D-Dimer 0.68 H (<0.60) mg/L FEU Potassium (3.5-5.1) mmol/L Chloride (98-107) mmol/L Carbon Dioxide (22-30) mmol/L BUN (9-20) mg/dL Creatinine (0.66-1.25) mg/dL Glucose (74-99) mg/dL POC Glucose (mg/dL) (75-99) mg/dL Delta Bilirubin (0.0-0.2) mg/dL AST (17-59) U/L ALT (4-49) U/L Alkaline Phosphatase (38-126) U/L Lactate Dehydrogenase (313-618) U/L C-Reactive Protein (<1.0) mg/dL Coronavirus (PCR) (Not Detectd) Assessment and Plan (1) Pneumonia due to COVID-19 virus Current Visit: Yes Status: Acute Code(s): U07.1 - COVID-19; J12.82 - PNEUMONIA DUE TO CORONAVIRUS DISEASE 2018 SNOMED Code(s): 456655907575511188 Plan: 1patient presented to hospital with increasing shortness of breath cough and this patient's symptom has been going on for about 3 days likely secondary to COVID-19 infection however the patient did have predominantly right lower lobe infiltrate and concern for possible secondary bacterial pneumonia. 2patient with renal insufficiency and high risk of nephrotoxicity possible prerenal. 3currently not hypoxic and currently will alert qualify for remdesivir. 4we will wait for the procalcitonin to be finalized and follow-up continue with the Rocephin and Zithromax. 5Lovenox zinc and ascorbic acid to continue. 6-droplet isolation and respiratory support. We will follow on clinical condition and cultures to further adjust medication if needed Thank you for this consultation will follow this patient along with you Time with Patient: Greater than 30
[2021-08-14] MEDS: SODIUM BICARBONATE TAB 650 MG TAB PO SCH ×2 (07:39→21:42)
[2021-08-14] MEDS: ASCORBIC ACID 500 MG TAB PO SCH (07:39)
[2021-08-14] MEDS: CLOPIDOGREL 75 MG TAB PO SCH (07:39)
[2021-08-14] MEDS: CHOLECALCIFEROL 25 MCG (1000 IU) TABLET PO SCH (07:40)
[2021-08-14] MEDS: FAMOTIDINE 20 MG TAB PO SCH (07:40)
[2021-08-14] MEDS: VIT A,C & E-LUTEIN-MINERALS 1 EACH TAB PO SCH (07:40)
[2021-08-14] MEDS: OXcarbazepine 150 MG TAB PO SCH ×2 (07:41→21:42)
[2021-08-14] MEDS: HEPARIN SODIUM,PORCINE/PF 5,000 UNIT/0.5 ML SYRINGE SQ SCH ×3 (07:41→23:40)
[2021-08-14] MEDS: DEXAMETHASONE SOD PHOSPHATE 10 MG/ML 1 ML VIAL IVP SCH (07:41)
[2021-08-14] MEDS: INSULIN ASPART (NovoLOG) 100 UNIT/ML VIAL SQ SCH ×6 (07:42→16:30)
[2021-08-14] MEDS: ZINC SULFATE 220 MG CAP PO SCH (07:47)
[2021-08-14] MEDS: ALBUTEROL HFA INHALER INHALATION SCH ×4 (07:57→20:52)
[2021-08-14] MEDS: AZITHROMYCIN 500 MG in SODIUM CHLORIDE 0.9% 250 ML IVPB SCH (08:34)
[2021-08-14] MEDS: levETIRAcetam 500 MG TAB PO SCH ×2 (09:12→21:41)
[2021-08-14 09:27] LABS: ALT 70 U/L (4-49); AST 57 U/L (17-59); African American GFR (CKD) 36 (>60 ml/min/1.73 sqM); Albumin 3.5 g/dL (3.5-5.0); Albumin/Globulin Ratio 1.3; Alkaline Phosphatase 287 U/L (38-126); Anion Gap 10 mmol/L; Blood Urea Nitrogen 53 mg/dL (9-20); Calcium 9.2 mg/dL (8.4-10.2); Carbon Dioxide 18 mmol/L (22-30); Chloride 107 mmol/L (98-107); Globulin 2.8 g/dL; Glucose 202 mg/dL (74-99); Magnesium 2.4 mg/dL (1.6-2.3); Non-African American GFR(CKD) 31 (>60 ml/min/1.73 sqM); Potassium 5.6 mmol/L (3.5-5.1); Sodium 135 mmol/L (137-145); Total Bilirubin 0.4 mg/dL (0.2-1.3); Total Protein 6.3 g/dL (6.3-8.2)
[2021-08-14 09:40] LABS: Basophils # (A) 0.3 k/uL (0-0.2); Basophils % (A) 2 %; Eosinophils # (A) 0.1 k/uL (0-0.7); Eosinophils % (A) 0 %; HCT 52.3 % (39.0-53.0); HGB 15.8 gm/dL (13.0-17.5); Lymphocytes # (A) 1.2 k/uL (1.0-4.8); Lymphocytes % (A) 5 %; MCHC 30.1 g/dL (31.0-37.0); MCV 79.8 fL (80.0-100.0); Mean Platelet Volume 7.8; Monocytes # (A) 1.5 k/uL (0-1.0); Monocytes % (A) 7 %; Neutrophils # (A) 19.2 k/uL (1.3-7.7); Neutrophils % (A) 84 %; RBC 6.56 m/uL (4.30-5.90); RDW 14.8 % (11.5-15.5); WBC 22.7 k/uL (3.8-10.6)
[2021-08-14 09:44] LABS: Platelet Count 1452 k/uL (150-450)
[2021-08-14] MEDS: polyethylene glycoL 3350 17 GM POWD.PACK PO SCH (09:48)
[2021-08-14] MEDS ORDERED: SODIUM ZIRCONIUM CYCLOSILICATE 10 GM PACKET PO ONE (11:03)
[2021-08-14] MEDS ORDERED: SODIUM BICARB 8.4% 50 ML SYR (1 MEQ/ML) IV STA (11:05)
--- NOTE | 2021-08-14 11:05 | P.PN ---
Subjective Patient is seen in follow-up for acute kidney injury on chronic kidney disease. Renal function fairly stable. Denies chest pain or shortness of breath. States he was coughing overnight. No vomiting or diarrhea. Oral intake is good. Vital signs are stable. General: Awake and alert. No acute distress. HEENT: Head exam is unremarkable. LUNGS: Breath sounds decreased. HEART: Rate and Rhythm are regular. ABDOMEN: Soft, no distention. Obese. EXTREMITITES: No edema. Objective - Vital Signs Vital signs: Vital Signs Temp 98.1 F 08/14/21 07:36 Pulse 68 08/14/21 07:36 Resp 17 08/14/21 07:36 BP 123/60 08/14/21 07:36 Pulse Ox 90 L 08/14/21 07:36 FiO2 Intake & Output 08/13/21 08/14/21 08/14/21 18:59 06:59 18:59 Intake Total 1620 Balance 1620 Intake: Oral 1620 Other: Voiding Method Toilet # Voids 3 - Labs CBC & Chem 7: 08/14/21 08:29 08/14/21 08:29 Labs: Abnormal Lab Results - Last 24 Hours (Table) 08/12/21 08/13/21 08/13/21 Range/Units 22:22 12:42 14:51 WBC (3.8-10.6) k/uL RBC (4.30-5.90) m/uL MCV (80.0-100.0) fL MCH (25.0-35.0) pg MCHC (31.0-37.0) g/dL Plt Count (150-450) k/uL Pathologist Review See comment A Sodium (137-145) mmol/L Potassium (3.5-5.1) mmol/L Carbon Dioxide (22-30) mmol/L BUN (9-20) mg/dL Creatinine (0.66-1.25) mg/dL Glucose (74-99) mg/dL POC Glucose (mg/dL) 148 H (75-99) mg/dL Magnesium (1.6-2.3) mg/dL Iron 21 L (65-175) ug/dL % Saturation 7.68 L (15.00-50.00) Transferrin 198.0 L (204.0-354.0) mg/dL ALT (4-49) U/L Alkaline Phosphatase (38-126) U/L 08/13/21 08/13/21 08/14/21 Range/Units 17:15 20:52 07:22 WBC (3.8-10.6) k/uL RBC (4.30-5.90) m/uL MCV (80.0-100.0) fL MCH (25.0-35.0) pg MCHC (31.0-37.0) g/dL Plt Count (150-450) k/uL Pathologist Review Sodium (137-145) mmol/L Potassium (3.5-5.1) mmol/L Carbon Dioxide (22-30) mmol/L BUN (9-20) mg/dL Creatinine (0.66-1.25) mg/dL Glucose (74-99) mg/dL POC Glucose (mg/dL) 181 H 159 H 141 H (75-99) mg/dL Magnesium (1.6-2.3) mg/dL Iron (65-175) ug/dL % Saturation (15.00-50.00) Transferrin (204.0-354.0) mg/dL ALT (4-49) U/L Alkaline Phosphatase (38-126) U/L 08/14/21 08/14/21 Range/Units 08:29 08:29 WBC 22.7 H (3.8-10.6) k/uL RBC 6.56 H (4.30-5.90) m/uL MCV 79.8 L (80.0-100.0) fL MCH 24.0 L (25.0-35.0) pg MCHC 30.1 L (31.0-37.0) g/dL Plt Count 1452 H* (150-450) k/uL Pathologist Review Sodium 135 L (137-145) mmol/L Potassium 5.6 H (3.5-5.1) mmol/L Carbon Dioxide 18 L (22-30) mmol/L BUN 53 H (9-20) mg/dL Creatinine 2.00 H (0.66-1.25) mg/dL Glucose 202 H (74-99) mg/dL POC Glucose (mg/dL) (75-99) mg/dL Magnesium 2.4 H (1.6-2.3) mg/dL Iron (65-175) ug/dL % Saturation (15.00-50.00) Transferrin (204.0-354.0) mg/dL ALT 70 H (4-49) U/L Alkaline Phosphatase 287 H (38-126) U/L Assessment and Plan Plan: Assessment: 1. Acute kidney injury mostly prerenal secondary to diuresis and infection. Creatinine was 1.98 on admission and is fairly stable at 2.0 today. 2. Chronic kidney disease stage IIIB secondary to diabetic kidney disease with baseline creatinine in the range of 1.6-1.8. 3. Hyperkalemia secondary to acute kidney injury, acidosis, losartan and p otassium supplementation. Stable. 4. Acute hypoxic respiratory failure secondary to COVID-19 pneumonia. 5. Coronary artery disease with cardiac stenting. 6. Leukocytosis and thrombocytosis. Infectious disease and hematology were consulted. 7. Diabetes mellitus. 8. Metabolic acidosis secondary to acute kidney injury and IV fluids. On oral bicarb. 9. Hypertension with chronic kidney disease. Controlled. Plan: Hep-Lock IV fluids. Continue to hold diuretics. Continue to hold losartan for now. Encouraged oral intake. Renal diet. Avoid nephrotoxins. Tight blood sugar control. Lokelma 10 g once today. Continue to monitor renal function and urine output.
[2021-08-14 11:10] LABS: Glucose,Whole Blood 143 mg/dL (75-99)
[2021-08-14] MEDS: guaiFENesin-Coden 100-10MG/5ML 10 ML CUP PO PRN ×2 (11:46→23:40)
--- NOTE | 2021-08-14 11:48 | P.PN ---
Subjective Progress Note Date: 08/14/21 76-year-old male patient came into the ED because of increased shortness of breath and a cough. The patient is known to have CAD, diabetes and hypertension hyperlipidemia and chronic systolic heart failure and the patient also has history of seizure disorder and BPH. The patient has been having fever and shortness of breath along with cough and states that over the last 3 days he developed no symptoms and the cough was nonproductive. He was progressively getting worse and for that reason he decided to come into the hospital. Has noticed 5 spiking temperature. The patient has already done a COVID 19 testing at home which tested positive and for that reason he came into the emergency department. He is fully vaccinated and boosted. His last booster dose was in March of this current year. This is his first infection with COVID 19. In the ED, the patient was found to be febrile with a temperature 100.3. The pulse ox was ranging between 90-92%. The white cell count was at 22.3 with a hemoglobin of 17. The patient's serum bicarb was 20 with a potassium level of 5.7 and the sodium level of 137. BNP is a 39 with a creatinine of 1.9 and a glucose was 127. LFTs were abnormal with an AST of 223, ALT of 142, bilirubin of 1.3, calcium of 9.8, lactic acid level of 1.8 and the patient had a CRP of 1226 with a LDH level of 6.2. Albumin was at 4.2 with a total protein of 7.1. The chest x-ray showed minimal infiltration of the right lung base at a time of admission and repeat chest x-ray from today showing smaller lung volumes and increased infiltration of the right lung base and some infiltration of the left lung base. The patient d-dimer is at 0.68. Untreated approximately nasal cannula the patient's pulse ox is around 97%. The patient is currently on Decadron 6 mg IV every 24 hours. The patient is also on heparin subcu for DVT prophylaxis. On today's evaluation of 08/14/2021, the patient continues to have cough and some congestion, overnight he "coughed quite a bit and he was quite symptomatic which affected his sleep. This morning, his cough is slightly improved and remains on Decadron. He is on oxygen and he is currently on 2 L per minute nasal cannula. Hemodynamically stable and the patient is afebrile. Blood work shows a white second of 22 and hemoglobin of 15.8. The rest of the electrolytes show a BUN of 53 with a creatinine of 2.0 and his sodium level is at 135. His LFTs continued to improve. His pro-calcitonin level is at 0.15. The patient is on Rocephin and Zithromax in combination with Decadron 6 g IV every 24 hours. He is on Levemir insulin 20 units daily along with a sliding scale coverage. Outpatient medications of been all resumed. Objective - Vital Signs Vital signs: Vital Signs Temp 98.1 F 08/14/21 07:36 Pulse 68 08/14/21 07:36 Resp 17 08/14/21 07:36 BP 123/60 08/14/21 07:36 Pulse Ox 90 L 08/14/21 07:36 FiO2 Intake & Output 08/13/21 08/14/21 08/14/21 18:59 06:59 18:59 Intake Total 1620 Balance 1620 Intake: Oral 1620 Other: Voiding Method Toilet # Voids 3 - Exam Calm and comfortable, breathing is nonlabored and the patient is on O2 at 2 L Head exam was generally normal. There was no scleral icterus or corneal arcus. Mucous membranes were moist. HEENT: normocephalic, atraumatic, good hearing acuity, moist mucous membranes Resp: good air exchange, lung sounds are diminished bilaterally and the patient has some limited correct in lung bases Cardiac exam revealed the PMI to be normally situated and sized. The rhythm was regular and no extrasystoles were noted during several minutes of auscultation. The first and second heart sounds were normal and physiologic splitting of the second heart sound was noted. There were no murmurs, rubs, clicks, or gallops. Abdominal exam revealed normal bowel sounds. The abdomen was soft, non-tender, and without masses, organomegaly, or appreciable enlargement of the abdominal aorta. : no SPT, no CVAT, mendoza catheter not present Examination of the extremities revealed easily palpable radial, femoral and pedal pulses. There was no cyanosis, clubbing or edema. Neurologically, the patient is awake and alert and the patient does not have any focal neurological deficit. Cranial nerves are essentially intact. Psych: cooperative, euthymic mood - Labs CBC & Chem 7: 08/14/21 08:29 08/14/21 08:29 Labs: Abnormal Lab Results - Last 24 Hours (Table) 08/12/21 08/13/21 08/13/21 Range/Units 22:22 12:42 14:51 WBC (3.8-10.6) k/uL RBC (4.30-5.90) m/uL MCV (80.0-100.0) fL MCH (25.0-35.0) pg MCHC (31.0-37.0) g/dL Plt Count (150-450) k/uL Pathologist Review See comment A Sodium (137-145) mmol/L Potassium (3.5-5.1) mmol/L Carbon Dioxide (22-30) mmol/L BUN (9-20) mg/dL Creatinine (0.66-1.25) mg/dL Glucose (74-99) mg/dL POC Glucose (mg/dL) 148 H (75-99) mg/dL Magnesium (1.6-2.3) mg/dL Iron 21 L (65-175) ug/dL % Saturation 7.68 L (15.00-50.00) Transferrin 198.0 L (204.0-354.0) mg/dL ALT (4-49) U/L Alkaline Phosphatase (38-126) U/L 08/13/21 08/13/21 08/14/21 Range/Units 17:15 20:52 07:22 WBC (3.8-10.6) k/uL RBC (4.30-5.90) m/uL MCV (80.0-100.0) fL MCH (25.0-35.0) pg MCHC (31.0-37.0) g/dL Plt Count (150-450) k/uL Pathologist Review Sodium (137-145) mmol/L Potassium (3.5-5.1) mmol/L Carbon Dioxide (22-30) mmol/L BUN (9-20) mg/dL Creatinine (0.66-1.25) mg/dL Glucose (74-99) mg/dL POC Glucose (mg/dL) 181 H 159 H 141 H (75-99) mg/dL Magnesium (1.6-2.3) mg/dL Iron (65-175) ug/dL % Saturation (15.00-50.00) Transferrin (204.0-354.0) mg/dL ALT (4-49) U/L Alkaline Phosphatase (38-126) U/L 08/14/21 08/14/21 08/14/21 Range/Units 08:29 08:29 11:09 WBC 22.7 H (3.8-10.6) k/uL RBC 6.56 H (4.30-5.90) m/uL MCV 79.8 L (80.0-100.0) fL MCH 24.0 L (25.0-35.0) pg MCHC 30.1 L (31.0-37.0) g/dL Plt Count 1452 H* (150-450) k/uL Pathologist Review Sodium 135 L (137-145) mmol/L Potassium 5.6 H (3.5-5.1) mmol/L Carbon Dioxide 18 L (22-30) mmol/L BUN 53 H (9-20) mg/dL Creatinine 2.00 H (0.66-1.25) mg/dL Glucose 202 H (74-99) mg/dL POC Glucose (mg/dL) 143 H (75-99) mg/dL Magnesium 2.4 H (1.6-2.3) mg/dL Iron (65-175) ug/dL % Saturation (15.00-50.00) Transferrin (204.0-354.0) mg/dL ALT 70 H (4-49) U/L Alkaline Phosphatase 287 H (38-126) U/L 08/14/21 Range/Units 11:09 WBC (3.8-10.6) k/uL RBC (4.30-5.90) m/uL MCV (80.0-100.0) fL MCH (25.0-35.0) pg MCHC (31.0-37.0) g/dL Plt Count (150-450) k/uL Pathologist Review Sodium (137-145) mmol/L Potassium (3.5-5.1) mmol/L Carbon Dioxide (22-30) mmol/L BUN (9-20) mg/dL Creatinine (0.66-1.25) mg/dL Glucose (74-99) mg/dL POC Glucose (mg/dL) 143 H (75-99) mg/dL Magnesium (1.6-2.3) mg/dL Iron (65-175) ug/dL % Saturation (15.00-50.00) Transferrin (204.0-354.0) mg/dL ALT (4-49) U/L Alkaline Phosphatase (38-126) U/L Assessment and Plan Plan: Acute COVID 19 infection , with indication of lower lobe pneumonia Acute hypoxic respiratory failure secondary to above Acute kidney injury, most likely secondary to prerenal factors in addition to diuresis. The patient's creatinine is up to 1.98 chronic kidney disease stage 3 Coronary artery disease with previous coronary stenting Chronic systolic heart failure Acute leukocytosis, white cell count remains elevated and the progesterone level is low. Acute transaminitis secondary to viral infection/COVID 19 Non-anion gap metabolic acidosis secondary to above Hypertension Hyperlipidemia Diabetes mellitus Obstructive sleep apnea, not utilizing any formal CPAP therapy Peripheral Neuropathy BPH Previous right foot toe amputation History of seizure disorder maintained on Keppra and Trileptal Plan The patient is currently on 2 L O2 nasal cannula Mucinex DM for cough Monitor renal function Patient on Decadron 6 mg every 24 hours, Start the patient on vitamin C and vitamin D and zinc supplements Avoid nephrotoxic agents Oral bicarbonate regarding anion gap metabolic acidosis Monitor the oxygenation LFTs are improving Check pro calcitonin level level was low at 0.15 and the patient was given empiric antibiotic coverage with a combination of Rocephin and Zithromax. No clear indication for antibiotic therapy Continue with Levemir insulin 20 units along with NovoLog 13 units with meals and a sliding scale coverage Resume all medications Heparin subcu for DVT prophylaxis Monitor inflammatory markers and this will recheck by tomorrow We'll continue to follow
[2021-08-14 12:46] LABS: Large Platelets Present
--- NOTE | 2021-08-14 14:37 | P.PN ---
Subjective Progress Note Date: 08/14/21 No new complaints, breathing is better, but cough is still bothering pt today. Gen: awake, alert HEENT: normocephalic, atraumatic, good hearing acuity, moist mucous membranes Resp: good air exchange, breathing comfortably with no accessory muscle use CVS: good distal perfusion x 4, GI: soft, NTTP, ND : no SPT, no CVAT, mendoza catheter not present MSK: no pitting edema, no clubbing Neuro: non-focal, moving all extremities Psych: cooperative, euthymic mood Labs and imaging reviewed as above Assessment/plan: Sepsis with Acute hypoxemic respiratory failure Covid 19 Community acquired pneumonia Elevated liver enzymes -Admit inpatient, telemetry -Oxygen as needed -Dexamethasone, day 3 -Pulmonary consult, patient is inside the window for remdesivir, but kidney function is poor -Ceftriaxone/azithromycin -Pro calcitonin is 0.15 -Continue to trend liver enzymes -Vitamin C/D, zinc, famotidine -Albuterol inhaler PRN Acute kidney injury superimposed on chronic kidney injury stage IIIB -Avoid nephrotoxins -Nephrology consult 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) -Continue monitor daily CBCs -Pathologist to review peripheral smear -Hematology consult -ID consult CAD Hypertension Hyperlipidemia Chronic systolic heart failure BPH Seizure disorder -Home medications reviewed and reconciled Patient is DO NOT RESUSCITATE/DO NOT INTUBATE Patient is on heparin 3 times a day for DVT prophylaxis Objective - Vital Signs Vital signs: Vital Signs Temp 98.7 F 08/14/21 14:00 Pulse 73 08/14/21 14:00 Resp 17 08/14/21 14:00 BP 138/71 08/14/21 14:00 Pulse Ox 96 08/14/21 14:00 FiO2 Intake & Output 08/13/21 08/14/21 08/14/21 18:59 06:59 18:59 Intake Total 1620 Balance 1620 Intake: Oral 1620 Other: Voiding Method Toilet # Voids 3 - Labs CBC & Chem 7: 08/14/21 08:29 08/14/21 08:29 Labs: Abnormal Lab Results - Last 24 Hours (Table) 08/12/21 08/13/21 08/13/21 Range/Units 22:22 14:51 17:15 WBC (3.8-10.6) k/uL RBC (4.30-5.90) m/uL MCV (80.0-100.0) fL MCH (25.0-35.0) pg MCHC (31.0-37.0) g/dL Plt Count (150-450) k/uL Neutrophils # (1.3-7.7) k/uL Monocytes # (0-1.0) k/uL Basophils # (0-0.2) k/uL Pathologist Review See comment A Sodium (137-145) mmol/L Potassium (3.5-5.1) mmol/L Carbon Dioxide (22-30) mmol/L BUN (9-20) mg/dL Creatinine (0.66-1.25) mg/dL Glucose (74-99) mg/dL POC Glucose (mg/dL) 181 H (75-99) mg/dL Magnesium (1.6-2.3) mg/dL Iron 21 L (65-175) ug/dL % Saturation 7.68 L (15.00-50.00) Transferrin 198.0 L (204.0-354.0) mg/dL ALT (4-49) U/L Alkaline Phosphatase (38-126) U/L 08/13/21 08/14/21 08/14/21 Range/Units 20:52 07:22 08:29 WBC (3.8-10.6) k/uL RBC (4.30-5.90) m/uL MCV (80.0-100.0) fL MCH (25.0-35.0) pg MCHC (31.0-37.0) g/dL Plt Count (150-450) k/uL Neutrophils # (1.3-7.7) k/uL Monocytes # (0-1.0) k/uL Basophils # (0-0.2) k/uL Pathologist Review Sodium 135 L (137-145) mmol/L Potassium 5.6 H (3.5-5.1) mmol/L Carbon Dioxide 18 L (22-30) mmol/L BUN 53 H (9-20) mg/dL Creatinine 2.00 H (0.66-1.25) mg/dL Glucose 202 H (74-99) mg/dL POC Glucose (mg/dL) 159 H 141 H (75-99) mg/dL Magnesium 2.4 H (1.6-2.3) mg/dL Iron (65-175) ug/dL % Saturation (15.00-50.00) Transferrin (204.0-354.0) mg/dL ALT 70 H (4-49) U/L Alkaline Phosphatase 287 H (38-126) U/L 08/14/21 08/14/21 08/14/21 Range/Units 08:29 11:09 11:09 WBC 22.7 H (3.8-10.6) k/uL RBC 6.56 H (4.30-5.90) m/uL MCV 79.8 L (80.0-100.0) fL MCH 24.0 L (25.0-35.0) pg MCHC 30.1 L (31.0-37.0) g/dL Plt Count 1452 H* (150-450) k/uL Neutrophils # 19.2 H (1.3-7.7) k/uL Monocytes # 1.5 H (0-1.0) k/uL Basophils # 0.3 H (0-0.2) k/uL Pathologist Review Sodium (137-145) mmol/L Potassium (3.5-5.1) mmol/L Carbon Dioxide (22-30) mmol/L BUN (9-20) mg/dL Creatinine (0.66-1.25) mg/dL Glucose (74-99) mg/dL POC Glucose (mg/dL) 143 H 143 H (75-99) mg/dL Magnesium (1.6-2.3) mg/dL Iron (65-175) ug/dL % Saturation (15.00-50.00) Transferrin (204.0-354.0) mg/dL ALT (4-49) U/L Alkaline Phosphatase (38-126) U/L
[2021-08-14 16:26] LABS: Glucose,Whole Blood 270 mg/dL (75-99)
[2021-08-14 21:05] LABS: Glucose,Whole Blood 215 mg/dL (75-99)
[2021-08-14] MEDS: guaiFENesin-DM 600/30MG 1 EACH TAB.ER.12H PO SCH (21:41)
[2021-08-14] MEDS: ASPIRIN 81 MG PO SCH (21:41)
[2021-08-14] MEDS: METOPROLOL TARTRATE 25 MG TAB PO SCH (21:42)
[2021-08-14] MEDS: TAMSULOSIN 0.4 MG CAP.ER.24H PO SCH (21:42)
[2021-08-14] MEDS: INSULIN DETEMIR (LEVEMIR) 100 UNIT/ML SYR SQ SCH (21:42)
[2021-08-14] MEDS: ATORVASTATIN 80 MG TAB PO SCH (21:42)
[2021-08-15 07:23] LABS: Glucose,Whole Blood 100 mg/dL (75-99)
[2021-08-15] MEDS: INSULIN ASPART (NovoLOG) 100 UNIT/ML VIAL SQ SCH ×6 (07:51→16:33)
[2021-08-15] MEDS: ALBUTEROL HFA INHALER INHALATION SCH ×4 (08:20→20:02)
--- NOTE | 2021-08-15 08:20 | P.PN ---
Subjective Progress Note Date: 08/14/21 Principal diagnosis: Pneumonia Patient is 76-year-old male with multiple comorbidities presented to the hospital with decreasing shortness of breath and cough and has been diagnosed with the Covid 19 pneumonia. on today's evaluation that is 08/14/2021, the patient denies having any fever or chills, the patient is breathing slightly comfortably, cough is decreased i ntensity but is bring up some sputum denies any abdominal pain no diarrhea Objective - Vital Signs Vital signs: Vital Signs Temp 98.1 F 08/14/21 07:36 Pulse 68 08/14/21 07:36 Resp 17 08/14/21 07:36 BP 123/60 08/14/21 07:36 Pulse Ox 90 L 08/14/21 07:36 FiO2 Intake & Output 08/13/21 08/14/21 08/14/21 18:59 06:59 18:59 Intake Total 1620 Balance 1620 Intake: Oral 1620 Other: Voiding Method Toilet # Voids 3 - Exam GENERAL DESCRIPTION: An elderly male lying in bed in no distress RESPIRATORY SYSTEM: Unlabored breathing , decreased breath sounds at bases HEART: S1 S2 regular rate and rhythm , ABDOMEN: Soft , no tenderness EXTREMITIES: No edema feet - Labs CBC & Chem 7: 08/14/21 08:29 08/14/21 16:07 Labs: Abnormal Lab Results - Last 24 Hours (Table) 08/12/21 08/13/21 08/13/21 Range/Units 22:22 12:42 14:51 WBC (3.8-10.6) k/uL RBC (4.30-5.90) m/uL MCV (80.0-100.0) fL MCH (25.0-35.0) pg MCHC (31.0-37.0) g/dL Plt Count (150-450) k/uL Pathologist Review See comment A Sodium (137-145) mmol/L Potassium (3.5-5.1) mmol/L Carbon Dioxide (22-30) mmol/L BUN (9-20) mg/dL Creatinine (0.66-1.25) mg/dL Glucose (74-99) mg/dL POC Glucose (mg/dL) 148 H (75-99) mg/dL Magnesium (1.6-2.3) mg/dL Iron 21 L (65-175) ug/dL % Saturation 7.68 L (15.00-50.00) Transferrin 198.0 L (204.0-354.0) mg/dL ALT (4-49) U/L Alkaline Phosphatase (38-126) U/L 08/13/21 08/13/21 08/14/21 Range/Units 17:15 20:52 07:22 WBC (3.8-10.6) k/uL RBC (4.30-5.90) m/uL MCV (80.0-100.0) fL MCH (25.0-35.0) pg MCHC (31.0-37.0) g/dL Plt Count (150-450) k/uL Pathologist Review Sodium (137-145) mmol/L Potassium (3.5-5.1) mmol/L Carbon Dioxide (22-30) mmol/L BUN (9-20) mg/dL Creatinine (0.66-1.25) mg/dL Glucose (74-99) mg/dL POC Glucose (mg/dL) 181 H 159 H 141 H (75-99) mg/dL Magnesium (1.6-2.3) mg/dL Iron (65-175) ug/dL % Saturation (15.00-50.00) Transferrin (204.0-354.0) mg/dL ALT (4-49) U/L Alkaline Phosphatase (38-126) U/L 08/14/21 08/14/21 08/14/21 Range/Units 08:29 08:29 11:09 WBC 22.7 H (3.8-10.6) k/uL RBC 6.56 H (4.30-5.90) m/uL MCV 79.8 L (80.0-100.0) fL MCH 24.0 L (25.0-35.0) pg MCHC 30.1 L (31.0-37.0) g/dL Plt Count 1452 H* (150-450) k/uL Pathologist Review Sodium 135 L (137-145) mmol/L Potassium 5.6 H (3.5-5.1) mmol/L Carbon Dioxide 18 L (22-30) mmol/L BUN 53 H (9-20) mg/dL Creatinine 2.00 H (0.66-1.25) mg/dL Glucose 202 H (74-99) mg/dL POC Glucose (mg/dL) 143 H (75-99) mg/dL Magnesium 2.4 H (1.6-2.3) mg/dL Iron (65-175) ug/dL % Saturation (15.00-50.00) Transferrin (204.0-354.0) mg/dL ALT 70 H (4-49) U/L Alkaline Phosphatase 287 H (38-126) U/L 08/14/21 Range/Units 11:09 WBC (3.8-10.6) k/uL RBC (4.30-5.90) m/uL MCV (80.0-100.0) fL MCH (25.0-35.0) pg MCHC (31.0-37.0) g/dL Plt Count (150-450) k/uL Pathologist Review Sodium (137-145) mmol/L Potassium (3.5-5.1) mmol/L Carbon Dioxide (22-30) mmol/L BUN (9-20) mg/dL Creatinine (0.66-1.25) mg/dL Glucose (74-99) mg/dL POC Glucose (mg/dL) 143 H (75-99) mg/dL Magnesium (1.6-2.3) mg/dL Iron (65-175) ug/dL % Saturation (15.00-50.00) Transferrin (204.0-354.0) mg/dL ALT (4-49) U/L Alkaline Phosphatase (38-126) U/L Assessment and Plan (1) Pneumonia due to COVID-19 virus Current Visit: Yes Status: Acute Code(s): U07.1 - COVID-19; J12.82 - P NEUMONIA DUE TO CORONAVIRUS DISEASE 2018 SNOMED Code(s): 590147672751268311 Plan: 1patient presented to hospital with increasing shortness of breath cough and this patient's symptom has been going on for about 3 days likely secondary to COVID-19 infection however the patient did have predominantly right lower lobe infiltrate and concern for possible secondary bacterial pneumonia. 2patient is not hypoxic and currently will not qualify for remdesivir. 3patient did have mildly elevated procalcitonin and will continue with the Rocephin and Zithromax. 4Lovenox zinc and ascorbic acid to continue. 5-droplet isolation and respiratory support. Time with Patient: Less than 30
[2021-08-15] MEDS: guaiFENesin-DM 600/30MG 1 EACH TAB.ER.12H PO SCH ×2 (09:20→20:18)
[2021-08-15] MEDS: ZINC SULFATE 220 MG CAP PO SCH (09:20)
[2021-08-15] MEDS: levETIRAcetam 500 MG TAB PO SCH ×2 (09:20→20:17)
[2021-08-15] MEDS: VIT A,C & E-LUTEIN-MINERALS 1 EACH TAB PO SCH (09:21)
[2021-08-15] MEDS: CHOLECALCIFEROL 25 MCG (1000 IU) TABLET PO SCH (09:21)
[2021-08-15] MEDS: ASCORBIC ACID 500 MG TAB PO SCH (09:21)
[2021-08-15] MEDS: FAMOTIDINE 20 MG TAB PO SCH (09:21)
[2021-08-15] MEDS: SODIUM BICARBONATE TAB 650 MG TAB PO SCH ×2 (09:21→20:17)
[2021-08-15] MEDS: OXcarbazepine 150 MG TAB PO SCH ×2 (09:22→20:18)
[2021-08-15] MEDS: AZITHROMYCIN 500 MG in SODIUM CHLORIDE 0.9% 250 ML IVPB SCH (09:22)
[2021-08-15] MEDS: polyethylene glycoL 3350 17 GM POWD.PACK PO SCH (09:22)
[2021-08-15] MEDS: CLOPIDOGREL 75 MG TAB PO SCH (09:22)
[2021-08-15] MEDS: HEPARIN SODIUM,PORCINE/PF 5,000 UNIT/0.5 ML SYRINGE SQ SCH ×3 (09:22→23:48)
--- NOTE | 2021-08-15 10:33 | P.PN ---
Subjective Progress Note Date: 08/15/21 76-year-old male patient came into the ED because of increased shortness of breath and a cough. The patient is known to have CAD, diabetes and hypertension hyperlipidemia and chronic systolic heart failure and the patient also has history of seizure disorder and BPH. The patient has been having fever and shortness of breath along with cough and states that over the last 3 days he developed no symptoms and the cough was nonproductive. He was progressively getting worse and for that reason he decided to come into the hospital. Has noticed 5 spiking temperature. The patient has already done a COVID 19 testing at home which tested positive and for that reason he came into the emergency department. He is fully vaccinated and boosted. His last booster dose was in March of this current year. This is his first infection with COVID 19. In the ED, the patient was found to be febrile with a temperature 100.3. The pulse ox was ranging between 90-92%. The white cell count was at 22.3 with a hemoglobin of 17. The patient's serum bicarb was 20 with a potassium level of 5.7 and the sodium level of 137. BNP is a 39 with a creatinine of 1.9 and a glucose was 127. LFTs were abnormal with an AST of 223, ALT of 142, bilirubin of 1.3, calcium of 9.8, lactic acid level of 1.8 and the patient had a CRP of 1226 with a LDH level of 6.2. Albumin was at 4.2 with a total protein of 7.1. The chest x-ray showed minimal infiltration of the right lung base at a time of admission and repeat chest x-ray from today showing smaller lung volumes and increased infiltration of the right lung base and some infiltration of the left lung base. The patient d-dimer is at 0.68. Untreated approximately nasal cannula the patient's pulse ox is around 97%. The patient is currently on Decadron 6 mg IV every 24 hours. The patient is also on heparin subcu for DVT prophylaxis. On today's evaluation of 08/14/2021, the patient continues to have cough and some congestion, overnight he "coughed quite a bit and he was quite symptomatic which affected his sleep. This morning, his cough is slightly improved and remains on Decadron. He is on oxygen and he is currently on 2 L per minute nasal cannula. Hemodynamically stable and the patient is afebrile. Blood work shows a white second of 22 and hemoglobin of 15.8. The rest of the electrolytes show a BUN of 53 with a creatinine of 2.0 and his sodium level is at 135. His LFTs continued to improve. His pro-calcitonin level is at 0.15. The patient is on Rocephin and Zithromax in combination with Decadron 6 g IV every 24 hours. He is on Levemir insulin 20 units daily along with a sliding scale coverage. Outpatient medications of been all resumed. On 08/15/2021 patient seen in follow-up on medical surgical floor. He is awake and alert, oriented 3, he states he is quite tired, he was up coughing all night, could not lay down flat because of coughing spells. He is bringing up some thick colored yellow phlegm which was sent for Gram stain and cultures. He is on a combination of azithromycin and Rocephin, his last chest x-ray showed wo rsening right lower lobe infiltrate. Patient is also positive for COVID-19, he remains on Decadron 6 mg daily, he is on prophylactic anticoagulation and multivitamins. No hemoptysis. No fever or chills, vital signs have been stable, he remains on room air with a pulse ox of 92-96%. His biggest complaint has been ongoing cough. Is on Mucinex DM 4 times daily as needed. His blood work from yesterday was reviewed showing leukocytosis with a white blood cell count of 22.7, hemoglobin of 15.8, his platelet count was elevated at 1452, d- dimer was 0.67, sodium was 135, potassium is 4.8, BUN is 53 and creatinine is 2.0. His last set of inflammatory markers showed elevated LDH of 1216, and CRP of 8.7, procalcitonin was 0.15. No nausea vomiting or diarrhea, he is tolerating oral intake. Appetite is poor. Objective - Vital Signs Vital signs: Vital Signs Temp 97.5 F L 08/15/21 10:00 Pulse 72 08/15/21 10:00 Resp 08/15/21 10:00 BP 120/60 08/15/21 10:00 Pulse Ox 92 L 08/15/21 10:00 FiO2 21 08/14/21 21:24 Intake & Output 08/14/21 08/15/21 08/15/21 18:59 06:59 18:59 Output Total 0 Balance 0 Output: Urine 0 Other: Voiding Method Toilet Toilet # Voids 7 # Bowel Movements 0 0 - Exam GENERAL EXAM: Alert, obese 76-year-old white male, sitting up in the recliner on room air with a pulse ox of 93%, comfortable in no apparent distress. HEAD: Normocephalic/atraumatic. EYES: Normal reaction of pupils, equal size. Conjunctiva pink, sclera white. NOSE: Clear with pink turbinates. THROAT: No erythema or exudates. NECK: No masses, no JVD, no thyroid enlargement, no adenopathy. CHEST: No chest wall deformity. Symmetrical expansion. LUNGS: Equal air entry with no crackles, wheeze, rhonchi or dullness. CVS: Regular rate and rhythm, normal S1 and S2, no gallops, no murmurs, no rubs ABDOMEN: Soft, nontender. No hepatosplenomegaly, normal bowel sounds, no guarding or rigidity. EXTREMITIES: No clubbing, no edema, no cyanosis, 2+ pulses and upper and lower extremities. MUSCULOSKELETAL: Muscle strength and tone normal. SPINE: No scoliosis or deformity SKIN: No rashes CENTRAL NERVOUS SYSTEM: Alert and oriented -3. No focal deficits, tone is normal in all 4 extremities. PSYCHIATRIC: Alert and oriented -3. Appropriate affect. Intact judgment and insight. - Labs CBC & Chem 7: 08/15/21 07:40 08/15/21 07:40 Labs: Abnormal Lab Results - Last 24 Hours (Table) 08/14/21 08/14/21 08/14/21 Range/Units 08:29 11:09 11:09 Neutrophils # 19.2 H (1.3-7.7) k/uL Monocytes # 1.5 H (0-1.0) k/uL Basophils # 0.3 H (0-0.2) k/uL D-Dimer (<0.60) mg/L FEU POC Glucose (mg/dL) 143 H 143 H (75-99) mg/dL 08/14/21 08/14/21 08/14/21 Range/Units 16:24 16:24 20:55 Neutrophils # (1.3-7.7) k/uL Monocytes # (0-1.0) k/uL Basophils # (0-0.2) k/uL D-Dimer (<0.60) mg/L FEU POC Glucose (mg/dL) 270 H 270 H 215 H (75-99) mg/dL 08/15/21 08/15/21 Range/Units 07:21 07:33 Neutrophils # (1.3-7.7) k/uL Monocytes # (0-1.0) k/uL Basophils # (0-0.2) k/uL D-Dimer 0.67 H (<0.60) mg/L FEU POC Glucose (mg/dL) 100 H (75-99) mg/dL Assessment and Plan Plan: Assessment: Acute COVID 19 infection , with indication of lower lobe pneumonia, community acquired Acute hypoxic respiratory failure secondary to above Acute kidney injury, most likely secondary to prerenal factors in addition to diuresis. The patient's creatinine is up to 2.0 Ahronic kidney disease stage 3 Coronary artery disease with previous coronary stenting Chronic systolic heart failure Acute leukocytosis, white cell count remains elevated and the procalcitonin level is low. Acute transaminitis secondary to viral infection/COVID 19 Non-anion gap metabolic acidosis secondary to above Hypertension Hyperlipidemia Diabetes mellitus Obstructive sleep apnea, not utilizing any formal CPAP therapy Peripheral Neuropathy BPH Previous right foot toe amputation History of seizure disorder maintained on Keppra and Trileptal Thrombocytosis, likely related to sepsis secondary to right lower lobe pneumonia, community acquired Plan: Continue current antibiotics We'll send a sputum for culture Continue Decadron Continue multivitamins, Continue prophylactic anticoagulation We'll obtain follow-up blood work including CBC, BMP inflammatory markers and d- dimer Encourage oral fluid intake Provide nutritional supplementation in the form of Ensure 3-4 times a day May need IV fluids if his renal function continues to get words We'll continue to follow I have personally seen and examined the patient, performed the documentation and the assessment and plan as written. Number of minutes spent on the visit: [10] , I have personally seen and examined the patient and reviewed the documentation. I performed a joint evaluation with the nurse practitioner in this evaluation was done more than 20 minutes. I fully agree with the documentation above and the plan of care.. The patient is being seen for a follow-up. The patient will be kept on Decadron for now. Continue same treatment. Encourage mobility. Provide nutritional supplements sedation as stated above. We'll continue to follow. Time with Patient: Less than 30
[2021-08-15] MEDS: DEXAMETHASONE SOD PHOSPHATE 10 MG/ML 1 ML VIAL IVP SCH (10:44)
[2021-08-15 10:51] LABS: Glucose,Whole Blood 184 mg/dL (75-99)
[2021-08-15] MEDS ORDERED: guaiFENesin-Coden 100-10MG/5ML 10 ML CUP ONE ×2 (12:41→12:42)
--- NOTE | 2021-08-15 14:42 | P.PN ---
Subjective Patient is seen in follow-up for acute kidney injury on chronic kidney disease. Renal function fairly stable - creatinine 2.0 yesterday. Denies chest pain or shortness of breath. States he was coughing overnight and bringing up yellow phlegm. No vomiting or diarrhea. Oral intake is good. Vital signs are stable. General: Awake and alert. No acute distress. HEENT: Head exam is unremarkable. LUNGS: Breath sounds decreased. HEART: Rate and Rhythm are regular. ABDOMEN: Soft, no distention. Obese. EXTREMITITES: No edema. Objective - Vital Signs Vital signs: Vital Signs Temp 97.5 F L 08/15/21 10:00 Pulse 72 08/15/21 10:00 Resp 21 08/15/21 10:00 BP 120/60 08/15/21 10:00 Pulse Ox 92 L 08/15/21 10:00 FiO2 21 08/14/21 21:24 Intake & Output 08/14/21 08/15/21 08/15/21 18:59 06:59 18:59 Output Total 0 Balance 0 Output: Urine 0 Other: Voiding Method Toilet Toilet # Voids 7 # Bowel Movements 0 0 - Labs CBC & Chem 7: 08/14/21 08:29 08/14/21 16:07 Labs: Abnormal Lab Results - Last 24 Hours (Table) 08/14/21 08/14/21 08/14/21 Range/Units 08:29 11:09 11:09 Neutrophils # 19.2 H (1.3-7.7) k/uL Monocytes # 1.5 H (0-1.0) k/uL Basophils # 0.3 H (0-0.2) k/uL D-Dimer (<0.60) mg/L FEU POC Glucose (mg/dL) 143 H 143 H (75-99) mg/dL 08/14/21 08/14/21 08/14/21 Range/Units 16:24 16:24 20:55 Neutrophils # (1.3-7.7) k/uL Monocytes # (0-1.0) k/uL Basophils # (0-0.2) k/uL D-Dimer (<0.60) mg/L FEU POC Glucose (mg/dL) 270 H 270 H 215 H (75-99) mg/dL 08/15/21 08/15/21 08/15/21 Range/Units 07:21 07:33 10:48 Neutrophils # (1.3-7.7) k/uL Monocytes # (0-1.0) k/uL Basophils # (0-0.2) k/uL D-Dimer 0.67 H (<0.60) mg/L FEU POC Glucose (mg/dL) 100 H 184 H (75-99) mg/dL Assessment and Plan Plan: Assessment: 1. Acute kidney injury mostly prerenal secondary to diuresis and infection. Creatinine was 1.98 on admission and fairly stable at 2.0 yesterday. 2. Chronic kidney disease stage IIIB secondary to diabetic kidney disease with baseline creatinine in the range of 1.6-1.8. 3. Hyperkalemia secondary to acute kidney injury, acidosis, losartan and potassium supplementation. Improved. 4. Acute hypoxic respiratory failure secondary to COVID-19 pneumonia. 5. Coronary artery disease with cardiac stenting. 6. Leukocytosis and thrombocytosis. Infectious disease and hematology following. 7. Diabetes mellitus. 8. Metabolic acidosis secondary to acute kidney injury and IV fluids. On oral bicarb. 9. Hypertension with chronic kidney disease. Controlled. Plan: Off IV fluids. Diuretics also held. Continue to hold losartan for now. Blood pressure is well controlled. Encouraged oral intake. Renal diet. Avoid nephrotoxins. Tight blood sugar control. Status post [facility] 08/14/21. Continue to monitor renal function and urine output. AM labs pending. F/u CXR.
[2021-08-15 14:50] LABS: Basophils # (A) 0.38 X 10*3/uL (0.00-0.10); Basophils % (A) 1.9 %; Eosinophils # (A) 0.12 X 10*3/uL (0.04-0.35); Eosinophils % (A) 0.6 %; HGB 15.6 g/dL (13.0-17.0); Immature Grans, Automated 1.4 %; Lymphocytes # (A) 0.78 X 10*3/uL (0.90-5.00); MCH 23.8 pg (27.0-32.0); MCHC 31.2 g/dL (32.0-37.0); MCV 76.3 fL (80.0-97.0); Mean Platelet Volume 9.5 fL (9.5-12.2); Monocytes % (A) 8.1 %; NRBC Per 100 WBC 0 /100 WBCS (0.0-0.0); Neutrophils # (A) 16.57 X 10*3/uL (1.80-7.70); RBC 6.55 X 10*6/uL (4.40-5.60); RDW 17.3 % (11.5-14.5); WBC 19.73 X 10*3/uL (4.50-10.00)
[2021-08-15 14:54] LABS: African American GFR (CKD) 41.2 (60.0-200.0); Anion Gap 12.7 mmol/L (10.00-18.00); BUN/Creat Ratio 25.56 Ratio (12.00-20.00); C Reactive Protein 4.2 mg/dL (0.00-0.80); Calcium 9.6 mg/dL (8.7-10.3); Carbon Dioxide 21.3 mmol/L (20.0-27.5); Magnesium 2.7 mg/dL (1.5-2.4); Non-African American GFR(CKD) 35.5 (60.0-200.0); Potassium 5.3 mmol/L (3.5-5.5)
[2021-08-15 15:34] LABS: Platelet Count 1653 X 10*3/uL (140-440)
--- NOTE | 2021-08-15 15:58 | XR ---
EXAMINATION TYPE: XR chest 1V portable DATE OF EXAM: 08/15/2021 COMPARISON: Chest x-ray 08/13/2021 HISTORY: Covid, right lower lobe pneumonia TECHNIQUE: Single frontal view of the chest is obtained. FINDINGS: There is improvement in aeration at the right lung base, no pleural effusion or pneumothor ax seen. The cardiac silhouette size is stable, heart appears borderline increased in size possibly due to prominence of epicardial fat pads. The osseous structures are intact. IMPRESSION: Improvement in aeration.
--- NOTE | 2021-08-15 16:29 | P.PN ---
Subjective Progress Note Date: 08/15/21 No new complaints, breathing is better, but cough is still bothering pt today. Gen: awake, alert HEENT: normocephalic, atraumatic, good hearing acuity, moist mucous membranes Resp: good air exchange, breathing comfortably with no accessory muscle use CVS: good distal perfusion x 4, GI: soft, NTTP, ND : no SPT, no CVAT, mendoza catheter not present MSK: no pitting edema, no clubbing Neuro: non-focal, moving all extremities Psych: cooperative, euthymic mood Labs and imaging reviewed as above Assessment/plan: Sepsis with Acute hypoxemic respiratory failure Covid 19 Community acquired pneumonia Elevated liver enzymes -Admit inpatient, telemetry -Oxygen as needed -Dexamethasone, day 4 -Pulmonary consult, patient is inside the window for remdesivir, but kidney function is poor -Ceftriaxone/azithromycin -Pro calcitonin is 0.15 -Continue to trend liver enzymes -Vitamin C/D, zinc, famotidine -Albuterol inhaler PRN Acute kidney injury superimposed on chronic kidney injury stage IIIB -Avoid nephrotoxins -Nephrology consult 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) -Continue monitor daily CBCs -Pathologist to review peripheral smear -Hematology consult -ID consult CAD Hypertension Hyperlipidemia Chronic systolic heart failure BPH Seizure disorder -Home medications reviewed and reconciled Patient is DO NOT RESUSCITATE/DO NOT INTUBATE Patient is on heparin 3 times a day for DVT prophylaxis Objective - Vital Signs Vital signs: Vital Signs Temp 97.8 F 08/15/21 13:46 Pulse 75 08/15/21 13:46 Resp 20 08/15/21 13:46 BP 127/62 08/15/21 13:46 Pulse Ox 93 L 08/15/21 13:46 FiO2 21 08/14/21 21:24 Intake & Output 08/14/21 08/15/21 08/15/21 18:59 06:59 18:59 Output Total 0 Balance 0 Output: Urine 0 Other: Voiding Method Toilet Toilet # Voids 7 # Bowel Movements 0 0 - Labs CBC & Chem 7: 08/15/21 07:40 08/15/21 07:40 Labs: Abnormal Lab Results - Last 24 Hours (Table) 08/14/21 08/15/21 08/15/21 Range/Units 20:55 07:21 07:33 WBC (4.50-10.00) X 10*3/uL RBC (4.40-5.60) X 10*6/uL MCV (80.0-97.0) fL MCH (27.0-32.0) pg MCHC (32.0-37.0) g/dL RDW (11.5-14.5) % Plt Count (140-440) X 10*3/uL Immature Gran # (0.00-0.04) X 10*3/uL Neutrophils # (1.80-7.70) X 10*3/uL Lymphocytes # (0.90-5.00) X 10*3/uL Monocytes # (0.20-1.00) X 10*3/uL Basophils # (0.00-0.10) X 10*3/uL D-Dimer 0.67 H (<0.60) mg/L FEU BUN (9.0-27.0) mg/dL Creatinine (0.6-1.5) mg/dL Est GFR (CKD-EPI)AfAm (60.0-200.0) Est GFR (CKD-EPI)NonAf (60.0-200.0) BUN/Creatinine Ratio (12.00-20.00) Ratio POC Glucose (mg/dL) 215 H 100 H (75-99) mg/dL Magnesium (1.5-2.4) mg/dL Lactate Dehydrogenase (120-246) U/L C-Reactive Protein (0.00-0.80) mg/dL 08/15/21 08/15/21 08/15/21 Range/Units 07:40 07:40 10:48 WBC 19.73 H (4.50-10.00) X 10*3/uL RBC 6.55 H (4.40-5.60) X 10*6/uL MCV 76.3 L (80.0-97.0) fL MCH 23.8 L (27.0-32.0) pg MCHC 31.2 L (32.0-37.0) g/dL RDW 17.3 H (11.5-14.5) % Plt Count 1653 H* (140-440) X 10*3/uL Immature Gran # 0.28 H (0.00-0.04) X 10*3/uL Neutrophils # 16.57 H (1.80-7.70) X 10*3/uL Lymphocytes # 0.78 L (0.90-5.00) X 10*3/uL Monocytes # 1.60 H (0.20-1.00) X 10*3/uL Basophils # 0.38 H (0.00-0.10) X 10*3/uL D-Dimer (<0.60) mg/L FEU BUN 46.0 H (9.0-27.0) mg/dL Creatinine 1.8 H (0.6-1.5) mg/dL Est GFR (CKD-EPI)AfAm 41.2 L (60.0-200.0) Est GFR (CKD-EPI)NonAf 35.5 L (60.0-200.0) BUN/Creatinine Ratio 25.56 H (12.00-20.00) Ratio POC Glucose (mg/dL) 184 H (75-99) mg/dL Magnesium 2.7 H (1.5-2.4) mg/dL Lactate Dehydrogenase 339 H (120-246) U/L C-Reactive Protein 4.20 H (0.00-0.80) mg/dL
[2021-08-15 16:30] LABS: Glucose,Whole Blood 242 mg/dL (75-99)
[2021-08-15 19:56] LABS: Glucose,Whole Blood 268 mg/dL (75-99)
[2021-08-15 20:01] LABS: ALT 252 U/L (4-49); AST 253 U/L (17-59); African American GFR (CKD) 45 (>60 ml/min/1.73 sqM); Albumin 3.3 g/dL (3.5-5.0); Albumin/Globulin Ratio 1.3; Alkaline Phosphatase 390 U/L (38-126); Anion Gap 7 mmol/L; Blood Urea Nitrogen 47 mg/dL (9-20); Carbon Dioxide 21 mmol/L (22-30); Chloride 107 mmol/L (98-107); Globulin 2.6 g/dL; Glucose 279 mg/dL (74-99); Non-African American GFR(CKD) 39 (>60 ml/min/1.73 sqM); Potassium 5.8 mmol/L (3.5-5.1); Sodium 135 mmol/L (137-145); Total Bilirubin 0.4 mg/dL (0.2-1.3); Total Protein 5.9 g/dL (6.3-8.2)
[2021-08-15] MEDS: METOPROLOL TARTRATE 25 MG TAB PO SCH (20:17)
[2021-08-15] MEDS: ASPIRIN 81 MG PO SCH (20:17)
[2021-08-15] MEDS: TAMSULOSIN 0.4 MG CAP.ER.24H PO SCH (20:17)
[2021-08-15] MEDS: ATORVASTATIN 80 MG TAB PO SCH (20:17)
[2021-08-15] MEDS: INSULIN DETEMIR (LEVEMIR) 100 UNIT/ML SYR SQ SCH (20:17)
[2021-08-15] MEDS: guaiFENesin-Coden 100-10MG/5ML 10 ML CUP PO PRN (20:35)
[2021-08-16 06:09] VITALS: RESP 17
[2021-08-16 06:57] LABS: Glucose,Whole Blood 112 mg/dL (75-99)
[2021-08-16] MEDS: INSULIN ASPART (NovoLOG) 100 UNIT/ML VIAL SQ SCH ×4 (07:14→13:06)
[2021-08-16 08:13] LABS: African American GFR (CKD) 49 (>60 ml/min/1.73 sqM); Anion Gap 5 mmol/L; Blood Urea Nitrogen 39 mg/dL (9-20); Calcium 9.3 mg/dL (8.4-10.2); Carbon Dioxide 23 mmol/L (22-30); Chloride 110 mmol/L (98-107); Glucose 102 mg/dL (74-99); Magnesium 2.6 mg/dL (1.6-2.3); Non-African American GFR(CKD) 42 (>60 ml/min/1.73 sqM); Potassium 4.9 mmol/L (3.5-5.1); Sodium 138 mmol/L (137-145)
[2021-08-16] MEDS: ALBUTEROL HFA INHALER INHALATION SCH ×2 (08:43→11:51)
[2021-08-16] MEDS: polyethylene glycoL 3350 17 GM POWD.PACK PO SCH (09:22)
[2021-08-16] MEDS: HEPARIN SODIUM,PORCINE/PF 5,000 UNIT/0.5 ML SYRINGE SQ SCH (09:22)
[2021-08-16] MEDS: DEXAMETHASONE SOD PHOSPHATE 10 MG/ML 1 ML VIAL IVP SCH (09:22)
[2021-08-16] MEDS: CHOLECALCIFEROL 25 MCG (1000 IU) TABLET PO SCH (09:23)
[2021-08-16] MEDS: FAMOTIDINE 20 MG TAB PO SCH (09:23)
[2021-08-16] MEDS: SODIUM BICARBONATE TAB 650 MG TAB PO SCH (09:23)
[2021-08-16] MEDS: ZINC SULFATE 220 MG CAP PO SCH (09:23)
[2021-08-16] MEDS: levETIRAcetam 500 MG TAB PO SCH (09:24)
[2021-08-16] MEDS: guaiFENesin-DM 600/30MG 1 EACH TAB.ER.12H PO SCH (09:24)
[2021-08-16] MEDS: VIT A,C & E-LUTEIN-MINERALS 1 EACH TAB PO SCH (09:24)
[2021-08-16] MEDS: CLOPIDOGREL 75 MG TAB PO SCH (09:24)
[2021-08-16] MEDS: OXcarbazepine 150 MG TAB PO SCH (09:24)
[2021-08-16] MEDS: guaiFENesin-Coden 100-10MG/5ML 10 ML CUP PO PRN (09:25)
--- NOTE | 2021-08-16 10:16 | CDI ---
Documentation Clarification Form Date: 08/15/2021 02:46:00 PM From: Criselda Middleton RN, CCDS Admit Date: 08/12/2021 11:46:00 PM Patient Name: Jakob Jang Visit Number: [id number] Discharge Date: ATTENTION: The Clinical Documentation Specialists (CDI) and [facility] Coding Staff appreciate your assistance in clarifying documentation. Please respond to the clarification below the line at the bottom and electronically sign. The CDI & [facility] Coding staff will review the response and follow-up if needed. Please note: Queries are made part of the Legal Health Record. If you have any questions, please contact the author of this message via ITS. Dr. Isabella Villalba Conflicting documentation has been found in the medical record. As attending physician, please provide clarification. 08/12-08/14 Attending H/P and subsequent progress notes: Community acquired pneumonia 08/13 ID Consult and subsequent progress notes: Pneumonia due to Covid-19 virus. Patient have predominantly right lower lobe infiltrate and concern for possible secondary bacterial pneumonia. 08/13 Nephrology consult and subsequent progress notes: Covid-19 pneumonia 08/13 Pulmonary: acute COVID 19 infection, with indication of lower lobe pneumonia History/Risk Factors: Diabetes Mellitus, GERD, Hypertension, renal disease, seizure disorder, Former smoker Clinical Indicators: 76-year-old male present with shortness of breath. COVID test was positive. 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
[2021-08-16 10:28] VITALS: BP 144/76; PULSE 78; TEMP 97.9
--- NOTE | 2021-08-16 10:32 | CDI ---
Documentation Clarification Form Date: 08/16/2021 10:26:37 AM From: Criselda Middleton RN, CCDS Admit Date: 08/12/2021 11:46:00 PM Patient Name: Jakob Jang Visit Number: [id number] Discharge Date: ATTENTION: The Clinical Documentation Specialists (CDI) and [facility] Coding Staff appreciate your assistance in clarifying documentation. Please respond to the clarification below the line at the bottom and electronically sign. The CDI & [facility] Coding staff will review the response and follow-up if needed. Please note: Queries are made part of the Legal Health Record. If you have any questions, please contact the author of this message via ITS. Dr. Isabella Villalba Sepsis is documented in the H/P and subsequent progress notes and patient is noted to have COVID-19 per PCR on 08/12/21. Please clarify if there is a relationship between the diagnosis and positive Coronavirus PCR. History/Risk Factors: Diabetes Mellitus, GERD, Hypertension, renal disease, seizure disorder, Former smoker Clinical Indicators: 76-year-old male present with shortness of breath. COVID test was positive. 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 Inhaler 2 puffs RT-QID prn, Oxygen as needed, CBC Daily, monitor liver and renal function Rocephin 1 GM IVPB Q 24 HR 08/13 Zithromax 500MG IVPB Daily 08/13-08/15 Droplet isolation and respiratory support Decadron 6MG IV Daily, Vit C 1,000 MG PO Daily, VIT D3 50mcg Daily, Zinc 220 MG PO Daily Please clarify the relationship, if any, which is clinically appropriate for this patient: [x] Sepsis is due to COVID-19 and bacterial pneumonia [ ] Sepsis is not due to COVID-19 (Specify cause of sepsis diagnosis] [ ] Other explanation of clinical findings (please specify) [ ] Unable to determine (no explanation for clinical findings) (Template Last Revised: May 2020) MTDD
--- NOTE | 2021-08-16 10:53 | P.PN ---
Subjective Patient is seen in follow-up for acute kidney injury on chronic kidney disease. Renal function improved. Denies chest pain or shortness of breath. Still coughing but improved. No vomiting or diarrhea. Oral intake is good. Admits to good urine output. Vital signs are stable. General: Awake and alert. No acute distress. HEENT: Head exam is unremarkable. LUNGS: Breath sounds decreased. HEART: Rate and Rhythm are regular. ABDOMEN: Soft, no distention. Obese. EXTREMITITES: 1+ edema. Objective - Vital Signs Vital signs: Vital Signs Temp 97.9 F 08/16/21 10:00 Pulse 78 08/16/21 10:00 Resp 17 08/16/21 10:00 BP 144/76 08/16/21 10:00 Pulse Ox 93 L 08/16/21 10:00 FiO2 21 08/14/21 21:24 Intake & Output 08/15/21 08/16/21 08/16/21 18:59 06:59 18:59 Output Total 700 Balance -700 Output: Urine 700 Other: Voiding Method Toilet Toilet Toilet # Voids 1 - Labs CBC & Chem 7: 08/15/21 07:40 08/16/21 07:50 Labs: Abnormal Lab Results - Last 24 Hours (Table) 08/15/21 08/15/21 08/15/21 Range/Units 07:40 07:40 10:48 WBC 19.73 H (4.50-10.00) X 10*3/uL RBC 6.55 H (4.40-5.60) X 10*6/uL MCV 76.3 L (80.0-97.0) fL MCH 23.8 L (27.0-32.0) pg MCHC 31.2 L (32.0-37.0) g/dL RDW 17.3 H (11.5-14.5) % Plt Count 1653 H* (140-440) X 10*3/uL Immature Gran # 0.28 H (0.00-0.04) X 10*3/uL Neutrophils # 16.57 H (1.80-7.70) X 10*3/uL Lymphocytes # 0.78 L (0.90-5.00) X 10*3/uL Monocytes # 1.60 H (0.20-1.00) X 10*3/uL Basophils # 0.38 H (0.00-0.10) X 10*3/uL Sodium (137-145) mmol/L Potassium (3.5-5.1) mmol/L Chloride (98-107) mmol/L Carbon Dioxide (22-30) mmol/L BUN 46.0 H (9.0-27.0) mg/dL Creatinine 1.8 H (0.6-1.5) mg/dL Est GFR (CKD-EPI)AfAm 41.2 L (60.0-200.0) Est GFR (CKD-EPI)NonAf 35.5 L (60.0-200.0) BUN/Creatinine Ratio 25.56 H (12.00-20.00) Ratio Glucose (74-99) mg/dL POC Glucose (mg/dL) 184 H (75-99) mg/dL Magnesium 2.7 H (1.5-2.4) mg/dL AST (17-59) U/L ALT (4-49) U/L Alkaline Phosphatase (38-126) U/L Lactate Dehydrogenase 339 H (120-246) U/L C-Reactive Protein 4.20 H (0.00-0.80) mg/dL Total Protein (6.3-8.2) g/dL Albumin (3.5-5.0) g/dL Procalcitonin (0.02-0.09) ng/mL 08/15/21 08/15/21 08/15/21 Range/Units 16:29 19:02 19:09 WBC (4.50-10.00) X 10*3/uL RBC (4.40-5.60) X 10*6/uL MCV (80.0-97.0) fL MCH (27.0-32.0) pg MCHC (32.0-37.0) g/dL RDW (11.5-14.5) % Plt Count (140-440) X 10*3/uL Immature Gran # (0.00-0.04) X 10*3/uL Neutrophils # (1.80-7.70) X 10*3/uL Lymphocytes # (0.90-5.00) X 10*3/uL Monocytes # (0.20-1.00) X 10*3/uL Basophils # (0.00-0.10) X 10*3/uL Sodium 135 L (137-145) mmol/L Potassium 5.8 H (3.5-5.1) mmol/L Chloride (98-107) mmol/L Carbon Dioxide 21 L (22-30) mmol/L BUN 47 H (9.0-27.0) mg/dL Creatinine 1.67 H (0.6-1.5) mg/dL Est GFR (CKD-EPI)AfAm (60.0-200.0) Est GFR (CKD-EPI)NonAf (60.0-200.0) BUN/Creatinine Ratio (12.00-20.00) Ratio Glucose 279 H (74-99) mg/dL POC Glucose (mg/dL) 242 H (75-99) mg/dL Magnesium (1.5-2.4) mg/dL AST 253 H (17-59) U/L ALT 252 H (4-49) U/L Alkaline Phosphatase 390 H (38-126) U/L Lactate Dehydrogenase (120-246) U/L C-Reactive Protein (0.00-0.80) mg/dL Total Protein 5.9 L (6.3-8.2) g/dL Albumin 3.3 L (3.5-5.0) g/dL Procalcitonin 0.17 H (0.02-0.09) ng/mL 08/15/21 08/16/21 08/16/21 Range/Units 19:53 06:56 07:50 WBC (4.50-10.00) X 10*3/uL RBC (4.40-5.60) X 10*6/uL MCV (80.0-97.0) fL MCH (27.0-32.0) pg MCHC (32.0-37.0) g/dL RDW (11.5-14.5) % Plt Count (140-440) X 10*3/uL Immature Gran # (0.00-0.04) X 10*3/uL Neutrophils # (1.80-7.70) X 10*3/uL Lymphocytes # (0.90-5.00) X 10*3/uL Monocytes # (0.20-1.00) X 10*3/uL Basophils # (0.00-0.10) X 10*3/uL Sodium (137-145) mmol/L Potassium (3.5-5.1) mmol/L Chloride 110 H (98-107) mmol/L Carbon Dioxide (22-30) mmol/L BUN 39 H (9.0-27.0) mg/dL Creatinine 1.56 H (0.6-1.5) mg/dL Est GFR (CKD-EPI)AfAm (60.0-200.0) Est GFR (CKD-EPI)NonAf (60.0-200.0) BUN/Creatinine Ratio (12.00-20.00) Ratio Glucose 102 H (74-99) mg/dL POC Glucose (mg/dL) 268 H 112 H (75-99) mg/dL Magnesium 2.6 H (1.5-2.4) mg/dL AST (17-59) U/L ALT (4-49) U/L Alkaline Phosphatase (38-126) U/L Lactate Dehydrogenase (120-246) U/L C-Reactive Protein (0.00-0.80) mg/dL Total Protein (6.3-8.2) g/dL Albumin (3.5-5.0) g/dL Procalcitonin (0.02-0.09) ng/mL Microbiology - Last 24 Hours (Table) 08/15/21 14:00 Gram Stain - Preliminary Sputum Sputum Culture - Preliminary Assessment and Plan Plan: Assessment: 1. Acute kidney injury mostly prerenal secondary to diuresis and infection. Renal function improved. Creatinine 1.56 today. 2. Chronic kidney disease stage IIIB secondary to diabetic kidney disease with baseline creatinine in the range of 1.6-1.8. 3. Hyperkalemia secondary to acute kidney injury, acidosis, losartan and potassium supplementation. Improved. 4. Acute hypoxic respiratory failure secondary to COVID-19 pneumonia. 5. Coronary artery disease with cardiac stenting. 6. Leukocytosis and thrombocytosis. Infectious disease and hematology following. 7. Diabetes mellitus. 8. Metabolic acidosis secondary to acute kidney injury and IV fluids. On oral bicarb. Better. 9. Hypertension with chronic kidney disease. Stable. 10. Lower extremity edema. Plan: Add Lasix 20 mg once daily. Continue to hold losartan for now. Blood pressure is well controlled. Encouraged oral intake. Renal diet. Avoid nephrotoxins. Tight blood sugar control. Continue to monitor renal function and urine output.
[2021-08-16] MEDS ORDERED: FUROSEMIDE 20 MG TAB PO SCH (11:15)
[2021-08-16 11:47] LABS: Glucose,Whole Blood 156 mg/dL (75-99)
[2021-08-16] MEDS: ASCORBIC ACID 500 MG TAB PO SCH (13:05)
--- NOTE | 2021-08-16 13:19 | P.PN ---
Subjective Progress Note Date: 08/16/21 76-year-old male patient came into the ED because of increased shortness of breath and a cough. The patient is known to have CAD, diabetes and hypertension hyperlipidemia and chronic systolic heart failure and the patient also has history of seizure disorder and BPH. The patient has been having fever and shortness of breath along with cough and states that over the last 3 days he developed no symptoms and the cough was nonproductive. He was progressively getting worse and for that reason he decided to come into the hospital. Has noticed 5 spiking temperature. The patient has already done a COVID 19 testing at home which tested positive and for that reason he came into the emergency department. He is fully vaccinated and boosted. His last booster dose was in March of this current year. This is his first infection with COVID 19. In the ED, the patient was found to be febrile with a temperature 100.3. The pulse ox was ranging between 90-92%. The white cell count was at 22.3 with a hemoglobin of 17. The patient's serum bicarb was 20 with a potassium level of 5.7 and the sodium level of 137. BNP is a 39 with a creatinine of 1.9 and a glucose was 127. LFTs were abnormal with an AST of 223, ALT of 142, bilirubin of 1.3, calcium of 9.8, lactic acid level of 1.8 and the patient had a CRP of 1226 with a LDH level of 6.2. Albumin was at 4.2 with a total protein of 7.1. The chest x-ray showed minimal infiltration of the right lung base at a time of admission and repeat chest x-ray from today showing smaller lung volumes and increased infiltration of the right lung base and some infiltration of the left lung base. The patient d-dimer is at 0.68. Untreated approximately nasal cannula the patient's pulse ox is around 97%. The patient is currently on Decadron 6 mg IV every 24 hours. The patient is also on heparin subcu for DVT prophylaxis. On today's evaluation of 08/14/2021, the patient continues to have cough and some congestion, overnight he "coughed quite a bit and he was quite symptomatic which affected his sleep. This morning, his cough is slightly improved and remains on Decadron. He is on oxygen and he is currently on 2 L per minute nasal cannula. Hemodynamically stable and the patient is afebrile. Blood work shows a white second of 22 and hemoglobin of 15.8. The rest of the electrolytes show a BUN of 53 with a creatinine of 2.0 and his sodium level is at 135. His LFTs continued to improve. His pro-calcitonin level is at 0.15. The patient is on Rocephin and Zithromax in combination with Decadron 6 g IV every 24 hours. He is on Levemir insulin 20 units daily along with a sliding scale coverage. Outpatient medications of been all resumed. On 08/15/2021 patient seen in follow-up on medical surgical floor. He is awake and alert, oriented 3, he states he is quite tired, he was up coughing all night, could not lay down flat because of coughing spells. He is bringing up some thick colored yellow phlegm which was sent for Gram stain and cultures. He is on a combination of azithromycin and Rocephin, his last chest x-ray showed wo rsening right lower lobe infiltrate. Patient is also positive for COVID-19, he remains on Decadron 6 mg daily, he is on prophylactic anticoagulation and multivitamins. No hemoptysis. No fever or chills, vital signs have been stable, he remains on room air with a pulse ox of 92-96%. His biggest complaint has been ongoing cough. Is on Mucinex DM 4 times daily as needed. His blood work from yesterday was reviewed showing leukocytosis with a white blood cell count of 22.7, hemoglobin of 15.8, his platelet count was elevated at 1452, d- dimer was 0.67, sodium was 135, potassium is 4.8, BUN is 53 and creatinine is 2.0. His last set of inflammatory markers showed elevated LDH of 1216, and CRP of 8.7, procalcitonin was 0.15. No nausea vomiting or diarrhea, he is tolerating oral intake. Appetite is poor. 27 2021, the patient is feeling extremely well. No specific complaints. Cough has subsided significantly. Eating well. No nausea vomiting or diarrhea or abdominal pain. No altered mentation. No fever or chills. No other significant events overnight. His current pulse ox above 90% on room air oxygen. Was sent is at 19.7 with a hemoglobin 15.6. The patient also had some thrombocytosis. Creatinine is stable at 1.5 with a BUN of 39 and a sodium level of 138. D-dimer was low at 0.67. Objective - Vital Signs Vital signs: Vital Signs Temp 97.9 F 08/16/21 10:00 Pulse 78 08/16/21 10:00 Resp 17 08/16/21 10:00 BP 144/76 08/16/21 10:00 Pulse Ox 93 L 08/16/21 10:00 FiO2 21 08/14/21 21:24 Intake & Output 08/15/21 08/16/21 08/16/21 18:59 06:59 18:59 Output Total 700 Balance -700 Output: Urine 700 Other: Voiding Method Toilet Toilet Toilet # Voids 1 - Exam GENERAL EXAM: Alert, obese 76-year-old white male, sitting up in the recliner on room air with a pulse ox of 93%, comfortable in no apparent distress. HEAD: Normocephalic/atraumatic. EYES: Normal reaction of pupils, equal size. Conjunctiva pink, sclera white. NOSE: Clear with pink turbinates. THROAT: No erythema or exudates. NECK: No masses, no JVD, no thyroid enlargement, no adenopathy. CHEST: No chest wall deformity. Symmetrical expansion. LUNGS: Equal air entry with no crackles, wheeze, rhonchi or dullness. CVS: Regular rate and rhythm, normal S1 and S2, no gallops, no murmurs, no rubs ABDOMEN: Soft, nontender. No hepatosplenomegaly, normal bowel sounds, no guarding or rigidity. EXTREMITIES: No clubbing, no edema, no cyanosis, 2+ pulses and upper and lower extremities. MUSCULOSKELETAL: Muscle strength and tone normal. SPINE: No scoliosis or deformity SKIN: No rashes CENTRAL NERVOUS SYSTEM: Alert and oriented -3. No focal deficits, tone is normal in all 4 extremities. PSYCHIATRIC: Alert and oriented -3. Appropriate affect. Intact judgment and insight. - Labs CBC & Chem 7: 08/15/21 07:40 08/16/21 07:50 Labs: Abnormal Lab Results - Last 24 Hours (Table) 08/15/21 08/15/21 08/15/21 Range/Units 07:40 07:40 16:29 WBC 19.73 H (4.50-10.00) X 10*3/uL RBC 6.55 H (4.40-5.60) X 10*6/uL MCV 76.3 L (80.0-97.0) fL MCH 23.8 L (27.0-32.0) pg MCHC 31.2 L (32.0-37.0) g/dL RDW 17.3 H (11.5-14.5) % Plt Count 1653 H* (140-440) X 10*3/uL Immature Gran # 0.28 H (0.00-0.04) X 10*3/uL Neutrophils # 16.57 H (1.80-7.70) X 10*3/uL Lymphocytes # 0.78 L (0.90-5.00) X 10*3/uL Monocytes # 1.60 H (0.20-1.00) X 10*3/uL Basophils # 0.38 H (0.00-0.10) X 10*3/uL Sodium (137-145) mmol/L Potassium (3.5-5.1) mmol/L Chloride (98-107) mmol/L Carbon Dioxide (22-30) mmol/L BUN 46.0 H (9.0-27.0) mg/dL Creatinine 1.8 H (0.6-1.5) mg/dL Est GFR (CKD-EPI)AfAm 41.2 L (60.0-200.0) Est GFR (CKD-EPI)NonAf 35.5 L (60.0-200.0) BUN/Creatinine Ratio 25.56 H (12.00-20.00) Ratio Glucose (74-99) mg/dL POC Glucose (mg/dL) 242 H (75-99) mg/dL Magnesium 2.7 H (1.5-2.4) mg/dL AST (17-59) U/L ALT (4-49) U/L Alkaline Phosphatase (38-126) U/L Lactate Dehydrogenase 339 H (120-246) U/L C-Reactive Protein 4.20 H (0.00-0.80) mg/dL Total Protein (6.3-8.2) g/dL Albumin (3.5-5.0) g/dL Procalcitonin (0.02-0.09) ng/mL 08/15/21 08/15/21 08/15/21 Range/Units 19:02 19:09 19:53 WBC (4.50-10.00) X 10*3/uL RBC (4.40-5.60) X 10*6/uL MCV (80.0-97.0) fL MCH (27.0-32.0) pg MCHC (32.0-37.0) g/dL RDW (11.5-14.5) % Plt Count (140-440) X 10*3/uL Immature Gran # (0.00-0.04) X 10*3/uL Neutrophils # (1.80-7.70) X 10*3/uL Lymphocytes # (0.90-5.00) X 10*3/uL Monocytes # (0.20-1.00) X 10*3/uL Basophils # (0.00-0.10) X 10*3/uL Sodium 135 L (137-145) mmol/L Potassium 5.8 H (3.5-5.1) mmol/L Chloride (98-107) mmol/L Carbon Dioxide 21 L (22-30) mmol/L BUN 47 H (9.0-27.0) mg/dL Creatinine 1.67 H (0.6-1.5) mg/dL Est GFR (CKD-EPI)AfAm (60.0-200.0) Est GFR (CKD-EPI)NonAf (60.0-200.0) BUN/Creatinine Ratio (12.00-20.00) Ratio Glucose 279 H (74-99) mg/dL POC Glucose (mg/dL) 268 H (75-99) mg/dL Magnesium (1.5-2.4) mg/dL AST 253 H (17-59) U/L ALT 252 H (4-49) U/L Alkaline Phosphatase 390 H (38-126) U/L Lactate Dehydrogenase (120-246) U/L C-Reactive Protein (0.00-0.80) mg/dL Total Protein 5.9 L (6.3-8.2) g/dL Albumin 3.3 L (3.5-5.0) g/dL Procalcitonin 0.17 H (0.02-0.09) ng/mL 08/16/21 08/16/21 08/16/21 Range/Units 06:56 07:50 11:46 WBC (4.50-10.00) X 10*3/uL RBC (4.40-5.60) X 10*6/uL MCV (80.0-97.0) fL MCH (27.0-32.0) pg MCHC (32.0-37.0) g/dL RDW (11.5-14.5) % Plt Count (140-440) X 10*3/uL Immature Gran # (0.00-0.04) X 10*3/uL Neutrophils # (1.80-7.70) X 10*3/uL Lymphocytes # (0.90-5.00) X 10*3/uL Monocytes # (0.20-1.00) X 10*3/uL Basophils # (0.00-0.10) X 10*3/uL Sodium (137-145) mmol/L Potassium (3.5-5.1) mmol/L Chloride 110 H (98-107) mmol/L Carbon Dioxide (22-30) mmol/L BUN 39 H (9.0-27.0) mg/dL Creatinine 1.56 H (0.6-1.5) mg/dL Est GFR (CKD-EPI)AfAm (60.0-200.0) Est GFR (CKD-EPI)NonAf (60.0-200.0) BUN/Creatinine Ratio (12.00-20.00) Ratio Glucose 102 H (74-99) mg/dL POC Glucose (mg/dL) 112 H 156 H (75-99) mg/dL Magnesium 2.6 H (1.5-2.4) mg/dL AST (17-59) U/L ALT (4-49) U/L Alkaline Phosphatase (38-126) U/L Lactate Dehydrogenase (120-246) U/L C-Reactive Protein (0.00-0.80) mg/dL Total Protein (6.3-8.2) g/dL Albumin (3.5-5.0) g/dL Procalcitonin (0.02-0.09) ng/mL Microbiology - Last 24 Hours (Table) 08/15/21 14:00 Gram Stain - Preliminary Sputum Sputum Culture - Preliminary Assessment and Plan Plan: Assessment: Acute COVID 19 infection Acute hypoxic respiratory failure secondary to above, recovered Acute kidney injury, most likely secondary to prerenal factors in addition to diuresis, improving Chronic kidney disease stage 3 Coronary artery disease with previous coronary stenting Chronic systolic heart failure Acute leukocytosis, white cell count remains elevated and the procalcitonin level is low. Acute transaminitis secondary to viral infection/COVID 19 Non-anion gap metabolic acidosis secondary to above Hypertension Hyperlipidemia Diabetes mellitus Obstructive sleep apnea, not utilizing any formal CPAP therapy Peripheral Neuropathy BPH Previous right foot toe amputation History of seizure disorder maintained on Keppra and Trileptal Thrombocytosis Plan: Course of Decadron a total of the 10 dayssince initiation Oxygenation is stable Cough has subsided Pro-calcitonin level is low LFTs are abnormal and this can be old up on outpatient basis The LDH level was improving and his CRP level was also improving Patient wants to. Discharge home. He needs to have a close follow-up with his primary care physician to monitor his respiratory status, blood counts including the thrombocytosis and the abnormal LFTs.
--- NOTE | 2021-08-16 13:44 | P.DS ---
Providers Date of admission: 08/12/21 23:46 Expected date of discharge: 08/16/21 Attending physician: Isabella Villalba MD Consults: 08/13/21 01:43 Consult Physician Routine Consulting Provider: Kamran Hanson Consult Reason/Comments: ELEONORA on CKD with hyperkalemia Do you want consulting provider notified?: Yes 08/13/21 01:44 Consult Physician Routine Consulting Provider: Paramjit Andino Consult Reason/Comments: Thrombocytosis > 1000 and basophilia Do you want consulting provider notified?: Yes 08/13/21 01:57 Consult Physician Routine Consulting Provider: Randi Arellano Consult Reason/Comments: basophilia and COVID Do you want consulting provider notified?: Yes 08/13/21 02:11 Consult Physician Routine Consulting Provider: Siobhan Jacobsen Consult Reason/Comments: COVID, CAP Do you want consulting provider notified?: Yes Primary care physician: Soy Liu MD Hospital Course: Sepsis with Acute hypoxemic respiratory failure Covid 19 Community acquired pneumonia Elevated liver enzymes Acute kidney injury superimposed on 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 In the emergency room, patient's T-max was 100.3, 127/62, heart rate 102, 92% on 2 L nasal cannula. CBC is remarkable for leukocytosis 22.3, elevated hematocrit at 53.3, borderline elevated hemoglobin at 17, thrombocytosis 1378; differential includes elevated neutrophils at 17.5, low lymphocytes of 0.8, elevated basophils of 0.5. Chemistries are remarkable for hyperkalemia to 5.7, BUN/creatinine of 39/1.98 to baseline of 1.6, elevated glucose at 127. LFTs are remarkable for AST/ALT of 223/142, elevated alkaline phosphatase at 461, elevated lactate dehydrogenase of 1326, elevated CRP at 6.2. Covid was positive. Chest x-ray shows cardiomegaly as well as a right lower lobe infiltrate. EKG shows sinus tachycardia with frequent PVCs and bigeminy pattern. Pt improved with dexamethasone and antibiotics. His kidney function returned to baseline, and he returned to room air. Regarding his basophilia, there was genetic testing sent out for evalution of essential thrombocytosis, and neoplasm; he will need f/u with their office for further recommendations. I spent 34 minutes coordinating this complex discharge. All Systems reviewed and pertinent positives and negatives noted in HPI, all other symptoms are negative Gen: awake, alert HEENT: normocephalic, atraumatic, good hearing acuity, moist mucous membranes Resp: good air exchange, breathing comfortably with no accessory muscle use CVS: good distal perfusion x 4, GI: soft, NTTP, ND : no SPT, no CVAT, mendoza catheter not present MSK: no pitting edema, no clubbing Neuro: non-focal, moving all extremities Psych: cooperative, euthymic mood Patient Condition at Discharge: Fair Plan - Discharge Summary New Discharge Prescriptions: New guaiFENesin-DM 600/30MG [Mucinex Dm] 2 each PO Q12HR #60 tab Zinc Sulfate [Orazinc] 220 mg PO DAILY #30 cap Famotidine [Pepcid] 20 mg PO DAILY #30 tab Ascorbic Acid [Vitamin C] 1,000 mg PO DAILY #30 tab Cefdinir [Omnicef] 300 mg PO Q12HR #6 capsule Dexamethasone [Decadron] 6 mg PO DAILY #6 tablet polyethylene glycoL 3350 [Miralax] 17 gm PO DAILY #30 packet guaiFENesin-Coden 100-10MG/5ML [Robitussin AC] 10 ml PO QID PRN #1200 ml PRN Reason: Cough Sodium Bicarbonate Tab 650 mg PO BID #60 tab Cholecalciferol [Vitamin D3 (25 Mcg = 1000 Iu)] 50 mcg PO DAILY #30 tab Continue Tamsulosin HCl [Flomax] 0.4 mg PO HS Aspirin EC [Ecotrin Low Dose] 81 mg PO HS levETIRAcetam [Keppra] 1,500 mg PO BID Multivit-Min/FA/Lycopen/Lutein [Centrum Silver Tablet] 1 tab PO DAILY Atorvastatin [Lipitor] 80 mg PO HS Losartan Potassium [Cozaar] 12.5 mg PO HS Clopidogrel [Plavix] 75 mg PO DAILY OXcarbazepine [Trileptal] 150 mg PO BID Metoprolol Tartrate [Lopressor] 25 mg PO HS Insulin Detemir [Levemir Flextouch Pen] 20 units SQ HS Insulin Aspart [NovoLOG Flexpen] 12 - 14 units SQ TID-W/MEALS Potassium Chloride [Klor-Con 10 ER] 10 meq PO DAILY Changed Furosemide [Lasix] 20 mg PO DAILY #0 Discharge Medication List Aspirin EC [Ecotrin Low Dose] 81 mg PO HS 04/09/14 [History] Tamsulosin HCl [Flomax] 0.4 mg PO HS 04/09/14 [History] Multivit-Min/FA/Lycopen/Lutein [Centrum Silver Tablet] 1 tab PO DAILY 04/30/18 [History] levETIRAcetam [Keppra] 1,500 mg PO BID 04/30/18 [History] Atorvastatin [Lipitor] 80 mg PO HS 01/27/19 [History] Clopidogrel [Plavix] 75 mg PO DAILY 01/27/19 [History] Losartan Potassium [Cozaar] 12.5 mg PO HS 01/27/19 [History] Metoprolol Tartrate [Lopressor] 25 mg PO HS 01/11/21 [History] OXcarbazepine [Trileptal] 150 mg PO BID 01/11/21 [History] Insulin Aspart [NovoLOG Flexpen] 12 - 14 units SQ TID-W/MEALS 04/14/21 [History] Insulin Detemir [Levemir Flextouch Pen] 20 units SQ HS 04/14/21 [History] Potassium Chloride [Klor-Con 10 ER] 10 meq PO DAILY 04/30/21 [History] Ascorbic Acid [Vitamin C] 1,000 mg PO DAILY #30 tab 08/16/21 [Rx] Cefdinir [Omnicef] 300 mg PO Q12HR #6 capsule 08/16/21 [Rx] Cholecalciferol [Vitamin D3 (25 Mcg = 1000 Iu)] 50 mcg PO DAILY #30 tab 08/16/21 [Rx] Dexamethasone [Decadron] 6 mg PO DAILY #6 tablet 08/16/21 [Rx] Famotidine [Pepcid] 20 mg PO DAILY #30 tab 08/16/21 [Rx] Furosemide [Lasix] 20 mg PO DAILY #0 08/16/21 [Rx] Sodium Bicarbonate Tab 650 mg PO BID #60 tab 08/16/21 [Rx] Zinc Sulfate [Orazinc] 220 mg PO DAILY #30 cap 08/16/21 [Rx] guaiFENesin-Coden 100-10MG/5ML [Robitussin AC] 10 ml PO QID PRN #1200 ml 08/16/21 [Rx] guaiFENesin-DM 600/30MG [Mucinex Dm] 2 each PO Q12HR #60 tab 08/16/21 [Rx] polyethylene glycoL 3350 [Miralax] 17 gm PO DAILY #30 packet 08/16/21 [Rx] Follow up Appointment(s)/Referral(s): Paramjit Andino MD [STAFF PHYSICIAN] - 1 Week (Office closed. Please call when open for follow-up appointment.) Soy Liu MD [Primary Care Provider] - 1-2 days (Office closed Thursday. Please call office Thursday for your appointment. Thank you.) Ailyn Reagan [NON-STAFF] - As Needed Kamran Hanson DO [STAFF PHYSICIAN] - 09/09/21 9:00 am Patient Instructions/Handouts: COVID-19 (Coronavirus Disease 2019) (DC) Discharge Disposition: HOME SELF-CARE
== END 2021-08-16 14:00 | disposition home health service (06) | DRG 871 ==
LOC: EC 21:08 → 3SCARD 23:46 → 4SSUR 08-13 15:18
PROVIDERS: ADMIT Internal Medicine; ATTEND Internal Medicine
DX: A41.89 Other specified sepsis (principal); U07.1 COVID-19; J12.82 Pneumonia due to coronavirus disease 2019; J15.9 Unspecified bacterial pneumonia; J96.01 Acute respiratory failure with hypoxia; I50.22 Chronic systolic (congestive) heart failure; I13.0 Hypertensive heart and chronic kidney disease with heart failure and stage 1 through stage 4 chronic kidney disease, or unspecified chronic kidney disease; N17.9 Acute kidney failure, unspecified; E87.2 Acidosis; E11.42 Type 2 diabetes mellitus with diabetic polyneuropathy; E11.22 Type 2 diabetes mellitus with diabetic chronic kidney disease; D75.839 Thrombocytosis, unspecified; N18.32 Chronic kidney disease, stage 3b; G40.909 Epilepsy, unspecified, not intractable, without status epilepticus; E11.65 Type 2 diabetes mellitus with hyperglycemia; Z79.4 Long term (current) use of insulin; Z89.421 Acquired absence of other right toe(s); Z66 Do not resuscitate; R74.01 Elevation of levels of liver transaminase levels; E87.5 Hyperkalemia; I25.10 Atherosclerotic heart disease of native coronary artery without angina pectoris; G47.33 Obstructive sleep apnea (adult) (pediatric); K21.9 Gastro-esophageal reflux disease without esophagitis; E78.5 Hyperlipidemia, unspecified; I25.2 Old myocardial infarction; I49.3 Ventricular premature depolarization; N40.0 Benign prostatic hyperplasia without lower urinary tract symptoms; T50.2X5A Adverse effect of carbonic-anhydrase inhibitors, benzothiadiazides and other diuretics, initial encounter; E66.9 Obesity, unspecified; Z68.24 Body mass index [BMI] 24.0-24.9, adult; Z79.02 Long term (current) use of antithrombotics/antiplatelets; Z79.82 Long term (current) use of aspirin; Z79.899 Other long term (current) drug therapy; Z90.49 Acquired absence of other specified parts of digestive tract; Z87.19 Personal history of other diseases of the digestive system; Z95.5 Presence of coronary angioplasty implant and graft; Z96.653 Presence of artificial knee joint, bilateral; Z87.81 Personal history of (healed) traumatic fracture; Z98.42 Cataract extraction status, left eye; Z87.891 Personal history of nicotine dependence; Z98.41 Cataract extraction status, right eye; Z86.19 Personal history of other infectious and parasitic diseases; Z86.31 Personal history of diabetic foot ulcer; Z98.890 Other specified postprocedural states
CPT/HCPCS: 36415; 71045; 80048; 80053; 81270; 82248; 82728; 83540; 83550; 83605; 83615; 83735; 84100; 84132; 84145; 85025; 85379; 85610; 85652; 85730; 86140; 87070; 87077; 87186; 87205; 87635; 93005; 94640; 94760; 96361; 96365; 96366; 96368; 96372; 96375; 99285

== ENCOUNTER 2021-09-05 10:53 | Observation (INO) | payer MEDICARE ==
--- NOTE | 2021-09-05 12:50 | ED ---
General Adult HPI - General Chief complaint: GI Bleed Stated complaint: Blood In Stool Time Seen by Provider: 09/05/21 11:40 Source: patient, RN notes reviewed, old records reviewed Mode of arrival: ambulatory Limitations: no limitations - History of Present Illness Initial comments: 76-year-old male with chief complaint of bright red rectal bleeding. Patient is on aspirin and Plavix. His noted significant bleeding this morning. He's had similar episodes in the past and was recommended to have colonoscopy but states because of coronavirus was unable to obtain this test. He denies dyspnea or lightheadedness. Denies abdominal pain. - Related Data Home Medications Medication Instructions Recorded Confirmed Aspirin EC [Ecotrin Low Dose] 81 mg PO HS 04/09/14 08/12/21 Tamsulosin HCl [Flomax] 0.4 mg PO HS 04/09/14 08/12/21 Multivit-Min/FA/Lycopen/Lutein 1 tab PO DAILY 04/30/18 08/12/21 [Centrum Silver Tablet] levETIRAcetam [Keppra] 1,500 mg PO BID 04/30/18 08/12/21 Atorvastatin [Lipitor] 80 mg PO HS 01/27/19 08/12/21 Clopidogrel [Plavix] 75 mg PO DAILY 01/27/19 08/12/21 Losartan Potassium [Cozaar] 12.5 mg PO HS 01/27/19 08/12/21 Metoprolol Tartrate [Lopressor] 25 mg PO HS 01/11/21 08/12/21 OXcarbazepine [Trileptal] 150 mg PO BID 01/11/21 08/12/21 Insulin Aspart [NovoLOG Flexpen] 12 - 14 units SQ TID-W/MEALS 04/14/21 08/12/21 Insulin Detemir [Levemir Flextouch 20 units SQ HS 04/14/21 08/12/21 Pen] Potassium Chloride [Klor-Con 10 ER] 10 meq PO DAILY 04/30/21 08/12/21 Previous Rx's Medication Instructions Recorded Ascorbic Acid [Vitamin C] 1,000 mg PO DAILY #30 tab 08/16/21 Cefdinir [Omnicef] 300 mg PO Q12HR #6 capsule 08/16/21 Cholecalciferol [Vitamin D3 (25 50 mcg PO DAILY #30 tab 08/16/21 Mcg = 1000 Iu)] Famotidine [Pepcid] 20 mg PO DAILY #30 tab 08/16/21 Furosemide [Lasix] 20 mg PO DAILY #0 08/16/21 Sodium Bicarbonate Tab 650 mg PO BID #60 tab 08/16/21 Zinc Sulfate [Orazinc] 220 mg PO DAILY #30 cap 08/16/21 dexAMETHasone [Decadron] 6 mg PO DAILY #6 tablet 08/16/21 guaiFENesin-Coden 100-10MG/5ML 10 ml PO Q6H PRN 3 Days #120 ml 08/16/21 [Robitussin AC] guaiFENesin-DM 600/30MG [Mucinex 2 each PO Q12HR #60 tab 08/16/21 Dm] polyethylene glycoL 3350 [Miralax] 17 gm PO DAILY #30 packet 08/16/21 Allergies Allergy/AdvReac Type Severity Reaction Status Date / Time No Known Allergies Allergy Verified 09/05/21 11:19 Review of Systems ROS Statement: Those systems with pertinent positive or pertinent negative responses have been documented in the HPI. ROS Other: All systems not noted in ROS Statement are negative. Past Medical History Past Medical History: Diabetes Mellitus, GERD/Reflux, Hyperlipidemia, Hypertension, Myocardial Infarction (DC), Prostate Disorder, Renal Disease, Seizure Disorder, Sleep Apnea/CPAP/BIPAP Additional Past Medical History / Comment(s): last seizure 6 monhts ago, no CPAP, neuropathy feet, decreased kidney function-, right great toe wound, "disk issues" Last Myocardial Infarction Date:: 2013 History of Any Multi-Drug Resistant Organisms: None Reported Past Surgical History: Cholecystectomy, Heart Catheterization, Heart Catheterization With Stent, Orthopedic Surgery Additional Past Surgical History / Comment(s): bilateral knee replacement, left ankle ORIF, 5 cardiac stents, carlos cataracts, right foot toe amputation. Past Anesthesia/Blood Transfusion Reactions: No Reported Reaction Date of Last Stent Placement:: 2013 Past Psychological History: No Psychological Hx Reported Smoking Status: Former smoker Past Alcohol Use History: Occasional Past Drug Use History: None Reported - Past Family History Mother Family Medical History: No Reported History General Exam Limitations: no limitations General appearance: alert, in no apparent distress Head exam: Present: atraumatic, normocephalic Eye exam: Present: normal appearance, PERRL Neck exam: Present: normal inspection. Absent: tenderness, meningismus Respiratory exam: Present: normal lung sounds bilaterally. Absent: respiratory distress, wheezes Cardiovascular Exam: Present: regular rate, normal rhythm GI/Abdominal exam: Present: soft. Absent: distended, tenderness, guarding Rectal exam: Present: bloody stool. Absent: hemorrhoids Extremities exam: Present: normal inspection, normal capillary refill. Absent: pedal edema Neurological exam: Present: alert, oriented X3, CN II-XII intact. Absent: motor sensory deficit Psychiatric exam: Present: normal affect, normal mood Skin exam: Present: warm, dry, intact. Absent: cyanosis, diaphoretic Course Vital Signs 09/05/21 09/05/21 11:15 13:16 Temperature 98.3 F Pulse Rate 77 75 Respiratory 18 18 Rate Blood Pressure 124/71 O2 Sat by Pulse 95 Oximetry Medical Decision Making - Medical Decision Making 76-year-old male with bright red rectal bleeding. Patient is on aspirin and Plavix. On exam he has no abdominal tenderness. Vital signs are stable. He has a rectal exam which is negative for hemorrhoids, does show dried red blood. Patient has mild leukocytosis, stable hemoglobin, thrombocytosis which is improved from prior. Patient will be placed in observation for repeat hemoglobin, close monitoring. Gastroenterology will be placed on consult. I did admit this patient to [facility]. - Lab Data Result diagrams: 09/05/21 12:38 09/05/21 12:38 Lab Results 09/05/21 09/05/21 09/05/21 Range/Units 12:20 12:38 12:38 WBC 13.5 H (3.8-10.6) k/uL RBC 6.50 H (4.30-5.90) m/uL Hgb 15.9 (13.0-17.5) gm/dL Hct 50.1 (39.0-53.0) % MCV 77.0 L (80.0-100.0) fL MCH 24.4 L (25.0-35.0) pg MCHC 31.7 (31.0-37.0) g/dL RDW 16.1 H (11.5-15.5) % Plt Count 1281 H* (150-450) k/uL MPV 8.1 Neutrophils % (Manual) 76 % Band Neuts % (Manual) 1 % Lymphocytes % (Manual) 8 % Monocytes % (Manual) 7 % Eosinophils % (Manual) 7 % Basophils % (Manual) 3 % Neutrophils # (Manual) 10.30 H (1.3-7.7) k/uL Lymphocytes # (Manual) 1.08 (1.0-4.8) k/uL Monocytes # (Manual) 0.95 (0-1.0) k/uL Eosinophils # (Manual) 0.95 H (0-0.7) k/uL Basophils # (Manual) 0.41 H (0-0.2) k/uL Nucleated RBCs 0 (0-0) /100 WBC Differential Comment Manual Slide Review Performed Large Platelets Present Anisocytosis Slight Microcytosis Slight PT 11.5 (9.0-12.0) sec INR 1.1 (<1.2) APTT 28.1 (22.0-30.0) sec Sodium (137-145) mmol/L Potassium (3.5-5.1) mmol/L Chloride (98-107) mmol/L Carbon Dioxide (22-30) mmol/L Anion Gap mmol/L BUN (9-20) mg/dL Creatinine (0.66-1.25) mg/dL Est GFR (CKD-EPI)AfAm (>60 ml/min/1.73 sqM) Est GFR (CKD-EPI)NonAf (>60 ml/min/1.73 sqM) Glucose (74-99) mg/dL Calcium (8.4-10.2) mg/dL Magnesium (1.6-2.3) mg/dL Total Bilirubin (0.2-1.3) mg/dL AST (17-59) U/L ALT (4-49) U/L Alkaline Phosphatase (38-126) U/L Total Protein (6.3-8.2) g/dL Albumin (3.5-5.0) g/dL Blood Type B Positive Blood Type Recheck B Pos Bld Type Recheck Status No Antibody Screen NEGATIVE Spec Expiration Date 09/08/2021 - 233709/05/21 Range/Units 12:38 WBC (3.8-10.6) k/uL RBC (4.30-5.90) m/uL Hgb (13.0-17.5) gm/dL Hct (39.0-53.0) % MCV (80.0-100.0) fL MCH (25.0-35.0) pg MCHC (31.0-37.0) g/dL RDW (11.5-15.5) % Plt Count (150-450) k/uL MPV Neutrophils % (Manual) % Band Neuts % (Manual) % Lymphocytes % (Manual) % Monocytes % (Manual) % Eosinophils % (Manual) % Basophils % (Manual) % Neutrophils # (Manual) (1.3-7.7) k/uL Lymphocytes # (Manual) (1.0-4.8) k/uL Monocytes # (Manual) (0-1.0) k/uL Eosinophils # (Manual) (0-0.7) k/uL Basophils # (Manual) (0-0.2) k/uL Nucleated RBCs (0-0) /100 WBC Differential Comment Manual Slide Review Large Platelets Anisocytosis Microcytosis PT (9.0-12.0) sec INR (<1.2) APTT (22.0-30.0) sec Sodium 138 (137-145) mmol/L Potassium 4.6 (3.5-5.1) mmol/L Chloride 106 (98-107) mmol/L Carbon Dioxide 26 (22-30) mmol/L Anion Gap 6 mmol/L BUN 33 H (9-20) mg/dL Creatinine 1.77 H (0.66-1.25) mg/dL Est GFR (CKD-EPI)AfAm 42 (>60 ml/min/1.73 sqM) Est GFR (CKD-EPI)NonAf 36 (>60 ml/min/1.73 sqM) Glucose 165 H (74-99) mg/dL Calcium 9.3 (8.4-10.2) mg/dL Magnesium 2.1 (1.6-2.3) mg/dL Total Bilirubin 0.9 (0.2-1.3) mg/dL AST 25 (17-59) U/L ALT 25 (4-49) U/L Alkaline Phosphatase 188 H (38-126) U/L Total Protein 6.3 (6.3-8.2) g/dL Albumin 3.7 (3.5-5.0) g/dL Blood Type Blood Type Recheck Bld Type Recheck Status Antibody Screen Spec Expiration Date Disposition Clinical Impression: Hematochezia Disposition: ADMITTED IP TO THIS HOSP Condition: Stable Is patient prescribed a controlled substance at d/c from ED?: No Referrals: Soy Liu MD [Primary Care Provider] - 1-2 days Time of Disposition: 14:02
[2021-09-05 13:01] LABS: Albumin 3.7 g/dL (3.5-5.0); Calcium 9.3 mg/dL (8.4-10.2); Magnesium 2.1 mg/dL (1.6-2.3); Potassium 4.6 mmol/L (3.5-5.1); Total Bilirubin 0.9 mg/dL (0.2-1.3); Total Protein 6.3 g/dL (6.3-8.2)
[2021-09-05 13:02] LABS: Anisocytosis Slight; HCT 50.1 % (39.0-53.0); HGB 15.9 gm/dL (13.0-17.5); MCH 24.4 pg (25.0-35.0); MCHC 31.7 g/dL (31.0-37.0); Mean Platelet Volume 8.1; Microcytosis Slight; RDW 16.1 % (11.5-15.5); WBC 13.5 k/uL (3.8-10.6)
[2021-09-05 13:08] LABS: INR 1.1 (<1.2); Partial Thromboplastin Time 28.1 sec (22.0-30.0); Prothrombin Time 11.5 sec (9.0-12.0)
[2021-09-05 13:09] LABS: Platelet Count 1281 k/uL (150-450)
[2021-09-05 13:55] LABS: Band Neutrophils % 1 %; Basophils # (M) 0.41 k/uL (0-0.2); Eosinophils # (M) 0.95 k/uL (0-0.7); Lymphocytes # (M) 1.08 k/uL (1.0-4.8); Monocytes # (M) 0.95 k/uL (0-1.0); Neutrophils % (M) 76 %; Nucleated Red Blood Cells 0 /100 WBC (0-0); Total Cells Counted 200
[2021-09-05 13:56] LABS: Large Platelets Present
[2021-09-05] MEDS ORDERED: NALOXONE 0.4 MG/ML 1 ML VIAL IV PRN (13:58)
[2021-09-05] MEDS: SODIUM CHLORIDE 0.9% 1,000 ML IV SCH (14:07)
[2021-09-05 14:25] LABS: Appearance,Urine Clear (Clear); Bilirubin,Urine Negative (Negative); Blood,Urine Negative (Negative); Color,Urine Colorless; Glucose,Urine (UA) Negative (Negative); Ketones,Urine Negative (Negative); Leukocyte Esterase,Urine Negative (Negative); Nitrite,Urine Negative (Negative); Protein,Urine Negative (Negative); Specific Gravity,Urine 1.005 (1.001-1.035); Urobilinogen,Urine <2.0 mg/dL (<2.0)
--- NOTE | 2021-09-05 17:08 | P.HPIM ---
History of Present Illness H&P Date: 09/05/21 Chief Complaint: Bright red blood per rectum 76 year old man with history of CAD, diabetes, hypertension, hyperlipidemia, systolic heart failure, BPH, seizure disorder presented for bright red blood per rectum. Patient says that he noticed this morning that he had a significant amount of bloody output without a bowel movement. The blood was bright red and copious, he also passed some blood clots as well. He was previous is scheduled for colonoscopy, however, he was admitted with Covid and this was deferred. He is scheduled to see GI in a couple weeks for colonoscopy, however, presented to the emergency room instead due to his bleeding. He denies nausea, vomiting, chest pain, palpitations, syncope, presyncope, abdominal pain, constipation, diarrhea, dysuria, dyschezia, numbness/weakness of extremities. In the emergency room, patient was afebrile, 124/71, heart rate 77, 95% on room air. CBC was remarkable for mild leukocytosis 13.5, hemoglobin of 15.9, laura telet count 1281, 410 basophils, 950 8 eosinophils. Chemistries are remarkable for BUNs/creatinine of 33/1.77, which represents his baseline. Liver function tests show elevated alkaline phosphatase of 188, otherwise unremarkable. UA is unremarkable. No images to review All Systems reviewed and pertinent positives and negatives noted in HPI, all other symptoms are negative Gen: in no apparent distress, resting comfortably in bed Eyes: PERRL, no scleral injection or icterus HENT: normocephalic, atraumatic, good hearing acuity, moist mucous membranes Neck: no tracheal deviation, full range of motion Resp: good air exchange, breathing comfortably with no accessory muscle use, no tactile fremitus, clear to auscultation bilaterally CVS: good distal perfusion x 4, bilateral pitting edema, regular rate and rhythm GI: soft, no tenderness to palpation, ND, no hepatosplenomegaly : no suprapubic tenderness, no CVAT, mendoza catheter not present MSK: no clubbing, no cyanosis, no noted contractures of extremities Skin: no noted rashes, petechiae; temperature of skin is appropriate Neuro: moving all extremities without signs of weakness, CN II-XII intact Psych: cooperative, euthymic mood, insight and judgment intact Labs and imaging reviewed as above Assessment/plan: Lower GI bleed -Admit observation, telemetry -GI consult for colonoscopy -Clear liquid diet, GI prep -Trend CBC -Large bore IV access -Transfuse for hemodynamic instability as well as greater than 2. hemoglobin drop or hemoglobin less than 7 Chronic kidney injury stage IIIB -Avoid nephrotoxins -Renally dose medications 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) -Continue to follow up with hematology outpatient -SHYAM 2 mutation was negative CAD Hypertension Hyperlipidemia Chronic systolic heart failure BPH Seizure disorder -Home medications reviewed and reconciled Patient is DO NOT RESUSCITATE/DO NOT INTUBATE Chemical DVT prophylaxis held due to bleeding Past Medical History Past Medical History: Diabetes Mellitus, GERD/Reflux, Hyperlipidemia, Hypertension, Myocardial Infarction (VT), Prostate Disorder, Renal Disease, Seizure Disorder, Sleep Apnea/CPAP/BIPAP Additional Past Medical History / Comment(s): last seizure 6 monhts ago, no CPAP, neuropathy feet, decreased kidney function-, right great toe wound, "disk issues" Last Myocardial Infarction Date:: 2013 History of Any Multi-Drug Resistant Organisms: None Reported Past Surgical History: Cholecystectomy, Heart Catheterization, Heart Catheterization With Stent, Orthopedic Surgery Additional Past Surgical History / Comment(s): bilateral knee replacement, left ankle ORIF, 5 cardiac stents, carlos cataracts, right foot toe amputation. Past Anesthesia/Blood Transfusion Reactions: No Reported Reaction Date of Last Stent Placement:: 2013 Past Psychological History: No Psychological Hx Reported Smoking Status: Former smoker Past Alcohol Use History: Occasional Past Drug Use History: None Reported - Past Family History Mother Family Medical History: No Reported History Medications and Allergies Home Medications Medication Instructions Recorded Confirmed Type Aspirin EC [Ecotrin Low Dose] 81 mg PO HS 04/09/14 09/05/21 History Tamsulosin HCl [Flomax] 0.4 mg PO HS 04/09/14 09/05/21 History Multivit-Min/FA/Lycopen/Lutein 1 tab PO DAILY 04/30/18 09/05/21 History [Centrum Silver Tablet] levETIRAcetam [Keppra] 1,500 mg PO BID 04/30/18 09/05/21 History Atorvastatin [Lipitor] 80 mg PO HS 01/27/19 09/05/21 History Clopidogrel [Plavix] 75 mg PO DAILY 01/27/19 09/05/21 History Losartan Potassium [Cozaar] 12.5 mg PO HS 01/27/19 09/05/21 History Metoprolol Tartrate [Lopressor] 12.5 mg PO HS 01/11/21 09/05/21 History OXcarbazepine [Trileptal] 150 mg PO BID 01/11/21 09/05/21 History Insulin Aspart [NovoLOG Flexpen] See Protocol SQ TID-W/MEALS 04/14/21 09/05/21 History Insulin Detemir [Levemir Flextouch 20 units SQ HS 04/14/21 09/05/21 History Pen] Ascorbic Acid [Vitamin C] 1,000 mg PO DAILY #30 tab 08/16/21 09/05/21 Rx Cholecalciferol [Vitamin D3 (25 50 mcg PO DAILY #30 tab 08/16/21 09/05/21 Rx Mcg = 1000 Iu)] Famotidine [Pepcid] 20 mg PO DAILY #30 tab 08/16/21 09/05/21 Rx Sodium Bicarbonate Tab 650 mg PO BID #60 tab 08/16/21 09/05/21 Rx Zinc Sulfate [Orazinc] 220 mg PO DAILY #30 cap 08/16/21 09/05/21 Rx polyethylene glycoL 3350 [Miralax] 17 gm PO DAILY #30 packet 08/16/21 09/05/21 Rx Furosemide [Lasix] 20 mg PO DAILY 09/05/21 09/05/21 History Allergies Allergy/AdvReac Type Severity Reaction Status Date / Time No Known Allergies Allergy Verified 09/05/21 14:08 Physical Exam Osteopathic Statement: *. No significant issues noted on an osteopathic structural exam other than those noted in the History and Physical/Consult. Vitals: Vital Signs Temp Pulse Resp BP Pulse Ox 09/05/21 14:49 73 18 141/82 09/05/21 14:01 70 18 141/94 97 09/05/21 13:16 75 18 09/05/21 11:15 98.3 F 77 18 124/71 95 Intake and Output 09/05/21 09/05/21 09/05/21 06:59 14:59 22:59 Other: Weight 103.419 kg Results CBC & Chem 7: 09/05/21 12:38 09/05/21 12:38 Labs: Abnormal Lab Results - Last 24 Hours (Table) 09/05/21 09/05/21 Range/Units 12:38 12:38 WBC 13.5 H (3.8-10.6) k/uL RBC 6.50 H (4.30-5.90) m/uL MCV 77.0 L (80.0-100.0) fL MCH 24.4 L (25.0-35.0) pg RDW 16.1 H (11.5-15.5) % Plt Count 1281 H* (150-450) k/uL Neutrophils # (Manual) 10.30 H (1.3-7.7) k/uL Eosinophils # (Manual) 0.95 H (0-0.7) k/uL Basophils # (Manual) 0.41 H (0-0.2) k/uL BUN 33 H (9-20) mg/dL Creatinine 1.77 H (0.66-1.25) mg/dL Glucose 165 H (74-99) mg/dL Alkaline Phosphatase 188 H (38-126) U/L
[2021-09-05] MEDS: INSULIN ASPART (NovoLOG) 100 UNIT/ML VIAL SQ SCH (18:17)
[2021-09-05 18:24] LABS: Glucose,Whole Blood 128 mg/dL (70-110)
[2021-09-05 18:40] LABS: Anisocytosis Slight; HCT 51.4 % (39.0-53.0); HGB 16.4 gm/dL (13.0-17.5); MCH 24.7 pg (25.0-35.0); MCHC 31.9 g/dL (31.0-37.0); MCV 77.5 fL (80.0-100.0); Mean Platelet Volume 8.1; Microcytosis Slight; RBC 6.63 m/uL (4.30-5.90); RDW 16.1 % (11.5-15.5); WBC 12.9 k/uL (3.8-10.6)
[2021-09-05 18:41] LABS: Platelet Count 1259 k/uL (150-450)
[2021-09-05 19:04] LABS: Band Neutrophils % 3 %; Basophils # (M) 0.13 k/uL (0-0.2); Eosinophils # (M) 0.52 k/uL (0-0.7); Large Platelets Present; Lymphocytes # (M) 1.68 k/uL (1.0-4.8); Metamyelocytes # (M) 0.13 k/uL (0); Metamyelocytes % 1 %; Monocytes # (M) 0.26 k/uL (0-1.0); Neutrophils % (M) 76 %; Nucleated Red Blood Cells 0 /100 WBC (0-0); Total Cells Counted 100
[2021-09-05] MEDS ORDERED: LOSARTAN 25 MG TAB PO SCH (21:00)
[2021-09-05] MEDS ORDERED: INSULIN DETEMIR (LEVEMIR) 100 UNIT/ML SYR SQ SCH (21:00)
[2021-09-05 21:57] LABS: Glucose,Whole Blood 116 mg/dL (70-110)
[2021-09-05] MEDS: ATORVASTATIN 80 MG TAB PO SCH (22:38)
[2021-09-05] MEDS: SODIUM BICARBONATE TAB 650 MG TAB PO SCH (22:38)
[2021-09-05] MEDS: TAMSULOSIN 0.4 MG CAP.ER.24H PO SCH (22:39)
[2021-09-05] MEDS: METOPROLOL TARTRATE 12.5 MG TAB PO SCH (22:40)
[2021-09-05] MEDS: OXcarbazepine 150 MG TAB PO SCH (22:59)
[2021-09-05] MEDS: ACETAMINOPHEN TAB 325 MG TAB PO PRN (23:10)
[2021-09-06] MEDS: SODIUM CHLORIDE 0.9% 1,000 ML IV SCH ×2 (02:55→20:29)
[2021-09-06 07:06] LABS: Glucose,Whole Blood 149 mg/dL (70-110)
[2021-09-06] MEDS: INSULIN ASPART (NovoLOG) 100 UNIT/ML VIAL SQ SCH ×3 (07:48→17:53)
[2021-09-06] MEDS: FAMOTIDINE 20 MG TAB PO SCH (07:49)
[2021-09-06] MEDS: MULTIVITAMINS, THERA 1 EACH TAB PO SCH (07:49)
[2021-09-06] MEDS: SODIUM BICARBONATE TAB 650 MG TAB PO SCH ×2 (07:49→20:29)
[2021-09-06] MEDS: ACETAMINOPHEN TAB 325 MG TAB PO PRN ×2 (07:49→20:33)
[2021-09-06] MEDS: ZINC SULFATE 220 MG CAP PO SCH (07:49)
[2021-09-06] MEDS: CHOLECALCIFEROL 25 MCG (1000 IU) TABLET PO SCH (07:49)
[2021-09-06] MEDS: OXcarbazepine 150 MG TAB PO SCH ×2 (07:50→20:29)
[2021-09-06] MEDS: polyethylene glycoL 3350 17 GM POWD.PACK PO SCH (07:51)
[2021-09-06] MEDS ORDERED: FUROSEMIDE 20 MG TAB PO SCH (09:00)
[2021-09-06] MEDS ORDERED: ASCORBIC ACID 500 MG TAB PO SCH (09:00)
--- NOTE | 2021-09-06 10:10 | P.PN ---
Subjective Principal diagnosis: Admitted for evaluation of bright red blood per rectum. Patient was discharged from a institution 08/16/21. At that time he did have hematochezia but colonoscopy swivels deferred for outpatient due to COVID. He i s now returning with another episode of hematochezia. It is painless and not associated with bowel movements. He is not aware of any history of hemorrhoids. He is on aspirin and Plavix for coronary artery disease no blood thinners cogs are stable and hemoglobin was stable. He has significantly elevated platelet count. He denies any abdominal pain nausea vomiting or any respiratory complaints. Objective - Vital Signs Vital signs: Vital Signs Temp 97.2 F L 09/06/21 05:00 Pulse 63 09/06/21 05:00 Resp 16 09/06/21 05:00 BP 94/55 09/06/21 05:00 Pulse Ox 96 09/06/21 05:00 FiO2 Intake & Output 09/05/21 09/06/21 09/06/21 18:59 06:59 18:59 Intake Total 1300 Balance 1300 Weight 103.419 kg 103.419 kg Intake: Intake, IV Titration 800 Amount Sodium Chloride 0.9% 1, 800 000 ml @ 75 mls/hr IV . [id number] [facility] Rx#:[id number] Oral 500 Other: Voiding Method Urinal # Voids 2 # Bowel Movements 1 - Exam Awake alert oriented 3, no acute distress Head and neck: Anicteric sclera, extraocular movements intact, no facial asymmetry, oropharyngeal mucosa is moist without any lesions, neck is supple without rigidity, no neck masses or neck vein distention Heart: Regular rhythm and rate, S1, S2; no murmurs rubs or gallops Lungs: Breath sounds present bilateral, no wheezing, rhonchi or crackles Abdomen: Bowel sounds present throughout, abdomen is soft, nontender, nondi stended, no involuntary guarding, no hernias or organomegaly, no flank tenderness Extremities: No peripheral edema, no cyanosis, warm well perfused with palpable dorsalis pedis pulses bilateral and good capillary refill, without joint swelling or deformities - Labs CBC & Chem 7: 09/05/21 18:17 09/05/21 12:38 Labs: Abnormal Lab Results - Last 24 Hours (Table) 09/05/21 09/05/21 09/05/21 Range/Units 12:38 12:38 18:16 WBC 13.5 H (3.8-10.6) k/uL RBC 6.50 H (4.30-5.90) m/uL MCV 77.0 L (80.0-100.0) fL MCH 24.4 L (25.0-35.0) pg RDW 16.1 H (11.5-15.5) % Plt Count 1281 H* (150-450) k/uL Neutrophils # (Manual) 10.30 H (1.3-7.7) k/uL Eosinophils # (Manual) 0.95 H (0-0.7) k/uL Basophils # (Manual) 0.41 H (0-0.2) k/uL Metamyelocytes # (Man) (0) k/uL BUN 33 H (9-20) mg/dL Creatinine 1.77 H (0.66-1.25) mg/dL Glucose 165 H (74-99) mg/dL POC Glucose (mg/dL) 128 H (70-110) mg/dL Alkaline Phosphatase 188 H (38-126) U/L 09/05/21 09/05/21 09/06/21 Range/Units 18:17 21:54 07:04 WBC 12.9 H (3.8-10.6) k/uL RBC 6.63 H (4.30-5.90) m/uL MCV 77.5 L (80.0-100.0) fL MCH 24.7 L (25.0-35.0) pg RDW 16.1 H (11.5-15.5) % Plt Count 1259 H* (150-450) k/uL Neutrophils # (Manual) 10.10 H (1.3-7.7) k/uL Eosinophils # (Manual) (0-0.7) k/uL Basophils # (Manual) (0-0.2) k/uL Metamyelocytes # (Man) 0.13 H (0) k/uL BUN (9-20) mg/dL Creatinine (0.66-1.25) mg/dL Glucose (74-99) mg/dL POC Glucose (mg/dL) 116 H 149 H (70-110) mg/dL Alkaline Phosphatase (38-126) U/L Assessment and Plan Assessment: #Hematochezia Keep nothing by mouth GI consultation Hemoglobin every 6 hours Hold aspirin and Plavix #Thrombocytosis Significantly elevated platelet count of 1.2 million Could be reactive due to iron deficiency versus primary disorder Obtain hematology consultation Ordered iron studies #Coronary artery disease Continue metoprolol, statin Hold aspirin and Plavix #Ischemic cardiomyopathy Continue with metoprolol, Lasix when necessary Seems euvolemic #CKD stage III Nephrology following Hold losartan for now as blood pressure is somewhat softer #Seizure disorder Continue Keppra #Type 2 diabetes mellitus without long-term current use of insulin Continue sliding scale, currently nothing by mouth Continue to hold Levemir #BPH On Flomax DVT prophylaxis: SCDs
[2021-09-06 10:49] LABS: NRBC Per 100 WBC 0 /100 WBCS (0.0-0.0)
[2021-09-06 11:11] LABS: % Iron Saturation 32.96 (15.00-50.00); African American GFR (CKD) 44.1 (60.0-200.0); Anion Gap 13.7 mmol/L (10.00-18.00); BUN/Creat Ratio 16.65 Ratio (12.00-20.00); Blood Urea Nitrogen 28.3 mg/dL (9.0-27.0); Calcium 9.1 mg/dL (8.7-10.3); Carbon Dioxide 20.3 mmol/L (20.0-27.5); Ferritin 72.9 ng/mL (22.0-322.0); Non-African American GFR(CKD) 38.1 (60.0-200.0); Potassium 5.5 mmol/L (3.5-5.5)
[2021-09-06 12:08] LABS: Glucose,Whole Blood 129 mg/dL (70-110)
--- NOTE | 2021-09-06 12:25 | P.CONS ---
History of Present Illness - Reason for Consult Consult date: 09/06/21 Hematochezia Requesting physician: Isabella Villalba - Chief Complaint Rectal bleeding - History of Present Illness This a 76-year-old man who presented to the emergency department with complaints of bright red blood per rectum that began yesterday morning. He states he had 2-3 episodes. He continues to have bright red blood per rectum he denies that is mixed with stool he had 3 this morning. He has a past medical history of coronary artery disease status post multiple stents, diabetes mellitus, GERD, hyperlipidemia, hypertension, [place], prostate disorder, renal disease, seizure disorder, sleep apnea who states he takes aspirin and Plavix, no anticoagulation. Patient states that he does have pain pain at the rectum. States he had similar episode earlier this year. At that time he underwent an EGD on 04/15/[address] Bey with findings of bilateral antral gastritis and esophagitis. He states his last colonoscopy was 4-5 years ago he believes done by Dr. Briceño. He is unsure of the findings but believes he may have had a colon polyp. He was recently admitted in the hospital 08/12/2021 through 08/16/2021 for shortness of breath and was diagnosed with COVID-19 infection. He denies any abdominal pain, nausea or vomiting. Denies any shortness of b reath, chest pain, fevers or chills. States he has weakness in his legs and uses a walker but that is not anything new. Labs are consistent with thrombocytosis, patient denies any previous knowledge or following with a hematology. Admitting labs WBC 12.9 hemoglobin 16.4 hematocrit 51 MCV 77 MCH 24.7 platelet count 1259 INR 1.1 sodium 138 potassium 4.6 BUN 33 creatinine 1.77, total bilirubin 0.9 AST 25 ALT 25 alkaline phosphatase 188 Review of Systems REVIEW OF SYSTEMS: CARDIOPULMONARY: No chest pain or shortness of breath. Gastrointestinal: No abdominal pain. No nausea or vomiting. No hematemesis, coffee-ground emesis. Reports bright red blood per rectum, pouring out. 3 episodes this morning. Painful rectum. GENITOURINARY: No dysuria or hematuria. MUSCULOSKELETAL: Reports normal range of motion., Joint pain. SKIN: No rashes. No jaundice. ENDOCRINE: No chills, fevers. No excessive weight gain or loss. No polydipsia or polyuria. PSYCHIATRIC: Unremarkable. NEUROLOGY: No change in mental status. Denies dizziness, headache. ENT: Vision unremarkable. CONSTITUTIONAL: No recent weight loss. No fever, chills, night sweats. Past Medical History Past Medical History: Diabetes Mellitus, GERD/Reflux, Hyperlipidemia, Hypertension, Myocardial Infarction ([place]), Prostate Disorder, Renal Disease, Seizure Disorder, Sleep Apnea/CPAP/BIPAP Additional Past Medical History / Comment(s): last seizure 6 monhts ago, no CPAP, neuropathy feet, decreased kidney function-, right great toe wound, "disk issues" Last Myocardial Infarction Date:: 2013 History of Any Multi-Drug Resistant Organisms: None Reported Past Surgical History: Cholecystectomy, Heart Catheterization, Heart Catheterization With Stent, Orthopedic Surgery Additional Past Surgical History / Comment(s): bilateral knee replacement, left ankle ORIF, 5 cardiac stents, carlos cataracts, right foot toe amputation. COVID - 08/11 Past Anesthesia/Blood Transfusion Reactions: No Reported Reaction Date of Last Stent Placement:: 2013 Past Psychological History: No Psychological Hx Reported Smoking Status: Former smoker Past Alcohol Use History: Occasional Additional Past Alcohol Use History / Comment(s): smoked on/off cigars, 2-3 daily Past Drug Use History: None Reported - Past Family History Mother Family Medical History: No Reported History Medications and Allergies Home Medications Medication Instructions Recorded Confirmed Type Aspirin EC [Ecotrin Low Dose] 81 mg PO HS 04/09/14 09/05/21 History Tamsulosin HCl [Flomax] 0.4 mg PO HS 04/09/14 09/05/21 History Multivit-Min/FA/Lycopen/Lutein 1 tab PO DAILY 04/30/18 09/05/21 History [Centrum Silver Tablet] levETIRAcetam [Keppra] 1,500 mg PO BID 04/30/18 09/05/21 History Atorvastatin [Lipitor] 80 mg PO HS 01/27/19 09/05/21 History Clopidogrel [Plavix] 75 mg PO DAILY 01/27/19 09/05/21 History Losartan Potassium [Cozaar] 12.5 mg PO HS 01/27/19 09/05/21 History Metoprolol Tartrate [Lopressor] 12.5 mg PO HS 01/11/21 09/05/21 History OXcarbazepine [Trileptal] 150 mg PO BID 01/11/21 09/05/21 History Insulin Aspart [NovoLOG Flexpen] See Protocol SQ TID-W/MEALS 04/14/21 09/05/21 History Insulin Detemir [Levemir Flextouch 20 units SQ HS 04/14/21 09/05/21 History Pen] Ascorbic Acid [Vitamin C] 1,000 mg PO DAILY #30 tab 08/16/21 09/05/21 Rx Cholecalciferol [Vitamin D3 (25 50 mcg PO DAILY #30 tab 08/16/21 09/05/21 Rx Mcg = 1000 Iu)] Famotidine [Pepcid] 20 mg PO DAILY #30 tab 08/16/21 09/05/21 Rx Sodium Bicarbonate Tab 650 mg PO BID #60 tab 08/16/21 09/05/21 Rx Zinc Sulfate [Orazinc] 220 mg PO DAILY #30 cap 08/16/21 09/05/21 Rx polyethylene glycoL 3350 [Miralax] 17 gm PO DAILY #30 packet 08/16/21 09/05/21 Rx Furosemide [Lasix] 20 mg PO DAILY 09/05/21 09/05/21 History Allergies Allergy/AdvReac Type Severity Reaction Status Date / Time No Known Allergies Allergy Verified 09/05/21 14:08 Physical Exam Vitals: Vital Signs Temp Pulse Pulse Resp BP BP Pulse Ox 09/06/21 05:00 97.2 F L 63 16 94/55 96 09/05/21 22:00 98.4 F 79 18 134/74 99 09/05/21 18:22 98.2 F 77 18 114/48 98 09/05/21 17:47 77 18 09/05/21 17:05 69 18 143/72 96 09/05/21 14:49 73 18 141/82 09/05/21 14:01 70 18 141/94 97 09/05/21 13:16 75 18 09/05/21 11:15 98.3 F 77 18 124/71 95 Intake and Output 09/05/21 09/06/21 09/06/21 22:59 06:59 14:59 Intake Total 1300 Balance 1300 Intake: Intake, IV Titration 800 Amount Sodium Chloride 0.9% 1, 800 000 ml @ 75 mls/hr IV . [id number] [facility] Rx#:[id number] Oral 500 Other: Voiding Method Urinal # Voids 2 # Bowel Movements 1 Weight 103.419 kg General appearance: The patient is alert, oriented, appears in no acute distress. HET: Head is normocephalic and atraumatic. Conjunctiva pink. Sclera anicteric. Neck: Supple without lymphadenopathy. Trachea midline. Heart: S1 S2. Regular rate and rhythm. Lungs: Clear to auscultation. Abdomen: Soft, obese, nontender, nondistended with bowel sounds. No guarding or rigidity. Skin: No rashes. No jaundice. Extremities: Normal skin color and turgor. No pedal edema. Neurological: No focal deficits. Alert and oriented x3. Results CBC & Chem 7: 09/05/21 18:17 09/06/21 08:30 Labs: Abnormal Lab Results - Last 24 Hours (Table) 09/05/21 09/05/21 09/05/21 Range/Units 12:38 12:38 18:16 WBC 13.5 H (3.8-10.6) k/uL RBC 6.50 H (4.30-5.90) m/uL MCV 77.0 L (80.0-100.0) fL MCH 24.4 L (25.0-35.0) pg RDW 16.1 H (11.5-15.5) % Plt Count 1281 H* (150-450) k/uL Neutrophils # (Manual) 10.30 H (1.3-7.7) k/uL Eosinophils # (Manual) 0.95 H (0-0.7) k/uL Basophils # (Manual) 0.41 H (0-0.2) k/uL Metamyelocytes # (Man) (0) k/uL BUN 33 H (9-20) mg/dL Creatinine 1.77 H (0.66-1.25) mg/dL Glucose 165 H (74-99) mg/dL POC Glucose (mg/dL) 128 H (70-110) mg/dL Alkaline Phosphatase 188 H (38-126) U/L 09/05/21 09/05/21 09/06/21 Range/Units 18:17 21:54 07:04 WBC 12.9 H (3.8-10.6) k/uL RBC 6.63 H (4.30-5.90) m/uL MCV 77.5 L (80.0-100.0) fL MCH 24.7 L (25.0-35.0) pg RDW 16.1 H (11.5-15.5) % Plt Count 1259 H* (150-450) k/uL Neutrophils # (Manual) 10.10 H (1.3-7.7) k/uL Eosinophils # (Manual) (0-0.7) k/uL Basophils # (Manual) (0-0.2) k/uL Metamyelocytes # (Man) 0.13 H (0) k/uL BUN (9-20) mg/dL Creatinine (0.66-1.25) mg/dL Glucose (74-99) mg/dL POC Glucose (mg/dL) 116 H 149 H (70-110) mg/dL Alkaline Phosphatase (38-126) U/L Assessment and Plan (1) Hematochezia Narrative/Plan: 76-year-old male who presented to the emergency department yesterday afternoon with complaints of blood per rectum. States that it was pouring out when he felt he had to go to the bathroom. Patient denies any associated abdominal pain, nausea or vomiting. Denies any history of hemorrhoids. States he does have constipation quite frequently and does have to strain. Patient states he had recent symptoms in the past. He underwent an EGD on 04/15/2021 with findings of mild antral gastritis and esophagitis. Has colonoscopy he believes was 4-5 years ago. He believes was significant for colon polyp. He is denying any abdominal pain or cramping associated with the bleeding. He does state that his rectum is painful. He is unsure if it is bright red or dark red to states that it is red. He does take aspirin and Plavix for coronary artery disease but no anticoagulation. Does not use NSAIDs regularly. Possible etiologies include diverticular bleed colitis, hemorrhoids, colon polyps or other possible etiologies. Patient would like to proceed with colonoscopy. Current Visit: Yes Status: Acute Code(s): K92.1 - MELE[place] SNOMED Code(s): 887614269 (2) CAD (coronary artery disease), [place] coronary artery Current Visit: No Status: Acute Priority: High Code(s): I25.10 - ATHSCL HEART DISEASE OF [place] CORONARY ARTERY W/O ANG PCTRS SNOMED Code(s): 134052705 (3) CKD (chronic kidney disease), stage III Current Visit: No Status: Acute Priority: High Code(s): N18.3 - CHRONIC KIDNEY DISEASE, STAGE 3 (MODERATE) * DO NOT USE * SNOMED Code(s): 734444935 (4) Diabetes mellitus type 2 in obese Current Visit: No Status: Acute Priority: Medium Code(s): E11.69 - TYPE 2 DIABETES MELLITUS WITH OTHER SPECIFIED COMPLICATION; E66.9 - OBESITY, UNSPECIFIED SNOMED Code(s): 35208780 (5) Hypertension, essential, benign Current Visit: No Status: Acute Priority: Medium Code(s): I10 - ESSENTIAL (PRIMARY) HYPERTENSION SNOMED Code(s): 2945244 (6) Thrombocytosis Current Visit: No Status: Acute Priority: High Code(s): D75.839 - THROMBOCYTOSIS, UNSPECIFIED SNOMED Code(s): 4300268 Plan: 1. Continue symptomatic and supportive care 2. Clear liquid diet, nothing by mouth after midnight 3. Hold Plavix 4. Bowel prep this afternoon 5. Repeat daily CBC, transfuse for hemoglobin less than 7 6. Hematology on consultation for thrombocytosis, the recommendations are appreciated 7. Plan for colonoscopy tomorrow morning, procedure was discussed with patient in detail including risks and benefits. He is willing and wanting to proceed. Thank you for this consultation, we will continue to follow. Dr. Osmar Briceño I agree with the dictator's note, documented as a scribe by Adilene Mendoza.
[2021-09-06 12:27] LABS: HCT 51.8 % (39.6-50.0); HGB 15.7 g/dL (13.0-17.0); MCH 23.6 pg (27.0-32.0); MCHC 30.3 g/dL (32.0-37.0); MCV 77.8 fL (80.0-97.0); Mean Platelet Volume 9.3 fL (9.5-12.2); Platelet Count 1103 X 10*3/uL (140-440); RBC 6.66 X 10*6/uL (4.40-5.60); RDW 18.5 % (11.5-14.5); WBC 13.86 X 10*3/uL (4.50-10.00)
[2021-09-06] MEDS ORDERED: PEG 3350-NA SULF,BICARB,CL/KCL 4,000 ML BOTTLE PO ONE (15:00)
[2021-09-06 15:40] LABS: HCT 51.8 % (39.0-53.0); HGB 16.4 gm/dL (13.0-17.5); MCH 24.6 pg (25.0-35.0); MCHC 31.6 g/dL (31.0-37.0); MCV 77.9 fL (80.0-100.0); Microcytosis Slight; RBC 6.65 m/uL (4.30-5.90); RDW 15.8 % (11.5-15.5); WBC 14.3 k/uL (3.8-10.6)
--- NOTE | 2021-09-06 15:55 | P.CONS ---
History of Present Illness - Reason for Consult Consult date: 09/06/21 Thrombocytosis Requesting physician: Serafin Glover - History of Present Illness Mr Jang is a very pleasant 76-year-old male we've been asked to see in regards to platelets in excess of 1 million. On review of the chart this is a new finding, did note mild increase in plt present in March 2021. Patient has a past medical history including diabetes mellitus, hypertension, wounds, coronary artery disease 6 stents, foot ulcers treated earlier this year. Denies any recent problems with bleeding, no history of cancer or blood disorders, no pertinent family history. Patient was recently admitted in July with covid positive and at that time we seen him related to thrombocytosis. Review of Systems All systems: negative Constitutional: Reports as per HPI Past Medical History Past Medical History: Diabetes Mellitus, GERD/Reflux, Hyperlipidemia, Hypertension, Myocardial Infarction ([place]), Prostate Disorder, Renal Disease, Seizure Disorder, Sleep Apnea/CPAP/BIPAP Additional Past Medical History / Comment(s): last seizure 6 monhts ago, no CPAP, neuropathy feet, decreased kidney function-, right great toe wound, "disk issues" Last Myocardial Infarction Date:: 2013 History of Any Multi-Drug Resistant Organisms: None Reported Past Surgical History: Cholecystectomy, Heart Catheterization, Heart Catheterization With Stent, Orthopedic Surgery Additional Past Surgical History / Comment(s): bilateral knee replacement, left ankle ORIF, 5 cardiac stents, carlos cataracts, right foot toe amputation. COVID - 08/11 Past Anesthesia/Blood Transfusion Reactions: No Reported Reaction Date of Last Stent Placement:: 2013 Past Psychological History: No Psychological Hx Reported Smoking Status: Former smoker Past Alcohol Use History: Occasional Additional Past Alcohol Use History / Comment(s): smoked on/off cigars, 2-3 daily Past Drug Use History: None Reported - Past Family History Mother Family Medical History: No Reported History Medications and Allergies Home Medications Medication Instructions Recorded Confirmed Type Aspirin EC [Ecotrin Low Dose] 81 mg PO HS 04/09/14 09/05/21 History Tamsulosin HCl [Flomax] 0.4 mg PO HS 04/09/14 09/05/21 History Multivit-Min/FA/Lycopen/Lutein 1 tab PO DAILY 04/30/18 09/05/21 History [Centrum Silver Tablet] levETIRAcetam [Keppra] 1,500 mg PO BID 04/30/18 09/05/21 History Atorvastatin [Lipitor] 80 mg PO HS 01/27/19 09/05/21 History Clopidogrel [Plavix] 75 mg PO DAILY 01/27/19 09/05/21 History Losartan Potassium [Cozaar] 12.5 mg PO HS 01/27/19 09/05/21 History Metoprolol Tartrate [Lopressor] 12.5 mg PO HS 01/11/21 09/05/21 History OXcarbazepine [Trileptal] 150 mg PO BID 01/11/21 09/05/21 History Insulin Aspart [NovoLOG Flexpen] See Protocol SQ TID-W/MEALS 04/14/21 09/05/21 History Insulin Detemir [Levemir Flextouch 20 units SQ HS 04/14/21 09/05/21 History Pen] Ascorbic Acid [Vitamin C] 1,000 mg PO DAILY #30 tab 08/16/21 09/05/21 Rx Cholecalciferol [Vitamin D3 (25 50 mcg PO DAILY #30 tab 08/16/21 09/05/21 Rx Mcg = 1000 Iu)] Famotidine [Pepcid] 20 mg PO DAILY #30 tab 08/16/21 09/05/21 Rx Sodium Bicarbonate Tab 650 mg PO BID #60 tab 08/16/21 09/05/21 Rx Zinc Sulfate [Orazinc] 220 mg PO DAILY #30 cap 08/16/21 09/05/21 Rx polyethylene glycoL 3350 [Miralax] 17 gm PO DAILY #30 packet 08/16/21 09/05/21 Rx Furosemide [Lasix] 20 mg PO DAILY 09/05/21 09/05/21 History Allergies Allergy/AdvReac Type Severity Reaction Status Date / Time No Known Allergies Allergy Verified 09/05/21 14:08 Physical Exam Vitals: Vital Signs Temp Pulse Pulse Resp BP BP Pulse Ox 09/06/21 12:48 97.2 F L 61 21 100/54 99 09/06/21 05:00 97.2 F L 63 16 94/55 96 09/05/21 22:00 98.4 F 79 18 134/74 99 09/05/21 18:22 98.2 F 77 18 114/48 98 09/05/21 17:47 77 18 09/05/21 17:05 69 18 143/72 96 Intake and Output 09/06/21 09/06/21 09/06/21 06:59 14:59 22:59 Intake Total 1300 Output Total 200 175 Balance 1300 -200 -175 Intake: Intake, IV Titration 800 Amount Sodium Chloride 0.9% 1, 800 000 ml @ 75 mls/hr IV . [id number] Rx#:[id number] Oral 500 Output: Urine 200 175 Other: Voiding Method Toilet Urinal # Voids 2 # Bowel Movements 1 - Constitutional General appearance: cooperative, no acute distress - EENT Eyes: EOMI ENT: NA/AT - Neck Neck: normal ROM - Respiratory Respiratory: bilateral: diminished, dullness - Cardiovascular Rhythm: regularly irregular - Gastrointestinal General gastrointestinal: soft - Integumentary Integumentary: pale - Neurologic Neurologic: CNII-XII intact - Musculoskeletal Musculoskeletal: generalized weakness Results CBC & Chem 7: 09/06/21 15:09 09/06/21 08:30 Labs: Abnormal Lab Results - Last 24 Hours (Table) 09/05/21 09/05/21 09/05/21 Range/Units 18:16 18:17 21:54 WBC 12.9 H (3.8-10.6) k/uL RBC 6.63 H (4.30-5.90) m/uL Hct (39.6-50.0) % MCV 77.5 L (80.0-100.0) fL MCH 24.7 L (25.0-35.0) pg MCHC (32.0-37.0) g/dL RDW 16.1 H (11.5-15.5) % Plt Count 1259 H* (150-450) k/uL MPV (9.5-12.2) fL Neutrophils # (Manual) 10.10 H (1.3-7.7) k/uL Metamyelocytes # (Man) 0.13 H (0) k/uL BUN (9.0-27.0) mg/dL Creatinine (0.6-1.5) mg/dL Est GFR (CKD-EPI)AfAm (60.0-200.0) Est GFR (CKD-EPI)NonAf (60.0-200.0) Glucose (70-110) mg/dL POC Glucose (mg/dL) 128 H 116 H (70-110) mg/dL Transferrin (204.0-354.0) mg/dL 09/06/21 09/06/21 09/06/21 Range/Units 07:04 08:30 08:30 WBC 13.86 H (3.8-10.6) k/uL RBC 6.66 H (4.30-5.90) m/uL Hct 51.8 H (39.6-50.0) % MCV 77.8 L (80.0-100.0) fL MCH 23.6 L (25.0-35.0) pg MCHC 30.3 L (32.0-37.0) g/dL RDW 18.5 H (11.5-15.5) % Plt Count 1103 H* (150-450) k/uL MPV 9.3 L (9.5-12.2) fL Neutrophils # (Manual) (1.3-7.7) k/uL Metamyelocytes # (Man) (0) k/uL BUN 28.3 H (9.0-27.0) mg/dL Creatinine 1.7 H (0.6-1.5) mg/dL Est GFR (CKD-EPI)AfAm 44.1 L (60.0-200.0) Est GFR (CKD-EPI)NonAf 38.1 L (60.0-200.0) Glucose 168 H (70-110) mg/dL POC Glucose (mg/dL) 149 H (70-110) mg/dL Transferrin 202.0 L (204.0-354.0) mg/dL 09/06/21 Range/Units 12:06 WBC (3.8-10.6) k/uL RBC (4.30-5.90) m/uL Hct (39.6-50.0) % MCV (80.0-100.0) fL MCH (25.0-35.0) pg MCHC (32.0-37.0) g/dL RDW (11.5-15.5) % Plt Count (150-450) k/uL MPV (9.5-12.2) fL Neutrophils # (Manual) (1.3-7.7) k/uL Metamyelocytes # (Man) (0) k/uL BUN (9.0-27.0) mg/dL Creatinine (0.6-1.5) mg/dL Est GFR (CKD-EPI)AfAm (60.0-200.0) Est GFR (CKD-EPI)NonAf (60.0-200.0) Glucose (70-110) mg/dL POC Glucose (mg/dL) 129 H (70-110) mg/dL Transferrin (204.0-354.0) mg/dL Assessment and Plan Plan: Thrombocytosis Current Visit: Yes Status: Acute Priority: High Code(s): D75.839 - THROMBOCYTOSIS, UNSPECIFIED SNOMED Code(s): 7932425 Plan: Thrombocytopenia. Workup has been initiated for a primary marrow disorder as this has been progressive over the last several months. Agree with to aspirin and DVT prophylaxis at this time. Work-up last admission negative SHYAM 2 Platelets have decreased a bit however still greater than one million with elevated WBCs Other considerations need to be considered and further work-up ordered
[2021-09-06 15:56] LABS: Platelet Count 1123 k/uL (150-450)
[2021-09-06 17:25] LABS: Glucose,Whole Blood 124 mg/dL (70-110)
--- NOTE | 2021-09-06 17:37 | P.NPCON ---
History of Present Illness - Reason for Consult acute renal failure - History of Present Illness Patient is a 76-year-old male with history of chronic kidney disease NKF stage IIIB secondary to nephrosclerosis. Patient is well-known to our service. He is admitted to the hospital with complaints of LAD in his stools. According to the patient blood was bright red. He did see some clots as well. There was plan for colonoscopy to be done as outpatient prior to his admission. Patient reports having had Covid infection about 2 weeks ago. Serum creatinine has been about 1.7 mg/dL. Hemoglobin was not low it is infected 15.7 g/dL Potassium was mildly elevated at 5.5. Patient has been voiding Blood pressure noted to be low today with systolic 94 mmHg. Review of Systems As per HPI Past Medical History Past Medical History: Diabetes Mellitus, GERD/Reflux, Hyperlipidemia, Hypertension, Myocardial Infarction (ID), Prostate Disorder, Renal Disease, Seizure Disorder, Sleep Apnea/CPAP/BIPAP Additional Past Medical History / Comment(s): last seizure 6 monhts ago, no CPAP, neuropathy feet, decreased kidney function-, right great toe wound, "disk issues" Last Myocardial Infarction Date:: 2013 History of Any Multi-Drug Resistant Organisms: None Reported Past Surgical History: Cholecystectomy, Heart Catheterization, Heart Catheteri zation With Stent, Orthopedic Surgery Additional Past Surgical History / Comment(s): bilateral knee replacement, left ankle ORIF, 5 cardiac stents, carlos cataracts, right foot toe amputation. COVID - 08/11 Past Anesthesia/Blood Transfusion Reactions: No Reported Reaction Date of Last Stent Placement:: 2013 Past Psychological History: No Psychological Hx Reported Smoking Status: Former smoker Past Alcohol Use History: Occasional Additional Past Alcohol Use History / Comment(s): smoked on/off cigars, 2-3 daily Past Drug Use History: None Reported - Past Family History Mother Family Medical History: No Reported History Medications and Allergies Home Medications Medication Instructions Recorded Confirmed Type Aspirin EC [Ecotrin Low Dose] 81 mg PO HS 04/09/14 09/05/21 History Tamsulosin HCl [Flomax] 0.4 mg PO HS 04/09/14 09/05/21 History Multivit-Min/FA/Lycopen/Lutein 1 tab PO DAILY 04/30/18 09/05/21 History [Centrum Silver Tablet] levETIRAcetam [Keppra] 1,500 mg PO BID 04/30/18 09/05/21 History Atorvastatin [Lipitor] 80 mg PO HS 01/27/19 09/05/21 History Clopidogrel [Plavix] 75 mg PO DAILY 01/27/19 09/05/21 History Losartan Potassium [Cozaar] 12.5 mg PO HS 01/27/19 09/05/21 History Metoprolol Tartrate [Lopressor] 12.5 mg PO HS 01/11/21 09/05/21 History OXcarbazepine [Trileptal] 150 mg PO BID 01/11/21 09/05/21 History Insulin Aspart [NovoLOG Flexpen] See Protocol SQ TID-W/MEALS 04/14/21 09/05/21 History Insulin Detemir [Levemir Flextouch 20 units SQ HS 04/14/21 09/05/21 History Pen] Ascorbic Acid [Vitamin C] 1,000 mg PO DAILY #30 tab 08/16/21 09/05/21 Rx Cholecalciferol [Vitamin D3 (25 50 mcg PO DAILY #30 tab 08/16/21 09/05/21 Rx Mcg = 1000 Iu)] Famotidine [Pepcid] 20 mg PO DAILY #30 tab 08/16/21 09/05/21 Rx Sodium Bicarbonate Tab 650 mg PO BID #60 tab 08/16/21 09/05/21 Rx Zinc Sulfate [Orazinc] 220 mg PO DAILY #30 cap 08/16/21 09/05/21 Rx polyethylene glycoL 3350 [Miralax] 17 gm PO DAILY #30 packet 08/16/21 09/05/21 R x Furosemide [Lasix] 20 mg PO DAILY 09/05/21 09/05/21 History Allergies Allergy/AdvReac Type Severity Reaction Status Date / Time No Known Allergies Allergy Verified 09/05/21 14:08 Physical Exam Vitals: Vital Signs Temp Pulse Pulse Resp BP BP Pulse Ox 09/06/21 12:48 97.2 F L 61 21 100/54 99 09/06/21 05:00 97.2 F L 63 16 94/55 96 09/05/21 22:00 98.4 F 79 18 134/74 99 09/05/21 18:22 98.2 F 77 18 114/48 98 09/05/21 17:47 77 18 Intake and Output 06/09/06/21 09/06/21 06:59 14:59 22:59 Intake Total 1300 Output Total 200 175 Balance 1300 -200 -175 Intake: Intake, IV Titration 800 Amount Sodium Chloride 0.9% 1, 800 000 ml @ 75 mls/hr IV . 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 Chronic kidney disease NKF stage IIIB secondary to nephrosclerosis with baseline creatinine around 1.5-1.7 mg/dL 2. Mild hyperkalemia associated with chronic kidney disease and underlying GI bleed 3. Metabolic acidosis maintained on oral sodium bicarb 4. GI bleed being followed by GI with plans for colonoscopy in a.m. Plan: Continue IV fluids Agree with holding angiotensin receptor blockers given the hyperkalemia and underlying GI bleed Hold off on loop diuretics for now Repeat labs in a.m. Monitor urine output Continue with the oral sodium bicarb Thank you for the consultation. We'll continue to follow the patient with you during his hospitalization
[2021-09-06] MEDS: METOPROLOL TARTRATE 12.5 MG TAB PO SCH (20:29)
[2021-09-06] MEDS: TAMSULOSIN 0.4 MG CAP.ER.24H PO SCH (20:29)
[2021-09-06] MEDS: ATORVASTATIN 80 MG TAB PO SCH (20:29)
[2021-09-06] MEDS: HYDROCORTISONE 2.5% RECTAL CREAM 30 GM TUBE RECTAL SCH (20:30)
[2021-09-06 20:35] LABS: Glucose,Whole Blood 112 mg/dL (70-110)
[2021-09-06 21:10] LABS: Anisocytosis Slight; HGB 16.2 gm/dL (13.0-17.5); MCH 25.2 pg (25.0-35.0); MCHC 32.4 g/dL (31.0-37.0); MCV 77.7 fL (80.0-100.0); Mean Platelet Volume 7.7; Microcytosis Slight; RBC 6.43 m/uL (4.30-5.90); RDW 16.1 % (11.5-15.5); WBC 15.8 k/uL (3.8-10.6)
[2021-09-06 21:12] LABS: Platelet Count 1249 k/uL (150-450)
[2021-09-06 22:42] LABS: NRBC Per 100 WBC 0 /100 WBCS (0.0-0.0)
[2021-09-06 23:16] LABS: Basophils # (A) 1.18 X 10*3/uL (0.00-0.10); Basophils % (A) 7.4 %; Eosinophils % (A) 3.7 %; Immature Grans, Automated 1.3 %; Lymphocytes # (A) 1.26 X 10*3/uL (0.90-5.00); Lymphocytes % (A) 7.9 %; Monocytes % (A) 6.2 %; Neutrophils # (A) 11.77 X 10*3/uL (1.80-7.70); Neutrophils % (A) 73.5 %
[2021-09-06 23:17] LABS: HCT 54.3 % (39.6-50.0); HGB 16.5 g/dL (13.0-17.0); MCH 23.6 pg (27.0-32.0); MCHC 30.4 g/dL (32.0-37.0); MCV 77.8 fL (80.0-97.0); Mean Platelet Volume 9.3 fL (9.5-12.2); Platelet Count 1357 X 10*3/uL (140-440); RBC 6.98 X 10*6/uL (4.40-5.60); RDW 19.1 % (11.5-14.5); WBC 16.02 X 10*3/uL (4.50-10.00)
[2021-09-06 23:21] LABS: Protein, Total 6.7 g/dL (6.2-8.2)
[2021-09-06 23:30] LABS: Erythrocyte Sedimentation Rate 5 mm/Hr (0-20)
[2021-09-06 23:33] LABS: % Iron Saturation 24.83 (15.00-50.00); ALT 28 U/L (10-49); AST 26 U/L (14-35); African American GFR (CKD) 40.3 (60.0-200.0); Albumin 4.4 g/dL (3.8-4.9); Albumin/Globulin Ratio 1.96 (1.60-3.17); Alkaline Phosphatase 233 U/L (41-126); BUN/Creat Ratio 14.26 Ratio (12.00-20.00); Blood Urea Nitrogen 26.1 mg/dL (9.0-27.0); C Reactive Protein <0.30 mg/dL (0.00-0.80); Carbon Dioxide 24.7 mmol/L (20.0-27.5); Chloride 98 mmol/L (96-109); Globulin 2.3 g/dL (1.6-3.3); Glucose 131 mg/dL (70-110); Iron 78 ug/dL (65-175); LDH 274 U/L (120-246); Non-African American GFR(CKD) 34.8 (60.0-200.0); Potassium 5.8 mmol/L (3.5-5.5); Sodium 138 mmol/L (135-145); Total Iron Binding Capacity 315 ug/dL (228-460); Total Protein 6.7 g/dL (6.2-8.2)
[2021-09-07] MEDS: SODIUM CHLORIDE 0.9% 1,000 ML IV SCH ×2 (05:14→08:24)
[2021-09-07 07:10] LABS: Glucose,Whole Blood 112 mg/dL (70-110)
[2021-09-07] MEDS ORDERED: PROPOFOL 10 MG/ML 20 ML VIAL IV ONE (07:25)
[2021-09-07] MEDS ORDERED: IV FLUID CONTINUATION 1,000 ML IV ONE (07:27)
--- NOTE | 2021-09-07 07:50 | P.PCN ---
Date of Procedure: 09/07/21 Procedure(s) Performed: BRIEF HISTORY: Patient is a 76-year-old pleasant sched white male in the hospital with acute lower GI bleed. She multiple episodes of bright red blood per rectum. Initial hemoglobin was 16 g/dL. Repeat CBC this morning is pending. His last colonoscopy was several years ago. He scheduled for a colonoscopy to evaluate further. PROOCEDURE PERFORMED: Colonoscopy. PREOPERATIVE DIAGNOSIS: []. IV sedation per Anesthesia. PROCEDURE: After informed consent was obtained, the patient, was brought into the endoscopy unit. IV sedation was administered by Anesthesia under continuous monitoring. Digital rectal examination was normal. Initially the Olympus CF-160 flexible video colonoscope was then inserted in the rectum, gradually advanced into the cecum without any difficulty. Careful examination was performed as the scope was gradually being withdrawn. Ileocecal valve and the appendiceal orifice were visualized and appeared normal. Prep was good.. Mucosa of the cecum, ascending colon, transverse colon, descending colon, sigmoid colon, and rectum appeared normal. Scattered sigmoid diverticulosis. Retroflexion was performed in the rectum and grade 2 internal hemorrhoids were seen. The patient tolerated the procedure well. IMPRESSION: Normal-appearing colon from rectum to cecum be no evidence of colorectal neoplasia or active bleeding noted . Scattered sigmoid diverticulosis Grade 2 internal hemorrhoids RECOMMENDATIONS: Findings of this examination were discussed with the patient as well as his family. Slightly the recent episode of bleeding is from internal hemorrhoids but possibility of a diverticular bleed cannot be excluded. In any event the bleeding subsided. Diet will be advanced as tolerated and can be discharged home today..
[2021-09-07] MEDS: SODIUM BICARBONATE TAB 650 MG TAB PO SCH (07:53)
[2021-09-07] MEDS: MULTIVITAMINS, THERA 1 EACH TAB PO SCH (07:53)
[2021-09-07] MEDS: FAMOTIDINE 20 MG TAB PO SCH (07:53)
[2021-09-07] MEDS: polyethylene glycoL 3350 17 GM POWD.PACK PO SCH (07:53)
[2021-09-07] MEDS: CHOLECALCIFEROL 25 MCG (1000 IU) TABLET PO SCH (07:53)
[2021-09-07] MEDS: ZINC SULFATE 220 MG CAP PO SCH (07:54)
[2021-09-07] MEDS: INSULIN ASPART (NovoLOG) 100 UNIT/ML VIAL SQ SCH ×2 (07:55→12:54)
[2021-09-07] MEDS: OXcarbazepine 150 MG TAB PO SCH (08:25)
[2021-09-07] MEDS: HYDROCORTISONE 2.5% RECTAL CREAM 30 GM TUBE RECTAL SCH (08:27)
[2021-09-07 08:46] LABS: NRBC Per 100 WBC 0.1 /100 WBCS (0.0-0.0)
[2021-09-07 08:47] LABS: HGB 15.4 g/dL (13.0-17.0); MCH 23.9 pg (27.0-32.0); MCHC 31.4 g/dL (32.0-37.0); Mean Platelet Volume 9.2 fL (9.5-12.2); Platelet Count 1137 X 10*3/uL (140-440); RBC 6.45 X 10*6/uL (4.40-5.60); RDW 18.4 % (11.5-14.5); WBC 13.34 X 10*3/uL (4.50-10.00)
[2021-09-07 09:05] LABS: African American GFR (CKD) 47.5 (60.0-200.0); Anion Gap 10.6 mmol/L (10.00-18.00); BUN/Creat Ratio 13.56 Ratio (12.00-20.00); Blood Urea Nitrogen 21.7 mg/dL (9.0-27.0); Calcium 9.3 mg/dL (8.7-10.3); Carbon Dioxide 23.4 mmol/L (20.0-27.5); Non-African American GFR(CKD) 40.9 (60.0-200.0); Potassium 4.9 mmol/L (3.5-5.5)
[2021-09-07 11:14] LABS: Glucose,Whole Blood 189 mg/dL (70-110)
[2021-09-07 11:50] LABS: Ferritin 87.3 ng/mL (22.0-322.0)
[2021-09-07 12:35] VITALS: BP 110/63; PULSE 87; RESP 14; TEMP 98.5
--- NOTE | 2021-09-07 12:44 | P.PN ---
Subjective Patient is seen for follow-up for acute kidney injury on top of CK D stage III B with baseline creatinine 1.5-1.7 mg/dL. He was admitted to the hospital with bleeding in his stool. Patient is status post colonoscopy which showed diverticulosis and internal hemorrhoids. Renal function has improved with serum creatinine down to 1.6 from 1.8. Patient is maintained on IV fluids. No significant urinary symptoms. Objective - Vital Signs Vital signs: Vital Signs Temp 98.5 F 09/07/21 11:34 Pulse 87 09/07/21 11:34 Resp 14 09/07/21 11:34 BP 110/63 09/07/21 11:34 Pulse Ox 98 09/07/21 11:34 FiO2 Intake & Output 09/06/21 09/07/21 09/07/21 18:59 06:59 18:59 Intake Total 900 200 Output Total 375 Balance -375 900 200 Intake: IV 200 Intake, IV Titration 900 Amount Sodium Chloride 0.9% 1, 900 000 ml @ 75 mls/hr IV . 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77 H (1.80-7.70) X 10*3/uL Eosinophils # 0.60 H (0.04-0.35) X 10*3/uL Basophils # 1.18 H (0.00-0.10) X 10*3/uL NRBC/100 WBC Diff (0.0-0.0) /100 WBCS Potassium (3.5-5.5) mmol/L Creatinine (0.6-1.5) mg/dL Est GFR (CKD-EPI)AfAm (60.0-200.0) Est GFR (CKD-EPI)NonAf (60.0-200.0) Glucose (70-110) mg/dL POC Glucose (mg/dL) 124 H (70-110) mg/dL Alkaline Phosphatase (41-126) U/L Lactate Dehydrogenase (120-246) U/L 09/06/21 09/06/21 09/06/21 Range/Units 17:47 20:29 20:55 WBC 15.8 H (3.8-10.6) k/uL RBC 6.43 H (4.30-5.90) m/uL Hct (39.6-50.0) % MCV 77.7 L (80.0-100.0) fL MCH (25.0-35.0) pg MCHC (32.0-37.0) g/dL RDW 16.1 H (11.5-15.5) % Plt Count 1249 H* (150-450) k/uL Plt Count Comment MPV (9.5-12.2) fL Absolute Nucleated RBC (0.00-0.00) X 10*3/uL Immature Gran # (0.00-0.04) X 10*3/uL Neutrophils # (1.80-7.70) X 10*3/uL Eosinophils # (0.04-0.35) X 10*3/uL Basophils # (0.00-0.10) X 10*3/uL NRBC/100 WBC Diff (0.0-0.0) /100 WBCS Potassium 5.8 H (3.5-5.5) mmol/L Creatinine 1.8 H (0.6-1.5) mg/dL Est GFR (CKD-EPI)AfAm 40.3 L (60.0-200.0) Est GFR (CKD-EPI)NonAf 34.8 L (60.0-200.0) Glucose 131 H (70-110) mg/dL POC Glucose (mg/dL) 112 H (70-110) mg/dL Alkaline Phosphatase 233 H (41-126) U/L Lactate Dehydrogenase 274 H (120-246) U/L 09/07/21 09/07/21 09/07/21 Range/Units 06:21 06:21 07:08 WBC 13.34 H (3.8-10.6) k/uL RBC 6.45 H (4.30-5.90) m/uL Hct (39.6-50.0) % MCV 76.0 L (80.0-100.0) fL MCH 23.9 L (25.0-35.0) pg MCHC 31.4 L (32.0-37.0) g/dL RDW 18.4 H (11.5-15.5) % Plt Count 1137 H* (150-450) k/uL Plt Count Comment MPV 9.2 L (9.5-12.2) fL Absolute Nucleated RBC 0.02 H (0.00-0.00) X 10*3/uL Immature Gran # (0.00-0.04) X 10*3/uL Neutrophils # (1.80-7.70) X 10*3/uL Eosinophils # (0.04-0.35) X 10*3/uL Basophils # (0.00-0.10) X 10*3/uL NRBC/100 WBC Diff 0.1 H (0.0-0.0) /100 WBCS Potassium (3.5-5.5) mmol/L Creatinine 1.6 H (0.6-1.5) mg/dL Est GFR (CKD-EPI)AfAm 47.5 L (60.0-200.0) Est GFR (CKD-EPI)NonAf 40.9 L (60.0-200.0) Glucose (70-110) mg/dL POC Glucose (mg/dL) 112 H (70-110) mg/dL Alkaline Phosphatase (41-126) U/L Lactate Dehydrogenase (120-246) U/L 09/07/21 Range/Units 11:12 WBC (3.8-10.6) k/uL RBC (4.30-5.90) m/uL Hct (39.6-50.0) % MCV (80.0-100.0) fL MCH (25.0-35.0) pg MCHC (32.0-37.0) g/dL RDW (11.5-15.5) % Plt Count (150-450) k/uL Plt Count Comment MPV (9.5-12.2) fL Absolute Nucleated RBC (0.00-0.00) X 10*3/uL Immature Gran # (0.00-0.04) X 10*3/uL Neutrophils # (1.80-7.70) X 10*3/uL Eosinophils # (0.04-0.35) X 10*3/uL Basophils # (0.00-0.10) X 10*3/uL NRBC/100 WBC Diff (0.0-0.0) /100 WBCS Potassium (3.5-5.5) mmol/L Creatinine (0.6-1.5) mg/dL Est GFR (CKD-EPI)AfAm (60.0-200.0) Est GFR (CKD-EPI)NonAf (60.0-200.0) Glucose (70-110) mg/dL POC Glucose (mg/dL) 189 H (70-110) mg/dL Alkaline Phosphatase (41-126) U/L Lactate Dehydrogenase (120-246) U/L Assessment and Plan Assessment: 1. Chronic kidney disease NKF stage IIIB secondary to nephrosclerosis with baseline creatinine around 1.5-1.7 mg/dL 2. Mild hyperkalemia associated with chronic kidney disease and underlying GI bleed and thrombocytosis 3. Metabolic acidosis maintained on oral sodium bicarb 4. GI bleed being followed by GI status post colonoscopy which showed internal hemorrhoids. No diverticulosis 5. Thrombocytosis, appears to be chronic Plan: Continue off of angiotensin receptor blockers for now given the hyperkalemia. Follow-up as outpatient for CK D
[2021-09-07 14:20] VITALS: BMI 34.7
--- NOTE | 2021-09-07 15:01 | P.DS ---
Providers Date of admission: 09/05/21 13:58 Expected date of discharge: 09/07/21 Attending physician: Isabella Villalba MD Consults: 09/05/21 14:03 Consult Physician Routine Consulting Provider: Amelia Briceño Consult Reason/Comments: Lower GI bleed Do you want consulting provider notified?: Yes 09/06/21 08:22 Consult Physician Routine Consulting Provider: Paramjit Andino Consult Reason/Comments: Thrombocytosis Do you want consulting provider notified?: Yes 09/06/21 08:25 Consult Physician Routine Consulting Provider: Kamran Hanson Consult Reason/Comments: ELEONORA CKD Do you want consulting provider notified?: Yes 09/07/21 13:12 Consult Physician Routine Consulting Provider: Annabel May Consult Reason/Comments: Internal Hemorrhoids and possible diverticular bleed Do you want consulting provider notified?: Yes Primary care physician: Soy Liu MD Hospital Course: 76 year old man with history of CAD, diabetes, hypertension, hyperlipidemia, systolic heart failure, BPH, seizure disorder presented for bright red blood per rectum. The blood was bright red and copious, he also passed some blood clots as well. He was previous is scheduled for colonoscopy, however, he was admitted with Covid and this was deferred. He denies nausea, vomiting, chest pain, palpitations, syncope, presyncope, abdominal pain, constipation, diarrhea, dysuria, dyschezia, numbness/weakness of extremities. In the emergency room, patient was afebrile, 124/71, heart rate 77, 95% on room air. CBC was remarkable for mild leukocytosis 13.5, hemoglobin of 15.9, platelet count 1281, 410 basophils, 950 8 eosinophils. Chemistries are remarkable for BUNs/creatinine of 33/1.77, which represents his baseline. Liver function tests show elevated alkaline phosphatase of 188, otherwise unremarkable. UA is unremarkable. No images to review Patient was admitted, hemoglobin was monitored and it remained stable. He was seen by GI who did a colonoscopy which showed internal hemorrhoids. This is likely the source of his bleeding. He is on dual antiplatelet therapy which is likely contributing. Patient continues to have episodes of bleeding throughout the hospitalization. He was seen by general surgery today who deferred him to the outpatient setting. He will be seen next month in the surgical office. He was given prescription for topical steroids. Due to problem with thrombocytosis with platelet count up to 1136, he was seen by hematology, myelo proliferative disorder workup was initiated. According to the patient he bled rectally about 10 times. Plavix will be held 3 days to allow the hemorrhoids to heal up. Then it will be resumed. Hematology will follow patient up in the office. He remained hemodynamically stable and was cleared by GI and surgery for discharge. He will be discharged home in stable condition. Time for discharge 36 min Patient Condition at Discharge: Stable Plan - Discharge Summary Discharge Rx Participant: No New Discharge Prescriptions: New Hydrocortisone Pr Cream [Proctosol-Hc 2.5%] 1 applic RECTAL BID 30 Days #45 gm Continue Tamsulosin HCl [Flomax] 0.4 mg PO HS Aspirin EC [Ecotrin Low Dose] 81 mg PO HS levETIRAcetam [Keppra] 1,500 mg PO BID Multivit-Min/FA/Lycopen/Lutein [Centrum Silver Tablet] 1 tab PO DAILY Atorvastatin [Lipitor] 80 mg PO HS Losartan Potassium [Cozaar] 12.5 mg PO HS OXcarbazepine [Trileptal] 150 mg PO BID Metoprolol Tartrate [Lopressor] 12.5 mg PO HS Insulin Detemir [Levemir Flextouch Pen] 20 units SQ HS Zinc Sulfate [Orazinc] 220 mg PO DAILY #30 cap Famotidine [Pepcid] 20 mg PO DAILY #30 tab Ascorbic Acid [Vitamin C] 1,000 mg PO DAILY #30 tab Insulin Aspart [NovoLOG Flexpen] See Protocol SQ TID-W/MEALS polyethylene glycoL 3350 [Miralax] 17 gm PO DAILY #30 packet Sodium Bicarbonate Tab 650 mg PO BID #60 tab Cholecalciferol [Vitamin D3 (25 Mcg = 1000 Iu)] 50 mcg PO DAILY #30 tab Furosemide [Lasix] 20 mg PO DAILY Discontinued Clopidogrel [Plavix] 75 mg PO DAILY Discharge Medication List Aspirin EC [Ecotrin Low Dose] 81 mg PO HS 04/09/14 [History] Tamsulosin HCl [Flomax] 0.4 mg PO HS 04/09/14 [History] Multivit-Min/FA/Lycopen/Lutein [Centrum Silver Tablet] 1 tab PO DAILY 04/30/18 [History] levETIRAcetam [Keppra] 1,500 mg PO BID 04/30/18 [History] Atorvastatin [Lipitor] 80 mg PO HS 01/27/19 [History] Losartan Potassium [Cozaar] 12.5 mg PO HS 01/27/19 [History] Metoprolol Tartrate [Lopressor] 12.5 mg PO HS 01/11/21 [History] OXcarbazepine [Trileptal] 150 mg PO BID 01/11/21 [History] Insulin Aspart [NovoLOG Flexpen] See Protocol SQ TID-W/MEALS 04/14/21 [History] Insulin Detemir [Levemir Flextouch Pen] 20 units SQ HS 04/14/21 [History] Ascorbic Acid [Vitamin C] 1,000 mg PO DAILY #30 tab 08/16/21 [Rx] Cholecalciferol [Vitamin D3 (25 Mcg = 1000 Iu)] 50 mcg PO DAILY #30 tab 08/16/21 [Rx] Famotidine [Pepcid] 20 mg PO DAILY #30 tab 08/16/21 [Rx] Sodium Bicarbonate Tab 650 mg PO BID #60 tab 08/16/21 [Rx] Zinc Sulfate [Orazinc] 220 mg PO DAILY #30 cap 08/16/21 [Rx] polyethylene glycoL 3350 [Miralax] 17 gm PO DAILY #30 packet 08/16/21 [Rx] Furosemide [Lasix] 20 mg PO DAILY 09/05/21 [History] Hydrocortisone Pr Cream [Proctosol-Hc 2.5%] 1 applic RECTAL BID 30 Days #45 gm 09/07/21 [Rx] Follow up Appointment(s)/Referral(s): Soy Liu MD [Primary Care Provider] - 1-2 days Activity/Diet/Wound Care/Special Instructions: Follow up with Dr. Desai on September 24 2021- Call office for time.
--- NOTE | 2021-09-07 16:00 | P.GSCN ---
History of Present Illness Consult date: 09/07/21 History of present illness: REASON FOR CONSULTATION: Gastrointestinal bleeding HISTORY OF PRESENT ILLNESS: The patient is a 76 year old male who presents to the hospital with gastrointestinal bleeding. He reports bleeding from the rectum for over 3-4 days. He had a colonoscopy yesterday by GI team of findings of sigmoid diverticulosis including internal hemorrhoids. No specific source of bleeding was identified. Patient reports that he was eating cucumbers including tomatoes earlier in the week. His gives additional history that he was eating nuts prior to admission. No reports of abdominal pain. He had similar episode 4 months ago with bleeding. Colonoscopy prior to yesterday was 6 months ago for routine screening. Patient was unaware that he had diverticulosis. General surgery is consulted for GI bleed. He does admit to recent constipation prior to his bleeding. PAST MEDICAL HISTORY: See list and reviewed PAST SURGICAL HISTORY: See list and reviewed MEDICATIONS: See list and reviewed ALLERGIES: See list and reviewed SOCIAL HISTORY: See list and reviewed FAMILY HISTORY: See list and reviewed REVIEW OF ORGAN SYSTEMS: CONSTITUTIONAL: No fevers or chills. as obesity, BMI 34.7. EYES: Denies any trouble with vision. No glasses. HEENT: No difficulties with hearing. No nosebleeds. No difficulty swallowing. RESPIRATORY: Has obstructive sleep apnea. 4 tobacco user. CARDIOVASCULAR: Has hypertensive heart disease. Has hyperlipidemia. Has congestive heart failure. Past history of myocardial infarction. Past cardiac catheterization with stent placement. GASTROINTESTINAL: New diagnosis of diverticulosis. Prior GI bleed 4 months ago. Has chronic constipation. Has gastroesophageal reflux disease. GENITOURINARY: Has obstructive uropathy due to prostate disorder. NEUROLOGICAL: Has seizure disorder. Has neuropathy. MUSCULOSKELETAL: Denies any back pain, stiffness or joint arthritis. SKIN: No current skin cancer. No rash. PSYCHIATRIC: Denies current depression or suicidal thoughts. ENDOCRINE: Has insulin-dependent diabetes. HEME/LYMPHATIC: Denies any lumps and bumps around the neck. No recent deep venous thrombosis. ALLERGY/IMMUNOLOGY: No immunoglobulin therapy. No immune deficiencies. BREAST: Denies current breast lumps, pain or nipple discharge. PHYSICAL EXAM: VITALS: Reviewed CONSTITUTIONAL: Well developed and in no acute distress. EYES: Conjuctivae without sclera icterus. Extraocular movements grossly intact. HEAD, EARS, NOSE, THROAT: Moist buccal mucosa. Head is atraumatic, norm ocephalic. Hears conversational speech. No nasal drainage. NECK: Supple. No JV distention. No thyroidomegaly. RESPIRATORY: Non-labored respirations and equal bilateral excursions. No gross wheezes. CARDIOVASCULAR: Palpable 2+ radial pulses. ABDOMEN: Obese nontender. No peritonitis. LYMPH: No neck lymphadenopathy. MUSCULOSKELETAL: No clubbing cyanosis. SKIN: Warm and well perfused with good skin turgor. NEUROLOGIC: Cranial nerves II through XII grossly intact. No focal or lateralizing signs. PSYCH: Appropriate affect. Alert and oriented to person, place and time. Displays appropriate insight. CLINCAL LABS: Reviewed. Hemoglobin down 16.2-15.4. Platelets elevated 1,137,000 IMAGING: None present on admission RADIOLOGY: None present at this admission REPORTS: Colonoscopy report reviewed with features of sigmoid diverticulosis, internal hemorrhoids grade 2. ASSESSMENT: 1. Sigmoid diverticulosis with GI bleed 2. Internal hemorrhoids 3. Dietary surveillance and counseling for diverticulosis PLAN: 1. Sources of bleeding including internal hemorrhoids versus diverticulosis described. With his clinical history of constipation, recent ingestion of seeds and recurrent event, diverticulosis described. 2. Dietary guidelines including dietitian education for diverticulitis described. 3. Patient tolerating low fiber diet. Recommend low fiber diet for 2 weeks f rom present event 4. May follow up as outpatient. 5. Questions addressed regarding diverticular attack. 6. Stable for discharge from surgical standpoint. ADVANCE DIRECTIVE: Thank you for this kind consultation. Past Medical History Past Medical History: Diabetes Mellitus, GERD/Reflux, Hyperlipidemia, Hypertension, Myocardial Infarction ([place]), Prostate Disorder, Renal Disease, Seizure Disorder, Sleep Apnea/CPAP/BIPAP Additional Past Medical History / Comment(s): last seizure 6 monhts ago, no CPAP, neuropathy feet, decreased kidney function-, right great toe wound, "disk issues" Last Myocardial Infarction Date:: 2013 History of Any Multi-Drug Resistant Organisms: None Reported Past Surgical History: Cholecystectomy, Heart Catheterization, Heart C atheterization With Stent, Orthopedic Surgery Additional Past Surgical History / Comment(s): bilateral knee replacement, left ankle ORIF, 5 cardiac stents, carlos cataracts, right foot toe amputation. COVID - 08/11 Past Anesthesia/Blood Transfusion Reactions: No Reported Reaction Date of Last Stent Placement:: 2013 Past Psychological History: No Psychological Hx Reported Smoking Status: Former smoker Past Alcohol Use History: Occasional Additional Past Alcohol Use History / Comment(s): smoked on/off cigars, 2-3 daily Past Drug Use History: None Reported - Past Family History Mother Family Medical History: No Reported History Medications and Allergies Home Medications Medication Instructions Recorded Confirmed Type Aspirin EC [Ecotrin Low Dose] 81 mg PO HS 04/09/14 09/05/21 History Tamsulosin HCl [Flomax] 0.4 mg PO HS 04/09/14 09/05/21 History Multivit-Min/FA/Lycopen/Lutein 1 tab PO DAILY 04/30/18 09/05/21 History [Centrum Silver Tablet] levETIRAcetam [Keppra] 1,500 mg PO BID 04/30/18 09/05/21 History Atorvastatin [Lipitor] 80 mg PO HS 01/27/19 09/05/21 History Losartan Potassium [Cozaar] 12.5 mg PO HS 01/27/19 09/05/21 History Metoprolol Tartrate [Lopressor] 12.5 mg PO HS 01/11/21 09/05/21 History OXcarbazepine [Trileptal] 150 mg PO BID 01/11/21 09/05/21 History Insulin Aspart [NovoLOG Flexpen] See Protocol SQ TID-W/MEALS 04/14/21 09/05/21 History Insulin Detemir [Levemir Flextouch 20 units SQ HS 04/14/21 09/05/21 History Pen] Ascorbic Acid [Vitamin C] 1,000 mg PO DAILY #30 tab 08/16/21 09/05/21 Rx Cholecalciferol [Vitamin D3 (25 50 mcg PO DAILY #30 tab 08/16/21 09/05/21 Rx Mcg = 1000 Iu)] Famotidine [Pepcid] 20 mg PO DAILY #30 tab 08/16/21 09/05/21 Rx Sodium Bicarbonate Tab 650 mg PO BID #60 tab 08/16/21 09/05/21 Rx Zinc Sulfate [Orazinc] 220 mg PO DAILY #30 cap 08/16/21 09/05/21 Rx polyethylene glycoL 3350 [Miralax] 17 gm PO DAILY #30 packet 08/16/21 09/05/21 Rx Furosemide [Lasix] 20 mg PO DAILY 09/05/21 09/05/21 History Hydrocortisone Pr Cream 1 applic RECTAL BID 30 Days #45 gm 09/07/21 Rx [Proctosol-Hc 2.5%] Allergies Allergy/AdvReac Type Severity Reaction Status Date / Time No Known Allergies Allergy Verified 09/05/21 14:08 Surgical - Exam Vital Signs Temp Pulse Resp BP Pulse Ox 98.3 F 77 18 124/71 95 09/05/21 11:15 09/05/21 11:15 09/05/21 11:15 09/05/21 11:15 09/05/21 11:15 Results - Labs 09/07/21 06:21 09/07/21 06:21 Abnormal Lab Results - Last 24 Hours (Table) 09/06/21 09/06/21 09/06/21 Range/Units 15:09 17:23 17:47 WBC 16.02 H (4.50-10.00) X 10*3/uL RBC 6.98 H (4.40-5.60) X 10*6/uL Hct 54.3 H (39.6-50.0) % MCV 77.8 L (80.0-97.0) fL MCH 23.6 L (27.0-32.0) pg MCHC 30.4 L (32.0-37.0) g/dL RDW 19.1 H (11.5-14.5) % Plt Count 1123 H* 1357 H* (150-450) k/uL Plt Count Comment INCREASED A MPV 9.3 L (9.5-12.2) fL Absolute Nucleated RBC (0.00-0.00) X 10*3/uL Immature Gran # 0.21 H (0.00-0.04) X 10*3/uL Neutrophils # 11.77 H (1.80-7.70) X 10*3/uL Eosinophils # 0.60 H (0.04-0.35) X 10*3/uL Basophils # 1.18 H (0.00-0.10) X 10*3/uL NRBC/100 WBC Diff (0.0-0.0) /100 WBCS Potassium (3.5-5.5) mmol/L Creatinine (0.6-1.5) mg/dL Est GFR (CKD-EPI)AfAm (60.0-200.0) Est GFR (CKD-EPI)NonAf (60.0-200.0) Glucose (70-110) mg/dL POC Glucose (mg/dL) 124 H (70-110) mg/dL Alkaline Phosphatase (41-126) U/L Lactate Dehydrogenase (120-246) U/L 09/06/21 09/06/21 09/06/21 Range/Units 17:47 20:29 20:55 WBC 15.8 H (4.50-10.00) X 10*3/uL RBC 6.43 H (4.40-5.60) X 10*6/uL Hct (39.6-50.0) % MCV 77.7 L (80.0-97.0) fL MCH (27.0-32.0) pg MCHC (32.0-37.0) g/dL RDW 16.1 H (11.5-14.5) % Plt Count 1249 H* (150-450) k/uL Plt Count Comment MPV (9.5-12.2) fL Absolute Nucleated RBC (0.00-0.00) X 10*3/uL Immature Gran # (0.00-0.04) X 10*3/uL Neutrophils # (1.80-7.70) X 10*3/uL Eosinophils # (0.04-0.35) X 10*3/uL Basophils # (0.00-0.10) X 10*3/uL NRBC/100 WBC Diff (0.0-0.0) /100 WBCS Potassium 5.8 H (3.5-5.5) mmol/L Creatinine 1.8 H (0.6-1.5) mg/dL Est GFR (CKD-EPI)AfAm 40.3 L (60.0-200.0) Est GFR (CKD-EPI)NonAf 34.8 L (60.0-200.0) Glucose 131 H (70-110) mg/dL POC Glucose (mg/dL) 112 H (70-110) mg/dL Alkaline Phosphatase 233 H (41-126) U/L Lactate Dehydrogenase 274 H (120-246) U/L 09/07/21 09/07/21 09/07/21 Range/Units 06:21 06:21 07:08 WBC 13.34 H (4.50-10.00) X 10*3/uL RBC 6.45 H (4.40-5.60) X 10*6/uL Hct (39.6-50.0) % MCV 76.0 L (80.0-97.0) fL MCH 23.9 L (27.0-32.0) pg MCHC 31.4 L (32.0-37.0) g/dL RDW 18.4 H (11.5-14.5) % Plt Count 1137 H* (150-450) k/uL Plt Count Comment MPV 9.2 L (9.5-12.2) fL Absolute Nucleated RBC 0.02 H (0.00-0.00) X 10*3/uL Immature Gran # (0.00-0.04) X 10*3/uL Neutrophils # (1.80-7.70) X 10*3/uL Eosinophils # (0.04-0.35) X 10*3/uL Basophils # (0.00-0.10) X 10*3/uL NRBC/100 WBC Diff 0.1 H (0.0-0.0) /100 WBCS Potassium (3.5-5.5) mmol/L Creatinine 1.6 H (0.6-1.5) mg/dL Est GFR (CKD-EPI)AfAm 47.5 L (60.0-200.0) Est GFR (CKD-EPI)NonAf 40.9 L (60.0-200.0) Glucose (70-110) mg/dL POC Glucose (mg/dL) 112 H (70-110) mg/dL Alkaline Phosphatase (41-126) U/L Lactate Dehydrogenase (120-246) U/L 09/07/21 Range/Units 11:12 WBC (4.50-10.00) X 10*3/uL RBC (4.40-5.60) X 10*6/uL Hct (39.6-50.0) % MCV (80.0-97.0) fL MCH (27.0-32.0) pg MCHC (32.0-37.0) g/dL RDW (11.5-14.5) % Plt Count (150-450) k/uL Plt Count Comment MPV (9.5-12.2) fL Absolute Nucleated RBC (0.00-0.00) X 10*3/uL Immature Gran # (0.00-0.04) X 10*3/uL Neutrophils # (1.80-7.70) X 10*3/uL Eosinophils # (0.04-0.35) X 10*3/uL Basophils # (0.00-0.10) X 10*3/uL NRBC/100 WBC Diff (0.0-0.0) /100 WBCS Potassium (3.5-5.5) mmol/L Creatinine (0.6-1.5) mg/dL Est GFR (CKD-EPI)AfAm (60.0-200.0) Est GFR (CKD-EPI)NonAf (60.0-200.0) Glucose (70-110) mg/dL POC Glucose (mg/dL) 189 H (70-110) mg/dL Alkaline Phosphatase (41-126) U/L Lactate Dehydrogenase (120-246) U/L Diabetes panel 09/06/21 09/07/21 Range/Units 17:47 06:21 Sodium 138 137 (135-145) mmol/L Potassium 5.8 H 4.9 (3.5-5.5) mmol/L Chloride 98 103 (96-109) mmol/L Carbon Dioxide 24.7 23.4 (20.0-27.5) mmol/L BUN 26.1 21.7 (9.0-27.0) mg/dL Creatinine 1.8 H 1.6 H (0.6-1.5) mg/dL Glucose 131 H 107 (70-110) mg/dL Calcium 10.0 9.3 (8.7-10.3) mg/dL AST 26 (14-35) U/L ALT 28 (10-49) U/L Alkaline Phosphatase 233 H (41-126) U/L Total Protein 6.7 (6.2-8.2) g/dL Albumin 4.4 (3.8-4.9) g/dL Thyroid panel 09/06/21 Range/Units 17:47 TSH 1.180 (0.350-5.500) uIU/mL Calcium panel 09/06/21 09/07/21 Range/Units 17:47 06:21 Calcium 10.0 9.3 (8.7-10.3) mg/dL Albumin 4.4 (3.8-4.9) g/dL Pituitary panel 09/06/21 09/07/21 Range/Units 17:47 06:21 Sodium 138 137 (135-145) mmol/L Potassium 5.8 H 4.9 (3.5-5.5) mmol/L Chloride 98 103 (96-109) mmol/L Carbon Dioxide 24.7 23.4 (20.0-27.5) mmol/L BUN 26.1 21.7 (9.0-27.0) mg/dL Creatinine 1.8 H 1.6 H (0.6-1.5) mg/dL Glucose 131 H 107 (70-110) mg/dL Calcium 10.0 9.3 (8.7-10.3) mg/dL TSH 1.180 (0.350-5.500) uIU/mL Adrenal panel 09/06/21 09/07/21 Range/Units 17:47 06:21 Sodium 138 137 (135-145) mmol/L Potassium 5.8 H 4.9 (3.5-5.5) mmol/L Chloride 98 103 (96-109) mmol/L Carbon Dioxide 24.7 23.4 (20.0-27.5) mmol/L BUN 26.1 21.7 (9.0-27.0) mg/dL Creatinine 1.8 H 1.6 H (0.6-1.5) mg/dL Glucose 131 H 107 (70-110) mg/dL Calcium 10.0 9.3 (8.7-10.3) mg/dL Total Bilirubin 0.80 (0.30-1.20) mg/dL AST 26 (14-35) U/L ALT 28 (10-49) U/L Alkaline Phosphatase 233 H (41-126) U/L Total Protein 6.7 (6.2-8.2) g/dL Albumin 4.4 (3.8-4.9) g/dL
[2021-09-10 12:02] LABS: Free Kappa Lt Chain Qnt, Serum 3.91 mg/dL (0.33-1.94); Free Lambda Lt Chain Qnt, Seru 3.16 mg/dL (0.57-2.63)
[2021-09-10 13:34] LABS: Albumin 3.89 g/dL (3.80-4.90); Gamma Globulin 0.99 g/dL (0.70-1.50)
== END 2021-09-07 16:10 | disposition home or self-care (01) ==
LOC: EC 10:53 → 5NMEDONC 13:58
PROVIDERS: ADMIT Internal Medicine; ATTEND Internal Medicine
DX: K57.31 Diverticulosis of large intestine without perforation or abscess with bleeding (principal); K64.1 Second degree hemorrhoids; K92.1 Melena; D72.829 Elevated white blood cell count, unspecified; R74.8 Abnormal levels of other serum enzymes; I25.10 Atherosclerotic heart disease of native coronary artery without angina pectoris; D72.824 Basophilia; D75.839 Thrombocytosis, unspecified; E78.5 Hyperlipidemia, unspecified; I13.0 Hypertensive heart and chronic kidney disease with heart failure and stage 1 through stage 4 chronic kidney disease, or unspecified chronic kidney disease; E11.22 Type 2 diabetes mellitus with diabetic chronic kidney disease; N18.32 Chronic kidney disease, stage 3b; I11.0 Hypertensive heart disease with heart failure; I50.22 Chronic systolic (congestive) heart failure; E11.40 Type 2 diabetes mellitus with diabetic neuropathy, unspecified; N17.9 Acute kidney failure, unspecified; G40.909 Epilepsy, unspecified, not intractable, without status epilepticus; N40.0 Benign prostatic hyperplasia without lower urinary tract symptoms; Z86.16 Personal history of COVID-19; K21.9 Gastro-esophageal reflux disease without esophagitis; I25.2 Old myocardial infarction; I25.5 Ischemic cardiomyopathy; E87.2 Acidosis; G47.33 Obstructive sleep apnea (adult) (pediatric); Z90.49 Acquired absence of other specified parts of digestive tract; Z95.5 Presence of coronary angioplasty implant and graft; Z96.653 Presence of artificial knee joint, bilateral; Z97.2 Presence of dental prosthetic device (complete) (partial); Z98.42 Cataract extraction status, left eye; Z98.41 Cataract extraction status, right eye; Z89.421 Acquired absence of other right toe(s); Z87.891 Personal history of nicotine dependence; Z79.02 Long term (current) use of antithrombotics/antiplatelets; Z79.82 Long term (current) use of aspirin; Z79.4 Long term (current) use of insulin; Z79.899 Other long term (current) drug therapy
CPT/HCPCS: 96360; 96361; 99285; 36415; 86900; 86901; 80053 ×2; 80048; 85652; 84443; 82728; 83540; 83550; 83615; 83735; 85025 ×2; 85027 ×2; 85384; 85610; 85730; 86850; 86140; 81003; 81206 ×2; 81207; 82784 ×3; 84165; 83010; 86334; 83883; 45378; G0378 ×3; J2704

== ENCOUNTER 2021-11-21 18:09 | Emergency (ER) | payer MEDICARE ==
[2021-11-21 18:34] VITALS: BP 112/50; PULSE 100; RESP 18; TEMP 101.3
[2021-11-21] MEDS ORDERED: ACETAMINOPHEN TAB 500 MG TAB PO STA (18:38)
== END 2021-11-21 21:03 | disposition left against medical advice (07) ==
LOC: EC 18:09
DX: Z53.21 Procedure and treatment not carried out due to patient leaving prior to being seen by health care provider (principal); Z20.822 Contact with and (suspected) exposure to COVID-19
CPT/HCPCS: 87635; 99499

== ENCOUNTER 2021-11-22 00:30 | Inpatient (IN) | payer MEDICARE ==
[2021-11-22 01:48] LABS: Albumin 3.2 g/dL (3.5-5.0); Calcium 8.4 mg/dL (8.4-10.2); Potassium 4.4 mmol/L (3.5-5.1); Total Bilirubin 0.7 mg/dL (0.2-1.3); Total Protein 5.6 g/dL (6.3-8.2)
--- NOTE | 2021-11-22 01:57 | XR ---
EXAMINATION TYPE: XR lumbar spine 2 or 3V DATE OF EXAM: 11/22/2021 COMPARISON: NONE HISTORY: Fall. Back pain TECHNIQUE: 3 views FINDINGS: The lumbar vertebrae are of normal alignment. Posterior elements are intact. No compression fracture. Sacroiliac joints are intact. There is spurring of the endplates and multilevel mild disc space narrowing. IMPRESSION: Multilevel spondylotic changes. No fracture.
--- NOTE | 2021-11-22 01:58 | XR ---
EXAMINATION TYPE: XR Hip Complete RT DATE OF EXAM: 11/22/2021 COMPARISON: NONE HISTORY: Fall. Hip pain TECHNIQUE: 2 views FINDINGS: There is mild acetabular spurring. I see no fracture nor dislocation. Proximal femurs are i ntact. IMPRESSION: No acute abnormality of the right hip.
--- NOTE | 2021-11-22 01:59 | ED ---
Fall HPI - General Chief Complaint: Fall Stated Complaint: Falls Time Seen by Provider: 11/22/21 00:47 Source: patient, family, EMS, RN notes reviewed Mode of arrival: EMS - History of Present Illness Initial Comments: This is a 76-year-old male who presents to the emergency department for a fall. States that he slipped out of his rocking chair 3 times a day, and has pain to the left shoulder, lower back, and right hip. He has chronic pain to these areas and believes that he exacerbated it. Denies hitting his head or any loss of consciousness. He is on blood thinners. He started oral chemotherapy (hydroxyurea) a month ago for "bone marrow cancer". Currently follows up with Dr. Andino and has an appointment tomorrow. His family states that over the last few weeks he has been particularly weak, more so than normal. Yesterday, he also developed a fever. They tried to have him evaluated here yesterday, however they ended up leaving due to the wait. His states that she is having a difficult time caring for him at home. His and daughter are interested in short-term rehabilitation for him, however the patient is hesitant. Denies any fevers, chills, sore throat, cough, dyspnea, chest pain, palpitations, abdominal pain, nausea, vomiting, diarrhea, or headaches. MD Complaint: fall Fall From: chair Fall Witnessed: yes, by family Place Fall Occurred: home Loss of Consciousness: none Prolonged Down Time?: no Location - Extremities: Left: Shoulder - Related Data Home Medications Medication Instructions Recorded Confirmed Aspirin EC [Ecotrin Low Dose] 81 mg PO HS 04/09/14 11/22/21 Tamsulosin HCl [Flomax] 0.4 mg PO DAILY 04/09/14 11/22/21 Multivit-Min/FA/Lycopen/Lutein 1 tab PO DAILY 04/30/18 11/22/21 [Centrum Silver Tablet] levETIRAcetam [Keppra] 1,500 mg PO BID 04/30/18 11/22/21 Atorvastatin [Lipitor] 80 mg PO HS 01/27/19 11/22/21 Losartan Potassium [Cozaar] 12.5 mg PO HS 01/27/19 11/22/21 Metoprolol Tartrate [Lopressor] 12.5 mg PO HS 01/11/21 11/22/21 OXcarbazepine [Trileptal] 150 mg PO BID 01/11/21 11/22/21 Insulin Aspart [NovoLOG Flexpen] 14 units SQ TID-W/MEALS 04/14/21 11/22/21 Insulin Detemir [Levemir Flextouch 14 units SQ HS 04/14/21 11/22/21 Pen] Furosemide [Lasix] 10 mg PO DAILY 09/05/21 11/22/21 Clopidogrel [Plavix] 75 mg PO DAILY 11/22/21 11/22/21 Hydroxyurea [Hydrea] 500 mg PO HS 11/22/21 11/22/21 Previous Rx's Medication Instructions Recorded Cholecalciferol [Vitamin D3 (25 50 mcg PO DAILY #30 tab 08/16/21 Mcg = 1000 Iu)] Allergies Allergy/AdvReac Type Severity Reaction Status Date / Time No Known Allergies Allergy Verified 11/22/21 08:10 Review of Systems ROS Statement: Those systems with pertinent positive or pertinent negative responses have been documented in the HPI. ROS Other: All systems not noted in ROS Statement are negative. Past Medical History Past Medical History: Diabetes Mellitus, GERD/Reflux, Hyperlipidemia, Hypertension, Myocardial Infarction ([place]), Prostate Disorder, Renal Disease, Seizure Disorder, Sleep Apnea/CPAP/BIPAP Additional Past Medical History / Comment(s): last seizure 6 monhts ago, no CPAP, neuropathy feet, decreased kidney function-, right great toe wound, "disk issues" Last Myocardial Infarction Date:: 2013 History of Any Multi-Drug Resistant Organisms: None Reported Past Surgical History: Cholecystectomy, Heart Catheterization, Heart Catheterization With Stent, Orthopedic Surgery Additional Past Surgical History / Comment(s): bilateral knee replacement, left ankle ORIF, 5 cardiac stents, carlos cataracts, right foot toe amputation. COVID - 08/11 Past Anesthesia/Blood Transfusion Reactions: No Reported Reaction Date of Last Stent Placement:: 2013 Past Psychological History: No Psychological Hx Reported Smoking Status: Former smoker Past Alcohol Use History: Occasional Past Drug Use History: None Reported - Past Family History Mother Family Medical History: No Reported History General Exam General appearance: alert, in no apparent distress Head exam: Present: atraumatic, normocephalic, normal inspection Respiratory exam: Present: normal lung sounds bilaterally. Absent: respiratory distress, wheezes, rales, rhonchi, stridor Cardiovascular Exam: Present: regular rate, normal rhythm, normal heart sounds. Absent: systolic murmur, diastolic murmur, rubs, gallop, clicks Extremities exam: Present: other (Tender to palpation over the right greater trochanter and left AC joint. Unable to evaluate ROM to the right hip due to discomfort. He does have full ROM to the left arm and shoulder, however it is painful.) Neurological exam: Present: alert, oriented X3, CN II-XII intact Psychiatric exam: Present: normal affect, normal mood Skin exam: Present: warm, dry, intact, normal color. Absent: rash Course Vital Signs 11/22/21 11/22/21 11/22/21 00:32 06:27 06:42 Temperature 97.6 F 99 F Pulse Rate 81 87 Respiratory 18 18 Rate Blood Pressure 121/64 123/76 O2 Sat by Pulse 98 97 Oximetry 11/22/21 11/22/21 11/22/21 07:39 08:42 08:52 Temperature 99.4 F Pulse Rate 107 H 130 H 126 H Respiratory 20 26 H 28 H Rate Blood Pressure 133/74 146/72 O2 Sat by Pulse 94 L 92 L 94 L Oximetry 11/22/21 11/22/21 11/22/21 10:28 12:26 16:07 Temperature 101.2 F H Pulse Rate 110 H 89 96 Respiratory 20 18 18 Rate Blood Pressure 105/50 109/69 O2 Sat by Pulse 96 98 100 Oximetry 11/22/21 17:56 Temperature 101.2 F H Pulse Rate 94 Respiratory 20 Rate Blood Pressure 101/51 O2 Sat by Pulse 96 Oximetry Medical Decision Making - Medical Decision Making This is a 76-year-old male who presents to the emergency department for several falls. X-rays of his areas of pain were obtained, revealing no acute irregularities. Given the increase in weakness that has been causing the steve falls, lab work was obtained. He does have multiple electrolyte irregularities on blood work and a mild ELEONORA. CBC is also very irregular, however it is difficult to interpret given the patient's "bone marrow cancer" as stated by his daughter. It is possible that the weakness is related to the hydroxyurea given the time frame of when the weakness started. Patient will be admitted to medicine with hem/onc consult and evaluation by physical therapy. This case was discussed in detail with the attending ED physician. Presentation, findings, and treatment plan discussed in detail as well. - Lab Data Result diagrams: 11/22/21 00:40 11/22/21 00:40 Lab Results 11/22/21 11/22/21 11/22/21 Range/Units 00:40 00:40 00:40 WBC 19.5 H (3.8-10.6) k/uL RBC 5.91 H (4.30-5.90) m/uL Hgb 15.5 (13.0-17.5) gm/dL Hct 47.8 (39.0-53.0) % MCV 80.8 (80.0-100.0) fL MCH 26.2 (25.0-35.0) pg MCHC 32.4 (31.0-37.0) g/dL RDW 19.8 H (11.5-15.5) % Plt Count 779 H (150-450) k/uL MPV 9.7 Neutrophils % (Manual) 78 % Band Neuts % (Manual) 10 % Lymphocytes % (Manual) 6 % Monocytes % (Manual) 4 % Eosinophils % (Manual) 2 % Neutrophils # (Manual) 17.10 H (1.3-7.7) k/uL Lymphocytes # (Manual) 1.17 (1.0-4.8) k/uL Monocytes # (Manual) 0.78 (0-1.0) k/uL Eosinophils # (Manual) 0.39 (0-0.7) k/uL Nucleated RBCs 0 (0-0) /100 WBC Manual Slide Review Performed Large Platelets Present Hypochromasia Slight Poikilocytosis (manual Present Anisocytosis Slight Microcytosis Slight Sodium 135 L (137-145) mmol/L Potassium 4.4 (3.5-5.1) mmol/L Chloride 104 (98-107) mmol/L Carbon Dioxide 21 L (22-30) mmol/L Anion Gap 10 mmol/L BUN 36 H (9-20) mg/dL Creatinine 2.13 H (0.66-1.25) mg/dL Est GFR (CKD-EPI)AfAm 34 (>60 ml/min/1.73 sqM) Est GFR (CKD-EPI)NonAf 29 (>60 ml/min/1.73 sqM) Glucose 173 H (74-99) mg/dL Lactic Ac Sepsis Rflx Plasma Lactic Acid Miguel A 2.1 H* (0.7-2.0) mmol/L Calcium 8.4 (8.4-10.2) mg/dL Total Bilirubin 0.7 (0.2-1.3) mg/dL AST 49 (17-59) U/L ALT 28 (4-49) U/L Alkaline Phosphatase 179 H (38-126) U/L Total Protein 5.6 L (6.3-8.2) g/dL Albumin 3.2 L (3.5-5.0) g/dL Urine Color Urine Appearance (Clear) Urine pH (5.0-8.0) Ur Specific [place] (1.001-1.035) Urine Protein (Negative) Urine Glucose (UA) (Negative) Urine Ketones (Negative) Urine Blood (Negative) Urine Nitrite (Negative) Urine Bilirubin (Negative) Urine Urobilinogen (<2.0) mg/dL Ur Leukocyte Esterase (Negative) Urine RBC (0-5) /hpf Urine WBC (0-5) /hpf Urine Bacteria (None) /hpf Urine Mucus (None) /hpf 11/22/21 11/22/21 11/22/21 Range/Units 02:12 04:31 07:37 WBC (3.8-10.6) k/uL RBC (4.30-5.90) m/uL Hgb (13.0-17.5) gm/dL Hct (39.0-53.0) % MCV (80.0-100.0) fL MCH (25.0-35.0) pg MCHC (31.0-37.0) g/dL RDW (11.5-15.5) % Plt Count (150-450) k/uL MPV Neutrophils % (Manual) % Band Neuts % (Manual) % Lymphocytes % (Manual) % Monocytes % (Manual) % Eosinophils % (Manual) % Neutrophils # (Manual) (1.3-7.7) k/uL Lymphocytes # (Manual) (1.0-4.8) k/uL Monocytes # (Manual) (0-1.0) k/uL Eosinophils # (Manual) (0-0.7) k/uL Nucleated RBCs (0-0) /100 WBC Manual Slide Review Large Platelets Hypochromasia Poikilocytosis (manual Anisocytosis Microcytosis Sodium (137-145) mmol/L Potassium (3.5-5.1) mmol/L Chloride (98-107) mmol/L Carbon Dioxide (22-30) mmol/L Anion Gap mmol/L BUN (9-20) mg/dL Creatinine (0.66-1.25) mg/dL Est GFR (CKD-EPI)AfAm (>60 ml/min/1.73 sqM) Est GFR (CKD-EPI)NonAf (>60 ml/min/1.73 sqM) Glucose (74-99) mg/dL Lactic Ac Sepsis Rflx Y Plasma Lactic Acid Miguel A 1.3 (0.7-2.0) mmol/L Calcium (8.4-10.2) mg/dL Total Bilirubin (0.2-1.3) mg/dL AST (17-59) U/L ALT (4-49) U/L Alkaline Phosphatase (38-126) U/L Total Protein (6.3-8.2) g/dL Albumin (3.5-5.0) g/dL Urine Color Yellow Urine Appearance Clear (Clear) Urine pH 5.5 (5.0-8.0) Ur Specific [place] 1.016 (1.001-1.035) Urine Protein 1+ H (Negative) Urine Glucose (UA) Negative (Negative) Urine Ketones Trace H (Negative) Urine Blood Small H (Negative) Urine Nitrite Negative (Negative) Urine Bilirubin Negative (Negative) Urine Urobilinogen <2.0 (<2.0) mg/dL Ur Leukocyte Esterase Negative (Negative) Urine RBC <1 (0-5) /hpf Urine WBC 1 (0-5) /hpf Urine Bacteria Rare H (None) /hpf Urine Mucus Rare H (None) /hpf - Radiology Data Radiology results: report reviewed, image reviewed Disposition Clinical Impression: Weakness, Cancer, Frequent falls Disposition: ADMITTED IP TO THIS HOSP
--- NOTE | 2021-11-22 01:59 | XR ---
EXAMINATION TYPE: XR shoulder complete LT DATE OF EXAM: 11/22/2021 COMPARISON: NONE HISTORY: Pain TECHNIQUE: 3 views FINDINGS: There is no evidence of fracture nor dislocation. Glenohumeral joint is anatomic. AC joint is intact. There is narrowing of the shoulder joint space with spurring. IMPRESSION: Osteoarthritis. No fracture.
[2021-11-22 03:23] LABS: Anisocytosis Slight; HCT 47.8 % (39.0-53.0); HGB 15.5 gm/dL (13.0-17.5); Hypochromasia Slight; MCH 26.2 pg (25.0-35.0); MCHC 32.4 g/dL (31.0-37.0); MCV 80.8 fL (80.0-100.0); Mean Platelet Volume 9.7; Microcytosis Slight; Platelet Count 779 k/uL (150-450); RBC 5.91 m/uL (4.30-5.90); RDW 19.8 % (11.5-15.5); WBC 19.5 k/uL (3.8-10.6)
[2021-11-22] MEDS ORDERED: SODIUM CHLORIDE 0.9% 1,000 ML IV STA (04:04)
[2021-11-22 04:35] LABS: Band Neutrophils % 10 %; Eosinophils # (M) 0.39 k/uL (0-0.7); Large Platelets Present; Lymphocytes # (M) 1.17 k/uL (1.0-4.8); Monocytes # (M) 0.78 k/uL (0-1.0); Neutrophils % (M) 78 %; Nucleated Red Blood Cells 0 /100 WBC (0-0); Total Cells Counted 100
[2021-11-22 04:36] LABS: Poikilocytosis (M) Present
[2021-11-22 05:05] LABS: Appearance,Urine Clear (Clear); Bacteria,Urine Rare /hpf; Bilirubin,Urine Negative (Negative); Blood,Urine Small (Negative); Color,Urine Yellow; Glucose,Urine (UA) Negative (Negative); Ketones,Urine Trace (Negative); Leukocyte Esterase,Urine Negative (Negative); Mucus,Urine Rare /hpf; Nitrite,Urine Negative (Negative); PH, Urine 5.5 (5.0-8.0); Protein,Urine 1+ (Negative); RBC,Urine <1 /hpf (0-5); Specific Gravity,Urine 1.016 (1.001-1.035); Urobilinogen,Urine <2.0 mg/dL (<2.0); WBC,Urine 1 /hpf (0-5)
[2021-11-22] MEDS ORDERED: NALOXONE 0.4 MG/ML 1 ML VIAL IV PRN (05:05)
[2021-11-22] MEDS ORDERED: ONDANSETRON 4 MG/2 ML VIAL IVP PRN (05:05)
--- NOTE | 2021-11-22 05:46 | P.HPIM ---
History of Present Illness H&P Date: 11/22/21 The patient is a 76-year-old male with a PMH of essential thrombocytosis, systolic CHF, hypertension, hyperlipidemia, coronary artery disease status post multiple stents, seizure disorder, and type II DM who presented to the emergency room with complaints of generalized weakness. Patient reports that over the past 2 weeks, he has been getting progressively weaker, to the point that he has been slipping out of his recliner and is unable to get back up. He denied loss of consciousness or head trauma. The patient reports that roughly a month ago, he was started on hydroxyurea for his essential thrombocytosis. Patient also reports a single episode of a subjective fever yesterday afternoon. He also reports that he has overall not been feeling well and has thereby had decreased oral intake during this time. The patient denied experiencing chest discomfort, shortness of breath, nausea, vomiting, abdominal pain, diarrhea. The had noted to the emergency staff that she is unable to care for him at this time and that she is hoping for rehab placement due to his progressive weakness, which is very unusual for him. Review of systems: Pertinent positives and negatives as discussed in HPI, a complete review of systems was performed and all other systems are negative. Physical examination: General: non toxic, no distress, appears at stated age, obese Derm: no unusual rashes/lesions, warm Head: atraumatic, normocephalic, symmetric Eyes: EOMI, no lid lag, anicteric sclera, pupils equal round reactive to light ENT: Nose and ears atraumatic Neck: No cervical lymphadenopathy, trachea midline, supple Mouth: no lip lesion, mucus membranes moist Cardiovascular: S1S2 reg, no murmur, positive dorsalis pedis pulse bilateral, no edema Lungs: CTA bilateral, no rhonchi, no rales, no accessory muscle use Abdominal: soft, nontender to palpation, no guarding Ext: muscle strength 4 out of 5 in all 4 extremities grossly, no gross muscle atrophy, no contractures, Neuro: CN II-XI grossly intact, no gross focal neuro deficits Psych: Alert, oriented, appropriate affect Assessment/plan Generalized weakness, possibly secondary to hydroxyurea -Oncology consulted -Hold for now -PT consult Lactic acidosis -Monitor for resolution -IV fluids ELEONORA, due to poor oral intake -IV fluids and monitor for now Leukocytosis -Similar to baseline -No signs of active infection at this time Chronic conditions: Type II DM, hypertension, lipidemia, CAD, seizure disorder -Continue with home meds once confirmed DVT prophylaxis -Heparin subcu The patient is admitted with an anticipated greater than 2 midnight stay for evaluation of weakness CODE STATUS: Full Code Discussed with: Patient Anticipated discharge date: 2-[address]: Home Past Medical History Past Medical History: Diabetes Mellitus, GERD/Reflux, Hyperlipidemia, Hypertension, Myocardial Infarction ([place]), Prostate Disorder, Renal Disease, Seizure Disorder, Sleep Apnea/CPAP/BIPAP Additional Past Medical History / Comment(s): last seizure 6 monhts ago, no CPAP, neuropathy feet, decreased kidney function-, right great toe wound, "disk issues" Last Myocardial Infarction Date:: 2013 History of Any Multi-Drug Resistant Organisms: None Reported Past Surgical History: Cholecystectomy, Heart Catheterization, Heart Catheterization With Stent, Orthopedic Surgery Additional Past Surgical History / Comment(s): bilateral knee replacement, left ankle ORIF, 5 cardiac stents, carlos cataracts, right foot toe amputation. COVID - 08/11 Past Anesthesia/Blood Transfusion Reactions: No Reported Reaction Date of Last Stent Placement:: 2013 Past Psychological History: No Psychological Hx Reported Smoking Status: Former smoker Past Alcohol Use History: Occasional Past Drug Use History: None Reported - Past Family History Mother Family Medical History: COPD Medications and Allergies Home Medications Medication Instructions Recorded Confirmed Type Aspirin EC [Ecotrin Low Dose] 81 mg PO HS 04/09/14 09/05/21 History Tamsulosin HCl [Flomax] 0.4 mg PO HS 04/09/14 09/05/21 History Multivit-Min/FA/Lycopen/Lutein 1 tab PO DAILY 04/30/18 09/05/21 History [Centrum Silver Tablet] levETIRAcetam [Keppra] 1,500 mg PO BID 04/30/18 09/05/21 History Atorvastatin [Lipitor] 80 mg PO HS 01/27/19 09/05/21 History Losartan Potassium [Cozaar] 12.5 mg PO HS 01/27/19 09/05/21 History Metoprolol Tartrate [Lopressor] 12.5 mg PO HS 01/11/21 09/05/21 History OXcarbazepine [Trileptal] 150 mg PO BID 01/11/21 09/05/21 History Insulin Aspart [NovoLOG Flexpen] See Protocol SQ TID-W/MEALS 04/14/21 09/05/21 History Insulin Detemir [Levemir Flextouch 20 units SQ HS 04/14/21 09/05/21 History Pen] Ascorbic Acid [Vitamin C] 1,000 mg PO DAILY #30 tab 08/16/21 09/05/21 Rx Cholecalciferol [Vitamin D3 (25 50 mcg PO DAILY #30 tab 08/16/21 09/05/21 Rx Mcg = 1000 Iu)] Famotidine [Pepcid] 20 mg PO DAILY #30 tab 08/16/21 09/05/21 Rx Sodium Bicarbonate Tab 650 mg PO BID #60 tab 08/16/21 09/05/21 Rx Zinc Sulfate [Orazinc] 220 mg PO DAILY #30 cap 08/16/21 09/05/21 Rx polyethylene glycoL 3350 [Miralax] 17 gm PO DAILY #30 packet 08/16/21 09/05/21 Rx Furosemide [Lasix] 20 mg PO DAILY 09/05/21 09/05/21 History Hydrocortisone Pr Cream 1 applic RECTAL BID 30 Days #45 gm 09/07/21 Rx [Proctosol-Hc 2.5%] Allergies Allergy/AdvReac Type Severity Reaction Status Date / Time No Known Allergies Allergy Verified 11/21/21 18:34 Physical Exam Vitals: Vital Signs Temp Pulse Resp BP Pulse Ox 11/22/21 00:32 97.6 F 81 18 121/64 98 Intake and Output 11/21/21 11/21/21 11/22/21 14:59 22:59 06:59 Other: Weight 105.233 kg Results CBC & Chem 7: 11/22/21 00:40 11/22/21 00:40 Labs: Abnormal Lab Results - Last 24 Hours (Table) 11/22/21 11/22/21 11/22/21 Range/Units 00:40 00:40 00:40 WBC 19.5 H (3.8-10.6) k/uL RBC 5.91 H (4.30-5.90) m/uL RDW 19.8 H (11.5-15.5) % Plt Count 779 H (150-450) k/uL Neutrophils # (Manual) 17.10 H (1.3-7.7) k/uL Sodium 135 L (137-145) mmol/L Carbon Dioxide 21 L (22-30) mmol/L BUN 36 H (9-20) mg/dL Creatinine 2.13 H (0.66-1.25) mg/dL Glucose 173 H (74-99) mg/dL Plasma Lactic Acid Miguel A 2.1 H* (0.7-2.0) mmol/L Alkaline Phosphatase 179 H (38-126) U/L Total Protein 5.6 L (6.3-8.2) g/dL Albumin 3.2 L (3.5-5.0) g/dL Urine Protein (Negative) Urine Ketones (Negative) Urine Blood (Negative) Urine Bacteria (None) /hpf Urine Mucus (None) /hpf 11/22/21 Range/Units 04:31 WBC (3.8-10.6) k/uL RBC (4.30-5.90) m/uL RDW (11.5-15.5) % Plt Count (150-450) k/uL Neutrophils # (Manual) (1.3-7.7) k/uL Sodium (137-145) mmol/L Carbon Dioxide (22-30) mmol/L BUN (9-20) mg/dL Creatinine (0.66-1.25) mg/dL Glucose (74-99) mg/dL Plasma Lactic Acid Miguel A (0.7-2.0) mmol/L Alkaline Phosphatase (38-126) U/L Total Protein (6.3-8.2) g/dL Albumin (3.5-5.0) g/dL Urine Protein 1+ H (Negative) Urine Ketones Trace H (Negative) Urine Blood Small H (Negative) Urine Bacteria Rare H (None) /hpf Urine Mucus Rare H (None) /hpf
[2021-11-22] MEDS: SODIUM CHLORIDE 0.9% 1,000 ML IV SCH ×2 (06:28→23:41)
[2021-11-22] MEDS: HYDROcodone/APAP 5-325MG 1 EACH TAB PO PRN ×2 (08:07→23:46)
[2021-11-22] MEDS: ACETAMINOPHEN TAB 325 MG TAB PO PRN ×3 (08:07→18:30)
[2021-11-22] MEDS: HEPARIN SODIUM,PORCINE/PF 5,000 UNIT/0.5 ML SYRINGE SQ SCH ×4 (08:08→23:42)
--- NOTE | 2021-11-22 09:48 | XR ---
EXAMINATION TYPE: XR chest 1V portable DATE OF EXAM: 11/22/2021 COMPARISON: 08/15/2021 INDICATION: Acute hypoxia, short of breath TECHNIQUE: Single frontal view of the chest is obtained. FINDINGS: The heart size is normal. The pulmonary vasculature is normal. No suspicious focal consolidation. There is some mild diffuse increased lung markings present. Consid er atypical pneumonia. IMPRESSION: 1. There is some mild diffuse increased lung markings without focal consolidation. Consider atypical pneumonia within the differential.
[2021-11-22] MEDS: CLOPIDOGREL 75 MG TAB PO SCH (12:30)
[2021-11-22] MEDS: CHOLECALCIFEROL 25 MCG (1000 IU) TABLET PO SCH (12:30)
[2021-11-22] MEDS: levETIRAcetam 500 MG TAB PO SCH ×2 (12:30→23:40)
[2021-11-22] MEDS: AZITHROMYCIN 500 MG in SODIUM CHLORIDE 0.9% 250 ML IVPB SCH (13:40)
[2021-11-22 16:25] LABS: Glucose,Whole Blood 252 mg/dL (70-110)
--- NOTE | 2021-11-22 17:15 | P.PN ---
Subjective Progress Note Date: 11/22/21 Principal diagnosis: dyspnea Hospitalist Interval Note Patient seen and examined at bedside. Vital signs reviewed General: non toxic, mild distress, appears at stated age Derm: warm, dry Head: atraumatic, normocephalic, symmetric Eyes: EOMI, no lid lag, anicteric sclera Mouth: no lip lesion, mucus membranes moist Cardiovascular: S1S2 reg, no murmur, tachycardic, regular Lungs: [Coarse breath sounds throughout anterior chest, tachypnea, no accessory muscle use Abdominal: soft, nontender to palpation, no guarding, no appreciable orga nomegaly Ext: no gross muscle atrophy, trace peripheral edema, no contractures Neuro: CN II-XI grossly intact, no focal neuro deficits Psych: Alert, oriented, appropriate affect Assessment/Plan: Acute hypoxic respiratory failure Sepsis Community-acquired pneumonia Rule out covid 19 -Cultures pending -Continue to wean down oxygen -Started on azithromycin and ceftriaxone Type 2 diabetes -Restarted home Levemir -Decreased aspart by half 3 times a day -Sliding scale insulin Restarted chronic home medications. This is an update note for patient , for full note see H&P from 11/22/21 at 5:45 Objective - Vital Signs Vital signs: Vital Signs Temp 99.4 F 11/22/21 07:39 Pulse 126 H 11/22/21 08:52 Resp 28 H 11/22/21 08:52 BP 146/72 11/22/21 08:42 Pulse Ox 94 L 11/22/21 08:52 FiO2 Intake & Output 11/21/21 11/22/21 11/22/21 18:59 06:59 18:59 Weight 105.233 kg - Labs CBC & Chem 7: 11/22/21 00:40 11/22/21 00:40 Labs: Abnormal Lab Results - Last 24 Hours (Table) 11/22/21 11/22/21 11/22/21 Range/Units 00:40 00:40 00:40 WBC 19.5 H (3.8-10.6) k/uL RBC 5.91 H (4.30-5.90) m/uL RDW 19.8 H (11.5-15.5) % Plt Count 779 H (150-450) k/uL Neutrophils # (Manual) 17.10 H (1.3-7.7) k/uL Sodium 135 L (137-145) mmol/L Carbon Dioxide 21 L (22-30) mmol/L BUN 36 H (9-20) mg/dL Creatinine 2.13 H (0.66-1.25) mg/dL Glucose 173 H (74-99) mg/dL Plasma Lactic Acid Miguel A 2.1 H* (0.7-2.0) mmol/L Alkaline Phosphatase 179 H (38-126) U/L Total Protein 5.6 L (6.3-8.2) g/dL Albumin 3.2 L (3.5-5.0) g/dL Urine Protein (Negative) Urine Ketones (Negative) Urine Blood (Negative) Urine Bacteria (None) /hpf Urine Mucus (None) /hpf 11/22/21 Range/Units 04:31 WBC (3.8-10.6) k/uL RBC (4.30-5.90) m/uL RDW (11.5-15.5) % Plt Count (150-450) k/uL Neutrophils # (Manual) (1.3-7.7) k/uL Sodium (137-145) mmol/L Carbon Dioxide (22-30) mmol/L BUN (9-20) mg/dL Creatinine (0.66-1.25) mg/dL Glucose (74-99) mg/dL Plasma Lactic Acid Miguel A (0.7-2.0) mmol/L Alkaline Phosphatase (38-126) U/L Total Protein (6.3-8.2) g/dL Albumin (3.5-5.0) g/dL Urine Protein 1+ H (Negative) Urine Ketones Trace H (Negative) Urine Blood Small H (Negative) Urine Bacteria Rare H (None) /hpf Urine Mucus Rare H (None) /hpf
[2021-11-22 18:02] LABS: Glucose,Whole Blood 243 mg/dL (70-110)
[2021-11-22] MEDS: INSULIN ASPART (NovoLOG) 100 UNIT/ML VIAL SQ SCH (18:05)
[2021-11-22 19:55] LABS: Glucose,Whole Blood 116 mg/dL (70-110)
--- NOTE | 2021-11-22 20:04 | P.CONS ---
History of Present Illness - Reason for Consult Consult date: 11/22/21 on hydrea Requesting physician: Kari Oh - Chief Complaint Fall - History of Present Illness Seen end of July at [facility] for thrombocytosis-plt>1mil. Had toe infection starting 01/10, had amputation 04/13, had covid in July 2021. He was inpt 09/05 through 09/07 for GI bleed. He had colonoscopy with Dr. Briceño 09/07/21: Digital rectal examination was normal. scope was inserted in the rectum, gradually advanced into the cecum without any difficulty. Careful examination was performed as the scope was gradually being withdrawn. Ileocecal valve and the appendiceal orifice were visualized and appeared normal. Prep was good. Mucosa of the cecum, ascending colon, transverse colon, descending colon, sigmoid colon, and rectum appeared normal. Scattered sigmoid diverticulosis. Retroflexion was performed in the rectum and grade 2 internal hemorrhoids were seen. Impression was no evidence of colorectal neoplasia or active bleeding noted, Scattered sigmoid diverticu losis, Grade 2 internal hemorrhoids. Recommendations were suspect bleeding from internal hemorrhoids, possibility of diverticular bleeding with currently bleeding subsided. Cardiology had him hold plavix-he was instructed to resume in 2 days. He cont on asa, no current bleeding to report. Jak2 mutation was neg, SPEP, K/L, immunofixation-no monoclonal gammopathy, BCR- ABL neg. No nutritional deificiencies. Pending CALR and MPL mutation Platelets were 1,137,000 on discharge 09/07. Patient denies any bleeding, unusual bruising, no constitutional symptoms, new or unusual pains, he is never had a situation like this in the past, no family history for the same. His platelets today are 1,043,000 As above. The patient states that he feels well generally. He does have some generalized weakness and decreased endurance is close to his usual baseline. He reports appetite back to baseline. He denies any unusual bleeding or bruising. Dyspnea on exertion is stable and at baseline also. He denied any focal neurologic deficit. Review of systems otherwise as per HPI and negative out of 10. Last seen in office by Dr. umaña on October 18 at that time The patient is clinically stable. He states that he symptomatically feels well and his usual baseline. He reports no new complaints. His CBC however shows patients to be elevated in the same range at 1.24 mil/ul. Hemoglobin was 16.4, WBC 16.2 - Patient's MPL and LUCY R results are still not available. At this time it is not clear these were actually sent out from the hospital labs. - We discussed that the persistent elevation of his blood counts, especially the platelet despite resolution of acute events, is highly suggestive of a primary MPD, regardless of the results of the MPD related mutations. We also discussed that in essential thrombosis is significant, a significant minority may not have any of the established MPD related mutations. Based on the clinical picture, it would be reasonable to treat him for the same. - I recommended starting him on Hydrea. Possible side effects were discussed. He is agreeable to proceed. This would be a reasonable option for his other cell lines also, which are elevated, though to a lesser extent than the platelets. He was started 500 mg per day, with further dose adjustment depending on response. - Patient's continuing on aspirin, and has resumed Plavix. Patient has been admitted after a fall. Primary team felt he was weak from hydrea and therefore held, when observing picture on admission, creatinine increased, no cytopenias resulting from hydrea, chest xray possible typical pneumonia, appears dehydration and possible infection are likely more of the underlying differential then medication. During evaluation he is chilled, flushed and appears to be responding to infection. Blood cultures urine pending, IV hydration and IV abx started. at bedside Review of Systems All systems: negative Constitutional: Reports as per HPI Past Medical History Past Medical History: Diabetes Mellitus, GERD/Reflux, Hyperlipidemia, Hypertension, Myocardial Infarction ([place]), Prostate Disorder, Renal Disease, Seizure Disorder, Sleep Apnea/CPAP/BIPAP Additional Past Medical History / Comment(s): last seizure 6 monhts ago, no CPAP, neuropathy feet, decreased kidney function-, right great toe wound, "disk issues" Last Myocardial Infarction Date:: 2013 History of Any Multi-Drug Resistant Organisms: None Reported Past Surgical History: Cholecystectomy, Heart Catheterization, Heart Catheterization With Stent, Orthopedic Surgery Additional Past Surgical History / Comment(s): bilateral knee replacement, left ankle ORIF, 5 cardiac stents, carlos cataracts, right foot toe amputation. COVID - 08/11 Past Anesthesia/Blood Transfusion Reactions: No Reported Reaction Date of Last Stent Placement:: 2013 Past Psychological History: No Psychological Hx Reported Smoking Status: Former smoker Past Alcohol Use History: Occasional Past Drug Use History: None Reported - Past Family History Mother Family Medical History: COPD Medications and Allergies Home Medications Medication Instructions Recorded Confirmed Type Aspirin EC [Ecotrin Low Dose] 81 mg PO HS 04/09/14 11/22/21 History Tamsulosin HCl [Flomax] 0.4 mg PO DAILY 04/09/14 11/22/21 History Multivit-Min/FA/Lycopen/Lutein 1 tab PO DAILY 04/30/18 11/22/21 History [Centrum Silver Tablet] levETIRAcetam [Keppra] 1,500 mg PO BID 04/30/18 11/22/21 History Atorvastatin [Lipitor] 80 mg PO HS 01/27/19 11/22/21 History Losartan Potassium [Cozaar] 12.5 mg PO HS 01/27/19 11/22/21 History Metoprolol Tartrate [Lopressor] 12.5 mg PO HS 01/11/21 11/22/21 History OXcarbazepine [Trileptal] 150 mg PO BID 01/11/21 11/22/21 History Insulin Aspart [NovoLOG Flexpen] 14 units SQ TID-W/MEALS 04/14/21 11/22/21 History Insulin Detemir [Levemir Flextouch 14 units SQ HS 04/14/21 11/22/21 History Pen] Cholecalciferol [Vitamin D3 (25 50 mcg PO DAILY #30 tab 08/16/21 11/22/21 Rx Mcg = 1000 Iu)] Furosemide [Lasix] 10 mg PO DAILY 09/05/21 11/22/21 History Clopidogrel [Plavix] 75 mg PO DAILY 11/22/21 11/22/21 History Hydroxyurea [Hydrea] 500 mg PO HS 11/22/21 11/22/21 History Allergies Allergy/AdvReac Type Severity Reaction Status Date / Time No Known Allergies Allergy Verified 11/22/21 08:10 Physical Exam Vitals: Vital Signs Temp Pulse Resp BP Pulse Ox 11/22/21 12:26 89 18 105/50 98 11/22/21 10:28 110 H 20 96 11/22/21 08:52 126 H 28 H 94 L 11/22/21 08:42 130 H 26 H 146/72 92 L 11/22/21 07:39 99.4 F 107 H 20 133/74 94 L 11/22/21 06:42 87 18 123/76 97 11/22/21 06:27 99 F 11/22/21 00:32 97.6 F 81 18 121/64 98 Intake and Output 11/21/21 11/22/21 11/22/21 22:59 06:59 14:59 Other: Weight 105.233 kg - Constitutional General appearance: cooperative, mild distress - EENT Eyes: EOMI ENT: NA/AT - Neck Neck: normal ROM - Respiratory Respiratory: bilateral: diminished - Cardiovascular Rhythm: regularly irregular - Gastrointestinal General gastrointestinal: soft - Integumentary Integumentary: pale - Musculoskeletal Musculoskeletal: generalized weakness - Psychiatric eccymosis evidence of recent traumatic fall Psychiatric: A&O x's 3 Results CBC & Chem 7: 11/22/21 00:40 11/22/21 00:40 Labs: Abnormal Lab Results - Last 24 Hours (Table) 11/22/21 11/22/21 11/22/21 Range/Units 00:40 00:40 00:40 WBC 19.5 H (3.8-10.6) k/uL RBC 5.91 H (4.30-5.90) m/uL RDW 19.8 H (11.5-15.5) % Plt Count 779 H (150-450) k/uL Neutrophils # (Manual) 17.10 H (1.3-7.7) k/uL Sodium 135 L (137-145) mmol/L Carbon Dioxide 21 L (22-30) mmol/L BUN 36 H (9-20) mg/dL Creatinine 2.13 H (0.66-1.25) mg/dL Glucose 173 H (74-99) mg/dL Plasma Lactic Acid Miguel A 2.1 H* (0.7-2.0) mmol/L Alkaline Phosphatase 179 H (38-126) U/L Total Protein 5.6 L (6.3-8.2) g/dL Albumin 3.2 L (3.5-5.0) g/dL Urine Protein (Negative) Urine Ketones (Negative) Urine Blood (Negative) Urine Bacteria (None) /hpf Urine Mucus (None) /hpf 11/22/21 Range/Units 04:31 WBC (3.8-10.6) k/uL RBC (4.30-5.90) m/uL RDW (11.5-15.5) % Plt Count (150-450) k/uL Neutrophils # (Manual) (1.3-7.7) k/uL Sodium (137-145) mmol/L Carbon Dioxide (22-30) mmol/L BUN (9-20) mg/dL Creatinine (0.66-1.25) mg/dL Glucose (74-99) mg/dL Plasma Lactic Acid Miguel A (0.7-2.0) mmol/L Alkaline Phosphatase (38-126) U/L Total Protein (6.3-8.2) g/dL Albumin (3.5-5.0) g/dL Urine Protein 1+ H (Negative) Urine Ketones Trace H (Negative) Urine Blood Small H (Negative) Urine Bacteria Rare H (None) /hpf Urine Mucus Rare H (None) /hpf Chest x-ray: report reviewed Assessment and Plan (1) Myeloproliferative disorder Narrative/Plan: HOld hydrea for concern of infection Arcos cultures pending Current Visit: Yes Status: Acute Code(s): D47.1 - CHRONIC MYELOPROLIFERATIVE DISEASE SNOMED Code(s): 300721640 (2) Frequent falls Narrative/Plan: Patient has been admitted after a fall. Primary team felt he was weak from hydrea and therefore held, when observing picture on admission, creatinine increased, no cytopenias resulting from hydrea, chest xray possible typical pneumonia, appears dehydration and possible infection are likely more of the underlying differential then medication. Current Visit: Yes Status: Acute Code(s): R29.6 - REPEATED FALLS SNOMED Code(s): 761949261 (3) Pneumonia Current Visit: Yes Status: Acute Code(s): J18.9 - PNEUMONIA, UNSPECIFIED ORGANISM SNOMED Code(s): 786410477 (4) Weakness Current Visit: Yes Status: Acute Code(s): R53.1 - WEAKNESS SNOMED Code(s): 09513337 (5) CKD (chronic kidney disease), stage III Current Visit: No Status: Acute Priority: High Code(s): N18.3 - CHRONIC KIDNEY DISEASE, STAGE 3 (MODERATE) * DO NOT USE * SNOMED Code(s): 301628617 (6) Thrombocytosis Narrative/Plan: Improving since started Hydrea Current Visit: No Status: Acute Priority: High Code(s): D75.839 - THROMBOCYTOSIS, UNSPECIFIED SNOMED Code(s): 5371492 (7) Subjective fever Narrative/Plan: Patient is shaking and chilled he has not spiked a fever yet but assuming he will as he appears infection Current Visit: Yes Status: Acute Code(s): R50.9 - FEVER, UNSPECIFIED SNOMED Code(s): 017086581 Plan: Dr. Diaz: I have completed the full history an dphysical and adeveloped the above impresion and plan, agree with dictation, dictated as a ascribe
[2021-11-22] MEDS: INSULIN DETEMIR (LEVEMIR) 100 UNIT/ML SYR SQ SCH (23:41)
[2021-11-22] MEDS: ATORVASTATIN 80 MG TAB PO SCH (23:41)
[2021-11-22] MEDS: METOPROLOL TARTRATE 12.5 MG TAB PO SCH (23:41)
[2021-11-22] MEDS: ASPIRIN 81 MG PO SCH (23:41)
[2021-11-22] MEDS: OXcarbazepine 150 MG TAB PO SCH (23:42)
[2021-11-23 06:25] LABS: Glucose,Whole Blood 153 mg/dL (70-110)
[2021-11-23] MEDS: INSULIN ASPART (NovoLOG) 100 UNIT/ML VIAL SQ SCH ×3 (07:03→17:17)
[2021-11-23] MEDS: TAMSULOSIN 0.4 MG CAP.ER.24H PO SCH (09:09)
[2021-11-23] MEDS: OXcarbazepine 150 MG TAB PO SCH ×2 (09:10→21:25)
[2021-11-23] MEDS: levETIRAcetam 500 MG TAB PO SCH ×2 (09:10→21:24)
[2021-11-23] MEDS: CLOPIDOGREL 75 MG TAB PO SCH (09:10)
[2021-11-23] MEDS: CHOLECALCIFEROL 25 MCG (1000 IU) TABLET PO SCH (09:10)
[2021-11-23] MEDS: MULTIVITAMINS, THERA 1 EACH TAB PO SCH (09:10)
[2021-11-23] MEDS: SODIUM CHLORIDE 0.9% 1,000 ML IV SCH (09:11)
[2021-11-23] MEDS: HEPARIN SODIUM,PORCINE/PF 5,000 UNIT/0.5 ML SYRINGE SQ SCH ×3 (09:11→22:35)
[2021-11-23 10:10] LABS: Anisocytosis Slight; Basophils # (A) 0.5 k/uL (0-0.2); Basophils % (A) 3 %; Calcium 7.8 mg/dL (8.4-10.2); Eosinophils # (A) 0.3 k/uL (0-0.7); Eosinophils % (A) 2 %; HCT 44.3 % (39.0-53.0); HGB 14.6 gm/dL (13.0-17.5); Lymphocytes # (A) 0.8 k/uL (1.0-4.8); Lymphocytes % (A) 5 %; MCH 26.3 pg (25.0-35.0); MCHC 32.8 g/dL (31.0-37.0); Mean Platelet Volume 8.6; Microcytosis Slight; Monocytes # (A) 1.7 k/uL (0-1.0); Monocytes % (A) 9 %; Neutrophils # (A) 13.5 k/uL (1.3-7.7); Neutrophils % (A) 77 %; Platelet Count 767 k/uL (150-450); Potassium 3.9 mmol/L (3.5-5.1); RBC 5.54 m/uL (4.30-5.90); RDW 19.9 % (11.5-15.5); WBC 17.6 k/uL (3.8-10.6)
[2021-11-23 12:22] LABS: Glucose,Whole Blood 110 mg/dL (70-110)
[2021-11-23] MEDS ORDERED: VANCOMYCIN IV PER PHARMACY 1 EACH MISC MISCELLANE PRN (12:56)
[2021-11-23] MEDS: AZITHROMYCIN 500 MG in SODIUM CHLORIDE 0.9% 250 ML IVPB SCH (13:15)
--- NOTE | 2021-11-23 14:26 | P.PN ---
Subjective Progress Note Date: 11/23/21 Principal diagnosis: dyspnea Hospital course: 76-year-old male with past medical history of essential thrombocytosis, systolic heart failure, hypertension, hyperlipidemia, coronary artery disease status post multiple stents, seizure disorder, type 2 diabetes presented initially for generalized weakness. While in the ED, patient was acutely hypoxic requiring oxygen, had fever, cough and dyspnea. His sepsis was likely secondary to community-acquired pneumonia given his clinical picture. However, patient's blood cultures did come back positive for GPC clusters. He was started on appropriate antibiotics, and awaiting echocardiogram. 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 Subjective: Patient seen and examined at bedside. He claims that he's feeling a lot better compared to yesterday. He denies any ongoing chest pain, shortness of breath, cough. He denies any abdominal pain, constipation, diarrhea, or urinary complaints. Pertinent positives and negatives as discussed above, a complete review of systems was performed and all other systems are negative. Vital signs reviewed. General: nontoxic, no distress, appears at stated age Derm: warm, dry Head: atraumatic, normocephalic, symmetric Eyes: EOMI, no lid lag, anicteric sclera Mouth: no lip lesion, mucus membranes moist Cardiovascular: S1S2 reg, no murmur Lungs: Minimal rales at the bases bilaterally, no accessory muscle use Abdominal: soft, nontender to palpation, no guarding, no appreciable organomegaly Ext: no gross muscle atrophy, trace peripheral edema, no contractures Neuro: CN II-XI grossly intact, no focal neuro deficits Psych: Alert, oriented, appropriate affect Assessment and plan: Sepsis Acute hypoxic respiratory failure Gram-positive bacteremia Community-acquired pneumonia Generalized weakness - Likely source of infection is his lungs -On ceftriaxone, azithromycin, vancomycin -Echo pending -Repeat blood cultures, total negative -Awaiting speciation non-oliguric ELEONORA - likely pre-renal - improved cr with fluids Type 2 diabetes -On home long-acting insulin, and half of short-acting insulin -Supplement with Sliding scale Hypertension -Holding home losartan and Lasix given acute infection Essential thrombocytosis -Holding hydroxyurea given acute infection -Hematology consulted, agreed with holding for now F: PO E: replete PRN N: Regular A: as tolerated DVT ppx: heparin SQ Full code Dispo: if Echo normal, and clear blood cultures, will likely be discharged home on oral abx. Objective - Vital Signs Vital signs: Vital Signs Temp 98.7 F 11/23/21 07:50 Pulse 85 11/23/21 07:50 Resp 16 11/23/21 07:50 BP 121/56 11/23/21 07:50 Pulse Ox 96 11/23/21 07:50 FiO2 Intake & Output 11/22/21 11/23/21 11/23/21 18:59 06:59 18:59 Intake Total 1065 Output Total 475 Balance 1065 -475 Weight 105.233 kg Intake: Intake, IV Titration 525 Amount Sodium Chloride 0.9% 1, 525 000 ml @ 75 mls/hr IV . [id number] [facility] Rx#:[id number] Oral 540 Output: Urine 475 Other: Voiding Method Toilet Toilet Urinal Urinal - Labs CBC & Chem 7: 11/23/21 09:34 11/23/21 09:34 Labs: Abnormal Lab Results - Last 24 Hours (Table) 11/22/21 11/22/21 11/22/21 Range/Units 16:23 18:01 19:53 WBC (3.8-10.6) k/uL RDW (11.5-15.5) % Plt Count (150-450) k/uL Neutrophils # (1.3-7.7) k/uL Lymphocytes # (1.0-4.8) k/uL Monocytes # (0-1.0) k/uL Basophils # (0-0.2) k/uL Sodium (137-145) mmol/L Carbon Dioxide (22-30) mmol/L BUN (9-20) mg/dL Creatinine (0.66-1.25) mg/dL Glucose (74-99) mg/dL POC Glucose (mg/dL) 252 H 243 H 116 H (70-110) mg/dL Calcium (8.4-10.2) mg/dL 11/23/21 11/23/21 11/23/21 Range/Units 06:23 09:34 09:34 WBC 17.6 H (3.8-10.6) k/uL RDW 19.9 H (11.5-15.5) % Plt Count 767 H (150-450) k/uL Neutrophils # 13.5 H (1.3-7.7) k/uL Lymphocytes # 0.8 L (1.0-4.8) k/uL Monocytes # 1.7 H (0-1.0) k/uL Basophils # 0.5 H (0-0.2) k/uL Sodium 134 L (137-145) mmol/L Carbon Dioxide 20 L (22-30) mmol/L BUN 33 H (9-20) mg/dL Creatinine 1.66 H (0.66-1.25) mg/dL Glucose 163 H (74-99) mg/dL POC Glucose (mg/dL) 153 H (70-110) mg/dL Calcium 7.8 L (8.4-10.2) mg/dL Microbiology - Last 24 Hours (Table) 11/22/21 04:20 Blood Culture - Final Blood 11/22/21 04:29 Blood Culture - Preliminary Blood No Growth after 24 hours
[2021-11-23] MEDS: VANCOMYCIN 1,750 MG in SODIUM CHLORIDE 0.9% 500 ML 500 ML IVPB SCH (15:54)
[2021-11-23 17:07] LABS: Glucose,Whole Blood 185 mg/dL (70-110)
[2021-11-23 21:15] LABS: Glucose,Whole Blood 118 mg/dL (70-110)
[2021-11-23] MEDS: METOPROLOL TARTRATE 12.5 MG TAB PO SCH (21:24)
[2021-11-23] MEDS: ATORVASTATIN 80 MG TAB PO SCH (21:24)
[2021-11-23] MEDS: INSULIN DETEMIR (LEVEMIR) 100 UNIT/ML SYR SQ SCH (21:25)
[2021-11-23] MEDS: ASPIRIN 81 MG PO SCH (21:25)
[2021-11-23] MEDS: HYDROcodone/APAP 5-325MG 1 EACH TAB PO PRN (22:34)
[2021-11-23 23:09] VITALS: RESP 16
[2021-11-24 06:49] LABS: Calcium 8.5 mg/dL (8.4-10.2); Potassium 4.6 mmol/L (3.5-5.1)
[2021-11-24 07:28] LABS: Anisocytosis Slight; HCT 47.5 % (39.0-53.0); Hypochromasia Slight; MCH 25.5 pg (25.0-35.0); MCHC 31.5 g/dL (31.0-37.0); MCV 80.9 fL (80.0-100.0); Mean Platelet Volume 9.1; Microcytosis Slight; Platelet Count 762 k/uL (150-450); RBC 5.87 m/uL (4.30-5.90); RDW 19.7 % (11.5-15.5); WBC 15.7 k/uL (3.8-10.6)
[2021-11-24 09:40] LABS: Glucose,Whole Blood 105 mg/dL (70-110)
[2021-11-24 10:00] LABS: Band Neutrophils % 1 %; Basophils # (M) 0.47 k/uL (0-0.2); Lymphocytes # (M) 0.31 k/uL (1.0-4.8); Monocytes # (M) 0.31 k/uL (0-1.0); Neutrophils % (M) 85 %; Nucleated Red Blood Cells 0 /100 WBC (0-0); Total Cells Counted 100
[2021-11-24] MEDS: INSULIN ASPART (NovoLOG) 100 UNIT/ML VIAL SQ SCH ×3 (10:21→17:02)
[2021-11-24] MEDS: HEPARIN SODIUM,PORCINE/PF 5,000 UNIT/0.5 ML SYRINGE SQ SCH ×3 (10:21→21:33)
[2021-11-24] MEDS: CLOPIDOGREL 75 MG TAB PO SCH (10:27)
[2021-11-24] MEDS: levETIRAcetam 500 MG TAB PO SCH ×2 (10:27→19:40)
[2021-11-24] MEDS: MULTIVITAMINS, THERA 1 EACH TAB PO SCH (10:27)
[2021-11-24] MEDS: TAMSULOSIN 0.4 MG CAP.ER.24H PO SCH (10:27)
[2021-11-24] MEDS: CHOLECALCIFEROL 25 MCG (1000 IU) TABLET PO SCH (10:27)
[2021-11-24] MEDS: OXcarbazepine 150 MG TAB PO SCH ×2 (10:28→19:40)
--- NOTE | 2021-11-24 12:07 | P.PN ---
Subjective Progress Note Date: 11/24/21 Principal diagnosis: dyspnea Hospital course: 76-year-old male with past medical history of essential thrombocytosis, systolic heart failure, hypertension, hyperlipidemia, coronary artery disease status post multiple stents, seizure disorder, type 2 diabetes presented initially for generalized weakness. While in the ED, patient was acutely hypoxic requiring oxygen, had fever, cough and dyspnea. His sepsis was likely secondary to community-acquired pneumonia given his clinical picture. However, patient's blood cultures did come back positive for GPC clusters. He was started on appropriate antibiotics, and awaiting echocardiogram. 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 Subjective: Patient seen and examined at bedside. He claims that he's feeling a lot better compared to yesterday. He denies any ongoing chest pain, shortness of breath, cough. He denies any abdominal pain, constipation, diarrhea, or urinary complaints. He is however complaining of significant hiccups. Pertinent positives and negatives as discussed above, a complete review of systems was performed and all other systems are negative. Vital signs reviewed. General: nontoxic, no distress, appears at stated age Derm: warm, dry Head: atraumatic, normocephalic, symmetric Eyes: EOMI, no lid lag, anicteric sclera Mouth: no lip lesion, mucus membranes moist Cardiovascular: S1S2 reg, no murmur Lungs: Minimal rales at the bases bilaterally, no accessory muscle use Abdominal: soft, nontender to palpation, no guarding, no appreciable orga nomegaly Ext: no gross muscle atrophy, 2+ pitting edema mid frank, no contractures Neuro: CN II-XI grossly intact, no focal neuro deficits Psych: Alert, oriented, appropriate affect Assessment and plan: Sepsis Acute hypoxic respiratory failure Gram-positive bacteremia Community-acquired pneumonia Generalized weakness - Likely source of infection is his lungs -On ceftriaxone, azithromycin, vancomycin -Echo pending -Repeat blood cultures -Awaiting speciation non-oliguric ELEONORA - likely pre-renal - improved cr with fluids Type 2 diabetes -On home long-acting insulin, and half of short-acting insulin -Supplement with Sliding scale Hypertension -Holding home losartan -Restart home Lasix Hiccups -likely related to diaphragmatic irritation from pneumonia Essential thrombocytosis -Holding hydroxyurea given acute infection -Hematology consulted, agreed with holding for now F: PO E: replete PRN N: Regular A: as tolerated DVT ppx: heparin SQ Full code Dispo: if Echo normal, and clear blood cultures, will likely be discharged home on abx. Objective - Vital Signs Vital signs: Vital Signs Temp 98.1 F 11/24/21 01:27 Pulse 83 11/24/21 01:27 Resp 16 11/24/21 01:27 BP 157/72 11/24/21 01:27 Pulse Ox 96 11/24/21 01:27 FiO2 Intake & Output 11/23/21 11/24/21 11/24/21 18:59 06:59 18:59 Intake Total 235 540 Output Total 975 Balance -740 540 Intake: Oral 235 540 Output: Urine 975 Other: Voiding Method Toilet Toilet Urinal Urinal # Voids 2 - Labs CBC & Chem 7: 11/24/21 06:01 11/24/21 06:01 Labs: Abnormal Lab Results - Last 24 Hours (Table) 11/23/21 11/23/21 11/24/21 Range/Units 16:35 21:12 06:01 WBC 15.7 H (3.8-10.6) k/uL RDW 19.7 H (11.5-15.5) % Plt Count 762 H (150-450) k/uL Neutrophils # (Manual) 13.50 H (1.3-7.7) k/uL Lymphocytes # (Manual) 0.31 L (1.0-4.8) k/uL Eosinophils # (Manual) 1.10 H (0-0.7) k/uL Basophils # (Manual) 0.47 H (0-0.2) k/uL Sodium (137-145) mmol/L BUN (9-20) mg/dL Creatinine (0.66-1.25) mg/dL POC Glucose (mg/dL) 185 H 118 H (70-110) mg/dL 11/24/21 Range/Units 06:01 WBC (3.8-10.6) k/uL RDW (11.5-15.5) % Plt Count (150-450) k/uL Neutrophils # (Manual) (1.3-7.7) k/uL Lymphocytes # (Manual) (1.0-4.8) k/uL Eosinophils # (Manual) (0-0.7) k/uL Basophils # (Manual) (0-0.2) k/uL Sodium 135 L (137-145) mmol/L BUN 31 H (9-20) mg/dL Creatinine 1.64 H (0.66-1.25) mg/dL POC Glucose (mg/dL) (70-110) mg/dL Microbiology - Last 24 Hours (Table) 11/22/21 04:20 Blood Culture Gram Stain - Preliminary Blood Blood Culture - Preliminary Staphylococcus epidermidis 11/22/21 04:29 Blood Culture - Preliminary Blood No Growth after 48 hours 11/22/21 04:20 Blood Culture - Final Blood
[2021-11-24 12:18] LABS: Glucose,Whole Blood 130 mg/dL (70-110)
[2021-11-24] MEDS: FUROSEMIDE 10 MG TAB PO SCH (12:47)
[2021-11-24] MEDS: AZITHROMYCIN 500 MG in SODIUM CHLORIDE 0.9% 250 ML IVPB SCH (12:48)
[2021-11-24 17:02] LABS: Glucose,Whole Blood 119 mg/dL (70-110)
[2021-11-24] MEDS: VANCOMYCIN 1,750 MG in SODIUM CHLORIDE 0.9% 500 ML 500 ML IVPB SCH (17:02)
[2021-11-24] MEDS: METOPROLOL TARTRATE 12.5 MG TAB PO SCH (19:39)
[2021-11-24] MEDS: ASPIRIN 81 MG PO SCH (19:40)
[2021-11-24] MEDS: ATORVASTATIN 80 MG TAB PO SCH (19:40)
[2021-11-24 20:29] LABS: Glucose,Whole Blood 134 mg/dL (70-110)
[2021-11-24] MEDS: INSULIN DETEMIR (LEVEMIR) 100 UNIT/ML SYR SQ SCH (21:32)
[2021-11-25 06:15] LABS: Glucose,Whole Blood 85 mg/dL (70-110)
[2021-11-25] MEDS: INSULIN ASPART (NovoLOG) 100 UNIT/ML VIAL SQ SCH ×2 (06:52→12:47)
--- NOTE | 2021-11-25 09:08 | P.DS ---
Providers Date of admission: 11/22/21 13:08 Expected date of discharge: 11/25/21 Attending physician: Billy Crook MD Consults: 11/22/21 05:05 Consult Physician Urgent Consulting Provider: Paramjit Andino Consult Reason/Comments: Weakness, started on hydroxyurea one month ago Do you want consulting provider notified?: Yes, Notify in am Primary care physician: Soy Liu MD Hospital Course: Discharge Diagnosis: Acute hypoxic respiratory failure Sepsis secondary to Community-acquired pneumonia Nonoliguric acute kidney injury Type 2 diabetes, insulin-dependent Hypertension Persistent hiccups Essential thrombocytosis Hospital Course: 76-year-old male with past medical history of systolic heart failure, hypertension, hyperlipidemia, type 2 diabetes, essential thrombocytosis presented with generalized weakness. He was found to be in acute hypoxic respiratory failure, sepsis likely secondary to community-acquired pneumonia. 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 His 1/2 bottles from initial blood culture came back positive for staph epidermidis, likely contaminant. Repeat blood cultures showed no growth to date. At the time of discharge, patient is on room air and denies any acute complaints. He will be discharged on oral antibiotics. He will have a close follow-up with PCP within 1 week. Patient seen and examined at bedside. Vital signs reviewed and stable. General: nontoxic, no distress, appears at stated age Derm: warm, dry Head: atraumatic, normocephalic, symmetric Eyes: EOMI, no lid lag, anicteric sclera Mouth: no lip lesion, mucus membranes moist Cardiovascular: S1S2 reg, no murmur Lungs: CTA bilateral, no rhonchi, no rales , no accessory muscle use Abdominal: soft, nontender to palpation, no guarding, no appreciable org anomegaly Ext: no gross muscle atrophy, trace peripheral edema, no contractures Neuro: CN II-XI grossly intact, no focal neuro deficits Psych: Alert, oriented, appropriate affect A total of 38 minutes of time were spent preparing this complex discharge summary. Patient was discharged on 11/25/21 at 08:59. Plan - Discharge Summary New Discharge Prescriptions: New Cefdinir 300 mg PO Q12HR #4 cap Continue Tamsulosin HCl [Flomax] 0.4 mg PO DAILY Aspirin EC [Ecotrin Low Dose] 81 mg PO HS levETIRAcetam [Keppra] 1,500 mg PO BID Multivit-Min/FA/Lycopen/Lutein [Centrum Silver Tablet] 1 tab PO DAILY Atorvastatin [Lipitor] 80 mg PO HS Losartan Potassium [Cozaar] 12.5 mg PO HS OXcarbazepine [Trileptal] 150 mg PO BID Metoprolol Tartrate [Lopressor] 12.5 mg PO HS Insulin Detemir [Levemir Flextouch Pen] 14 units SQ HS Clopidogrel [Plavix] 75 mg PO DAILY Hydroxyurea [Hydrea] 500 mg PO HS Insulin Aspart [NovoLOG Flexpen] 14 units SQ TID-W/MEALS Cholecalciferol [Vitamin D3 (25 Mcg = 1000 Iu)] 50 mcg PO DAILY #30 tab Furosemide [Lasix] 10 mg PO DAILY Discharge Medication List Aspirin EC [Ecotrin Low Dose] 81 mg PO HS 04/09/14 [History] Tamsulosin HCl [Flomax] 0.4 mg PO DAILY 04/09/14 [History] Multivit-Min/FA/Lycopen/Lutein [Centrum Silver Tablet] 1 tab PO DAILY 04/30/18 [History] levETIRAcetam [Keppra] 1,500 mg PO BID 04/30/18 [History] Atorvastatin [Lipitor] 80 mg PO HS 01/27/19 [History] Losartan Potassium [Cozaar] 12.5 mg PO HS 01/27/19 [History] Metoprolol Tartrate [Lopressor] 12.5 mg PO HS 01/11/21 [History] OXcarbazepine [Trileptal] 150 mg PO BID 01/11/21 [History] Insulin Aspart [NovoLOG Flexpen] 14 units SQ TID-W/MEALS 04/14/21 [History] Insulin Detemir [Levemir Flextouch Pen] 14 units SQ HS 04/14/21 [History] Cholecalciferol [Vitamin D3 (25 Mcg = 1000 Iu)] 50 mcg PO DAILY #30 tab 08/16/21 [Rx] Furosemide [Lasix] 10 mg PO DAILY 09/05/21 [History] Clopidogrel [Plavix] 75 mg PO DAILY 11/22/21 [History] Hydroxyurea [Hydrea] 500 mg PO HS 11/22/21 [History] Cefdinir 300 mg PO Q12HR #4 cap 11/25/21 [Rx] Follow up Appointment(s)/Referral(s): Soy Liu MD [Primary Care Provider] - 1-2 days Patient Instructions/Handouts: Community Acquired Pneumonia (GEN) Activity/Diet/Wound Care/Special Instructions: If worsening shortness of Breath, please seek immediate medical attention. Discharge Disposition: HOME SELF-CARE
[2021-11-25] MEDS: HEPARIN SODIUM,PORCINE/PF 5,000 UNIT/0.5 ML SYRINGE SQ SCH (09:24)
[2021-11-25] MEDS: CLOPIDOGREL 75 MG TAB PO SCH (09:25)
[2021-11-25] MEDS: TAMSULOSIN 0.4 MG CAP.ER.24H PO SCH (09:25)
[2021-11-25] MEDS: CHOLECALCIFEROL 25 MCG (1000 IU) TABLET PO SCH (09:25)
[2021-11-25] MEDS: MULTIVITAMINS, THERA 1 EACH TAB PO SCH (09:25)
[2021-11-25] MEDS: OXcarbazepine 150 MG TAB PO SCH (09:25)
[2021-11-25] MEDS: levETIRAcetam 500 MG TAB PO SCH (09:25)
[2021-11-25] MEDS: FUROSEMIDE 10 MG TAB PO SCH (09:25)
[2021-11-25 11:21] VITALS: BP 132/68; PULSE 85; TEMP 97.3
[2021-11-25 11:43] LABS: Glucose,Whole Blood 191 mg/dL (70-110)
--- NOTE | 2021-11-26 09:43 | CA ---
Transthoracic Echo Report Name: Jakob Jang Age: 76 Gender: M : 1945 Exam Date: 11/23/2021 13:46 Exam Location: [place] [facility] Ht (in): 68 Wt (lb): 232 Ordering Physician: Donn Hinton MD Attending/Referring Phys: Onshore Diver Sera Greenfield RDCS Procedure CPT: Indications: Gram positive bacteremia Cardiac Hx: Technical Quality: Technically difficult study Contrast 1: Lumason Total Dose (mL): 3 Contrast 2: Total Dose (mL): MEASUREMENTS (Male / Female) Normal Values 2D ECHO LV Diastolic Diameter PLAX 4.9 cm 4.2 - 5.9 / 3.9 - 5.3 cm LV Systolic Diameter PLAX 4.4 cm IVS Diastolic Thickness 1.4 cm 0.6 - 1.0 / 0.6 - 0.9 cm LVPW Diastolic Thickness 1.5 cm 0.6 - 1.0 / 0.6 - 0.9 cm LV Relative Wall Thickness 0.6 RV Internal Dim ED PLAX 2.3 cm LA Systolic Diameter LX 3.3 cm 3.0 - 4.0 / 2.7 - 3.8 cm M-MODE Aortic Root Diameter MM 3.3 cm LA Systolic Diameter MM 3.6 cm LA Ao Ratio MM 1.1 MV E Point Septal Separation 1.1 cm AV Cusp Separation MM 2.2 cm FINDINGS Left Ventricle Left ventricular ejection fraction is estimated at 35-40%. Reduced global left ventricular systolic function. Right Ventricle Normal right ventricular size and function. Right ventricular systolic pressure within normal limits. Right Atrium Normal right atrial size. Left Atrium Normal left atrial size. Mitral Valve Structurally normal mitral valve. Mild mitral regurgitation. Aortic Valve Trileaflet aortic valve. Aortic valve sclerosis. Tricuspid Valve Structurally normal tricuspid valve. Mild tricuspid regurgitation. Pulmonic Valve Structurally normal pulmonic valve. Pericardium Normal pericardium. Aorta Normal size aortic root and proximal ascending aorta. CONCLUSIONS Technically difficult study Sebastián LV systolic function is impaired globally ejection fraction is about 40%. Echo contrast was used. Doppler exam is suboptimal but grossly normal no pericardial effusion Previewed by: Dr. Bhaskar Naqvi MD (Electronically Signed) Final Date: 26 November 2021 09:42
== END 2021-11-25 12:55 | disposition home or self-care (01) | DRG 871 ==
LOC: EC 00:30 → 5NMEDONC 05:05 → OBSVTOIN 13:08 → 5NMEDONC 15:53 → 3SCARD 18:48
PROVIDERS: ADMIT Internal Medicine; ATTEND Internal Medicine
DX: A41.89 Other specified sepsis (principal); J15.6 Pneumonia due to other Gram-negative bacteria; J96.01 Acute respiratory failure with hypoxia; C94.6 Myelodysplastic disease, not elsewhere classified; I13.0 Hypertensive heart and chronic kidney disease with heart failure and stage 1 through stage 4 chronic kidney disease, or unspecified chronic kidney disease; I50.22 Chronic systolic (congestive) heart failure; N17.9 Acute kidney failure, unspecified; E11.22 Type 2 diabetes mellitus with diabetic chronic kidney disease; N18.30 Chronic kidney disease, stage 3 unspecified; Z20.822 Contact with and (suspected) exposure to COVID-19; W07.XXXA Fall from chair, initial encounter; G40.909 Epilepsy, unspecified, not intractable, without status epilepticus; I25.10 Atherosclerotic heart disease of native coronary artery without angina pectoris; D47.3 Essential (hemorrhagic) thrombocythemia; E78.5 Hyperlipidemia, unspecified; G89.29 Other chronic pain; R29.6 Repeated falls; Z96.653 Presence of artificial knee joint, bilateral; I25.2 Old myocardial infarction; Z79.02 Long term (current) use of antithrombotics/antiplatelets; Z79.4 Long term (current) use of insulin; Z79.899 Other long term (current) drug therapy; Z86.16 Personal history of COVID-19; Z87.891 Personal history of nicotine dependence; Z95.5 Presence of coronary angioplasty implant and graft; Z89.431 Acquired absence of right foot
CPT/HCPCS: 36415; 71045; 72100; 73502; 80048; 80053; 81001; 83605; 83735; 85025; 87040; 87449; 87502; 87635; 93005; 93306; 96361; 96365; 96366; 96367; 96372; 99285

== ENCOUNTER 2021-11-29 01:26 | Emergency (ER) | payer MEDICARE ==
[2021-11-29] MEDS ORDERED: SODIUM CHLORIDE 0.9% 1,000 ML IV STA (01:31)
--- NOTE | 2021-11-29 01:32 | ED ---
Weakness HPI - General Stated complaint: UTI Time Seen by Provider: 11/29/21 01:31 Source: RN notes reviewed, old records reviewed, Caregiver Mode of arrival: EMS Limitations: no limitations - History of Present Illness Initial comments: This is a 76-year-old male is significantly angry that he is here in the emergency department tonight. Patient's coming in for evaluation of frequent urinations. Patient had EMS called by his to evaluate this patient regarding history of frequent urination, patient does have recent hospitalization within the last few days. Patient states he does not know eyes here he feels fine and wants to be discharged MD Complaint: generalized weakness (Increased urination) -: days(s) Location: generalized Severity: mild Severity scale (1-10): 2 Consistency: constant Improves with: none Worsens with: none Context: recent illness, history of similar Associated Symptoms: denies other symptoms - Related Data Home Medications Medication Instructions Recorded Confirmed Aspirin EC [Ecotrin Low Dose] 81 mg PO HS 04/09/14 11/22/21 Tamsulosin HCl [Flomax] 0.4 mg PO DAILY 04/09/14 11/22/21 Multivit-Min/FA/Lycopen/Lutein 1 tab PO DAILY 04/30/18 11/22/21 [Centrum Silver Tablet] levETIRAcetam [Keppra] 1,500 mg PO BID 04/30/18 11/22/21 Atorvastatin [Lipitor] 80 mg PO HS 01/27/19 11/22/21 Losartan Potassium [Cozaar] 12.5 mg PO HS 01/27/19 11/22/21 Metoprolol Tartrate [Lopressor] 12.5 mg PO HS 01/11/21 11/22/21 OXcarbazepine [Trileptal] 150 mg PO BID 01/11/21 11/22/21 Insulin Aspart [NovoLOG Flexpen] 14 units SQ TID-W/MEALS 04/14/21 11/22/21 Insulin Detemir [Levemir Flextouch 14 units SQ HS 04/14/21 11/22/21 Pen] Furosemide [Lasix] 10 mg PO DAILY 09/05/21 11/22/21 Clopidogrel [Plavix] 75 mg PO DAILY 11/22/21 11/22/21 Hydroxyurea [Hydrea] 500 mg PO HS 11/22/21 11/22/21 Previous Rx's Medication Instructions Recorded Cholecalciferol [Vitamin D3 (25 50 mcg PO DAILY #30 tab 08/16/21 Mcg = 1000 Iu)] Cefdinir 300 mg PO Q12HR #4 cap 11/25/21 Allergies Allergy/AdvReac Type Severity Reaction Status Date / Time No Known Allergies Allergy Verified 11/22/21 08:10 Review of Systems ROS Statement: Those systems with pertinent positive or pertinent negative responses have been documented in the HPI. ROS Other: All systems not noted in ROS Statement are negative. Past Medical History Past Medical History: Diabetes Mellitus, GERD/Reflux, Hyperlipidemia, Hypertension, Myocardial Infarction (NM), Prostate Disorder, Renal Disease, Seizure Disorder, Sleep Apnea/CPAP/BIPAP Additional Past Medical History / Comment(s): last seizure 6 monhts ago, no CPAP, neuropathy feet, decreased kidney function-, right great toe wound, "disk issues" Last Myocardial Infarction Date:: 2013 History of Any Multi-Drug Resistant Organisms: None Reported Past Surgical History: Cholecystectomy, Heart Catheterization, Heart Catheterization With Stent, Orthopedic Surgery Additional Past Surgical History / Comment(s): bilateral knee replacement, left ankle ORIF, 5 cardiac stents, carlos cataracts, right foot toe amputation. COVID - 08/11 Past Anesthesia/Blood Transfusion Reactions: No Reported Reaction Date of Last Stent Placement:: 2013 Past Psychological History: No Psychological Hx Reported Smoking Status: Former smoker Past Alcohol Use History: Occasional Additional Past Alcohol Use History / Comment(s): smoked on/off cigars, 2-3 daily Past Drug Use History: None Reported - Past Family History Mother Family Medical History: COPD General Exam General appearance: alert, in no apparent distress Head exam: Present: atraumatic, normocephalic, normal inspection Eye exam: Present: normal appearance, PERRL, EOMI. Absent: scleral icterus, conjunctival injection, periorbital swelling ENT exam: Present: normal exam, mucous membranes moist Neck exam: Present: normal inspection. Absent: tenderness, meningismus, lymphadenopathy Respiratory exam: Present: normal lung sounds bilaterally. Absent: respiratory distress, wheezes, rales, rhonchi, stridor Cardiovascular Exam: Present: normal rhythm, tachycardia, normal heart sounds. Absent: systolic murmur, diastolic murmur, rubs, gallop, clicks GI/Abdominal exam: Present: soft, normal bowel sounds. Absent: distended, tenderness, guarding, rebound, rigid Extremities exam: Present: normal inspection, full ROM, normal capillary refill. Absent: tenderness, pedal edema, joint swelling, calf tenderness Back exam: Present: normal inspection Neurological exam: Present: alert, oriented X3, CN II-XII intact Psychiatric exam: Present: normal affect, normal mood Skin exam: Present: warm, dry, intact, normal color. Absent: rash Course Vital Signs 11/29/21 01:33 Temperature 99.7 F H Pulse Rate 111 H Respiratory 18 Rate Blood Pressure 148/68 O2 Sat by Pulse 94 L Oximetry - Reevaluation(s) Reevaluation #1: 11/29/21 02:14 Medical records reviewed Reevaluation #2: 11/29/21 04:27 Patient informed results questions answered Medical Decision Making - Medical Decision Making 76 male to the ER for evaluation patient will be discharged home - Lab Data Lab Results 11/29/21 Range/Units 02:34 Urine Color Yellow Urine Appearance Clear (Clear) Urine pH 5.5 (5.0-8.0) Ur Specific [place] 1.014 (1.001-1.035) Urine Protein 1+ H (Negative) Urine Glucose (UA) Negative (Negative) Urine Ketones Negative (Negative) Urine Blood Negative (Negative) Urine Nitrite Negative (Negative) Urine Bilirubin Negative (Negative) Urine Urobilinogen <2.0 (<2.0) mg/dL Ur Leukocyte Esterase Small H (Negative) Urine RBC 1 (0-5) /hpf Urine WBC 3 (0-5) /hpf Ur Squamous Epith Cells <1 (0-4) /hpf Urine Bacteria Rare H (None) /hpf Urine Mucus Rare H (None) /hpf Disposition Clinical Impression: Weakness Disposition: HOME SELF-CARE Condition: Good Instructions (If sedation given, give patient instructions): Weakness (ED) Is patient prescribed a controlled substance at d/c from ED?: No Referrals: Soy Liu MD [Primary Care Provider] - 1-2 days Time of Disposition: 04:30
[2021-11-29] MEDS ORDERED: diphenhydrAMINE 25 MG CAP PO STA (01:54)
[2021-11-29] MEDS ORDERED: HYDROmorphone 1 MG/ML 1 ML SYRINGE IM STA (01:54)
[2021-11-29 03:09] LABS: Appearance,Urine Clear (Clear); Bacteria,Urine Rare /hpf; Bilirubin,Urine Negative (Negative); Blood,Urine Negative (Negative); Color,Urine Yellow; Glucose,Urine (UA) Negative (Negative); Ketones,Urine Negative (Negative); Leukocyte Esterase,Urine Small (Negative); Mucus,Urine Rare /hpf; Nitrite,Urine Negative (Negative); PH, Urine 5.5 (5.0-8.0); Protein,Urine 1+ (Negative); RBC,Urine 1 /hpf (0-5); Specific Gravity,Urine 1.014 (1.001-1.035); Squamous Epithelial Cell,Urine <1 /hpf (0-4); Urobilinogen,Urine <2.0 mg/dL (<2.0); WBC,Urine 3 /hpf (0-5)
[2021-11-29 05:17] VITALS: BP 100/83; PULSE 100; RESP 24; TEMP 99.3
== END 2021-11-29 05:40 | disposition home or self-care (01) ==
LOC: EC 01:26
DX: R53.1 Weakness (principal); E11.9 Type 2 diabetes mellitus without complications; I10 Essential (primary) hypertension; I25.2 Old myocardial infarction; K21.9 Gastro-esophageal reflux disease without esophagitis; E78.5 Hyperlipidemia, unspecified; Z86.69 Personal history of other diseases of the nervous system and sense organs; Z87.891 Personal history of nicotine dependence; Z79.4 Long term (current) use of insulin; Z79.899 Other long term (current) drug therapy; Z79.82 Long term (current) use of aspirin
CPT/HCPCS: 96372; 99285 ×2; 81001; J1170